=== PATIENT | female | born 1945 | race Caucasian/White ===

== ENCOUNTER → 2016-10-24 | Outpatient (CLI) | payer MEDICARE ==
--- NOTE | 2016-10-25 09:40 | MM ---
Reason for exam: screening (asymptomatic). Last mammogram was performed 1 year ago. History: Patient is postmenopausal. Benign core biopsy of the right breast, 2004. Benign excisional biopsy of the right breast, 2004. Took estrogen for 5 years. Physical Findings: A clinical breast exam by your physician is recommended on an annual basis and results should be correlated with mammographic findings. MG 3D Screening Mammo W/Cad Bilateral CC and MLO view(s) were taken. Prior study comparison: October 10, 2015, bilateral MG 3d screening mammo w/cad. March 03, 2015, left breast MG diagnostic mammo LT w CAD. There are scattered fibroglandular densities. There is no discrete abnormality. No significant changes when compared with prior studies. ASSESSMENT: Negative, BI-RAD 1 RECOMMENDATION: Routine screening mammogram of both breasts in 1 year.
== END ==
LOC: RADMAMWWP 09:58
PROVIDERS: ATTEND Internal Medicine
DX: Z12.31 Encounter for screening mammogram for malignant neoplasm of breast (principal)
CPT/HCPCS: 77063; G0202

== ENCOUNTER → 2018-06-09 | Outpatient (CLI) | payer MEDICARE ==
[2018-06-09 10:16] VITALS: BP 128/78; PULSE 67; TEMP 98; BMI 25.9
--- NOTE | 2018-06-09 11:28 | P.HPOB ---
History of Present Illness H&P Date: 06/09/18 Chief Complaint: The patient is here for her routine gynecologic exam and mammogram. This is a 72-year-old with an LMP of 1997. The patient has been experiencing some vaginal discomfort for about 7 months. She describes it as a tenderness or slight burning inside. She has not been sexually active for more than 5 years. She notices this more when she is sitting. She wonders if it is because she sits too much. She also notices it more when she moves certain ways. She denies any burning with urination. She denies urinary urgency. She also denies vaginal discharge or pruritus. She has been experiencing increased abdominal gassiness and bloating. She is also noticed a change in her bowel movements where her stools are softer and more narrow. She does move her bowels every day. She denies any postmenopausal bleeding. Review of Systems She has gained about 14 pounds over the last 2 years. She believes she has lost about 8 pounds during the past 3 months since her . She denies respiratory, cardiac and G.I. problems. She denies maltreatment or problems with falling. : she denies any significant problems with urinary leakage. Past Medical History Past Medical History: Asthma, COPD, Hypertension Additional Past Medical History / Comment(s): arthritis,depression, osteopenia and seasonal allergies. 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 She did use HRT for about 5 years after her LMP in 1997. History of Any Multi-Drug Resistant Organisms: None Reported Past Surgical History: Back Surgery (Lumbar laminectomy 1983), Breast Surgery ( Breast biopsy), Orthopedic Surgery (Hand surgery) Additional Past Surgical History / Comment(s): D&C 1972. Colonoscopy 2012. Past Psychological History: No Psychological Hx Reported Smoking Status: Former smoker (Quit February 2018) Past Alcohol Use History: Rare Past Drug Use History: None Reported Additional History: She's been a since February 2018. 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 - Past Family History Brother(s) Family Medical History: Cancer (colon) Additional Family Medical History / Comment(s): Another brother had an [place] Sister(s) Family Medical History: Cancer (Cervical) Mother Family Medical History: Cancer (Hodgkins lymphoma) Son(s) Family Medical History: Cancer (:Cholangiocarcinoma) Medications and Allergies Home Medications Medication Instructions Recorded Confirmed Type Albuterol Nebulized [Ventolin ml PO PRN 06/09/18 History Nebulized] Albuterol Sulfate [Proair mcg PO PRN 06/09/18 06/09/18 History Respiclick] Escitalopram [Lexapro] mg PO DAILY 06/09/18 History Fluticasone Furoate [Arnuity mcg INHALATION DAILY 06/09/18 History Ellipta] Ibandronate Sodium [Boniva] mg PO DIRECTED 06/09/18 History Losartan [Cozaar] mg PO DAILY 06/09/18 History Meloxicam [Mobic] mg PO DAILY 06/09/18 History Mometasone Furoate [Asmanex] mcg INHALATION BID 06/09/18 History Montelukast [Singulair] mg PO DAILY 06/09/18 History Multivitamin [Multivitamins Adult tab PO DAILY 06/09/18 History Gummies] amLODIPine [Norvasc] mg PO DAILY 06/09/18 06/09/18 History Allergies Allergy/AdvReac Type Severity Reaction Status Date / Time meperidine HCl [From Demerol] Allergy Anaphylaxis Verified 06/09/18 10:13 morphine Allergy Vomiting Verified 06/09/18 10:13 Penicillins Allergy Rash/Hives Verified 06/09/18 10:13 Exam Vital Signs Temp Pulse BP 06/09/18 10:13 98.0 F 67 128/78 Intake and Output 06/08/18 06/09/18 06/09/18 22:59 06:59 14:59 Other: Weight 64.41 kg Height 5'2", BMI 26.0. This is a well-developed well-nourished white female who is alert and oriented times 3 in no acute distress. HEENT: Within normal limits. NECK: Supple without mass or thyromegaly. CHEST AND LUNGS: Clear to auscultation. HEART: Regular rate and rhythm. BREASTS: Are without mass or discharge. AXILLARY EXAM: Negative for adenopathy. BACK: Negative for CVA tenderness. ABDOMEN: Soft, nontender, without palpable masses. PELVIC EXAM: Normal external genitalia with mild to moderate atrophy. Cervix and vagina appear normal is mild to moderate atrophy. There is no unusual discharge. There is no evidence of prolapse. Bimanual exam demonstrates mild urethral and bladder tenderness which is the discomfort that she has been describing as vaginal tenderness. The uterus is midposition, nongravid size and nontender. There there is a palpable mass in the left adnexa measuring approximately 2.5 cm which is firm and slightly irregular, possibly consistent with stool. This is also mildly tender.. RECTAL EXAM: rectovaginal exam is negative for mass or tenderness and is negative for occult blood. There is a moderate amount of soft stool in the rectum. EXTREMITIES: Nontender. IMPRESSION: 1. 72-year-old menopausal female with vaginal discomfort reproduce when palpating the area of the bladder and urethra. 2. Left adnexal mass possibly consistent with colonic stool. Differential diagnosis will also include ovarian mass. PLAN: 1. Pap smear was performed. 2.Self breast awareness was discussed with the patient. 3. Screening mammogram will be done today. 4. UA with CARDI[facility] CATH LAB RADIOLOGY TECHNOLOGIST will be obtained. 5. Pelvic ultrasound will be scheduled. 6. Because for change in bowel habits and bowel consistency, I have recommended colonoscopy. She states she will see Dr. Riggins for this. 7. She does get flu shots in the fall. 8. She will return in one year and PRN.
[2018-06-09 14:29] LABS: Appearance,Urine Clear (Clear); Bilirubin,Urine Negative (Negative); Blood,Urine Negative (Negative); Color,Urine Light Yellow; Glucose,Urine (UA) Negative (Negative); Ketones,Urine Negative (Negative); Leukocyte Esterase,Urine Negative (Negative); Nitrite,Urine Negative (Negative); Protein,Urine Negative (Negative); Specific Gravity,Urine 1.007 (1.001-1.035); Urobilinogen,Urine <2.0 mg/dL (<2.0)
--- NOTE | 2018-06-11 09:24 | MM ---
Reason for exam: screening (asymptomatic). Last mammogram was performed 1 year and 8 months ago. History: Patient is postmenopausal. Benign core biopsy of the right breast, 2004. Benign excisional biopsy of the right breast, 2003. Took estrogen for 5 years. Physical Findings: A clinical breast exam by your physician is recommended on an annual basis and results should be correlated with mammographic findings. MG 3D Screening Mammo W/Cad Bilateral CC and MLO view(s) were taken. Prior study comparison: October 24, 2016, bilateral MG 3d screening mammo w/cad. October 10, 2015, bilateral MG 3d screening mammo w/cad. The breast tissue is almost entirely fat. No significant changes when compared with prior studies. ASSESSMENT: Benign, BI-RAD 2 RECOMMENDATION: Routine screening mammogram of both breasts in 1 year.
== END | disposition home or self-care (01) ==
LOC: WWCWWP 09:38
PROVIDERS: ATTEND Obstetrics & Gynecology
DX: Z12.31 Encounter for screening mammogram for malignant neoplasm of breast (principal); R39.89 Other symptoms and signs involving the genitourinary system
CPT/HCPCS: 77063; 77067; 81003; 87086

== ENCOUNTER → 2018-06-19 | Outpatient (CLI) | payer MEDICARE ==
--- NOTE | 2018-06-19 15:05 | US ---
EXAMINATION TYPE: US pelvis complete transvag DATE OF EXAM: 06/19/2018 COMPARISON: None CLINICAL HISTORY: R68.89general symptoms and signs, R19.09Other intr. Left adnexal tenderness. Patie nt states doctor felt something on the left. TECHNIQUE: Transvaginal (TV) and Transabdominal (TA) . Transabdominal sonographic images of the pel vis were acquired. Transvaginal sonographic images were medically necessary to better assess the fol lowing anatomy: Ovaries and endometrium. Date of LMP: Postmenopausal, EXAM MEASUREMENTS: Uterus: 5.6 x 3.1 x 2.0 cm cm Endometrial Stripe: 0.2 cm Right Ovary: 1.4 x 1.1 x 0.8 cm Left Ovary: 1.8 x 1.2 x 1.0 cm 1. Uterus: Anteverted Heterogenous. Atrophy. Peripheral calcifications. 2. Endometrium: Fluid seen in fundal region. 3. Right Ovary: wnl 4. Left Ovary: wnl, only seen transabdominally 5. Bilateral Adnexa: bowel seen 6. Posterior cul-de-sac: no free fluid Heterogeneous anteverted uterus is seen. Tiny endometrial cyst near endometrial stripe is present. IMPRESSION: No suspicious ovarian or adnexal masses identified.
--- NOTE | 2018-06-23 17:57 | P.PN ---
Progress Note - Text Progress Note Date: 06/23/18 OUTPATIENT FOLLOW-UP NOTE TEST(S)/RESULTS: pelvic ultrasound on 06/19/2018 showed a tiny endometrial cyst near a very thin endometrial stripe with no suspicious adnexal masses. METHOD OF NOTIFICATION: patient was notified by phone. PATIENT COMMENTS: the patient had no questions about this test results. DIAGNOSIS: benign pelvic ultrasound without any findings to explain her vaginal discomfort. DISCUSSION: [] PLAN: the patient will call she is having increasing symptoms or problems. She' ll otherwise return in one year.
== END ==
LOC: RADUSWWP 14:07
PROVIDERS: ATTEND Obstetrics & Gynecology
DX: R19.09 Other intra-abdominal and pelvic swelling, mass and lump (principal); R68.89 Other general symptoms and signs
CPT/HCPCS: 76830; 76856

== ENCOUNTER 2019-03-30 10:21 | Day surgery (SDC) | payer MEDICARE ==
[2019-03-25 09:44] VITALS: BMI 28.1
[~2019-03-30 10:21] MED LIST: LACTATED RINGERS 1,000 ML IV SCH; LIDOCAINE 1% 20 ML VIAL (10MG/ML) FOR IV START INTRADERMA PRN
[2019-03-30 11:02] VITALS: TEMP 97.6
[2019-03-30] MEDS ORDERED: GLYCOPYRROLATE 0.2 MG/ML 2 ML VIAL ONE (11:25)
[2019-03-30] MEDS ORDERED: PROPOFOL 10 MG/ML 20 ML VIAL IV ONE (11:25)
[2019-03-30] MEDS ORDERED: LIDOCAINE 1% INJ 10MG/ML (20 ML MDV) ONE (11:25)
--- NOTE | 2019-03-30 11:30 | P.GSHP ---
History of Present Illness H&P Date: 03/30/19 Chief Complaint: Colon cancer screening Patient here today for colonoscopy. Last colonoscopy 2012. Patient with a personal history of colon polyps. Patient has a family history of colon cancer in her brother. Complains of hemorrhoids at times. Past Medical History Past Medical History: Asthma, COPD, Fibromyalgia, Hypertension, Thyroid Disorder Additional Past Medical History / Comment(s): arthritis,depression, osteopenia and seasonal allergies. HYPERKINITEC GALLBLADDER History of Any Multi-Drug Resistant Organisms: None Reported Past Surgical History: Back Surgery, Breast Surgery, Orthopedic Surgery Additional Past Surgical History / Comment(s): D&C 1972. Colonoscopy 2012., MULTIPLE LT HAND SX R/T INJURY Past Anesthesia/Blood Transfusion Reactions: Postoperative Nausea & Vomiting (PONV) Smoking Status: Former smoker - Past Family History Brother(s) Family Medical History: Cancer Additional Family Medical History / Comment(s): Another brother had an [place] Sister(s) Family Medical History: Cancer Mother Family Medical History: Cancer Son(s) Family Medical History: Cancer Medications and Allergies Home Medications Medication Instructions Recorded Confirmed Type Albuterol Nebulized [Ventolin 2.5 ml INHALATION QID 06/09/18 03/30/19 History Nebulized] Albuterol Sulfate [Proair 90 mcg PO QID 06/09/18 03/30/19 History Respiclick] Escitalopram [Lexapro] 20 mg PO DAILY 06/09/18 03/25/19 History Ibandronate Sodium [Boniva] 150 mg PO Q30D 06/09/18 03/30/19 History Losartan [Cozaar] 100 mg PO DAILY 06/09/18 03/25/19 History Meloxicam [Mobic] 7.5 mg PO DAILY 06/09/18 03/25/19 History Montelukast [Singulair] 10 mg PO HS 06/09/18 03/30/19 History Multivitamin [Multivitamins Adult 1 tab PO DAILY 06/09/18 03/25/19 History Gummies] amLODIPine [Norvasc] 2.5 mg PO HS 06/09/18 03/30/19 History ALPRAZolam [Xanax] 0.25 mg PO DAILY PRN 03/25/19 03/30/19 History ARIPiprazole [Abilify] 2 mg PO DAILY 03/25/19 03/25/19 History Baclofen [Lioresal] 20 mg PO HS 03/25/19 03/30/19 History Dicyclomine [Bentyl] 20 mg PO QID PRN 03/25/19 03/30/19 History Lactobacillus Acidophilus 1 each PO DAILY 03/25/19 03/30/19 History [Acidophilus] Levothyroxine Sodium [Synthroid] 50 mcg PO DAILY 03/25/19 03/25/19 History Allergies Allergy/AdvReac Type Severity Reaction Status Date / Time meperidine HCl [From Demerol] Allergy Anaphylaxis Verified 03/25/19 09:32 morphine Allergy Vomiting Verified 03/25/19 09:32 Penicillins Allergy Rash/Hives Verified 03/25/19 09:32 Sulfa (Sulfonamide Allergy Nausea & Verified 03/25/19 09:33 Antibiotics) Vomiting Surgical - Exam Vital Signs Temp Pulse Resp BP Pulse Ox 97.6 F 83 18 166/77 95 03/30/19 10:58 03/30/19 10:58 03/30/19 10:58 03/30/19 10:58 03/30/19 10:58 Physical exam: General: Well-developed, well-nourished HEENT: Normocephalic, sclerae nonicteric Abdomen: Nontender, nondistended Extremities: No edema Neuro: Alert and oriented Assessment and Plan (1) Colon cancer screening Narrative/Plan: Will proceed with colonoscopy at this time. Current Visit: Yes Status: Acute Code(s): Z12.11 - ENCOUNTER FOR SCREENING FOR MALIGNANT NEOPLASM OF COLON SNOMED Code(s): 348663173
--- NOTE | 2019-03-30 11:50 | P.PCN ---
Date of Procedure: 03/30/19 Procedure(s) Performed: PREOPERATIVE DIAGNOSIS: Colon cancer screening POSTOPERATIVE DIAGNOSIS: Extensive diverticulosis, hemorrhoids PROCEDURE: Colonoscopy ANESTHESIA: MAC SURGEON: Jorge Riggins M.D. SPECIMENS: None ENDOSCOPIC PROCEDURE: The patient was placed on the endoscopy table in the left decubitus position. The Olympus colonoscope was inserted into the anus and passed under direct visualization to the base of the cecum. The appendiceal orifice was visualized. From that point the scope was slowly withdrawn inspecting all surfaces carefully. There were no neoplastic inflammatory or polypoid lesions throughout the cecum, ascending, transverse, descending, sigmoid and rectum. There was severe diverticulosis noted throughout the entire colon. Digital rectal examination revealed internal and external hemorrhoids. Most prominent external hemorrhoids in the left lateral and right posterior position. No thrombosis seen. The patient was taken to the recovery room in stable condition per anesthesia guidelines. RECOMMENDATIONS: Increase fiber. Follow-up colonoscopy 5 years.
[2019-03-30 11:54] VITALS: RESP 16
[2019-03-30 12:10] VITALS: BP 151/78; PULSE 80
== END 2019-03-30 12:34 | disposition home or self-care (01) ==
LOC: ORWHC2ENDO 10:21
PROVIDERS: ATTEND Surgery
DX: Z12.11 Encounter for screening for malignant neoplasm of colon (principal); K57.90 Diverticulosis of intestine, part unspecified, without perforation or abscess without bleeding; K64.4 Residual hemorrhoidal skin tags; K64.8 Other hemorrhoids; Z80.0 Family history of malignant neoplasm of digestive organs; Z86.010 Personal history of colon polyps; K82.9 Disease of gallbladder, unspecified; J44.9 Chronic obstructive pulmonary disease, unspecified; I10 Essential (primary) hypertension; Z87.891 Personal history of nicotine dependence; F32.9 Major depressive disorder, single episode, unspecified; M19.90 Unspecified osteoarthritis, unspecified site; M79.7 Fibromyalgia; E07.9 Disorder of thyroid, unspecified; Z82.49 Family history of ischemic heart disease and other diseases of the circulatory system; M85.80 Other specified disorders of bone density and structure, unspecified site; Z79.890 Hormone replacement therapy; Z79.1 Long term (current) use of non-steroidal anti-inflammatories (NSAID); Z79.899 Other long term (current) drug therapy; Z88.5 Allergy status to narcotic agent; Z88.2 Allergy status to sulfonamides; Z91.048 Other nonmedicinal substance allergy status; Z88.0 Allergy status to penicillin
CPT/HCPCS: J2001; J2704; G0105; 45378

== ENCOUNTER → 2019-06-11 | Outpatient (CLI) | payer MEDICARE ==
--- NOTE | 2019-06-14 08:32 | PE ---
EXAMINATION TYPE: PET CT fusion skull to thigh DATE OF EXAM: 06/11/2019 COMPARISON: NONE HISTORY: Lung mass, initial treatment strategy. No prior chemotherapy, radiation, nor surgery TECHNIQUE: Following the intravenous administration of 11.59 mCi of F-18 FDG, whole body images are performed from the skull base to the midthigh. Images are reviewed on the computer in the coronal, a xial, and sagittal planes. Reconstructed rotating images are created on independent workstation and reviewed on the computer. A localization and attenuation correction CT is performed in conjunction with the PET scan. SCAN: Initial FINDINGS: Thoracic Background: 1.27 Abdominal background: 2.71 SKULL BASE AND NECK: No suspicious hypermetabolic uptake. CHEST, MEDIASTINUM, AND HILAR REGION: There is a markedly hypermetabolic right mediastinal mass intim ately associated with the mediastinum extending of the mediastinum along the right peritracheal borde rs with avidity in the upper thoracic vertebral bodies concerning for invasion. This has a maximum HANSON V of 33.54, compatible with neoplasm. Additional right hilar lymph node adjacent to the superior vena cava has a maximum SUV of 5.05. This has a size of only 6 mm in short axis on series 3 image 70. ABDOMEN AND PELVIS: No concerning hypermetabolic uptake. Scattered areas of hypermetabolic uptake thr oughout the bowel, particularly within the ascending colon and cecum are likely related to excretion. Mild uptake within the hiatal hernia also may relate to physiologic uptake having a maximum SUV of 2 .57 although slightly above mediastinal background. Esophagitis/gastritis is also possible. OSSEOUS STRUCTURES: Pathologic avidity within the lesion on the thoracic mass is seen in the upper th oracic vertebral bodies particularly within T2, T3, and T4. Some uptake along the left greater trocha nter having a maximum SUV of 3.38 and along the right greater trochanter having a maximum SUV of 2.18 likely relate to insertional tendinosis of the gluteal musculature or trochanteric bursitis. OTHER CT: Mild underlying emphysematous change of the lungs superior segment right lower lobe cyst wi th surrounding scarring is seen in the posterior medial aspect of the superior segment of the right l ower lobe. Multifocal pleural parenchymal scarring is noted. Medial right upper lobe pulmonary mass a s detailed above measures up to 4.9 x 2.9 cm on series 3 image 60 again invading the thoracic vertebr al body and suspected invasion of the mediastinum with no clear borders on image 62 near the trachea as annotated. Probable benign right bone island of the humeral head and lucent degenerative change of the left saray ral head are noted. Lucency along the midthoracic vertebral bodies from invasion is noted within sarah ices along the right. Sclerotic focus of S1 is not hypermetabolic having a maximum SUV of 1.94. This could represent a hyperdense bone island, much less likely metastasis. Numerous colonic diverticula are most pronounced in the sigmoid colon. Few air-fluid levels are seen within prominent but nondilated small bowel, likely related to mild ileus. No evidence of obstruction . Small hiatal hernia. Extensive atherosclerosis of the aorta and severe coronary artery calcificatio ns. Gallbladder is elongated measuring 8 cm. IMPRESSION: 1. Findings are compatible with malignant pulmonary neoplasm with suspected mediastinal invasion into 3 upper thoracic vertebral bodies as a maximum SUV of this 4.9 x 2.9 cm mass is 33.54. Solitary obinna tional right perihilar nonenlarged but hypermetabolic 6 mm lymph node is seen. No suspicious infradia phragmatic or contralateral lung/mediastinal findings. No suspicious infraclavicular adenopathy. 2. Slight hypermetabolic activity within a small hiatal hernia that most commonly represent gastritis /esophagitis. 3. Findings of either insertional gluteal tendinosis or greater trochanteric bursitis, left greater t snyder right.
== END | disposition home or self-care (01) ==
LOC: RADPETMAIN 15:56
PROVIDERS: ATTEND Internal Medicine
DX: R91.8 Other nonspecific abnormal finding of lung field (principal)
CPT/HCPCS: 78815; A9552

== ENCOUNTER → 2019-06-25 | Outpatient (CLI) | payer MEDICARE ==
[2019-06-25 11:51] LABS: Appearance,Urine Clear (Clear); Bacteria,Urine Rare /hpf; Bilirubin,Urine Negative (Negative); Blood,Urine Negative (Negative); Color,Urine Yellow; Glucose,Urine (UA) Negative (Negative); Ketones,Urine Negative (Negative); Leukocyte Esterase,Urine Large (Negative); Mucus,Urine Rare /hpf; Nitrite,Urine Negative (Negative); PH, Urine 5.5 (5.0-8.0); Protein,Urine Negative (Negative); RBC,Urine 6 /hpf (0-5); Specific Gravity,Urine 1.016 (1.001-1.035); Squamous Epithelial Cell,Urine 3 /hpf (0-4); Urobilinogen,Urine <2.0 mg/dL (<2.0); WBC,Urine 17 /hpf (0-5)
[2019-06-25 12:01] LABS: Basophils # (A) 0.1 k/uL (0-0.2); Basophils % (A) 1 %; Eosinophils # (A) 0.1 k/uL (0-0.7); Eosinophils % (A) 1 %; HCT 39.3 % (34.0-46.0); HGB 12.9 gm/dL (11.4-16.0); Lymphocytes # (A) 1.2 k/uL (1.0-4.8); Lymphocytes % (A) 13 %; MCH 29.8 pg (25.0-35.0); MCHC 32.8 g/dL (31.0-37.0); Mean Platelet Volume 6.9; Monocytes # (A) 0.5 k/uL (0-1.0); Monocytes % (A) 6 %; Neutrophils % (A) 78 %; Platelet Count 268 k/uL (150-450); RBC 4.32 m/uL (3.80-5.40); RDW 12.7 % (11.5-15.5); WBC 8.9 k/uL (3.8-10.6)
[2019-06-25 17:07] LABS: African American GFR (CKD) 98.2 (60.0-200.0); Albumin 4.6 g/dL (3.80-4.90); Albumin/Globulin Ratio 2.09 (1.60-3.17); BUN/Creat Ratio 22.86 Ratio (12.00-20.00); Calcium 9.5 mg/dL (8.7-10.3); Chol/HDL Ratio 2.45; Globulin 2.2 g/dL (1.6-3.3); LDL Cholesterol,Calculated 95.4 mg/dL (0.0-131.0); Non-African American GFR(CKD) 84.8 (60.0-200.0); Potassium 4.5 mmol/L (3.5-5.5); Total Bilirubin 0.6 mg/dL (0.3-1.2); Total Protein 6.8 g/dL (6.2-8.2); VLDL Calculation 17.6 mg/dL (5.00-40.00)
== END | disposition home or self-care (01) ==
LOC: LABWHC1 10:42
PROVIDERS: ATTEND Internal Medicine
DX: Z13.6 Encounter for screening for cardiovascular disorders (principal); I10 Essential (primary) hypertension; E55.9 Vitamin D deficiency, unspecified; R79.89 Other specified abnormal findings of blood chemistry
CPT/HCPCS: 36415; 80053; 80061; 81001; 82306; 84443; 85025

== ENCOUNTER → 2019-07-05 | Outpatient (CLI) | payer MEDICARE ==
--- NOTE | 2019-07-05 20:53 | MR ---
EXAMINATION TYPE: MR brain wo/w con DATE OF EXAM: 07/05/2019 COMPARISON: None HISTORY: Malignant neoplasm of upper lobe TECHNIQUE: Multiplanar, multisequence images of the brain and brainstem is performed without and with IV contras t, utilizing 7.5 mL intravenous Gadavist . FINDINGS: Ventricles have normal size. There is no mass effect nor midline shift. There is no sign of intracranial hemorrhage. Corpus callosum appears normal. Sella turcica appears normal. Brainstem is intact. There is no evidence of cortical infarct. There is no evidence of cerebral edema. I see no pa thologic enhancement. There is minimal cerebral atrophy. IMPRESSION: Minimal cerebral atrophy. Otherwise negative exam. No evidence of metastatic disease. No evidence of cortical infarct.
== END | disposition home or self-care (01) ==
LOC: RADMRIMAIN 17:32
PROVIDERS: ATTEND Radiology Radiation Oncology
DX: C34.11 Malignant neoplasm of upper lobe, right bronchus or lung (principal)
CPT/HCPCS: 70553; A9585

== ENCOUNTER → 2019-09-21 | Outpatient (CLI) | payer MEDICARE ==
[2019-09-21 10:58] VITALS: BP 127/82; PULSE 93; RESP 18; TEMP 98.7
--- NOTE | 2019-09-21 11:51 | P.HPOB ---
History of Present Illness H&P Date: 09/21/19 Chief Complaint: The patient is here for her routine gynecologic exam and ma mmogram. This is a 73-year-old with an LMP of 1997. The patient is without gynecologic complaints. She has been having some urinary symptoms since she was treated for lung cancer in July 2018. She was treated for UTI in July, but still has occasional urinary symptoms consisting of urinary frequency and occasional urinary leakage. She denies dysuria. Most of the time she voids g ood amounts, but occasionally has small voids. She is otherwise without complaints. Review of Systems She is gained about 14 pounds over the last year. She did quit smoking about 1- 1/2 years ago and had been diagnosed with lung cancer. She denies respiratory, cardiac and G.I. problems. She denies maltreatment or problems with falling. : She has experienced occasional urinary leakage since her treatment for lung cancer in July 2019.. Past Medical History Past Medical History: Asthma, Cancer, COPD, Fibromyalgia, Hypertension, Thyroid Disorder Additional Past Medical History / Comment(s): Lung cancer 2019. Arthritis,depression, osteopenia and seasonal allergies. HYPERKINITEC GALLBLADDER. 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 She used HRT for about 5 years after her LMP. History of Any Multi-Drug Resistant Organisms: None Reported Past Surgical History: Back Surgery, Breast Surgery, Orthopedic Surgery Additional Past Surgical History / Comment(s): D&C 1972. Colonoscopy with upper endoscopy 2018(next after 5yrs)., MULTIPLE LT HAND SX R/T INJURY. Lumbar laminectomy, hand surgery and breast biopsy. Transesophageal lung biopsy. Past Anesthesia/Blood Transfusion Reactions: Postoperative Nausea & Vomiting (PONV) Past Psychological History: No Psychological Hx Reported Smoking Status: Former smoker Past Alcohol Use History: Rare Additional Past Alcohol Use History / Comment(s): QUIT SMOKING 2017 Past Drug Use History: None Reported Additional Drug Use History / Comment(s): USES CBD OIL-INSTRUCTED TO REFRAIN FROM USE FOR AT LEAST 24 HOURS PRIOR TO PROCEDURE Additional History: She has been a since 2017 and is not sexually active. 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 - Past Family History Brother(s) Family Medical History: Cancer, Myocardial Infarction ([place]), Renal Disease Additional Family Medical History / Comment(s): Esophageal cancer. Melanoma and renal failure. Another brother had an [place]. Sister(s) Family Medical History: Cancer Additional Family Medical History / Comment(s): Cervical cancer. Mother Family Medical History: Cancer Additional Family Medical History / Comment(s): Hodgkin's lymphoma. Son(s) Family Medical History: Cancer Additional Family Medical History / Comment(s): Cholangiocarcinoma. Medications and Allergies Home Medications Medication Instructions Recorded Confirmed Type Albuterol Nebulized [Ventolin 2.5 ml INHALATION QID 06/09/18 09/21/19 History Nebulized] Albuterol Sulfate [Proair 90 mcg PO QID 06/09/18 09/21/19 History Respiclick] Escitalopram [Lexapro] 20 mg PO DAILY 06/09/18 09/21/19 History Ibandronate Sodium [Boniva] 150 mg PO Q30D 06/09/18 09/21/19 History Losartan [Cozaar] 100 mg PO DAILY 06/09/18 09/21/19 History Meloxicam [Mobic] 7.5 mg PO DAILY 06/09/18 09/21/19 History Montelukast [Singulair] 10 mg PO HS 06/09/18 09/21/19 History Multivitamin [Multivitamins Adult 1 tab PO DAILY 06/09/18 09/21/19 History Gummies] ALPRAZolam [Xanax] 0.25 mg PO DAILY PRN 03/25/19 09/21/19 History Baclofen [Lioresal] 20 mg PO HS 03/25/19 09/21/19 History Dicyclomine [Bentyl] 20 mg PO QID PRN 03/25/19 09/21/19 History Lactobacillus Acidophilus 1 each PO DAILY 03/25/19 09/21/19 History [Acidophilus] Levothyroxine Sodium [Synthroid] 50 mcg PO DAILY 03/25/19 09/21/19 History Allergies Allergy/AdvReac Type Severity Reaction Status Date / Time meperidine HCl [From Demerol] Allergy Anaphylaxis Verified 03/25/19 09:32 morphine Allergy Vomiting Verified 03/25/19 09:32 Penicillins Allergy Rash/Hives Verified 03/25/19 09:32 Sulfa (Sulfonamide Allergy Nausea & Verified 03/25/19 09:33 Antibiotics) Vomiting ciprofloxacin [From Cipro] AdvReac Nausea Unverified 09/21/19 10:59 sulfamethoxazole AdvReac Nausea Unverified 09/21/19 10:59 [From Bactrim] trimethoprim [From Bactrim] AdvReac Nausea Unverified 09/21/19 10:59 Exam Vital Signs Temp Pulse Resp BP Pulse Ox 09/21/19 10:53 98.7 F 93 18 127/82 94 L Intake and Output 09/20/19 09/21/19 09/21/19 22:59 06:59 14:59 Other: Weight 70.307 kg Height 5 feet 1 inch, weight 155 pounds, BMI 29.3. This is a well-developed well-nourished white female who is alert and oriented times 3 in no acute distress. HEENT: Within normal limits. NECK: Supple without mass or thyromegaly. CHEST AND LUNGS: Clear to auscultation. HEART: Regular rate and rhythm. BREASTS: Are without mass or discharge. AXILLARY EXAM: Negative for adenopathy. BACK: Negative for CVA tenderness. ABDOMEN: Soft, nontender, without palpable masses. PELVIC EXAM: Normal external genitalia with mild atrophy. Cervix and vagina appear normal with mild atrophy. There is no unusual discharge. There is no evidence of prolapse. The uterus is midposition, nongravid size and nontender. There are no palpable adnexal masses or tenderness. RECTAL EXAM: Rectovaginal exam is negative for mass or tenderness and is negative for occult blood. EXTREMITIES: Nontender. IMPRESSION: 1. 73-year-old menopausal female with normal gynecologic exam. 2. Intermittent urinary symptoms consisting of occasional urinary frequency and slight urinary leakage. She states her symptoms developed around the time of her treatment for breast cancer in July 2019. PLAN: 1. Pap smear was deferred since she had a normal one on 06/09/2018. We will repeat this in 1-2 years and if this is negative, we will consider discontinuing Pap smears. 2. Self breast awareness was discussed with the patient. 3. Screening mammogram will be done today. 4. Osteoporosis prevention was discussed. I have stressed the importance of adequate calcium, vitamin D and regular exercise. Recommended amounts of calcium and vitamin D were also discussed. Treatment with Boniva and bone density testing will be done through her primary care physician, as she has done in the past. 5. Clean catch midstream urinalysis and culture with sensitivity has been obtained. 6. She did receive her flu shot this fall. 7. The patient was advised to return in 1-2 years for her well woman examination.
[2019-09-21 21:10] LABS: Appearance,Urine Clear (Clear); Bilirubin,Urine Negative (Negative); Blood,Urine Negative (Negative); Color,Urine Yellow; Glucose,Urine (UA) Negative (Negative); Ketones,Urine Negative (Negative); Leukocyte Esterase,Urine Negative (Negative); Nitrite,Urine Negative (Negative); Protein,Urine Negative (Negative); Specific Gravity,Urine 1.018 (1.001-1.035); Urobilinogen,Urine <2.0 mg/dL (<2.0)
--- NOTE | 2019-09-22 11:50 | P.PN ---
Progress Note - Text Progress Note Date: 09/22/19 OUTPATIENT FOLLOW-UP NOTE TEST(S)/RESULTS: Urinalysis from 09/21/2019 was negative. METHOD OF NOTIFICATION: Patient was notified by phone. PATIENT COMMENTS: DIAGNOSIS: No evidence of UTI by urinalysis. DISCUSSION: We have discussed that some of her urinary symptoms may be related to non-infectious causes including the possible association with her chemotherapy since she thinks her urinary symptoms started around the time of her chemotherapy treatment. She will discuss this with her oncologist to see if this is a possible side effect of the chemotherapy. PLAN: Await urine culture.
--- NOTE | 2019-09-23 13:52 | MM ---
Reason for exam: screening (asymptomatic). Last mammogram was performed 1 year and 3 months ago. History: Patient is postmenopausal and has history of other cancer at age 73. Benign core biopsy of the right breast, 2004. Benign excisional biopsy of the right breast, 2003. Took estrogen for 5 years. Physical Findings: A clinical breast exam by your physician is recommended on an annual basis and results should be correlated with mammographic findings. MG 3D Screening Mammo W/Cad Bilateral CC and MLO view(s) were taken. Prior study comparison: June 09, 2018, bilateral MG 3d screening mammo w/cad. October 24, 2016, bilateral MG 3d screening mammo w/cad. There are scattered fibroglandular densities. There is no discrete abnormality. No significant changes when compared with prior studies. ASSESSMENT: Negative, BI-RAD 1 RECOMMENDATION: Routine screening mammogram of both breasts in 1 year.
--- NOTE | 2019-09-29 10:59 | P.PN ---
Progress Note - Text Progress Note Date: 09/29/19 OUTPATIENT FOLLOW-UP NOTE TEST(S)/RESULTS: test results from 09/21/2019 include benign mammogram and urine culture showing Klebsiella pneumonia sensitive to cefazolin. METHOD OF NOTIFICATION: the patient was notified by phone. PATIENT COMMENTS: the patient states she is having burning with urination. She states she does not want to take ciprofloxacin because it did cause side effects. Also Bactrim caused some nausea. She has taken Keflex without problems and is also requesting to get a prescription for pyridium which she is taken for in the past and she had burning. DIAGNOSIS: uncomplicated urinary tract and infection DISCUSSION: PLAN: Keflex 500 mg every 12 hours 5 days and pyridium 100 mg 3 times a day 2 days. These prescriptions will be sent to [facility] on [facility].The patient was instructed to call she does not have improvement of her symptoms at which time we we'll consider repeating urine testing.
== END | disposition home or self-care (01) ==
LOC: WWCWWP 10:34
PROVIDERS: ATTEND Obstetrics & Gynecology
DX: Z12.31 Encounter for screening mammogram for malignant neoplasm of breast (principal); R35.0 Frequency of micturition
CPT/HCPCS: 77063; 77067; 81003; 87077; 87086; 87186

== ENCOUNTER → 2019-10-15 | Outpatient (CLI) | payer MEDICARE ==
[2019-10-15 14:08] LABS: African American GFR (CKD) >90 (>60 ml/min/1.73 sqM); Blood Urea Nitrogen 11 mg/dL (7-17); Non-African American GFR(CKD) >90 (>60 ml/min/1.73 sqM)
--- NOTE | 2019-10-15 23:23 | CT ---
EXAMINATION TYPE: CT chest w con DATE OF EXAM: 10/15/2019 COMPARISON: None HISTORY: Lung cancer. CT DLP: 337.5 mGycm, Automated exposure control for dose reduction was used. CONTRAST: Performed injected with 100 mL of Isovue 300. TECHNIQUE: Axial images were obtained at 5 mm thick sections. Reconstructed images are reviewed on [employer] computer in the coronal plane. FINDINGS: Portion of the thyroid visualized is normal. There is mild increased lung markings in the as ago esophageal recess and posterior to the right hilu m could be compatible with the patient's reported lung cancer. There is a cavitation within the right lower lobe could be a pneumatocele. Suspicious masses are not otherwise identified. Punctate density is in the lingula. Series 4 image 31. Soft tissue thickening may be along the posterior right mediastinal border compatible with the patien t's prior cancer. This is more readily apparent on the PET/CT of 06/11/2019. This area is smaller than comparison. Continued monitoring with PET CT is recommended. No enlarged mediastinal or hilar adenopathy is evident. The ascending aorta diameter at the level o f the main pulmonary artery is 2.8 cm. The main pulmonary artery diameter at the bifurcation is 2.2 cm. Coronary artery calcification is noted. Limited CT sections are obtained through the upper abdomen. Abdomen is essentially unremarkable. IMPRESSIONS: 1. There is continued diminished size of the mediastinal and right lung cancer compared to the prior PET/CT. Consider monitoring with PET CT.
== END | disposition home or self-care (01) ==
LOC: RADCTMAIN 12:59
PROVIDERS: ATTEND Internal Medicine Hematology & Oncology
DX: C34.11 Malignant neoplasm of upper lobe, right bronchus or lung (principal); Z88.5 Allergy status to narcotic agent; Z88.0 Allergy status to penicillin
CPT/HCPCS: 82565; 84520; 71260; 36415; Q9967

== ENCOUNTER → 2019-11-05 | Outpatient (CLI) | payer MEDICARE ==
--- NOTE | 2019-11-05 10:31 | XR ---
EXAMINATION TYPE: XR chest 2V DATE OF EXAM: 11/05/2019 COMPARISON: 10/20/2018 TECHNIQUE: PA and lateral views submitted. HISTORY: Cough FINDINGS: The lungs are clear and there is no pneumothorax, pleural effusion, or focal pneumonia. Faint nodul e at the right lung base noted. Atherosclerotic change aorta. No overt failure. Mediastinal adenopath y noted by previous CT scan not well seen by x-ray. Hypertrophic and degenerative change of the spine . IMPRESSION: 1. No evidence of significant consolidation. Adenopathy noted by CT scan not as well seen by standard x-ray. Faint subcentimeter nodule right lung base.
== END | disposition home or self-care (01) ==
LOC: RADXRMAIN 10:02
PROVIDERS: ATTEND Internal Medicine Hematology & Oncology
DX: R91.1 Solitary pulmonary nodule (principal); J44.9 Chronic obstructive pulmonary disease, unspecified; R59.9 Enlarged lymph nodes, unspecified; I10 Essential (primary) hypertension; Z71.3 Dietary counseling and surveillance
CPT/HCPCS: 71046

== ENCOUNTER → 2019-11-09 | Outpatient (CLI) | payer MEDICARE ==
--- NOTE | 2019-11-09 10:58 | US ---
EXAMINATION TYPE: US venous doppler duplex LE LT DATE OF EXAM: 11/09/2019 10:45 AM COMPARISON: NONE CLINICAL HISTORY: R22.42 SWELLING OF LT LOWER LIMB. Lung cancer. On immunotherapy. SIDE PERFORMED: Left TECHNIQUE: The lower extremity deep venous system is examined utilizing real time linear array sonog lisa with graded compression, doppler sonography and color-flow sonography. VESSELS IMAGED: External Iliac Vein (EIV) Common Femoral Vein Deep Femoral Vein Greater Saphenous Vein * Femoral Vein Popliteal Vein Small Saphenous Vein * Proximal Calf Veins (* superficial vessels) Grayscale, color doppler, spectral doppler imaging performed of the deep veins of the left lower extr emity. There is normal flow, compressibility, vascular waveforms. Left Leg: Negative for DVT IMPRESSION: No sonographic evidence of deep venous thrombosis within the left lower extremity.
== END | disposition home or self-care (01) ==
LOC: RADUSWWP 10:24
PROVIDERS: ATTEND Internal Medicine Hematology & Oncology
DX: R22.42 Localized swelling, mass and lump, left lower limb (principal)

== ENCOUNTER → 2019-11-11 | Outpatient (CLI) | payer MEDICARE ==
--- NOTE | 2019-11-11 10:39 | MR ---
"Thoracic spine MRI with and without contrast history: Lung carcinoma and pain Multiplanar multisequence and postcontrast images obtained through the thoracic spine following 7 cc Gadavist IV. Correlation chest CT 10/15/2019 T4 and T5 vertebral bodies show abnormal intermediate signal on T1-weighted images, low signal presen t on T2 weighted sequences within the fifth thoracic vertebral body, intermediate and higher signal w ithin the T4 vertebral body anteriorly. There is enhancement following contrast administration. Infer ior endplate of T6 shows a focal area of intermediate signal on T1 and T2-weighted sequences which sh ows enhancement following contrast administration. There is a mild spinal curvature present. Focal ar ea of increased signal in the L1 vertebral body on T1 and T2-weighted sequences is likely representat garland of hemangioma. Degenerative disc changes are present within the cervical spine. Thoracic spine sh ows multilevel spondylosis with loss of disc height at intervertebral levels. Multilevel disc bulges are present however there is no evident spinal stenosis. Thoracic cord signal is maintained. There is some motion on the exam, artifact especially in the upper levels. There is some multilevel facet art hropathy change. Small right pleural effusion is noted incidentally, right hilar mass also present. P roximal descending aorta is aneurysmal. IMPRESSION: Metastatic disease. Small right pleural effusion. Findings consistent with patient's hist ory of lung carcinoma. Aortic aneurysm. A Yellow level critical message alert has been initiated for Michelle Pat MD via the [employer] 36 0 | Critical Results System on 11/11/2019 10:36 AM. This message alert has been sent to Michelle Pta MD via the preferences provided by the clinician for the receipt of Radiology Critical Findings. [facility] [id number]."
== END | disposition home or self-care (01) ==
LOC: RADMRIMAIN 08:48
PROVIDERS: ATTEND Internal Medicine Hematology & Oncology
DX: J90 Pleural effusion, not elsewhere classified (principal); I71.9 Aortic aneurysm of unspecified site, without rupture; C34.11 Malignant neoplasm of upper lobe, right bronchus or lung
CPT/HCPCS: 72157; A9585

== ENCOUNTER 2019-11-14 11:10 | Emergency (ER) | payer MEDICARE ==
[2019-11-14 11:19] VITALS: RESP 18
[2019-11-14] MEDS ORDERED: HYDROmorphone 1 MG/ML 1 ML SYRINGE IM STA (11:42)
--- NOTE | 2019-11-14 12:06 | XR ---
EXAMINATION TYPE: XR wrist complete RT , 4 VIEWS DATE OF EXAM ORDERED: 11/14/2019 HISTORY: fall, deformity. COMPARISON: None. FINDINGS: There is a minimally displaced fracture of the distal radius with an associated ulnar frac ture. I'm unable to determine whether this extends intra-articularly. There is a small amount of soft tissue swelling. There is irregularity of the base of the first metacarpal. The trapezium appears to be absent. No scaphoid fracture is seen. IMPRESSION: 1. MINIMALLY DISPLACED FRACTURE OF THE DISTAL RADIAL STYLOID. 2. ABSENCE OF THE TRAPEZIUM IS LIKELY IATROGENIC.
--- NOTE | 2019-11-14 12:15 | ED ---
Upper Extremity HPI - General Chief Complaint: Extremity Injury, Upper Stated Complaint: poss broken wrist Time Seen by Provider: 11/14/19 11:20 Source: patient Mode of arrival: ambulatory Limitations: no limitations - History of Present Illness Initial Comments: The patient is a 74-year-old female past mental history of lung cancer with metastasis who presents to the emergency room with reported fall. She states that she was walking in between her dresser and her bed. She attempted to lean onto her bed when she missed her step and fell. She fell onto an outstretched right hand. He had pain. No nausea or vomiting with episodes. Admits to distal forearm pain. No elbow or shoulder pain. Denies head trauma or loss of consciousness. She is not on any blood thinners. Denies syncopal episode. Denies numbness or tingling in her hand. She did take her [place] at home for pain. She is left-handed. There are no other alleviating, preciptating or modifying factors - Related Data Home Medications Medication Instructions Recorded Confirmed Albuterol Nebulized [Ventolin 2.5 ml INHALATION QID 06/09/18 09/21/19 Nebulized] Albuterol Sulfate [Proair 90 mcg PO QID 06/09/18 09/21/19 Respiclick] Escitalopram [Lexapro] 20 mg PO DAILY 06/09/18 09/21/19 Ibandronate Sodium [Boniva] 150 mg PO Q30D 06/09/18 09/21/19 Losartan [Cozaar] 100 mg PO DAILY 06/09/18 09/21/19 Meloxicam [Mobic] 7.5 mg PO DAILY 06/09/18 09/21/19 Montelukast [Singulair] 10 mg PO HS 06/09/18 09/21/19 Multivitamin [Multivitamins Adult 1 tab PO DAILY 06/09/18 09/21/19 Gummies] ALPRAZolam [Xanax] 0.25 mg PO DAILY PRN 03/25/19 09/21/19 Baclofen [Lioresal] 20 mg PO HS 03/25/19 09/21/19 Dicyclomine [Bentyl] 20 mg PO QID PRN 03/25/19 09/21/19 Lactobacillus Acidophilus 1 each PO DAILY 03/25/19 09/21/19 [Acidophilus] Levothyroxine Sodium [Synthroid] 50 mcg PO DAILY 03/25/19 09/21/19 Previous Rx's Medication Instructions Recorded Cephalexin [Keflex] 500 mg PO Q12HR 5 Days #10 cap 09/29/19 Phenazopyridine [Pyridium] 100 mg PO TID 2 Days #6 tablet 09/29/19 Allergies Allergy/AdvReac Type Severity Reaction Status Date / Time meperidine HCl [From Demerol] Allergy Anaphylaxis Verified 11/14/19 11:16 morphine Allergy Vomiting Verified 11/14/19 11:16 Penicillins Allergy Rash/Hives Verified 11/14/19 11:16 Sulfa (Sulfonamide Allergy Nausea & Verified 11/14/19 11:16 Antibiotics) Vomiting ciprofloxacin [From Cipro] AdvReac Nausea Unverified 11/14/19 11:16 sulfamethoxazole AdvReac Nausea Unverified 11/14/19 11:16 [From Bactrim] trimethoprim [From Bactrim] AdvReac Nausea Unverified 11/14/19 11:16 Review of Systems ROS Statement: Those systems with pertinent positive or pertinent negative responses have been documented in the HPI. ROS Other: All systems not noted in ROS Statement are negative. Past Medical History Past Medical History: Asthma, Cancer, COPD, Fibromyalgia, Hypertension, Thyroid Disorder Additional Past Medical History / Comment(s): Lung cancer 2019. Arthritis,depression, osteopenia and seasonal allergies. HYPERKINITEC GALLBLADDER. 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 She used HRT for about 5 years after her LMP. History of Any Multi-Drug Resistant Organisms: None Reported Past Surgical History: Back Surgery, Breast Surgery, Orthopedic Surgery Additional Past Surgical History / Comment(s): D&C 1972. Colonoscopy with upper endoscopy 2019(next after 5yrs)., MULTIPLE LT HAND SX R/T INJURY. Lumbar laminectomy, hand surgery and breast biopsy. Transesophageal lung biopsy. Past Anesthesia/Blood Transfusion Reactions: Postoperative Nausea & Vomiting (PONV) Past Psychological History: Depression Smoking Status: Former smoker Past Alcohol Use History: Rare Past Drug Use History: None Reported - Past Family History Brother(s) Family Medical History: Cancer, Myocardial Infarction ([place]), Renal Disease Additional Family Medical History / Comment(s): Esophageal cancer. Melanoma and renal failure. Another brother had an [place]. Sister(s) Family Medical History: Cancer Additional Family Medical History / Comment(s): Cervical cancer. Mother Family Medical History: Cancer Additional Family Medical History / Comment(s): Hodgkin's lymphoma. Son(s) Family Medical History: Cancer Additional Family Medical History / Comment(s): Cholangiocarcinoma. General Exam Limitations: no limitations General appearance: alert, in no apparent distress Head exam: Present: atraumatic, normocephalic Extremities exam: Present: other (tenderness to palpation of the right dorsal wrist. There is appreciable swelling. The patient can abduct and adduct her fingers, flex and extend at the elbow and shoulder. Patient can also flex at the wrist however this is painful. She has intact 2 point discrimination in the median, radial and ulnar nerve distributions. Radial and ulnar nerves are 2+ ) Course Vital Signs 11/14/19 11/14/19 11:16 12:33 Temperature 97.4 F L 98.0 F Pulse Rate 99 93 Respiratory 18 18 Rate Blood Pressure 168/78 150/73 O2 Sat by Pulse 93 L 95 Oximetry Medical Decision Making - Medical Decision Making Upon arrival the patient is placed into room 24. History and physical was performed. The patient was given 1 mg of Dilaudid IM. X-ray does demonstrate minimally displaced fracture of the distal radial styloid. This is discussed with the patient. The orthopedic PA is in the emergency department and does evaluate the x-ray. She does place the patient in a thumb spica splint. She needs to follow up with Dr. Montemayor in office this week. Rest, ice and elevate the extremity. She has any new or worsening symptoms she should return to the emergency room. Patient was discharged home in stable condition Disposition Clinical Impression: Radius distal fracture, Fall Disposition: HOME SELF-CARE Condition: Stable Instructions (If sedation given, give patient instructions): Wrist Fracture in Adults (ED) Additional Instructions: Please follow-up with Dr. Montemayor in office. Take your [place] for pain. Rest, ice and elevate the extremity. Return to the emergency room for any new or worsening symptoms. Is patient prescribed a controlled substance at d/c from ED?: No Referrals: Petey Edwards MD [Primary Care Provider] - 1-2 days Ivan Montemayor MD [STAFF PHYSICIAN] - 1-2 days Time of Disposition: 12:11
[2019-11-14 12:34] VITALS: BP 150/73; PULSE 93; TEMP 98
== END 2019-11-14 12:34 | disposition home or self-care (01) ==
LOC: EC 11:10
DX: S52.511A Displaced fracture of right radial styloid process, initial encounter for closed fracture (principal); J44.9 Chronic obstructive pulmonary disease, unspecified; I10 Essential (primary) hypertension; E07.9 Disorder of thyroid, unspecified; F32.9 Major depressive disorder, single episode, unspecified; Z79.1 Long term (current) use of non-steroidal anti-inflammatories (NSAID); Z79.890 Hormone replacement therapy; Z79.899 Other long term (current) drug therapy; Z88.5 Allergy status to narcotic agent; Z88.0 Allergy status to penicillin; Z88.2 Allergy status to sulfonamides; Z88.1 Allergy status to other antibiotic agents; Z87.891 Personal history of nicotine dependence; Z85.118 Personal history of other malignant neoplasm of bronchus and lung; W06.XXXA Fall from bed, initial encounter
CPT/HCPCS: 73110; 99283; 29125; 96372; J1170

== ENCOUNTER → 2019-12-08 | Outpatient (CLI) | payer MEDICARE ==
--- NOTE | 2019-12-08 16:15 | XR ---
EXAMINATION TYPE: XR chest 2V DATE OF EXAM: 12/08/2019 COMPARISON: Prior chest x-ray 11/05/2019, chest CT 10/15/2019 HISTORY: Lung carcinoma TECHNIQUE: Frontal and lateral views of the chest are obtained. FINDINGS: There is questionable increased attenuation in the suprahilar location on the right. Arthr opathy noted in the shoulders. Patient is rotated. Aorta is dense. Prominence of the pulmonary artery is again noted. Heart size is stable. No evident airspace disease, pneumothorax, or pleural effusion . Prominent lung volumes may be indicative of underlying COPD. There is a compression fracture at the upper thoracic spine which is developed in the interval. IMPRESSION: Interval fracture of the thoracic spine, consider MRI, bone scan as indicated. Rotated e xam. Question some increased attenuation in the suprahilar location on the right, this may be better evaluated with CT. Follow-up suggested.
== END | disposition home or self-care (01) ==
LOC: RADXRMAIN 15:17
PROVIDERS: ATTEND Internal Medicine Hematology & Oncology
DX: J44.9 Chronic obstructive pulmonary disease, unspecified (principal); I10 Essential (primary) hypertension; C34.11 Malignant neoplasm of upper lobe, right bronchus or lung; Z71.3 Dietary counseling and surveillance
CPT/HCPCS: 71046

== ENCOUNTER 2019-12-31 13:37 | Inpatient (IN) | payer MEDICARE ==
[2019-12-31] MEDS ORDERED: IPRATROPIUM 0.5 MG/2.5 ML NEBU INHALATION STA (13:59)
[2019-12-31] MEDS ORDERED: ALBUTEROL NEBULIZED 2.5 MG/3 ML INHALATION STA (13:59)
[2019-12-31] MEDS ORDERED: methylPREDNISolone SOD SUCCI 125 MG/2 ML VIAL IV STA (13:59)
--- NOTE | 2019-12-31 14:04 | ED ---
General Adult HPI - General Chief complaint: Shortness of Breath Stated complaint: SOB, cough, pain Time Seen by Provider: 12/31/19 13:51 Source: patient, RN notes reviewed, old records reviewed Mode of arrival: wheelchair Limitations: no limitations - History of Present Illness Initial comments: 74-year-old female history of lung CVA, COPD presenting for evaluation of cough and dyspnea. Patient has had productive cough for the past 48 hours. She's had worsening dyspnea over this time. She is currently on immunotherapy status post chemo and radiation for her lung cancer. She was scheduled for an outpatient PET scan today but was unable to make this appointment secondary to her dyspnea. She complains of some right sided posterior chest pain. No substernal radiating chest pain. No lower extremity pain or swelling. Denies fever. Denies URI symptoms. Denies recent travel. No known exposure to coronavirus - Related Data Home Medications Medication Instructions Recorded Confirmed Albuterol Nebulized [Ventolin 2.5 ml INHALATION QID 06/09/18 09/21/19 Nebulized] Albuterol Sulfate [Proair 90 mcg PO QID 06/09/18 09/21/19 Respiclick] Escitalopram [Lexapro] 20 mg PO DAILY 06/09/18 09/21/19 Ibandronate Sodium [Boniva] 150 mg PO Q30D 06/09/18 09/21/19 Losartan [Cozaar] 100 mg PO DAILY 06/09/18 09/21/19 Meloxicam [Mobic] 7.5 mg PO DAILY 06/09/18 09/21/19 Montelukast [Singulair] 10 mg PO HS 06/09/18 09/21/19 Multivitamin [Multivitamins Adult 1 tab PO DAILY 06/09/18 09/21/19 Gummies] ALPRAZolam [Xanax] 0.25 mg PO DAILY PRN 03/25/19 09/21/19 Baclofen [Lioresal] 20 mg PO HS 03/25/19 09/21/19 Dicyclomine [Bentyl] 20 mg PO QID PRN 03/25/19 09/21/19 Lactobacillus Acidophilus 1 each PO DAILY 03/25/19 09/21/19 [Acidophilus] Levothyroxine Sodium [Synthroid] 50 mcg PO DAILY 03/25/19 09/21/19 Previous Rx's Medication Instructions Recorded Cephalexin [Keflex] 500 mg PO Q12HR 5 Days #10 cap 09/29/19 Phenazopyridine [Pyridium] 100 mg PO TID 2 Days #6 tablet 09/29/19 Allergies Allergy/AdvReac Type Severity Reaction Status Date / Time meperidine HCl [From Demerol] Allergy Anaphylaxis Verified 12/31/19 15:21 morphine Allergy Vomiting Verified 12/31/19 15:21 Penicillins Allergy Rash/Hives Verified 12/31/19 15:21 Sulfa (Sulfonamide Allergy Nausea & Verified 12/31/19 15:21 Antibiotics) Vomiting ciprofloxacin [From Cipro] AdvReac Nausea Verified 12/31/19 15:21 sulfamethoxazole AdvReac Nausea Verified 12/31/19 15:21 [From Bactrim] trimethoprim [From Bactrim] AdvReac Nausea Verified 12/31/19 15:21 Review of Systems ROS Statement: Those systems with pertinent positive or pertinent negative responses have been documented in the HPI. ROS Other: All systems not noted in ROS Statement are negative. Past Medical History Past Medical History: Asthma, Cancer, COPD, Fibromyalgia, Hypertension, Thyroid Disorder Additional Past Medical History / Comment(s): Lung cancer 2019. Arthritis,depression, osteopenia and seasonal allergies. 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 She used HRT for about 5 years after her LMP. History of Any Multi-Drug Resistant Organisms: None Reported Past Surgical History: Back Surgery, Breast Surgery, Orthopedic Surgery Additional Past Surgical History / Comment(s): D&C 1972. Colonoscopy with upper endoscopy 2019(next after 5yrs)., MULTIPLE LT HAND SX R/T INJURY. Lumbar laminectomy, hand surgery and breast biopsy. Transesophageal lung biopsy. Past Anesthesia/Blood Transfusion Reactions: Postoperative Nausea & Vomiting (PONV) Past Psychological History: Depression Smoking Status: Former smoker Past Alcohol Use History: Rare Past Drug Use History: None Reported - Past Family History Brother(s) Family Medical History: Cancer, Myocardial Infarction ([place]), Renal Disease Additional Family Medical History / Comment(s): Esophageal cancer. Melanoma and renal failure. Another brother had an [place]. Sister(s) Family Medical History: Cancer Additional Family Medical History / Comment(s): Cervical cancer. Mother Family Medical History: Cancer Additional Family Medical History / Comment(s): Hodgkin's lymphoma. Son(s) Family Medical History: Cancer Additional Family Medical History / Comment(s): Cholangiocarcinoma. General Exam Limitations: no limitations General appearance: alert, in no apparent distress Head exam: Present: atraumatic, normocephalic Eye exam: Present: normal appearance, PERRL ENT exam: Present: mucous membranes dry Neck exam: Present: normal inspection. Absent: tenderness, meningismus Respiratory exam: Present: respiratory distress, wheezes, rhonchi, decreased breath sounds Cardiovascular Exam: Present: regular rate, normal rhythm GI/Abdominal exam: Present: soft. Absent: distended, tenderness, guarding Extremities exam: Present: normal inspection, normal capillary refill. Absent: pedal edema, calf tenderness Neurological exam: Present: alert, oriented X3, CN II-XII intact. Absent: motor sensory deficit Psychiatric exam: Present: normal affect, normal mood Skin exam: Present: warm, dry, intact. Absent: cyanosis, diaphoretic Course Vital Signs 12/31/19 12/31/19 12/31/19 13:43 14:25 14:57 Temperature 99 F Pulse Rate 100 100 100 Respiratory 16 Rate Blood Pressure 164/93 O2 Sat by Pulse 89 L Oximetry 12/31/19 15:22 Temperature Pulse Rate 104 H Respiratory 16 Rate Blood Pressure 140/79 O2 Sat by Pulse 96 Oximetry EKG Findings - EKG Comments: EKG Findings:: EKG: Normal sinus rhythm, rate of 87, IN interval 188, QRS duration 72, QTC 433, no ST segment elevation. Medical Decision Making - Medical Decision Making 74-year-old female with cough and dyspnea. X-ray showing interstitial pattern edema and infiltrate. Patient has white blood cell count 10.1, no leukopenia, stable hemoglobin, normal CMP, troponin is negative. Patient is treated with azithromycin and ceftriaxone in emergency department. She will receive testing for influenza, RSV, and coronavirus, she will be kept in isolation pending these results. I did discuss case with Dr. Dietrich, he will admit. Both pulmonology and oncology had been placed on consult. - Lab Data Result diagrams: 12/31/19 14:30 12/31/19 14:30 Lab Results 12/31/19 12/31/19 12/31/19 Range/Units 14:30 14:30 14:30 WBC 6.1 (3.8-10.6) k/uL RBC 3.84 (3.80-5.40) m/uL Hgb 10.9 L (11.4-16.0) gm/dL Hct 34.0 (34.0-46.0) % MCV 88.3 D (80.0-100.0) fL MCH 28.4 (25.0-35.0) pg MCHC 32.2 (31.0-37.0) g/dL RDW 13.5 (11.5-15.5) % Plt Count 277 (150-450) k/uL Neutrophils % 74 % Lymphocytes % 8 % Monocytes % 9 % Eosinophils % 5 % Basophils % 0 % Neutrophils # 4.5 (1.3-7.7) k/uL Lymphocytes # 0.5 L (1.0-4.8) k/uL Monocytes # 0.5 (0-1.0) k/uL Eosinophils # 0.3 (0-0.7) k/uL Basophils # 0.0 (0-0.2) k/uL PT 9.8 (9.0-12.0) sec INR 0.9 (<1.2) APTT 26.5 (22.0-30.0) sec Sodium 135 L (137-145) mmol/L Potassium 3.9 (3.5-5.1) mmol/L Chloride 99 (98-107) mmol/L Carbon Dioxide 28 (22-30) mmol/L Anion Gap 8 mmol/L BUN 14 (7-17) mg/dL Creatinine 0.47 L (0.52-1.04) mg/dL Est GFR (CKD-EPI)AfAm >90 (>60 ml/min/1.73 sqM) Est GFR (CKD-EPI)NonAf >90 (>60 ml/min/1.73 sqM) Glucose 91 (74-99) mg/dL Plasma Lactic Acid Renato (0.7-2.0) mmol/L Calcium 9.4 (8.4-10.2) mg/dL Magnesium 1.6 (1.6-2.3) mg/dL Total Bilirubin 0.7 (0.2-1.3) mg/dL AST 22 (14-36) U/L ALT 13 (4-34) U/L Alkaline Phosphatase 93 (38-126) U/L Troponin I (0.000-0.034) ng/mL Total Protein 6.3 (6.3-8.2) g/dL Albumin 3.6 (3.5-5.0) g/dL 12/31/19 12/31/19 Range/Units 14:30 14:30 WBC (3.8-10.6) k/uL RBC (3.80-5.40) m/uL Hgb (11.4-16.0) gm/dL Hct (34.0-46.0) % MCV (80.0-100.0) fL MCH (25.0-35.0) pg MCHC (31.0-37.0) g/dL RDW (11.5-15.5) % Plt Count (150-450) k/uL Neutrophils % % Lymphocytes % % Monocytes % % Eosinophils % % Basophils % % Neutrophils # (1.3-7.7) k/uL Lymphocytes # (1.0-4.8) k/uL Monocytes # (0-1.0) k/uL Eosinophils # (0-0.7) k/uL Basophils # (0-0.2) k/uL PT (9.0-12.0) sec INR (<1.2) APTT (22.0-30.0) sec Sodium (137-145) mmol/L Potassium (3.5-5.1) mmol/L Chloride (98-107) mmol/L Carbon Dioxide (22-30) mmol/L Anion Gap mmol/L BUN (7-17) mg/dL Creatinine (0.52-1.04) mg/dL Est GFR (CKD-EPI)AfAm (>60 ml/min/1.73 sqM) Est GFR (CKD-EPI)NonAf (>60 ml/min/1.73 sqM) Glucose (74-99) mg/dL Plasma Lactic Acid Renato 0.8 (0.7-2.0) mmol/L Calcium (8.4-10.2) mg/dL Magnesium (1.6-2.3) mg/dL Total Bilirubin (0.2-1.3) mg/dL AST (14-36) U/L ALT (4-34) U/L Alkaline Phosphatase (38-126) U/L Troponin I <0.012 (0.000-0.034) ng/mL Total Protein (6.3-8.2) g/dL Albumin (3.5-5.0) g/dL Disposition Clinical Impression: Acute exacerbation of chronic obstructive pulmonary disease, Pneumonia Disposition: ADMITTED IP TO THIS HOSP Condition: Stable Is patient prescribed a controlled substance at d/c from ED?: No Referrals: Petey Edwards MD [Primary Care Provider] - 1-2 days Decision to Admit Reason: Admit from EC Decision Date: 12/31/19 Decision Time: 15:45
[2019-12-31 14:41] LABS: Basophils % (A) 0 %; Eosinophils # (A) 0.3 k/uL (0-0.7); Eosinophils % (A) 5 %; HGB 10.9 gm/dL (11.4-16.0); Lymphocytes # (A) 0.5 k/uL (1.0-4.8); Lymphocytes % (A) 8 %; MCH 28.4 pg (25.0-35.0); MCHC 32.2 g/dL (31.0-37.0); Mean Platelet Volume 7.3; Monocytes # (A) 0.5 k/uL (0-1.0); Monocytes % (A) 9 %; Neutrophils # (A) 4.5 k/uL (1.3-7.7); Neutrophils % (A) 74 %; Platelet Count 277 k/uL (150-450); RBC 3.84 m/uL (3.80-5.40); RDW 13.5 % (11.5-15.5); WBC 6.1 k/uL (3.8-10.6)
[2019-12-31 14:50] LABS: INR 0.9 (<1.2); Partial Thromboplastin Time 26.5 sec (22.0-30.0); Prothrombin Time 9.8 sec (9.0-12.0)
[2019-12-31 14:53] LABS: ALT 13 U/L (4-34); AST 22 U/L (14-36); African American GFR (CKD) >90 (>60 ml/min/1.73 sqM); Albumin 3.6 g/dL (3.5-5.0); Alkaline Phosphatase 93 U/L (38-126); Anion Gap 8 mmol/L; Blood Urea Nitrogen 14 mg/dL (7-17); Calcium 9.4 mg/dL (8.4-10.2); Carbon Dioxide 28 mmol/L (22-30); Chloride 99 mmol/L (98-107); Glucose 91 mg/dL (74-99); Magnesium 1.6 mg/dL (1.6-2.3); Non-African American GFR(CKD) >90 (>60 ml/min/1.73 sqM); Potassium 3.9 mmol/L (3.5-5.1); Sodium 135 mmol/L (137-145); Total Bilirubin 0.7 mg/dL (0.2-1.3); Total Protein 6.3 g/dL (6.3-8.2)
[2019-12-31 14:54] LABS: MCV 88.3 fL (80.0-100.0)
--- NOTE | 2019-12-31 15:22 | XR ---
EXAMINATION TYPE: XR chest 2V DATE OF EXAM: 12/31/2019 COMPARISON: Chest x-ray December 08, 2019. HISTORY: Shortness of breath and cough. TECHNIQUE: Frontal and lateral views of the chest are obtained. FINDINGS: There is developing faint alveolar and interstitial opacities bilaterally in a background chronic parenchymal change. No pleural effusion or pneumothorax seen bilaterally. The cardiac silhou ette size remains within normal limits without gross cirrhotic aorta. Underlying scoliosis is present . IMPRESSION: Developing interstitial and to lesser degree alveolar edema and/or infiltrates on backgr ound chronic parenchymal changes. Findings slightly more prominent in the right lung and both bases.
[2019-12-31] MEDS ORDERED: AZITHROMYCIN 500 MG in SODIUM CHLORIDE 0.9% 250 ML IVPB STA (15:26)
[2019-12-31] MEDS ORDERED: cefTRIAXone IN SWFI 1,000 MG/10 ML SYRINGE IVP STA (15:41)
[2019-12-31] MEDS ORDERED: IPRATROPIUM-ALBUTEROL 3 ML NEB INHALATION PRN (15:42)
[2019-12-31] MEDS ORDERED: IBUPROFEN 400 MG TAB PO PRN (18:15)
[2019-12-31] MEDS ORDERED: ALPRAZolam 0.25 MG TAB PO PRN (18:15)
[2019-12-31] MEDS ORDERED: ALBUTEROL NEBULIZED 2.5 MG/3 ML INHALATION PRN (18:15)
[2019-12-31] MEDS: IPRATROPIUM-ALBUTEROL 3 ML NEB INHALATION SCH (20:41)
[2019-12-31] MEDS: BACLOFEN 10 MG TAB PO SCH (20:54)
[2019-12-31] MEDS: guaiFENesin-DM 600/30MG 1 EACH TAB.ER.12H PO SCH (20:54)
[2019-12-31] MEDS: HYDROcodone/APAP 10-325MG 1 EACH TAB PO PRN (20:55)
[2019-12-31] MEDS: MONTELUKAST 10 MG TAB PO SCH (20:55)
[2019-12-31] MEDS: methylPREDNISolone SOD SUCCI 125 MG/2 ML VIAL IV SCH (20:56)
[2019-12-31] MEDS ORDERED: RX INFO: IV CONTRAST WAS GIVEN 1 EACH MISC MISCELLANE PRN (20:59)
--- NOTE | 2019-12-31 22:22 | CT ---
EXAMINATION TYPE: CT chest w con DATE OF EXAM: 12/31/2019 COMPARISON: 10/15/2019 HISTORY: hypoxia. hx of lung ca. CT DLP: 339 mGycm Automated exposure control for dose reduction was used. CONTRAST: Performed with IV Contrast, patient injected with 100 mL of Isovue 300. Multiple axial sections were obtained from the thoracic inlet to the diaphragm with intravenous contr ast. There is coarse reticular and nodular infiltrate right upper lobe. Heart size is normal. There is no pericardial effusion. There is no pleural effusion. There is some mild somewhat spiculated density at the right pulmonary hilum at the posterior aspect of the right mainstem bronchus that measures 2 x 1 .5 cm. There is no peritracheal adenopathy. There is some linear infiltrate and atelectasis anterior segment right upper lobe adjacent to the mediastinum. There is a small area of groundglass 2 cm infil trate left lung apex. There is no adrenal mass. Upper abdominal soft tissues are intact. The bony thorax is intact. Thoraci c aorta is atheromatous. There is no aneurysm or dissection. I see no evidence of pulmonary embolism. IMPRESSION: There is increasing patchy infiltrate mainly in the right upper lobe compared to old exam. I would co nsider possibilities of recurrent tumor and acute pneumonia.
[2020-01-01] MEDS: LEVOTHYROXINE 50 MCG TAB PO SCH (05:55)
[2020-01-01] MEDS: methylPREDNISolone SOD SUCCI 125 MG/2 ML VIAL IV SCH ×2 (05:55→11:48)
[2020-01-01] MEDS: HYDROcodone/APAP 10-325MG 1 EACH TAB PO PRN ×2 (05:58→21:14)
[2020-01-01] MEDS: guaiFENesin-DM 600/30MG 1 EACH TAB.ER.12H PO SCH ×2 (07:56→21:12)
[2020-01-01] MEDS: PANTOPRAZOLE 40 MG TABLET PO SCH (07:56)
[2020-01-01] MEDS: MULTIVITAMINS, THERA 1 EACH TAB PO SCH (07:56)
[2020-01-01] MEDS: ESCITALOPRAM 20 MG TAB PO SCH (07:56)
[2020-01-01] MEDS: MELOXICAM 7.5 MG TAB PO SCH (07:56)
[2020-01-01] MEDS: LOSARTAN 50 MG TAB PO SCH (07:56)
[2020-01-01] MEDS: IPRATROPIUM-ALBUTEROL 3 ML NEB INHALATION SCH ×4 (08:37→20:05)
--- NOTE | 2020-01-01 11:00 | ECHOF ---
Referral Reason:nik MEASUREMENTS -------- HEIGHT: 154.9 cm WEIGHT: 68.5 kg BP: RVIDd: 1.9 cm (< 3.3) IVSd: 1.1 cm (0.6 - 1.1) LVIDd: 3.3 cm (3.9 - 5.3) LVPWd: 1.2 cm (0.6 - 1.1) IVSs: 1.5 cm LVIDs: 1.6 cm LVPWs: 1.2 cm LAESV Index (A-L): 11.74 ml/m Ao Diam: 3.0 cm (2.0 - 3.7) AV Cusp: 1.4 cm (1.5 - 2.6) LA Diam: 1.9 cm (2.7 - 3.8) MV EXCURSION: 15.618 mm (> 18.000) MV EF SLOPE: 67 mm/s (70 - 150) EPSS: 0.6 cm MV E Mir: 0.79 m/s MV DecT: 186 ms MV A Mir: 1.12 m/s MV E/A Ratio: 0.71 AV maxP.03 mmHg AV meanP.63 mmHg RAP: 5.00 mmHg RVSP: 17.49 mmHg FINDINGS -------- Sinus rhythm. Resting tachycardia (HR>100bpm). This was a technically adequate study. The left ventricular size is normal. There is mild concentric left ventricular hypertrophy. Overa ll left ventricular systolic function is normal with, an EF between 55 - 60 %. The diastolic fillin g pattern is normal for the age of the patient 15.38. The right ventricular wall thickness is normal measuring < 5mm. Normal LA size by volume 22+/-6 ml/m2. The right atrial size is normal. There is mild aortic valve sclerosis. Peak/mean gradient across the Aortic Valve is 19.03mmHg / 9.6 3mmHg. The mitral valve is normal. Mild mitral regurgitation is present. The tricuspid valve appears structurally normal. Mild tricuspid regurgitation present. Right vent ricular systolic pressure is normal at < 35 mmHg. There is no pulmonic regurgitation present. The aortic root size is normal. Normal inferior vena cava with normal inspiratory collapse consistent with estimated right atrial pre ssure of 5 mmHg. There is no pericardial effusion. CONCLUSIONS -------- 1. Sinus rhythm. 2. Resting tachycardia (HR>100bpm). 3. The left ventricular size is normal. 4. There is mild concentric left ventricular hypertrophy. 5. Overall left ventricular systolic function is normal with, an EF between 55 - 60 %. 6. The right ventricular wall thickness is normal measuring < 5mm. 7. Normal LA size by volume 22+/-6 ml/m2. 8. The right atrial size is normal. 9. There is mild aortic valve sclerosis. 10. Peak/mean gradient across the Aortic Valve is 19.03mmHg / 9.63mmHg. 11. Mild mitral regurgitation is present. 12. Mild tricuspid regurgitation present. 13. There is no pulmonic regurgitation present. 14. Normal inferior vena cava with normal inspiratory collapse consistent with estimated right atrial pressure of 5 mmHg. 15. There is no pericardial effusion. LEAD MOBILE DEVELOPER: Sherlyn Gray RDCS
[2020-01-01] MEDS: ENOXAPARIN 40 MG/0.4 ML SYRINGE SQ SCH (11:48)
[2020-01-01] MEDS: FORMOTEROL FUMARATE 20 MCG/2 ML NEBU INHALATION SCH ×2 (11:50→20:06)
[2020-01-01] MEDS: BUDESONIDE 1 MG/2 ML NEBU INHALATION SCH ×2 (11:50→20:05)
--- NOTE | 2020-01-01 13:57 | P.CNPUL ---
History of Present Illness Consult date: 01/01/20 Requesting physician: Carlos Dietrich Reason for consult: dyspnea, cough, abnormal CXR/CT Chief complaint: Shortness of breath, cough, congestion History of present illness: This is a very pleasant 74-year-old female patient who follows with Dr. Edwards as her primary care provider. She has a history of hypothyroidism, hypertension, anxiety, fibromyalgia, arthritis. Former smoker. She also has a recent diagnosis of lung cancer with suspected metastasis mediastinal invasion into 3 upper thoracic vertebral bodies. There was a solitary additional right perihilar enlargement hypermetabolic 6 mm lymph node seen on a PET scan in June 2019. She has since completed chemo and radiation in August 2019. She is currently on Imfinzi immunotherapy and has received 4 doses thus far this year. She was due to have a follow-up PET scan yesterday however when she was up in the shower she develop worsening shortness of breath, cough, congestion and weakness and was seen here in the emergency room. White count 6.1. Hemoglobin 10.9. Sodium 135. Creatinine 0.47. Troponin negative. Influenza and RSV negative. Computed tomography scan of the chest revealed increasing patchy infiltrate mainly in the right upper lobe possible recurrent tumor or radiation pneumonitis versus acute pneumonia. She does have yellow productive sputum. She has been afebrile since admission. She is maintaining good O2 saturations in the mid 90s on 2 L/m per nasal cannula. Hemodynamically stable. She's been initiated on DuoNeb inhalations, Pulmicort and Perforomist inhalations, IV Solu-Medrol. Review of Systems REVIEW OF SYSTEMS: CONSTITUTIONAL: Denies any recent significant weight loss or weight gain. EYES: Denies change in vision. EARS, NOSE, MOUTH, THROAT: Denies headaches, denies sore throat. CARDIOVASCULAR: Denies chest pain, palpitations or syncopal episodes. RESPIRATORY: Positive for shortness of breath, cough, congestion no hemoptysis. GASTROINTESTINAL: Denies change in appetite, denies abdominal pain GENITOURINARY: Denies hematuria, denies infections. MUSKULOSKELETAL: Denies pain, denies swelling. INTEGUMENTARY: Denies rash, denies eczema. NEUROLOGICAL: Denies recent memory loss, no recent seizure activity. PSYCHIATRIC: Denies anxiety, denies depression. HEMATOLOGIC/LYMPHATIC: Denies anemia, denies enlarged lymph nodes. Past Medical History Past Medical History: Asthma, Cancer, COPD, Fibromyalgia, Hypertension, Thyroid Disorder Additional Past Medical History / Comment(s): Lung cancer 2019. Arthritis,depression, osteopenia and seasonal allergies. She used HRT for about 5 years after her LMP. History of Any Multi-Drug Resistant Organisms: None Reported Past Surgical History: Back Surgery, Breast Surgery, Orthopedic Surgery Additional Past Surgical History / Comment(s): D&C 1973. Colonoscopy with upper endoscopy 2019(next after 5yrs)., MULTIPLE LT HAND SX R/T INJURY. Lumbar laminectomy, hand surgery and breast biopsy. Transesophageal lung biopsy. Past Anesthesia/Blood Transfusion Reactions: Postoperative Nausea & Vomiting (PONV) Smoking Status: Former smoker - Past Family History Brother(s) Family Medical History: Cancer, Myocardial Infarction ([place]), Renal Disease Additional Family Medical History / Comment(s): Esophageal cancer. Melanoma and renal failure. Another brother had an [place]. Sister(s) Family Medical History: Cancer Additional Family Medical History / Comment(s): Cervical cancer. Mother Family Medical History: Cancer Additional Family Medical History / Comment(s): Hodgkin's lymphoma. Son(s) Family Medical History: Cancer Additional Family Medical History / Comment(s): Cholangiocarcinoma. Medications and Allergies Home Medications Medication Instructions Recorded Confirmed Type Albuterol Nebulized [Ventolin 2.5 ml INHALATION QID PRN 06/09/18 12/31/19 History Nebulized] Escitalopram [Lexapro] 20 mg PO DAILY 06/09/18 12/31/19 History Ibandronate Sodium [Boniva] 150 mg PO Q30D 06/09/18 12/31/19 History Losartan [Cozaar] 100 mg PO DAILY 06/09/18 12/31/19 History Meloxicam [Mobic] 7.5 mg PO DAILY 06/09/18 12/31/19 History Montelukast [Singulair] 10 mg PO HS 06/09/18 12/31/19 History Multivitamin [Multivitamins Adult 1 tab PO DAILY 06/09/18 12/31/19 History Gummies] ALPRAZolam [Xanax] 0.25 mg PO BID PRN 03/25/19 12/31/19 History Baclofen [Lioresal] 20 mg PO HS 03/25/19 12/31/19 History Levothyroxine Sodium [Synthroid] 50 mcg PO DAILY 03/25/19 12/31/19 History Fluticasone/Salmeterol [Advair 1 inhalation PO BID 12/31/19 12/31/19 History 250-50 Diskus] HYDROcodone/APAP 10-325MG [Perkins 1 tab PO Q4HR PRN 12/31/19 12/31/19 History 10-325] Ibuprofen 400 mg PO Q6H PRN 12/31/19 12/31/19 History Omeprazole [PriLOSEC] 20 mg PO AC-BRKFST 12/31/19 12/31/19 History guaiFENesin-DM 600/30MG [Mucinex 1 each PO Q12HR 12/31/19 12/31/19 History Dm] Allergies Allergy/AdvReac Type Severity Reaction Status Date / Time meperidine HCl [From Demerol] Allergy Anaphylaxis Verified 12/31/19 19:57 morphine Allergy Vomiting Verified 12/31/19 19:57 Penicillins Allergy Rash/Hives Verified 12/31/19 19:57 Sulfa (Sulfonamide Allergy Nausea & Verified 12/31/19 19:57 Antibiotics) Vomiting ciprofloxacin [From Cipro] AdvReac Nausea Verified 12/31/19 19:57 sulfamethoxazole AdvReac Nausea Verified 12/31/19 19:57 [From Bactrim] trimethoprim [From Bactrim] AdvReac Nausea Verified 12/31/19 19:57 Physical Exam Vitals: Vital Signs Temp Pulse Pulse Pulse Resp BP BP 01/01/20 12:13 100 01/01/20 11:59 100 01/01/20 08:50 100 01/01/20 08:38 100 01/01/20 05:05 97.8 F 82 20 132/69 12/31/19 23:46 20 12/31/19 22:02 20 12/31/19 20:25 98 F 85 20 162/77 12/31/19 17:01 98.9 F 86 14 145/90 12/31/19 16:00 98.6 F 100 22 140/79 12/31/19 15:22 104 H 16 140/79 12/31/19 14:57 100 12/31/19 14:25 100 12/31/19 13:43 99 F 100 16 164/93 Pulse Ox 03/21/20 12:13 01/01/20 11:59 01/01/20 08:50 01/01/20 08:38 01/01/20 05:05 97 12/31/19 23:46 12/31/19 22:02 12/31/19 20:25 95 12/31/19 17:01 93 L 12/31/19 16:00 94 L 12/31/19 15:22 96 12/31/19 14:57 12/31/19 14:25 12/31/19 13:43 89 L Intake and Output 12/31/19 01/01/20 01/01/20 22:59 06:59 14:59 Intake Total 300 Balance 300 Intake: Oral 300 Other: # Voids 1 Weight 68.492 kg GENERAL EXAM: Alert, pleasant 74 year old female patient, on 2 L nasal cannula, comfortable in no apparent distress. HEAD: Normocephalic. EYES: Normal reaction of pupils, equal size. NOSE: Clear with pink turbinates. THROAT: No erythema or exudates. NECK: No masses, no JVD. CHEST: No chest wall deformity. LUNGS: Equal air entry with few scattered rhonchi in the right lung, end expiratory wheeze bilaterally. CVS: S1 and S2 normal with no audible murmur, regular rhythm. ABDOMEN: No hepatosplenomegaly, normal bowel sounds, no guarding or rigidity. SPINE: No scoliosis or deformity SKIN: No rashes CENTRAL NERVOUS SYSTEM: No focal deficits, tone is normal in all 4 extremities. EXTREMITIES: There is no peripheral edema. No clubbing, no cyanosis. Peripheral pulses are intact. Results - Laboratory Findings CBC and BMP: 12/31/19 14:30 12/31/19 14:30 PT/INR, D-dimer PT 9.8 sec (9.0-12.0) 12/31/19 14:30 INR 0.9 (<1.2) 12/31/19 14:30 Abnormal lab findings: Abnormal Labs 12/31/19 12/31/19 14:30 14:30 Hgb 10.9 L Lymphocytes # 0.5 L Sodium 135 L Creatinine 0.47 L - Diagnostic Findings Chest x-ray: image reviewed CT scan - chest: image reviewed Assessment and Plan Assessment: 1 Acute exacerbation of chronic obstructive pulmonary disease complicated by a possible right upper lobe pneumonia versus radiation pneumonitis versus progression of right lung cancer. 2 History of lung cancer status post chemoradiation to the right lung him a completed in August 2019. Currently on Imfinzi and has received 4 doses thus far started it this year. 3 History of chronic tobacco dependence 4 History of anxiety/depression 5 Hypertension 6 Hypothyroidism 7 Fibromyalgia Plan: The patient was seen and evaluated by Dr. Richards. Chest x-ray, CAT scans and labs all reviewed. We will continue with the current treatment plan for now. We'll continue to follow make further recommendations based on her clinical s tatus. The patient will plan to reschedule her PET scan possibly for next weekend. I, the cosigning physician, performed a history & physical examination of the patient. Lungs sounds with rhonchi in the right lung, end expiratory wheeze bilaterally. Maintaining good O2 saturations in the 90s on 2 L/m per nasal cannula.. I discussed the assessment and plan of care with my nurse practitioner, Lashonda Marcus. I attest to the above note as dictated by her. Time with Patient: Greater than 30
--- NOTE | 2020-01-01 15:53 | P.HPIM ---
History of Present Illness H&P Date: 01/01/20 Chief Complaint: Short of breath History of presenting complaint: This is a very pleasant 74-year-old patient of Dr. Petey Edwards. Chronic stable medical conditions include lung cancer, fibromyalgia, depression, GERD. Patient had several rounds of chemotherapy and 33 rounds of radiation treatment finished in August 2019. Subsequently patient is put on immunotherapy/Imfinzi. Patient was due for a PET scan yesterday. Patient became increasingly short of breath. Her family member checked her pulse ox was 77%. Had a very slight cough and some yellow sputum. Has had some chills and fever. Appetite has been good felt tired rundown. Review of systems: GEN.: Tired fever chills EYES: None HEENT: None NECK: None RESPIRATORY: As above CARDIOVASCULAR: None GASTROINTESTINAL: None GENITOURINARY: None MUSCULOSKELETAL: Joint pains LYMPHATICS: None HEMATOLOGICAL: None PSYCHIATRY: None NEUROLOGICAL: None Past medical history to include: Lung cancer, COPD, followed lavage, depression, GERD Social history: Alcohol rarely. Marijuana edibles. Smoked less than a pack a day on and off for 45 years. Stopped 4 years ago. Lives alone. Physical examination: VITAL SIGNS: 99, 100, 16, 164/93, 89% on room air] GENERAL: BMI 28.5, sitting on edge of bed tired. EYES: Pupils equal. Conjunctiva normal. HEENT: External appearance of nose and ears normal, oral cavity grossly normal. NECK: JVD not raised; masses not palpable. HEART: First and second heart sounds are normal; no edema. LUNGS: Respiratory rate increased, decreased breath sounds, some wheezing. ABDOMEN: Soft, nontender, liver spleen not palpable, no masses palpable. PSYCH: Alert and oriented x3; mood and affect normal. NEUROLOGICAL: Cranial nerves grossly intact; no facial asymmetry, power and sensation grossly intact. LYMPHATICS: No lymph nodes palpable in the axilla and neck INVESTIGATIONS, reviewed in the clinical context: White count 6.1 hemoglobin 10.9 patient's to 77 potassium 3.9 creatinine 0.47 Troponin I is less than 0.012 In further type A and type B both negative RSV PCR negative EKG tracing personally reviewed by me-normal sinus rhythm Chest x-ray film personally reviewed by me-interstitial infiltrates Computed tomography scan chest increasing patchy infiltrate mainly in the right upper lobe compared to previous oral exam. Assessment: -Probable right upper lobe pneumonia, suspect gram-negative organism, POA -Acute hypoxic respiratory failure from above -Acute COPD exacerbation in a previous smoker -Chronic fibromyalgia -Depression otherwise specified -GERD -Lung cancer, status post chemotherapy, radiation currently on immunotherapy -Normocytic anemia suspected secondary to malignancy Plan: Patient started on nebulized bronchodilators, IV Solu-Medrol. Home medications resumed. Continue with ceftriaxone and Zithromax. Care was discussed with the patient. Question were answered. Lovenox for DVT prophylaxis. Pulmonary was consulted. Past Medical History Past Medical History: Asthma, Cancer, COPD, Fibromyalgia, Hypertension, Thyroid Disorder Additional Past Medical History / Comment(s): Lung cancer 2019. Arthritis,depression, osteopenia and seasonal allergies. She used HRT for about 5 years after her LMP. History of Any Multi-Drug Resistant Organisms: None Reported Past Surgical History: Back Surgery, Breast Surgery, Orthopedic Surgery Additional Past Surgical History / Comment(s): D&C 1972. Colonoscopy with upper endoscopy 2019(next after 5yrs)., MULTIPLE LT HAND SX R/T INJURY. Lumbar laminectomy, hand surgery and breast biopsy. Transesophageal lung biopsy. Past Anesthesia/Blood Transfusion Reactions: Postoperative Nausea & Vomiting (PONV) Smoking Status: Former smoker - Past Family History Brother(s) Family Medical History: Cancer, Myocardial Infarction ([place]), Renal Disease Additional Family Medical History / Comment(s): Esophageal cancer. Melanoma and renal failure. Another brother had an [place]. Sister(s) Family Medical History: Cancer Additional Family Medical History / Comment(s): Cervical cancer. Mother Family Medical History: Cancer Additional Family Medical History / Comment(s): Hodgkin's lymphoma. Son(s) Family Medical History: Cancer Additional Family Medical History / Comment(s): Cholangiocarcinoma. Medications and Allergies Home Medications Medication Instructions Recorded Confirmed Type Albuterol Nebulized [Ventolin 2.5 ml INHALATION QID PRN 06/09/18 12/31/19 History Nebulized] Escitalopram [Lexapro] 20 mg PO DAILY 06/09/18 12/31/19 History Ibandronate Sodium [Boniva] 150 mg PO Q30D 06/09/18 12/31/19 History Losartan [Cozaar] 100 mg PO DAILY 06/09/18 12/31/19 History Meloxicam [Mobic] 7.5 mg PO DAILY 06/09/18 12/31/19 History Montelukast [Singulair] 10 mg PO HS 06/09/18 12/31/19 History Multivitamin [Multivitamins Adult 1 tab PO DAILY 06/09/18 12/31/19 History Gummies] ALPRAZolam [Xanax] 0.25 mg PO BID PRN 03/25/19 12/31/19 History Baclofen [Lioresal] 20 mg PO HS 03/25/19 12/31/19 History Levothyroxine Sodium [Synthroid] 50 mcg PO DAILY 03/25/19 12/31/19 History Fluticasone/Salmeterol [Advair 1 inhalation PO BID 12/31/19 12/31/19 History 250-50 Diskus] HYDROcodone/APAP 10-325MG [[place] 1 tab PO Q4HR PRN 12/31/19 12/31/19 History 10-325] Ibuprofen 400 mg PO Q6H PRN 12/31/19 12/31/19 History Omeprazole [PriLOSEC] 20 mg PO AC-BRKFST 12/31/19 12/31/19 History guaiFENesin-DM 600/30MG [Mucinex 1 each PO Q12HR 12/31/19 12/31/19 History Dm] Allergies Allergy/AdvReac Type Severity Reaction Status Date / Time meperidine HCl [From Demerol] Allergy Anaphylaxis Verified 12/31/19 19:57 morphine Allergy Vomiting Verified 12/31/19 19:57 Penicillins Allergy Rash/Hives Verified 12/31/19 19:57 Sulfa (Sulfonamide Allergy Nausea & Verified 12/31/19 19:57 Antibiotics) Vomiting ciprofloxacin [From Cipro] AdvReac Nausea Verified 12/31/19 19:57 sulfamethoxazole AdvReac Nausea Verified 12/31/19 19:57 [From Bactrim] trimethoprim [From Bactrim] AdvReac Nausea Verified 12/31/19 19:57 Physical Exam Vitals: Vital Signs Temp Pulse Pulse Pulse Resp BP BP 01/01/20 08:50 100 01/01/20 08:38 100 01/01/20 05:05 97.8 F 82 20 132/69 12/31/19 23:46 20 12/31/19 22:02 20 12/31/19 20:25 98 F 85 20 162/77 12/31/19 17:01 98.9 F 86 14 145/90 12/31/19 16:00 98.6 F 100 22 140/79 12/31/19 15:22 104 H 16 140/79 12/31/19 14:57 100 12/31/19 14:25 100 12/31/19 13:43 99 F 100 16 164/93 Pulse Ox 01/01/20 08:50 01/01/20 08:38 01/01/20 05:05 97 12/31/19 23:46 12/31/19 22:02 12/31/19 20:25 95 12/31/19 17:01 93 L 12/31/19 16:00 94 L 12/31/19 15:22 96 12/31/19 14:57 12/31/19 14:25 12/31/19 13:43 89 L Intake and Output 12/31/19 01/01/20 01/01/20 22:59 06:59 14:59 Intake Total 300 Balance 300 Intake: Oral 300 Other: # Voids 1 Weight 68.492 kg Results CBC & Chem 7: 12/31/19 14:30 12/31/19 14:30 Labs: Abnormal Lab Results - Last 24 Hours (Table) 12/31/19 12/31/19 Range/Units 14:30 14:30 Hgb 10.9 L (11.4-16.0) gm/dL Lymphocytes # 0.5 L (1.0-4.8) k/uL Sodium 135 L (137-145) mmol/L Creatinine 0.47 L (0.52-1.04) mg/dL Thrombosis Risk Factor Assmnt - Choose All That Apply Each Factor Represents 1 point: Abnormal pulmonary function (COPD) Each Risk Factor Represents 3 Points: Age 75 years or older Thrombosis Risk Factor Assessment Total Risk Factor Score: 4 Thrombosis Risk Factor Assessment Level: Moderate Risk
[2020-01-01] MEDS ORDERED: POLYETHYLENE GLYCOL 3350 17 GM POWD.PACK PO PRN (20:05)
[2020-01-01 21:09] VITALS: RESP 20; TEMP 97.7
[2020-01-01] MEDS: methylPREDNISolone SOD SUCCI 40 MG/ML 1 ML VIAL IV SCH (21:11)
[2020-01-01] MEDS: DOXYCYCLINE 100 MG CAP PO SCH (21:12)
[2020-01-01] MEDS: BACLOFEN 10 MG TAB PO SCH (21:12)
[2020-01-01] MEDS: MONTELUKAST 10 MG TAB PO SCH (21:12)
[2020-01-02] MEDS: HYDROcodone/APAP 10-325MG 1 EACH TAB PO PRN ×2 (02:45→10:57)
[2020-01-02] MEDS: methylPREDNISolone SOD SUCCI 40 MG/ML 1 ML VIAL IV SCH ×2 (05:23→10:57)
[2020-01-02] MEDS: LEVOTHYROXINE 50 MCG TAB PO SCH (05:24)
[2020-01-02 06:20] VITALS: BP 148/80
[2020-01-02] MEDS: ESCITALOPRAM 20 MG TAB PO SCH (07:47)
[2020-01-02] MEDS: LOSARTAN 50 MG TAB PO SCH (07:47)
[2020-01-02] MEDS: guaiFENesin-DM 600/30MG 1 EACH TAB.ER.12H PO SCH (07:47)
[2020-01-02] MEDS: MULTIVITAMINS, THERA 1 EACH TAB PO SCH (07:47)
[2020-01-02] MEDS: PANTOPRAZOLE 40 MG TABLET PO SCH (07:47)
[2020-01-02] MEDS: ENOXAPARIN 40 MG/0.4 ML SYRINGE SQ SCH (07:47)
[2020-01-02] MEDS: DOXYCYCLINE 100 MG CAP PO SCH (07:47)
[2020-01-02] MEDS: MELOXICAM 7.5 MG TAB PO SCH (07:47)
[2020-01-02] MEDS ORDERED: POTASSIUM CHLORIDE ER 10 MEQ TAB.ER.PRT PO SCH (09:00)
[2020-01-02] MEDS ORDERED: FUROSEMIDE 20 MG TAB PO SCH (09:00)
[2020-01-02] MEDS: BUDESONIDE 1 MG/2 ML NEBU INHALATION SCH (09:25)
[2020-01-02] MEDS: FORMOTEROL FUMARATE 20 MCG/2 ML NEBU INHALATION SCH (09:25)
[2020-01-02] MEDS: IPRATROPIUM-ALBUTEROL 3 ML NEB INHALATION SCH ×3 (09:25→17:18)
[2020-01-02 11:59] LABS: Glucose,Whole Blood 147 mg/dL (75-99)
--- NOTE | 2020-01-02 13:15 | P.PN ---
Subjective Progress Note Date: 01/02/20 Principal diagnosis: Acute exacerbation of chronic obstructive pulmonary disease complicated by a possible right upper lobe pneumonia versus radiation pneumonitis versus progression of right lung cancer. This is a very pleasant 74-year-old female patient who follows with Dr. Edwards as her primary care provider. She has a history of hypothyroidism, hypertension, anxiety, fibromyalgia, arthritis. Former smoker. She also has a recent diagnosis of lung cancer with suspected metastasis mediastinal invasion into 3 upper thoracic vertebral bodies. There was a solitary additional right perihilar enlargement hypermetabolic 6 mm lymph node seen on a PET scan in June 2019. She has since completed chemo and radiation in August 2019. She is currently on Imfinzi immunotherapy and has received 4 doses thus far this year. She was due to have a follow-up PET scan yesterday however when she was up in the shower she develop worsening shortness of breath, cough, congestion and weakness and was seen here in the emergency room. White count 6.1. Hemoglobin 10.9. Sodium 135. Creatinine 0.47. Troponin negative. Influenza and RSV negative. Computed tomography scan of the chest revealed increasing patchy infiltrate mainly in the right upper lobe possible recurrent tumor or radiation pneumonitis versus acute pneumonia. She does have yellow productive sputum. She has been afebrile since admission. She is maintaining good O2 saturations in the mid 90s on 2 L/m per nasal cannula. Hemodynamically stable. She's been initiated on DuoNeb inhalations, Pulmicort and Perforomist inhalations, IV Solu-Medrol. The patient is seen today 01/02/2020 in follow-up on the regular medical floor. She is currently sitting up at the bedside. Awake and alert in no acute dis tress. Breathing quite a bit better today compared to yesterday and the day before. She still has some faint end expiratory wheeze, some dyspnea on exertion.she is maintaining O2 saturations in the 90s on 2 L/m per nasal cannula. She does desaturate to 87% on room air with exercise and recovery is back on her 2 L. Will need home oxygen. She has remained afebrile. Sputum and blood cultures reveal no growth to date. she remains on IV Solu-Medrol, bronchodilators, Singulair and antibiotics in the form of doxycycline. Objective - Vital Signs Vital signs: Vital Signs Temp 97.7 F 01/02/20 04:50 Pulse 80 01/02/20 12:50 Resp 20 01/02/20 04:50 BP 148/80 01/02/20 04:50 Pulse Ox 95 01/02/20 12:21 Intake & Output 01/01/20 01/02/20 01/02/20 18:59 06:59 18:59 Intake Total 300 Output Total 2 Balance -2 300 Intake: Oral 300 Output: Urine 2 Other: Voiding Method Toilet # Voids 1 2 - Exam GENERAL EXAM: Alert, pleasant 74-year-old female patient, on 2 L nasal cannula, active, comfortable in no apparent distress. HEAD: Normocephalic. EYES: Normal reaction of pupils, equal size. NOSE: Clear with pink turbinates. THROAT: No erythema or exudates. NECK: No masses, no JVD. CHEST: No chest wall deformity. LUNGS: Equal air entry with faint end expiratory wheeze. CVS: S1 and S2 normal with no audible murmur, regular rhythm. ABDOMEN: No hepatosplenomegaly, normal bowel sounds, no guarding or rigidity. SPINE: No scoliosis or deformity SKIN: No rashes CENTRAL NERVOUS SYSTEM: No focal deficits, tone is normal in all 4 extremities. EXTREMITIES: There is no peripheral edema. No clubbing, no cyanosis. Peripheral pulses are intact. - Labs CBC & Chem 7: 12/31/19 14:30 12/31/19 14:30 Labs: Abnormal Lab Results - Last 24 Hours (Table) 01/02/20 Range/Units 11:54 POC Glucose (mg/dL) 147 H (75-99) mg/dL Microbiology - Last 24 Hours (Table) 01/01/20 20:20 Gram Stain - Preliminary Sputum Sputum Culture - Preliminary 12/31/19 14:30 Blood Culture - Preliminary Blood No Growth after 24 hours Assessment and Plan Assessment: 1 Acute exacerbation of chronic obstructive pulmonary disease complicated by a possible right upper lobe pneumonia versus radiation pneumonitis versus progression of right lung cancer. 2 History of lung cancer status post chemoradiation to the right lung him a completed in August 2019. Currently on Imfinzi and has received 4 doses thus far this year. 3 History of chronic tobacco dependence 4 History of anxiety/depression 5 Hypertension 6 Hypothyroidism 7 Fibromyalgia Plan: The patient was seen and evaluated by Dr. Richards. She is stable from the pulmonary standpoint. She could be discharged home on a prednisone taper starting at 40 mg daily for 4 days, complete a course of doxycycline and continue her home pulmonary medications. She did qualify for home oxygen and de saturated to 87% on room air with exercise and recovered to 92% on 2 L/m per nasal cannula. Follow-up in our office in 1-2 weeks' time. The patient will plan to reschedule her PET scan possibly for next weekend. I, the cosigning physician, performed a history & physical examination of the patient. Lungs sounds with end expiratory wheeze bilaterally. Maintaining good O2 saturations in the 90s on 2 L/m per nasal cannula.. I discussed the assessment and plan of care with my nurse practitioner, Lashonda Marcus. I attest to the above note as dictated by her.
[2020-01-02 17:31] VITALS: PULSE 70
--- NOTE | 2020-01-02 20:36 | P.CONS ---
History of Present Illness - Reason for Consult Consult date: 01/02/20 - Chief Complaint lung Cancer - History of Present Illness This is a pleasant 74-year-old female with a history of stage III lung cancer status post concurrent chemotherapy and radiation currently admitted after immunotherapy Durvalumab, admitted with shortness of breath had a chest x-ray that showed edema and infiltrate the patient has been started on azithromycin and ceftriaxone and has been tested for influenza RSV. She initially was diagnosed with stage III lung cancer underwent concurrent chemotherapy and radiation and recently was started on immunotherapy. The patient is started on antibiotics and is feeling much better. Has been evaluated by pulmonary. Review of Systems Review of systems include shortness of breath, fatigue, fever rest of the review of systems negative. Past Medical History Past Medical History: Asthma, Cancer, COPD, Fibromyalgia, Hypertension, Thyroid Disorder Additional Past Medical History / Comment(s): Lung cancer 2019. Arthritis,depression, osteopenia and seasonal allergies. She used HRT for about 5 years after her LMP. History of Any Multi-Drug Resistant Organisms: None Reported Past Surgical History: Back Surgery, Breast Surgery, Orthopedic Surgery Additional Past Surgical History / Comment(s): D&C 1972. Colonoscopy with upper endoscopy 2019(next after 5yrs)., MULTIPLE LT HAND SX R/T INJURY. Lumbar laminectomy, hand surgery and breast biopsy. Transesophageal lung biopsy. Past Anesthesia/Blood Transfusion Reactions: Postoperative Nausea & Vomiting (PONV) Smoking Status: Former smoker - Past Family History Brother(s) Family Medical History: Cancer, Myocardial Infarction ([place]), Renal Disease Additional Family Medical History / Comment(s): Esophageal cancer. Melanoma and renal failure. Another brother had an [place]. Sister(s) Family Medical History: Cancer Additional Family Medical History / Comment(s): Cervical cancer. Mother Family Medical History: Cancer Additional Family Medical History / Comment(s): Hodgkin's lymphoma. Son(s) Family Medical History: Cancer Additional Family Medical History / Comment(s): Cholangiocarcinoma. Medications and Allergies Home Medications Medication Instructions Recorded Confirmed Type Albuterol Nebulized [Ventolin 2.5 ml INHALATION QID PRN 06/09/18 12/31/19 History Nebulized] Escitalopram [Lexapro] 20 mg PO DAILY 06/09/18 12/31/19 History Ibandronate Sodium [Boniva] 150 mg PO Q30D 06/09/18 12/31/19 History Losartan [Cozaar] 100 mg PO DAILY 06/09/18 12/31/19 History Meloxicam [Mobic] 7.5 mg PO DAILY 06/09/18 12/31/19 History Montelukast [Singulair] 10 mg PO HS 06/09/18 12/31/19 History Multivitamin [Multivitamins Adult 1 tab PO DAILY 06/09/18 12/31/19 History Gummies] ALPRAZolam [Xanax] 0.25 mg PO BID PRN 03/25/19 12/31/19 History Baclofen [Lioresal] 20 mg PO HS 03/25/19 12/31/19 History Levothyroxine Sodium [Synthroid] 50 mcg PO DAILY 03/25/19 12/31/19 History Fluticasone/Salmeterol [Advair 1 inhalation PO BID 12/31/19 12/31/19 History 250-50 Diskus] HYDROcodone/APAP 10-325MG [[place] 1 tab PO Q4HR PRN 12/31/19 12/31/19 History 10-325] Ibuprofen 400 mg PO Q6H PRN 12/31/19 12/31/19 History Omeprazole [PriLOSEC] 20 mg PO AC-BRKFST 12/31/19 12/31/19 History Doxycycline [Vibramycin] 100 mg PO BID #10 cap 01/02/20 Rx Ipratropium-Albuterol Nebulize 3 ml INHALATION TID #90 ml 01/02/20 Rx [Duoneb 0.5 mg-3 mg/3 ml Soln] Polyethylene Glycol 3350 [Miralax] 17 gm PO DAILY PRN powd.pack 01/02/20 Rx predniSONE 10 mg PO DAILY #30 tab 01/02/20 Rx Allergies Allergy/AdvReac Type Severity Reaction Status Date / Time meperidine HCl [From Demerol] Allergy Anaphylaxis Verified 12/31/19 19:57 morphine Allergy Vomiting Verified 12/31/19 19:57 Penicillins Allergy Rash/Hives Verified 12/31/19 19:57 Sulfa (Sulfonamide Allergy Nausea & Verified 12/31/19 19:57 Antibiotics) Vomiting ciprofloxacin [From Cipro] AdvReac Nausea Verified 12/31/19 19:57 sulfamethoxazole AdvReac Nausea Verified 12/31/19 19:57 [From Bactrim] trimethoprim [From Bactrim] AdvReac Nausea Verified 12/31/19 19:57 Physical Exam Vitals: Vital Signs Temp Pulse Pulse Pulse Pulse Pulse Pulse 01/02/20 17:31 70 01/02/20 17:20 68 01/02/20 14:59 68 80 88 01/02/20 12:50 80 01/02/20 12:34 76 01/02/20 12:21 68 100 88 01/02/20 09:51 88 01/02/20 09:40 88 01/02/20 09:38 88 01/02/20 09:25 92 01/02/20 04:50 97.7 F 94 01/01/20 20:40 97.7 F 80 96 Pulse Resp BP Pulse Ox Pulse Ox Pulse Ox Pulse Ox 01/02/20 17:31 01/02/20 17:20 01/02/20 14:59 101 H 95 94 L 01/02/20 12:50 01/02/20 12:34 01/02/20 12:21 101 H 95 89 L 01/02/20 09:51 01/02/20 09:40 01/02/20 09:38 01/02/20 09:25 01/02/20 04:50 20 148/80 94 L 01/01/20 20:40 20 137/78 99 Pulse Ox Pulse Ox 01/02/20 17:31 01/02/20 17:20 01/02/20 14:59 91 L 87 L 01/02/20 12:50 01/02/20 12:34 01/02/20 12:21 91 L 87 L 01/02/20 09:51 01/02/20 09:40 01/02/20 09:38 01/02/20 09:25 01/02/20 04:50 01/01/20 20:40 Intake and Output 01/02/20 01/02/20 01/02/20 06:59 14:59 22:59 Intake Total 100 Balance 100 Intake: Oral 100 Other: Voiding Method Toilet # Voids 1 2 The patient appeared well nourished and normally developed. Vital signs as documented. Head exam is unremarkable. No scleral icterus or corneal arcus noted. Neck is without jugular venous distension, thyromegaly, or carotid bruits. Carotid upstrokes are brisk bilaterally. Lungs are clear to auscultation and percussion. Cardiac exam reveals the PMI to be normally sized and situated. Rhythm is regular. First and second heart sounds normal. No murmurs, rubs or gallops. Abdominal exam reveals normal bowel sounds, no masses, no organomegaly and no aortic enlargement. Extremities are nonedematous and both femoral and pedal pulses are normal. Results CBC & Chem 7: 12/31/19 14:30 12/31/19 14:30 Labs: Abnormal Lab Results - Last 24 Hours (Table) 01/02/20 Range/Units 11:54 POC Glucose (mg/dL) 147 H (75-99) mg/dL Microbiology - Last 24 Hours (Table) 12/31/19 14:30 Blood Culture - Preliminary Blood No Growth after 48 hours 01/01/20 20:20 Gram Stain - Preliminary Sputum Sputum Culture - Preliminary Assessment and Plan Assessment: Impression and plan 1. Stage III lung cancer status post concurrent chemotherapy and radiation and currently on immunotherapy DURVALUMAB, overall tolerating well however with current shortness of breath we'll have to rule out immune component/pneumonitis. Explained to the patient to continue follow-up and she also has a scheduled PET scan. In case shortness of breath continues she should be evaluated for pneumonitis. Continues follow-up with pulmonary. As appointment with Dr. Pat 2. Pneumonia healthcare associated infiltrate on the chest x-ray. Respiratory failure. Patient is currently on antibiotics ceftriaxone and azithromycin pulmonary evaluating. Continues to improve. Patient on Solu-Medrol as well. #3 anemia: Currently hemoglobin stable. #4. Chronic fibromyalgia, depression, GERD Thank you for the consult. Taras Esqueda MD Hematology oncology Time with Patient: Greater than 30
--- NOTE | 2020-01-04 20:48 | P.DS ---
Providers Date of admission: 12/31/19 15:42 Expected date of discharge: 01/04/20 Attending physician: Carlos Dietrich Consults: 12/31/19 15:42 Consult Physician Routine Consulting Provider: Tammy Richards Consult Reason/Comments: COPD, pneumonia, lung CA Do you want consulting provider notified?: Yes Consult Physician Routine Consulting Provider: Michelle Pat Consult Reason/Comments: Lung CA Do you want consulting provider notified?: Yes Primary care physician: [facility] Course: Chief Complaint: Short of breath History of presenting complaint: This is a very pleasant 74-year-old patient of Dr. Petey Edwards. Chronic stable medical conditions include lung cancer, fibromyalgia, depression, GERD. Patient had several rounds of chemotherapy and 33 rounds of radiation treatment finished in August 2019. Subsequently patient is put on immunotherapy/Imfinzi. Patient was due for a PET scan yesterday. Patient became increasingly short of breath. Her family member checked her pulse ox was 77%. Had a very slight cough and some yellow sputum. Has had some chills and fever. Appetite has been good felt tired rundown. Admitted with right upper lobe pneumonia, COPD exacerbation and acute hypoxic respiratory failure. Started on IV ceftriaxone, Zithromax, bronchodilators, steroids. Today-feeling much better. Back to baseline. Keen to go home. Cleared by pulmonary. Discussed with patient. Discussion and discharge planning more than 35 minutes Consultation: Dr. Richards from pulmonary Physical examination: VITAL SIGNS: 97.7, 94, 20, 148/80, 94% on 2 L GENERAL: Sitting up, more comfortable. EYES: Pupils equal. Conjunctiva normal. HEENT: External appearance of nose and ears normal, oral cavity grossly normal. NECK: JVD not raised; masses not palpable. HEART: First and second heart sounds are normal; no edema. LUNGS: Respiratory rate increased, decreased breath sounds,. ABDOMEN: Soft, nontender, liver spleen not palpable, no masses palpable. PSYCH: Alert and oriented x3; mood and affect normal. INVESTIGATIONS, reviewed in the clinical context: White count 6.1 hemoglobin 10.9 patient's to 77 potassium 3.9 creatinine 0.47 Troponin I is less than 0.012 In further type A and type B both negative RSV PCR negative EKG tracing personally reviewed by me-normal sinus rhythm Chest x-ray film personally reviewed by me-interstitial infiltrates Computed tomography scan chest increasing patchy infiltrate mainly in the right upper lobe compared to previous oral exam. Assessment: -right upper lobe pneumonia, suspect gram-negative organism, POA -Acute hypoxic respiratory failure from above, POA -Acute COPD exacerbation in a previous smoker, POA -Chronic fibromyalgia -Depression otherwise specified -GERD -Lung cancer, status post chemotherapy, radiation currently on immunotherapy -Normocytic anemia suspected secondary to malignancy Disposition: Home Patient Condition at Discharge: Stable Plan - Discharge Summary Discharge Rx Participant: No New Discharge Prescriptions: New Ipratropium-Albuterol Nebulize [Duoneb 0.5 mg-3 mg/3 ml Soln] 3 ml INHALATION TID #90 ml Polyethylene Glycol 3350 [Miralax] 17 gm PO DAILY PRN powd.pack PRN Reason: Constipation predniSONE 10 mg PO DAILY #30 tab Doxycycline [Vibramycin] 100 mg PO BID #10 cap Continue Multivitamin [Multivitamins Adult Gummies] 1 tab PO DAILY Montelukast [Singulair] 10 mg PO HS Meloxicam [Mobic] 7.5 mg PO DAILY Losartan [Cozaar] 100 mg PO DAILY Ibandronate Sodium [Boniva] 150 mg PO Q30D Escitalopram [Lexapro] 20 mg PO DAILY Albuterol Nebulized [Ventolin Nebulized] 2.5 ml INHALATION QID PRN PRN Reason: wheeze ALPRAZolam [Xanax] 0.25 mg PO BID PRN PRN Reason: Anxiety Levothyroxine Sodium [Synthroid] 50 mcg PO DAILY Baclofen [Lioresal] 20 mg PO HS Omeprazole [PriLOSEC] 20 mg PO AC-BRKFST HYDROcodone/APAP 10-325MG [[place] 10-325] 1 tab PO Q4HR PRN PRN Reason: Pain Fluticasone/Salmeterol [Advair 250-50 Diskus] 1 inhalation PO BID Ibuprofen 400 mg PO Q6H PRN PRN Reason: Pain Discontinued guaiFENesin-DM 600/30MG [Mucinex Dm] 1 each PO Q12HR Discharge Medication List Albuterol Nebulized [Ventolin Nebulized] 2.5 ml INHALATION QID PRN 06/09/18 [History] Escitalopram [Lexapro] 20 mg PO DAILY 06/09/18 [History] Ibandronate Sodium [Boniva] 150 mg PO Q30D 06/09/18 [History] Losartan [Cozaar] 100 mg PO DAILY 06/09/18 [History] Meloxicam [Mobic] 7.5 mg PO DAILY 06/09/18 [History] Montelukast [Singulair] 10 mg PO HS 06/09/18 [History] Multivitamin [Multivitamins Adult Gummies] 1 tab PO DAILY 06/09/18 [History] ALPRAZolam [Xanax] 0.25 mg PO BID PRN 03/25/19 [History] Baclofen [Lioresal] 20 mg PO HS 03/25/19 [History] Levothyroxine Sodium [Synthroid] 50 mcg PO DAILY 03/25/19 [History] Fluticasone/Salmeterol [Advair 250-50 Diskus] 1 inhalation PO BID 12/31/19 [History] HYDROcodone/APAP 10-325MG [[place] 10-325] 1 tab PO Q4HR PRN 12/31/19 [History] Ibuprofen 400 mg PO Q6H PRN 12/31/19 [History] Omeprazole [PriLOSEC] 20 mg PO AC-BRKFST 12/31/19 [History] Doxycycline [Vibramycin] 100 mg PO BID #10 cap 01/02/20 [Rx] Ipratropium-Albuterol Nebulize [Duoneb 0.5 mg-3 mg/3 ml Soln] 3 ml INHALATION TID #90 ml 01/02/20 [Rx] Polyethylene Glycol 3350 [Miralax] 17 gm PO DAILY PRN powd.pack 01/02/20 [Rx] predniSONE 10 mg PO DAILY #30 tab 01/02/20 [Rx] Follow up Appointment(s)/Referral(s): Non Destructive Testing EngineerDr. [Other] - 1 Week [facility] [NON-STAFF] - [facility], [NON-STAFF] - Petey Edwards MD [Primary Care Provider] - 3 Days Patient Instructions/Handouts: COPD (Chronic Obstructive Pulmonary Disease) (DC) Activity/Diet/Wound Care/Special Instructions: Home oxygen Discharge Disposition: HOME WITH HOME HEALTH SERVICES
--- NOTE | 2020-01-05 11:18 | CDI ---
Documentation Clarification Form Date: 01/05/20 From: Arabella Osuna Phone: If you have a question about this query, please contact Kira Cordova, Resort Desk Clerk at [phone] between 8am and 5pm. Admit Date: 12/31/19 Discharge Date:01/02/20 Patient Name: Nery Hancock Visit Number: [id number] ATTENTION: The Clinical Documentation Specialists (CDI) and [facility] Coding Staff appreciate your assistance in clarifying documentation. Please respond to the clarification below the line at the bottom and electronically sign. The CDI & [facility] Coding staff will review the response and follow-up if needed. Please note: Queries are made part of the Legal Health Record. If you have any questions, please contact the author of this message via ITS. Dear Dr. Dietrich The patient presented with the following respiratory symptoms: increasingly short of breath. Acute hypoxic respriatory failure is documented in the H&P and discharge summary but may be lacking clinical support. History/Risk Factors: COPD, pneumonia Tobacco use: Past history of cigarette smoking for 45 years Home oxygen: None Clinical Indicators: Respiratory distress, wheezes, rhonchi, decreased breath sounds Vital signs: T. 99, P. 100, R. 16, BP 164/93 Pulse oximetry: 89% on room air in the ED Lung/Breathing assessment: Respiratory rate increased, decreased breath sounds, wheezing Treatment: Breathing tx [place] 5mg inhalation, Duonebe 0.5 mg-3mg/3ml soln inhalation O2: 2 L/min per NC In your professional opinion, can you please clarify if these findings signify one of the following conditions? Acute Respiratory Failure Acute on Chronic Respiratory Failure Chronic Respiratory Failure Acute Respiratory Distress Acute Respiratory Insufficiency Other Diagnosis, please specify Unable to determine Specificity: If known, further specify (if known): With hypercapnia? (pCO2 >50 and pH <7.35) With hypoxia? (pO2 <60 mm Hg or SpO2 <91% on room air) Query and dressed in discharge summary-no change in documentation DEBRAD
== END 2020-01-02 18:14 | disposition home health service (06) | DRG 190 ==
LOC: EC 13:37 → 6NMEDSUR 15:42
PROVIDERS: ADMIT Hospitalist; ATTEND Hospitalist
DX: J44.1 Chronic obstructive pulmonary disease with (acute) exacerbation (principal); J15.6 Pneumonia due to other Gram-negative bacteria; J96.01 Acute respiratory failure with hypoxia; C34.90 Malignant neoplasm of unspecified part of unspecified bronchus or lung; C79.51 Secondary malignant neoplasm of bone; J44.0 Chronic obstructive pulmonary disease with (acute) lower respiratory infection; Z11.59 Encounter for screening for other viral diseases; D63.0 Anemia in neoplastic disease; E03.9 Hypothyroidism, unspecified; F32.9 Major depressive disorder, single episode, unspecified; I10 Essential (primary) hypertension; K21.9 Gastro-esophageal reflux disease without esophagitis; M79.7 Fibromyalgia; M85.80 Other specified disorders of bone density and structure, unspecified site; F41.9 Anxiety disorder, unspecified; J30.2 Other seasonal allergic rhinitis; M19.90 Unspecified osteoarthritis, unspecified site; Z79.1 Long term (current) use of non-steroidal anti-inflammatories (NSAID); Z79.890 Hormone replacement therapy; Z79.899 Other long term (current) drug therapy; Z92.3 Personal history of irradiation; Z92.21 Personal history of antineoplastic chemotherapy; Z87.891 Personal history of nicotine dependence; Z88.1 Allergy status to other antibiotic agents; Z88.5 Allergy status to narcotic agent; Z88.0 Allergy status to penicillin; Z88.2 Allergy status to sulfonamides; Z80.0 Family history of malignant neoplasm of digestive organs; Z80.49 Family history of malignant neoplasm of other genital organs; Z80.7 Family history of other malignant neoplasms of lymphoid, hematopoietic and related tissues; Z84.0 Family history of diseases of the skin and subcutaneous tissue; Z84.1 Family history of disorders of kidney and ureter; Z82.49 Family history of ischemic heart disease and other diseases of the circulatory system
CPT/HCPCS: 36415; 71046; 71260; 80053; 83605; 83735; 84484; 85025; 85610; 85730; 87040; 87070; 87205; 87502; 87634; 93005; 93306; 94640; 96365; 96375; 99285

== ENCOUNTER → 2020-01-14 | Outpatient (CLI) | payer MEDICARE ==
--- NOTE | 2020-01-17 10:53 | PE ---
EXAMINATION TYPE: PET CT fusion skull to thigh DATE OF EXAM: 01/14/2020 COMPARISON: CT chest 12/31/2019 Prior PET/CT: 06/11/2019 HISTORY: Lung cancer TECHNIQUE: Following the intravenous administration of 12.57 mCi of F-18 FDG, whole body images are performed from the skull base to the midthigh. Images are reviewed on the computer in the coronal, a xial, and sagittal planes. Reconstructed rotating images are created on independent workstation and reviewed on the computer. A localization and attenuation correction CT is performed in conjunction with the PET scan. DLP: 379.29 mGycm SCAN: Subsequent, follow-up Blood glucose: 81 mg/dL Average Mediastinum SUV: 1.55 Average Liver SUV: 1.75 FINDINGS: NECK: No abnormal uptake THORAX: Mild uptake within the right mediastinal chest. Example image 64. This runs in an AP directio n. Maximum SUV value appears to be 2.4, image 64. The more superior radiotracer adjacent to the right mediastinum has an SUV value 2.44, image 59. Some posterior uptake on the right chest has an SUV benedict ue of 2.15, image 66. There is a punctate pleural-based density in the posterior mid medial right mis st, image 78, SUV value 1.62. Previous punctate mediastinal lymph node not identified. ABDOMEN: No abnormal uptake PELVIS: No abnormal uptake OSSEOUS STRUCTURES: Possible right posterior inferior rib uptake, image 119, SUV value of 3.[address]: Scattered mild density along the mediastinum on the right upper lung field. Some mil d thickening in the right perihilar region is present. Findings are improving from the chest CT of COMPARISON: There is significant improvement of the uptake within the chest over the interval. Underl timothy mass is largely resolved. Mild residual remains. IMPRESSION: 1. Near complete resolution of radiotracer along the right upper lung field mediastinal border. Previ ous suspected lymph node does not have abnormal uptake at this time. 2. There may be a new focus of radiotracer accumulation within the posterior right 11th rib.
== END | disposition home or self-care (01) ==
LOC: RADPETMAIN 12:26
PROVIDERS: ATTEND Internal Medicine Hematology & Oncology
DX: C34.11 Malignant neoplasm of upper lobe, right bronchus or lung (principal)
CPT/HCPCS: 78815; A9552

== ENCOUNTER 2020-02-11 14:33 | Emergency (ER) | payer MEDICARE ==
[2020-02-11 14:42] VITALS: TEMP 98.3
[2020-02-11] MEDS ORDERED: ASPIRIN 81 MG PO STA (14:49)
[2020-02-11 15:17] LABS: Basophils # (A) 0.1 k/uL (0-0.2); Basophils % (A) 1 %; Eosinophils # (A) 0.1 k/uL (0-0.7); Eosinophils % (A) 2 %; HCT 34.5 % (34.0-46.0); HGB 11.1 gm/dL (11.4-16.0); Hypochromasia Slight; Lymphocytes # (A) 0.5 k/uL (1.0-4.8); Lymphocytes % (A) 8 %; MCH 29.1 pg (25.0-35.0); MCHC 32.2 g/dL (31.0-37.0); MCV 90.4 fL (80.0-100.0); Mean Platelet Volume 7.5; Monocytes # (A) 0.5 k/uL (0-1.0); Monocytes % (A) 8 %; Neutrophils # (A) 5.4 k/uL (1.3-7.7); Neutrophils % (A) 80 %; Platelet Count 215 k/uL (150-450); RBC 3.81 m/uL (3.80-5.40); WBC 6.8 k/uL (3.8-10.6)
[2020-02-11 15:43] LABS: ALT 14 U/L (4-34); AST 34 U/L (14-36); African American GFR (CKD) >90 (>60 ml/min/1.73 sqM); Albumin 4.1 g/dL (3.5-5.0); Alkaline Phosphatase 99 U/L (38-126); Anion Gap 9 mmol/L; Blood Urea Nitrogen 14 mg/dL (7-17); Calcium 9.5 mg/dL (8.4-10.2); Carbon Dioxide 29 mmol/L (22-30); Chloride 101 mmol/L (98-107); Glucose 94 mg/dL (74-99); Magnesium 1.7 mg/dL (1.6-2.3); Non-African American GFR(CKD) >90 (>60 ml/min/1.73 sqM); Potassium 4.7 mmol/L (3.5-5.1); Sodium 139 mmol/L (137-145); Total Bilirubin 0.8 mg/dL (0.2-1.3)
[2020-02-11 15:44] LABS: INR 0.9 (<1.2); Prothrombin Time 9.3 sec (9.0-12.0)
[2020-02-11 16:05] LABS: D-Dimer 1.47 mg/L FEU (<0.60)
--- NOTE | 2020-02-11 16:26 | XR ---
EXAMINATION TYPE: XR chest 2V DATE OF EXAM: 02/11/2020 COMPARISON: 12/31/2019 HISTORY: 74-year-old female with chest pain and shortness of breath TECHNIQUE: AP and lateral views FINDINGS: Heart upper limits of normal in size. Atherosclerotic arch calcifications. Focal right hilar and supr ahilar density slight increase in density. Hyperinflation. No pleural effusion. IMPRESSION: Right hilar and right suprahilar consolidation and volume loss shows slight increased density compare d to 12/31/2019. Possible progressive posttreatment change. No infiltrate seen elsewhere in the lungs.
--- NOTE | 2020-02-11 16:36 | CT ---
EXAMINATION TYPE: CT chest angio for PE DATE OF EXAM: 02/11/2020 COMPARISON: 01/14/2020 and 12/31/2019 HISTORY: 74-year-old female SOB, lower limb swelling, hx of lung ca TECHNIQUE: Contiguous axial scanning of the chest performed with IV Contrast, patient injected with 5 5cc mL of Isovue 300. Coronal/sagittal MIP reconstructions performed. CT DLP: 374.2 mGycm Automated exposure control for dose reduction was used. FINDINGS: Heart normal size without pericardial effusion. Two-vessel coronary calcifications are present. Moderate atherosclerotic arch calcifications with conventional branching anatomy. No thoracic lymphadenopathy identified by CT size criteria. Satisfactory opacification of the pulmonary arterial system but with mild motion artifact. No definit e pulmonary embolus. Redemonstrated volume loss and consolidation in the right hilar and right suprahilar region. Consolid ation has become more confluence intense as compared to prior exam and also shows some increase now w ith extension into the right infrahilar region measuring 2.0 cm, axial image 49. A trace right pleural effusion is new. A 9 x 6 mm right lower lobe pulmonary nodule, axial image 68 is unchanged. Focal 1.3 x 0.9 cm subpleural nodularity posteromedial right lower lobe on axial image 61 has increas ed in size from 6 cm, previously. Increasing strandy atelectasis at the right base. Background of [id number] COPD. Tiny hiatal hernia. Visualized upper abdomen shows no gross abnormality. Bones: Sclerosis and mild anterior wedging of T5 vertebral body is unchanged. IMPRESSION: 1. MILD RESPIRATORY MOTION ARTIFACTS. NO DEFINITE PULMONARY EMBOLUS. 2. INCREASING DENSITY AND MORE CONFLUENT RIGHT PERIHILAR AND SUPRAHILAR CONSOLIDATION VOLUME LOSS, PO SSIBLE PROGRESSIVE POSTTREATMENT CHANGE. 3. HOWEVER, GIVEN INCREASING SIZE OF OPACITY NOW EXTENDING INTO THE RIGHT INFRAHILAR REGION, CONTINUE D ONCOLOGIC FOLLOW-UP RECOMMENDED. CORRELATION SHOULD BE MADE TO EXCLUDE PNEUMONIA. 4. NEW TRACE RIGHT PLEURAL EFFUSION. ADDITIONAL NEW FOCAL 1.3 CM SUBPLEURAL NODULARITY IN THE RIGHT L OWER LOBE WHICH COULD REPRESENT ADDITIONAL POSTTREATMENT CHANGE. AGAIN, ONCOLOGIC FOLLOW-UP RECOMMEND ED.
[2020-02-11 16:37] VITALS: RESP 16
--- NOTE | 2020-02-11 16:45 | ED ---
General Adult HPI - General Chief complaint: Shortness of Breath Stated complaint: SOB Source: patient Mode of arrival: EMS - History of Present Illness Initial comments: 74 her feel presenting today for shortness of breath. Patient states that she feels slightly short of breath walking from the door to registration. She was coming in for Ultram the leg to rule out DVT was told as best she came to the ER for evaluation. Patient states she does not feel like she needs to be here denies hemoptysis denies previous DVT patient states she does have active lung cancer. Denies chest pain, jaw pain, nausea vomiting or chest pressure. Patient states there is some erythema associated with the left leg swelling and was told if the US was negative to talk about antibiotics with the physician in ER. Patie nt has no fevers, cough, congestion. Patient has no malaise or chills. Remaining ROS (-). Upon arrival patient appears well no distress, on PRN home oxygen - Related Data Home Medications Medication Instructions Recorded Confirmed Albuterol Nebulized [Ventolin 2.5 ml INHALATION QID PRN 06/09/18 12/31/19 Nebulized] Escitalopram [Lexapro] 20 mg PO DAILY 06/09/18 12/31/19 Ibandronate Sodium [Boniva] 150 mg PO Q30D 06/09/18 12/31/19 Losartan [Cozaar] 100 mg PO DAILY 06/09/18 12/31/19 Meloxicam [Mobic] 7.5 mg PO DAILY 06/09/18 12/31/19 Montelukast [Singulair] 10 mg PO HS 06/09/18 12/31/19 Multivitamin [Multivitamins Adult 1 tab PO DAILY 06/09/18 12/31/19 Gummies] ALPRAZolam [Xanax] 0.25 mg PO BID PRN 03/25/19 12/31/19 Baclofen [Lioresal] 20 mg PO HS 03/25/19 12/31/19 Levothyroxine Sodium [Synthroid] 50 mcg PO DAILY 03/25/19 12/31/19 Fluticasone/Salmeterol [Advair 1 inhalation PO BID 12/31/19 12/31/19 250-50 Diskus] HYDROcodone/APAP 10-325MG [[place] 1 tab PO Q4HR PRN 12/31/19 12/31/19 10-325] Ibuprofen 400 mg PO Q6H PRN 12/31/19 12/31/19 Omeprazole [PriLOSEC] 20 mg PO AC-BRKFST 12/31/19 12/31/19 Previous Rx's Medication Instructions Recorded Doxycycline [Vibramycin] 100 mg PO BID #10 cap 01/02/20 Ipratropium-Albuterol Nebulize 3 ml INHALATION TID #90 ml 01/02/20 [Duoneb 0.5 mg-3 mg/3 ml Soln] Polyethylene Glycol 3350 [Miralax] 17 gm PO DAILY PRN powd.pack 01/02/20 predniSONE 10 mg PO DAILY #30 tab 01/02/20 Azithromycin [Zithromax Z-pack] 0 mg PO DIRECTED #6 tab 02/11/20 Cephalexin [Keflex] 500 mg PO Q6HR 7 Days #28 cap 02/11/20 Allergies Allergy/AdvReac Type Severity Reaction Status Date / Time meperidine HCl [From Demerol] Allergy Anaphylaxis Verified 02/11/20 14:43 morphine Allergy Vomiting Verified 02/11/20 14:43 Penicillins Allergy Rash/Hives Verified 02/11/20 14:43 Sulfa (Sulfonamide Allergy Nausea & Verified 02/11/20 14:43 Antibiotics) Vomiting ciprofloxacin [From Cipro] AdvReac Nausea Verified 02/11/20 14:43 sulfamethoxazole AdvReac Nausea Verified 02/11/20 14:43 [From Bactrim] trimethoprim [From Bactrim] AdvReac Nausea Verified 02/11/20 14:43 Review of Systems ROS Statement: Those systems with pertinent positive or pertinent negative responses have been documented in the HPI. ROS Other: All systems not noted in ROS Statement are negative. Past Medical History Past Medical History: Asthma, Cancer, COPD, Fibromyalgia, Hypertension, Thyroid Disorder Additional Past Medical History / Comment(s): Lung cancer 2019. Arthritis,depre ssion, osteopenia and seasonal allergies. She used HRT for about 5 years after her LMP. History of Any Multi-Drug Resistant Organisms: None Reported Past Surgical History: Back Surgery, Breast Surgery, Orthopedic Surgery Additional Past Surgical History / Comment(s): D&C 1973. Colonoscopy with upper endoscopy 2019(next after 5yrs)., MULTIPLE LT HAND SX R/T INJURY. Lumbar laminectomy, hand surgery and breast biopsy. Transesophageal lung biopsy. Past Anesthesia/Blood Transfusion Reactions: Postoperative Nausea & Vomiting (PONV) Past Psychological History: Depression Smoking Status: Former smoker Past Alcohol Use History: None Reported Past Drug Use History: Marijuana - Past Family History Brother(s) Family Medical History: Cancer, Myocardial Infarction ([place]), Renal Disease Additional Family Medical History / Comment(s): Esophageal cancer. Melanoma and renal failure. Another brother had an [place]. Sister(s) Family Medical History: Cancer Additional Family Medical History / Comment(s): Cervical cancer. Mother Family Medical History: Cancer Additional Family Medical History / Comment(s): Hodgkin's lymphoma. Son(s) Family Medical History: Cancer Additional Family Medical History / Comment(s): Cholangiocarcinoma. General Exam - General Exam Comments Initial Comments: General: The patient is awake and alert, in no distress Eye: Pupils are equal, round and reactive to light, extra-ocular movements are intact. No nystagmus. There is normal conjunctiva bilaterally. No signs of icterus. Ears, nose, mouth and throat: There are moist mucous membranes and no oral lesions. Neck: The neck is supple, there is no tenderness or JVD. Cardiovascular: There is a regular rate and rhythm. No murmur, rub or gallop is appreciated. Respiratory: Lungs are clear to auscultation, respirations are non-labored, breath sounds are equal. No wheezes, stridor, rales, or rhonchi. Gastrointestinal: Soft, non-distended, non-tender abdomen without masses or organomegaly noted. There is no rebound or guarding present. Musculoskeletal: Normal ROM, no tenderness. Strength 5/5. Sensation intact. P ulses equal bilaterally 2+. Neurological: A&O x 3. CN II-XII intact, There are no obvious motor or sensory deficits. Coordination appears grossly intact. Speech is normal. Skin: Skin is warm and dry and no rashes or lesions are noted. Left LE swe lling, some mild redness on top of foot and distal ankle/ Psychiatric: Cooperative, appropriate mood & affect, normal judgment. Course Vital Signs 02/11/20 02/11/20 02/11/20 14:38 16:33 16:53 Temperature 98.3 F Pulse Rate 116 H 82 79 Respiratory 20 16 16 Rate Blood Pressure 131/70 161/82 123/79 O2 Sat by Pulse 100 100 100 Oximetry Procedures - Earle Protocol (Time Out) Nurse: Nayely [place] Medical Decision Making - Medical Decision Making 34-year-old female presenting for slight shortness of breath for a few minutes well ambulating and caring her oxygen take she states usually does not have to care oxygen take in the state wheelchair. She was sent from her physician's office for evaluation. D-dimer elevated CTA negative for acute pulmonary embolism however there are noted slight changes to patient's suspected post operative areas (lung cancer). Patient has no fevers, chills rigors. However cannot r/o PNA. Patient will be treated for HCAP. Patient does appears to have cellulitis of left leg. US (-) outpatient for DVT. Patient treated with Z-pck and Keflex. Patient perfers discharge patient will be discharged as labs stable. Appears well, VS stable with instruction to f/u with oncologist for CTA report and PCP. Worsening symptoms patinet is to immediately return to the ER. Case discussed with Dr. Almanza pt discharged appearing well. - Lab Data Result diagrams: 02/11/20 14:51 02/11/20 14:51 Lab Results 02/11/20 02/11/20 02/11/20 Range/Units 14:51 14:51 14:51 WBC 6.8 (3.8-10.6) k/uL RBC 3.81 (3.80-5.40) m/uL Hgb 11.1 L (11.4-16.0) gm/dL Hct 34.5 (34.0-46.0) % MCV 90.4 (80.0-100.0) fL MCH 29.1 (25.0-35.0) pg MCHC 32.2 (31.0-37.0) g/dL RDW 15.0 (11.5-15.5) % Plt Count 215 (150-450) k/uL Neutrophils % 80 % Lymphocytes % 8 % Monocytes % 8 % Eosinophils % 2 % Basophils % 1 % Neutrophils # 5.4 (1.3-7.7) k/uL Lymphocytes # 0.5 L (1.0-4.8) k/uL Monocytes # 0.5 (0-1.0) k/uL Eosinophils # 0.1 (0-0.7) k/uL Basophils # 0.1 (0-0.2) k/uL Hypochromasia Slight PT 9.3 (9.0-12.0) sec INR 0.9 (<1.2) APTT 21.0 L (22.0-30.0) sec D-Dimer 1.47 H (<0.60) mg/L FEU Sodium 139 (137-145) mmol/L Potassium 4.7 (3.5-5.1) mmol/L Chloride 101 (98-107) mmol/L Carbon Dioxide 29 (22-30) mmol/L Anion Gap 9 mmol/L BUN 14 (7-17) mg/dL Creatinine 0.50 L (0.52-1.04) mg/dL Est GFR (CKD-EPI)AfAm >90 (>60 ml/min/1.73 sqM) Est GFR (CKD-EPI)NonAf >90 (>60 ml/min/1.73 sqM) Glucose 94 (74-99) mg/dL Calcium 9.5 (8.4-10.2) mg/dL Magnesium 1.7 (1.6-2.3) mg/dL Total Bilirubin 0.8 (0.2-1.3) mg/dL AST 34 (14-36) U/L ALT 14 (4-34) U/L Alkaline Phosphatase 99 (38-126) U/L Troponin I (0.000-0.034) ng/mL NT-Pro-B Natriuret Pep pg/mL Total Protein 7.0 (6.3-8.2) g/dL Albumin 4.1 (3.5-5.0) g/dL 02/11/20 02/11/20 Range/Units 14:51 14:51 WBC (3.8-10.6) k/uL RBC (3.80-5.40) m/uL Hgb (11.4-16.0) gm/dL Hct (34.0-46.0) % MCV (80.0-100.0) fL MCH (25.0-35.0) pg MCHC (31.0-37.0) g/dL RDW (11.5-15.5) % Plt Count (150-450) k/uL Neutrophils % % Lymphocytes % % Monocytes % % Eosinophils % % Basophils % % Neutrophils # (1.3-7.7) k/uL Lymphocytes # (1.0-4.8) k/uL Monocytes # (0-1.0) k/uL Eosinophils # (0-0.7) k/uL Basophils # (0-0.2) k/uL Hypochromasia PT (9.0-12.0) sec INR (<1.2) APTT (22.0-30.0) sec D-Dimer (<0.60) mg/L FEU Sodium (137-145) mmol/L Potassium (3.5-5.1) mmol/L Chloride (98-107) mmol/L Carbon Dioxide (22-30) mmol/L Anion Gap mmol/L BUN (7-17) mg/dL Creatinine (0.52-1.04) mg/dL Est GFR (CKD-EPI)AfAm (>60 ml/min/1.73 sqM) Est GFR (CKD-EPI)NonAf (>60 ml/min/1.73 sqM) Glucose (74-99) mg/dL Calcium (8.4-10.2) mg/dL Magnesium (1.6-2.3) mg/dL Total Bilirubin (0.2-1.3) mg/dL AST (14-36) U/L ALT (4-34) U/L Alkaline Phosphatase (38-126) U/L Troponin I <0.012 (0.000-0.034) ng/mL NT-Pro-B Natriuret Pep 410 pg/mL Total Protein (6.3-8.2) g/dL Albumin (3.5-5.0) g/dL Disposition Clinical Impression: Left leg cellulitis, Pleural effusion, Shortness of breath Disposition: HOME SELF-CARE Condition: Good Instructions (If sedation given, give patient instructions): Cellulitis (ED), Shortness of Breath (ED) Additional Instructions: Please use medication as discussed. Please follow-up with family doctor in the next [address] with your oncologist this week. Please return to emergency room if the symptoms increase or worsen or for any other concerns. Prescriptions: Cephalexin [Keflex] 500 mg PO Q6HR 7 Days #28 cap Azithromycin [Zithromax Z-pack] 0 mg PO DIRECTED #6 tab Is patient prescribed a controlled substance at d/c from ED?: No Referrals: Michelle Pat MD [Primary Care Provider] - 1-2 days Time of Disposition: 16:45
[2020-02-11 16:54] VITALS: BP 123/79; PULSE 79
== END 2020-02-11 16:54 | disposition home or self-care (01) ==
LOC: EC 14:33
DX: J90 Pleural effusion, not elsewhere classified (principal); L03.116 Cellulitis of left lower limb; R06.02 Shortness of breath; J44.9 Chronic obstructive pulmonary disease, unspecified; I10 Essential (primary) hypertension; F32.9 Major depressive disorder, single episode, unspecified; Z79.1 Long term (current) use of non-steroidal anti-inflammatories (NSAID); Z79.899 Other long term (current) drug therapy; Z79.51 Long term (current) use of inhaled steroids; Z79.890 Hormone replacement therapy; Z88.5 Allergy status to narcotic agent; Z88.0 Allergy status to penicillin; Z88.1 Allergy status to other antibiotic agents; Z88.2 Allergy status to sulfonamides; Z87.891 Personal history of nicotine dependence; Z85.118 Personal history of other malignant neoplasm of bronchus and lung
CPT/HCPCS: 99285; 36415; 93005; 85379; 83880; 80053; 83735; 84484; 85025; 85610; 85730; 71046; 71275; Q9967

== ENCOUNTER → 2020-02-11 | Outpatient (CLI) | payer MEDICARE ==
--- NOTE | 2020-02-11 14:36 | US ---
EXAMINATION TYPE: US venous doppler duplex LE DATE OF EXAM: 02/11/2020 1:45 PM COMPARISON: NONE CLINICAL HISTORY: R22.43 Localized swelling, mass. sob, left ankle swelling and redness SIDE PERFORMED: TECHNIQUE: The lower extremity deep venous system is examined utilizing real time linear array sonog lisa with graded compression, doppler sonography and color-flow sonography. VESSELS IMAGED: External Iliac Vein (EIV) Common Femoral Vein Deep Femoral Vein Greater Saphenous Vein * Femoral Vein Popliteal Vein Small Saphenous Vein * Proximal Calf Veins (* superficial vessels) Grayscale, color doppler, spectral doppler imaging performed of the deep veins of the lower extremiti es. There is normal flow, compressibility, vascular waveforms. Right Leg: Negative for DVT Left Leg: Negative for DVT IMPRESSION: No sonographic evidence of deep venous thrombosis in the visualized portions of the bila teral lower extremities.
== END | disposition home or self-care (01) ==
LOC: RADUSMAIN 13:40
PROVIDERS: ATTEND Nurse Practitioner Adult Health
DX: R22.43 Localized swelling, mass and lump, lower limb, bilateral (principal); Z88.0 Allergy status to penicillin; Z88.5 Allergy status to narcotic agent
CPT/HCPCS: 93970

== ENCOUNTER → 2020-04-07 | Outpatient (CLI) | payer MEDICARE ==
--- NOTE | 2020-04-10 12:59 | PE ---
Nuclear medicine PET/CT HISTORY: Right upper lobe lung carcinoma, subsequent Patient received 11.5 mCi F-18 FDG intravenously in delayed scanning was performed from the skull bas e to the mid thighs. Localization and attenuation correction CT scan was performed. Correlation to prior nuclear medicine PET/CT 01/14/2020 Neck and chest: There is no cervical or supraclavicular adenopathy or suspicious uptake. There is bee n interval development of abnormal density in the right upper lobe which abuts the mediastinum and up per thoracic vertebral bodies, SUV is 4.5 and confluent density extends to the right hilar region pos sibly related to patient's treatment, soft tissue extends about the upper margin of the right mainste m bronchus. Within the superior segment of the right lower lobe however there is interval development of a soft tissue mass measuring approximately 2.4 cm, SUV is 33, adjacent cavity is present. There i s no pleural or pericardial effusion. There is immediately anterior to the right 11th rib and slightl y lateral some prominence of soft tissue which shows an SUV of 11.3, small focus towards the costophr enic angle of the right 12th rib also shows focal uptake which is likely along the pleura. There are coronary artery calcifications present. ABDOMEN: There is no adrenal mass or retroperitoneal adenopathy. No evident liver mass, no suspicious hypermetabolic uptake. Diverticular changes associated with the colon. No free fluid in the pelvis, no ascites. No pelvic adenopathy. Osseous structures: No suspicious uptake. IMPRESSION: Interval development of right lower lobe mass, there is likely pleural deposits present a t the right lung base. Upper lobe abnormality may be due to posttreatment change.
== END | disposition home or self-care (01) ==
LOC: RADPETMAIN 09:05
PROVIDERS: ATTEND Internal Medicine Hematology & Oncology
DX: C34.11 Malignant neoplasm of upper lobe, right bronchus or lung (principal)
CPT/HCPCS: 78815; A9552

== ENCOUNTER 2020-04-27 09:12 | Day surgery (SDC) | payer MEDICARE ==
[2020-04-27 09:52] LABS: Mean Platelet Volume 7.2; Platelet Count 265 k/uL (150-450)
[2020-04-27] MEDS ORDERED: ALPRAZolam 0.25 MG TAB PO ONE (09:54)
[2020-04-27 10:11] VITALS: RESP 16
[2020-04-27 10:30] LABS: ALT 16 U/L (4-34); AST 22 U/L (14-36); African American GFR (CKD) >90 (>60 ml/min/1.73 sqM); Albumin 4.1 g/dL (3.5-5.0); Alkaline Phosphatase 104 U/L (38-126); Anion Gap 7 mmol/L; Blood Urea Nitrogen 12 mg/dL (7-17); Calcium 9.3 mg/dL (8.4-10.2); Carbon Dioxide 30 mmol/L (22-30); Chloride 103 mmol/L (98-107); Cholesterol 201 mg/dL (<200); Glucose 95 mg/dL (74-99); HDL Cholesterol 72 mg/dL (40-60); LDL Cholesterol,Calculated 110 mg/dL (0-99); Non-African American GFR(CKD) >90 (>60 ml/min/1.73 sqM); Potassium 3.9 mmol/L (3.5-5.1); Sodium 140 mmol/L (137-145); Total Bilirubin 0.7 mg/dL (0.2-1.3); Total Protein 6.6 g/dL (6.3-8.2); Triglycerides 95 mg/dL (<150)
[2020-04-27 10:42] LABS: Creatine Kinase 30 U/L (30-135)
[2020-04-27 12:50] VITALS: TEMP 96.7
[2020-04-27 14:17] VITALS: BP 119/58; PULSE 79
--- NOTE | 2020-04-27 14:45 | XR ---
EXAMINATION TYPE: XR chest 1V portable DATE OF EXAM: 04/27/2020 COMPARISON: Prior chest 02/11/20 HISTORY: Post right lung biopsy TECHNIQUE: Single frontal view of the chest is obtained. FINDINGS: There is no pneumothorax or pleural effusion seen. The cardiac silhouette size is within normal limits. The osseous structures are intact. IMPRESSION: No evident complication status post lung biopsy.
--- NOTE | 2020-04-27 15:45 | CT ---
EXAMINATION TYPE: CT biopsy lung RT DATE OF EXAM: 04/27/2020 HISTORY: Lung mass COMPARISON: PET/CT 04/07/2020, CTA chest 02/11/2020. Informed consent was obtained by Dr. Ivet Alegre prior to procedure. Preliminary CT imaging demonstrated a 2.9 x 2.0 cm right lower lobe posteromedial pleural-based lung nodule which corresponds to hypermetabolic nodule seen on 04/07/[address] comparison, as well as pos ttreatment changes of the right lung apex related to prior known lung mass. The skin overlying a suit able path to the right lower lobe pleural-based lung nodule was localized using CT and the overlying skin was prepped and draped utilizing maximal barrier technique. Lidocaine used for local anesthesia. A small skin willem was made with a scalpel. Using CT guidance, access was gained to the lesion with a 18-gauge coaxial core biopsy needle. Core specimen(s) submitted in formalin for histopathology. 2 p ass(es) performed in all. All needles were removed and sterile bandage was applied. Postprocedure CT imaging demonstrated no evidence of significant hemorrhage or pneumothorax. Patient tolerated procedure well with no immediate complications. Patient is discharged in stable condition. IMPRESSION: SUCCESSFUL CT GUIDED RIGHT LOWER LOBE LUNG 18G CORE BIOPSY. PATHOLOGY PENDING. THIS PROCEDURE WAS PE RFORMED BY THE UNDERSIGNED.
== END 2020-04-27 15:00 | disposition home or self-care (01) ==
LOC: RADPROMAIN 09:12 → 1SOBS 11:53 → RADPROMAIN 15:00
PROVIDERS: ATTEND Internal Medicine Hematology & Oncology
DX: C34.31 Malignant neoplasm of lower lobe, right bronchus or lung (principal); Z88.5 Allergy status to narcotic agent; Z88.0 Allergy status to penicillin
CPT/HCPCS: 71045; 77012; 80053; 80061; 82550; 85049; 85610; 88305; 88341; 88342

== ENCOUNTER → 2020-05-04 | Outpatient (CLI) | payer MEDICARE ==
--- NOTE | 2020-05-04 16:50 | XR ---
EXAMINATION TYPE: XR chest 2V DATE OF EXAM: 05/04/2020 CLINICAL HISTORY: Hemoptysis. History of lung cancer. COPD. Status post lung mass biopsy 04/27/2020. TECHNIQUE: Frontal and lateral views of the chest are obtained. COMPARISON: Chest radiograph 04/27/2020. CT-guided lung biopsy 04/27/2020. PET CT 04/07/2020. FINDINGS: The cardiomediastinal silhouette is within unchanged. Redemonstrated spiculated masslike o pacity/scarring of the right medial lung apex. Pulmonary vasculature is normal. There is no new focal air space opacity, pleural effusion, or pneumothorax seen. The posterior pleural-based opacity of th e right lower lobe is not discretely seen, and better appreciated on CT comparison. There is redemons trated mild compression deformity of one of the upper thoracic spine vertebral bodies. IMPRESSION: Unchanged radiographic appearance of the chest. No evidence of pneumothorax or new focal opacity.
== END | disposition home or self-care (01) ==
LOC: RADXRMAIN 15:17
PROVIDERS: ATTEND Internal Medicine Hematology & Oncology
DX: C34.11 Malignant neoplasm of upper lobe, right bronchus or lung (principal); G89.3 Neoplasm related pain (acute) (chronic); Z71.3 Dietary counseling and surveillance
CPT/HCPCS: 71046

== ENCOUNTER → 2020-05-29 | Outpatient (CLI) | payer MEDICARE, SELFPAY ==
[2020-05-29 11:12] LABS: Basophils % (A) 0 %; Eosinophils # (A) 0.1 k/uL (0-0.7); Eosinophils % (A) 1 %; HCT 38.7 % (34.0-46.0); HGB 11.9 gm/dL (11.4-16.0); Lymphocytes # (A) 0.3 k/uL (1.0-4.8); Lymphocytes % (A) 5 %; MCH 29.1 pg (25.0-35.0); MCHC 30.8 g/dL (31.0-37.0); MCV 94.4 fL (80.0-100.0); Mean Platelet Volume 7.6; Monocytes # (A) 0.6 k/uL (0-1.0); Monocytes % (A) 9 %; Neutrophils # (A) 5.4 k/uL (1.3-7.7); Neutrophils % (A) 84 %; Platelet Count 238 k/uL (150-450); RDW 13.9 % (11.5-15.5); WBC 6.4 k/uL (3.8-10.6)
== END | disposition home or self-care (01) ==
LOC: LABWHC1 10:39
PROVIDERS: ATTEND Radiology Radiation Oncology
DX: C79.51 Secondary malignant neoplasm of bone (principal); C77.9 Secondary and unspecified malignant neoplasm of lymph node, unspecified; C34.11 Malignant neoplasm of upper lobe, right bronchus or lung; Z92.21 Personal history of antineoplastic chemotherapy; Z92.3 Personal history of irradiation
CPT/HCPCS: 36415; 85025

== ENCOUNTER → 2020-08-23 | Outpatient (CLI) | payer MEDICARE, SELFPAY | END | disposition home or self-care (01) | LOC: LABWHC1 13:13 | PROVIDERS: ATTEND Internal Medicine | DX: Z20.828 Contact with and (suspected) exposure to other viral communicable diseases (principal); C34.91 Malignant neoplasm of unspecified part of right bronchus or lung | CPT/HCPCS: U0003; C9803 ==

== ENCOUNTER → 2020-10-12 | Outpatient (CLI) | payer MEDICARE ==
[2020-10-12 12:31] LABS: Basophils % (A) 0 %; Eosinophils # (A) 0.1 k/uL (0-0.7); Eosinophils % (A) 1 %; HCT 37.4 % (34.0-46.0); HGB 12.3 gm/dL (11.4-16.0); Lymphocytes # (A) 0.4 k/uL (1.0-4.8); Lymphocytes % (A) 6 %; MCH 31.2 pg (25.0-35.0); MCV 94.8 fL (80.0-100.0); Mean Platelet Volume 7.1; Monocytes # (A) 0.4 k/uL (0-1.0); Monocytes % (A) 6 %; Neutrophils # (A) 5.8 k/uL (1.3-7.7); Neutrophils % (A) 85 %; Platelet Count 195 k/uL (150-450); RBC 3.94 m/uL (3.80-5.40); RDW 13.1 % (11.5-15.5); WBC 6.8 k/uL (3.8-10.6)
[2020-10-12 21:26] LABS: African American GFR (CKD) 97.5 (60.0-200.0); Albumin 4.2 g/dL (3.80-4.90); Albumin/Globulin Ratio 2.21 (1.60-3.17); Anion Gap 7.6 mmol/L (4.00-12.00); BUN/Creat Ratio 24.29 Ratio (12.00-20.00); Calcium 9.4 mg/dL (8.7-10.3); Carbon Dioxide 32.4 mmol/L (21.6-31.8); Globulin 1.9 g/dL (1.6-3.3); Magnesium 1.6 mg/dL (1.5-2.4); Non-African American GFR(CKD) 84.2 (60.0-200.0); Total Bilirubin 0.4 mg/dL (0.2-1.2); Total Protein 6.1 g/dL (6.2-8.2)
[2020-10-12 21:34] LABS: T4, Free (Free Thyroxine) 1.1 ng/dL (0.80-1.80)
== END | disposition home or self-care (01) ==
LOC: LABWHC1 11:51
PROVIDERS: ATTEND Internal Medicine
DX: C34.91 Malignant neoplasm of unspecified part of right bronchus or lung (principal)
CPT/HCPCS: 36415; 80053; 83735; 84439; 84443; 84481; 85025

== ENCOUNTER → 2020-11-21 | Outpatient (CLI) | payer MEDICARE ==
[2020-11-21 15:32] VITALS: BP 128/75; PULSE 78; RESP 20; TEMP 98.3
--- NOTE | 2020-11-21 16:26 | P.HPOB ---
History of Present Illness H&P Date: 11/21/20 Chief Complaint: The patient is here for her routine gynecologic exam and ma mmogram. This is a 75-year-old with an LMP of 1997. The patient is without gynecologic complaints and denies any postmenopausal bleeding. Review of Systems Weight has been stable from last years exam, however she states she has had some weight fluctuations and attributes this to steroid treatments. She deniescardiac or G.I. problems. Respiratory: Occasional shortness of breath with increased activity and does require oxygen by nasal cannula. She denies maltreatment or problems with falling. : she denies any significant problems with urinary leakage. Past Medical History Past Medical History: Asthma, Cancer, COPD, Fibromyalgia, Hypertension, Osteoarthritis (OA), Thyroid Disorder Additional Past Medical History / Comment(s): Lung cancer 2019 s/p chemo and radiation, recurrence of lung cancer (stage 4) in 2020. Arthritis,depression, osteopenia and seasonal allergies. 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 She used hormone replacement therapy for 5 years post menopause. History of Any Multi-Drug Resistant Organisms: None Reported Past Surgical History: Back Surgery, Breast Surgery, Orthopedic Surgery Additional Past Surgical History / Comment(s): D&C 1972. Colonoscopy with upper endoscopy 2019(next after 5yrs)., MULTIPLE LT HAND SX R/T INJURY. Lumbar laminectomy, hand surgery and breast biopsy. Transesophageal lung biopsy. Past Anesthesia/Blood Transfusion Reactions: Postoperative Nausea & Vomiting (PONV) Additional Past Anesthesia/Blood Transfusion Reaction / Comment(s): no previous blood transfusion Past Psychological History: Anxiety, Depression Smoking Status: Former smoker Past Alcohol Use History: None Reported Additional Past Alcohol Use History / Comment(s): QUIT SMOKING 2017 Past Drug Use History: Marijuana Additional Drug Use History / Comment(s): edibles--none since October Additional History: She has been a since 2018 and is not sexually active. 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 - Past Family History Brother(s) Family Medical History: Cancer, Myocardial Infarction ([place]), Renal Disease Additional Family Medical History / Comment(s): Esophageal cancer, melanoma of the sinuses which led to brain metastases. Renal failure. Another brother had an [place]. Sister(s) Family Medical History: Cancer Additional Family Medical History / Comment(s): Cervical cancer. Mother Family Medical History: Cancer Additional Family Medical History / Comment(s): Hodgkin's lymphoma. Son(s) Family Medical History: Cancer Additional Family Medical History / Comment(s): Cholangiocarcinoma. Medications and Allergies Home Medications Medication Instructions Recorded Confirmed Type Escitalopram [Lexapro] 20 mg PO DAILY 06/09/18 04/27/20 History Ibandronate Sodium [Boniva] 150 mg PO Q30D 06/09/18 04/27/20 History Losartan [Cozaar] 50 mg PO DAILY 06/09/18 04/27/20 History Meloxicam [Mobic] 7.5 mg PO DAILY 06/09/18 04/27/20 History Montelukast [Singulair] 10 mg PO HS 06/09/18 04/27/20 History Multivitamin [Multivitamins Adult 1 tab PO DAILY 06/09/18 04/27/20 History Gummies] Baclofen [Lioresal] 20 mg PO BID 03/25/19 04/27/20 History Levothyroxine Sodium [Synthroid] 50 mcg PO DAILY 03/25/19 04/27/20 History HYDROcodone/APAP 10-325MG [[place] 1 tab PO Q4HR PRN 12/31/19 04/27/20 History 10-325] Omeprazole [PriLOSEC] 20 mg PO AC-BRKFST 12/31/19 04/27/20 History Aspirin [Adult Low Dose Aspirin EC] 81 mg PO DAILY 04/27/20 04/27/20 History Acetaminophen [Tylenol] 650 mg PO Q6H PRN 11/21/20 11/21/20 History Budesonide/Formoterol Fumarate 1 puff PO BID 11/21/20 11/21/20 History [Budesonide-Formoterol 160-4.5] Folic Acid 1 mg PO DAILY 11/21/20 11/21/20 History Lidocaine [Lidoderm 5% Patch] 1 patch TRANSDERM DAILY 11/21/20 11/21/20 History Magnesium Oxide 400 mg PO BID 11/21/20 11/21/20 History Nitroglycerin 0.4 mg SL DAILY PRN 11/21/20 11/21/20 History Nystatin 100,000 Unit/gm Powd 1 applic TOPICAL TID 11/21/20 11/21/20 History [Mycostatin Powder] Ondansetron [Zuplenz] 8 mg PO Q8H PRN 11/21/20 11/21/20 History Allergies Allergy/AdvReac Type Severity Reaction Status Date / Time meperidine HCl [From Demerol] Allergy Anaphylaxis Verified 11/21/20 15:22 morphine Allergy Vomiting Verified 11/21/20 15:22 Penicillins Allergy Rash/Hives Verified 11/21/20 15:22 Sulfa (Sulfonamide Allergy Nausea & Verified 11/21/20 15:22 Antibiotics) Vomiting ciprofloxacin [From Cipro] AdvReac Nausea Verified 11/21/20 15:22 sulfamethoxazole AdvReac Nausea Verified 11/21/20 15:22 [From Bactrim] trimethoprim [From Bactrim] AdvReac Nausea Verified 11/21/20 15:22 Exam Vital Signs Temp Pulse Resp BP Pulse Ox 11/21/20 15:23 98.3 F 78 20 128/75 99 Intake and Output 11/21/20 11/21/20 11/21/20 06:59 14:59 22:59 Other: Weight 69.4 kg Height 4 feet 11-1/2 inches, weight 153 pounds, BMI 30.4. This is a well-developed well-nourished white female who is alert and oriented times 3 in no acute distress. HEENT: Within normal limits. NECK: Supple without mass or thyromegaly. CHEST AND LUNGS: Clear to auscultation. HEART: Regular rate and rhythm. BREASTS: Are without mass or discharge. There is mild right breast tenderness in the inferior outer quadrant of the breast with no palpable mass. She states she has noticed some tenderness on the right side for many months. AXILLARY EXAM: Negative for adenopathy. BACK: Negative for CVA tenderness. ABDOMEN: Soft, nontender, without palpable masses. PELVIC EXAM: Normal external genitalia with mild to moderate atrophy. Cervix and vagina appear normal with mild to moderate atrophy. There is no unusual di scharge. There is no evidence of prolapse. The uterus is midposition, nongravid size and nontender. There are no palpable adnexal masses or tenderness. RECTAL EXAM: Rectovaginal exam is negative for mass or tenderness and is negative for occult blood. EXTREMITIES: Nontender. IMPRESSION: 1. 75-year-old menopausal female with normal gynecologic exam. 2. History of osteopenia treated with Boniva through her PCP 3. Advanced stage recurrent lung cancer. PLAN: 1. Pap smear cotest was performed. If this is negative, we will consider discontinuing Pap smears since this would make 3 consecutive negative Pap smears in 10 years. 2. Self breast awareness was discussed with the patient. 3. Screening mammogram will be done today. 4. Osteoporosis prevention was discussed. I have stressed the importance of adequate calcium, vitamin D and regular exercise. Recommended amounts of calcium and vitamin D were also discussed. She will continue to get bone density testing and treatment through her PCP as she has done in the past. 5. She did receive her flu shot last fall and plans to get the Covid vaccination when it becomes available to her. 6. The patient was advised to return in 1-2 years for her well woman examination.
--- NOTE | 2020-11-24 10:47 | MM ---
Reason for exam: screening (asymptomatic). Last mammogram was performed 1 year and 2 months ago. History: Patient is postmenopausal and has history of other cancer at age 73. Family history of breast cancer in sister at age 70. Benign core biopsy of the right breast, 2004. Benign excisional biopsy of the right breast, 2003. Took estrogen for 5 years. Physical Findings: A clinical breast exam by your physician is recommended on an annual basis and results should be correlated with mammographic findings. MG 3D Screening Mammo W/Cad Bilateral CC and MLO view(s) were taken. Prior study comparison: September 21, 2019, bilateral MG 3d screening mammo w/cad. June 09, 2018, bilateral MG 3d screening mammo w/cad. There are scattered fibroglandular densities. Medial left CC view asymmetric density was seen on older priors. No significant changes when compared with prior studies. ASSESSMENT: Benign, BI-RAD 2 RECOMMENDATION: Routine screening mammogram of both breasts in 1 year.
--- NOTE | 2020-11-29 09:10 | P.PN ---
Progress Note - Text Progress Note Date: 11/29/20 OUTPATIENT FOLLOW-UP NOTE TEST(S)/RESULTS: Test results from 11/21/2020 include negative Pap smear with negative high risk HPV (negative cotest) and benign mammogram. METHOD OF NOTIFICATION: the patient was notified by phone. PATIENT COMMENTS: the patient is happy to hear these results. DIAGNOSIS: Negative Pap smear cotest and benign mammogram. DISCUSSION: Since she has no history of cervical problems and we now have 3 negative Pap smears within the last 10 years, we will now discontinue Pap smear testing. PLAN: The patient is to return in one year for her annual well woman exam.
== END | disposition home or self-care (01) ==
LOC: WWCWWP 14:59
PROVIDERS: ATTEND Obstetrics & Gynecology
DX: Z12.31 Encounter for screening mammogram for malignant neoplasm of breast (principal)
CPT/HCPCS: 77063; 77067

== ENCOUNTER 2021-01-30 02:00 | Emergency (ER) | payer MEDICARE ==
[2021-01-30 02:12] VITALS: TEMP 98.2
[2021-01-30] MEDS ORDERED: METOCLOPRAMIDE 5 MG/ML 2 ML VIAL IVP STA (02:21)
[2021-01-30] MEDS ORDERED: SODIUM CHLORIDE 0.9% 1,000 ML IV STA (02:21)
--- NOTE | 2021-01-30 02:24 | ED ---
General Adult HPI - General Source: patient, EMS, RN notes reviewed Mode of arrival: EMS Limitations: no limitations <Spencer Tovar - Last Filed: 01/30/21 02:22> <Raúl Novak - Last Filed: 01/30/21 07:04> - General Chief complaint: Nausea/Vomiting/Diarrhea Stated complaint: Vomiting Time Seen by Provider: 01/30/21 02:16 - History of Present Illness Initial comments: This is a 75-year-old female presents emergency department via EMS chief complaint of nausea vomiting. 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 Patient states that she had chemotherapy on she has been getting sick from her chemotherapy states he was worse. Patient took Chauncey and morphine prior arrival which she is chronically on. Patient states that she does have some nausea meds at home. Patient states she felt constipated though still passing gas. No severe headache fevers chills cough congestion. (Spencer Tovar) - Related Data Home Medications Medication Instructions Recorded Confirmed Escitalopram [Lexapro] 20 mg PO DAILY 06/09/18 11/21/20 Ibandronate Sodium [Boniva] 150 mg PO Q30D 06/09/18 11/21/20 Losartan [Cozaar] 100 mg PO DAILY 06/09/18 11/21/20 Meloxicam [Mobic] 7.5 mg PO DAILY 06/09/18 11/21/20 Montelukast [Singulair] 10 mg PO HS 06/09/18 11/21/20 Multivitamin [Multivitamins Adult 1 tab PO DAILY 06/09/18 11/21/20 Gummies] Baclofen [Lioresal] 20 mg PO BID 03/25/19 11/21/20 Levothyroxine Sodium [Synthroid] 50 mcg PO DAILY 03/25/19 11/21/20 HYDROcodone/APAP 10-325MG [[place] 1 tab PO Q4HR PRN 12/31/19 11/21/20 10-325] Omeprazole [PriLOSEC] 20 mg PO AC-BRKFST 12/31/19 11/21/20 Aspirin [Adult Low Dose Aspirin EC] 81 mg PO DAILY 04/27/20 11/21/20 Acetaminophen [Tylenol] 650 mg PO Q6H PRN 11/21/20 11/21/20 Budesonide/Formoterol Fumarate 1 puff PO BID 11/21/20 11/21/20 [Budesonide-Formoterol 160-4.5] Folic Acid 1 mg PO DAILY 11/21/20 11/21/20 Lidocaine [Lidoderm 5% Patch] 1 patch TRANSDERM DAILY 11/21/20 11/21/20 Magnesium Oxide 400 mg PO BID 11/21/20 11/21/20 Nitroglycerin 0.4 mg SL DAILY PRN 11/21/20 11/21/20 Nystatin 100,000 Unit/gm Powd 1 applic TOPICAL TID 11/21/20 11/21/20 [Mycostatin Powder] Ondansetron [Zuplenz] 8 mg PO Q8H PRN 11/21/20 11/21/20 Previous Rx's Medication Instructions Recorded Cephalexin [Keflex] 500 mg PO Q6HR 1 Days #20 cap 01/30/21 Allergies Allergy/AdvReac Type Severity Reaction Status Date / Time meperidine HCl [From Demerol] Allergy Anaphylaxis Verified 11/21/20 15:22 morphine Allergy Vomiting Verified 11/21/20 15:22 Penicillins Allergy Rash/Hives Verified 11/21/20 15:22 Sulfa (Sulfonamide Allergy Nausea & Verified 11/21/20 15:22 Antibiotics) Vomiting ciprofloxacin [From Cipro] AdvReac Nausea Verified 11/21/20 15:22 sulfamethoxazole AdvReac Nausea Verified 11/21/20 15:22 [From Bactrim] trimethoprim [From Bactrim] AdvReac Nausea Verified 11/21/20 15:22 Review of Systems ROS Other: All systems not noted in ROS Statement are negative. <Spencer Tovar - Last Filed: 01/30/21 02:22> ROS Other: All systems not noted in ROS Statement are negative. <Raúl Novak - Last Filed: 01/30/21 07:04> ROS Statement: Those systems with pertinent positive or pertinent negative responses have been documented in the HPI. Past Medical History Past Medical History: Asthma, Cancer, COPD, Fibromyalgia, Hypertension, Osteoarthritis (OA), Thyroid Disorder Additional Past Medical History / Comment(s): Lung cancer 2019 s/p chemo and radiation, recurrence of lung cancer (stage 4) in 2020. Arthritis,depression, osteopenia and seasonal allergies. 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 She used hormone replacement therapy for 5 years post menopause. History of Any Multi-Drug Resistant Organisms: None Reported Past Surgical History: Back Surgery, Breast Surgery, Orthopedic Surgery Additional Past Surgical History / Comment(s): D&C 1972. Colonoscopy with upper endoscopy 2019(next after 5yrs)., MULTIPLE LT HAND SX R/T INJURY. Lumbar laminectomy, hand surgery and breast biopsy. Transesophageal lung biopsy. Past Anesthesia/Blood Transfusion Reactions: Postoperative Nausea & Vomiting (PONV) Additional Past Anesthesia/Blood Transfusion Reaction / Comment(s): no previous blood transfusion Past Psychological History: Anxiety, Depression Smoking Status: Former smoker Past Alcohol Use History: None Reported Past Drug Use History: Marijuana - Past Family History Brother(s) Family Medical History: Cancer, Myocardial Infarction ([place]), Renal Disease Additional Family Medical History / Comment(s): Esophageal cancer, melanoma of the sinuses which led to brain metastases. Renal failure. Another brother had an [place]. Sister(s) Family Medical History: Cancer Additional Family Medical History / Comment(s): Cervical cancer. Mother Family Medical History: Cancer Additional Family Medical History / Comment(s): Hodgkin's lymphoma. Son(s) Family Medical History: Cancer Additional Family Medical History / Comment(s): Cholangiocarcinoma. <Spencer Tovar M - Last Filed: 01/30/21 02:22> General Exam Limitations: no limitations General appearance: alert, in no apparent distress Head exam: Present: atraumatic, normocephalic, normal inspection Eye exam: Present: normal appearance, PERRL, EOMI. Absent: scleral icterus, conjunctival injection, periorbital swelling ENT exam: Present: normal exam, normal oropharynx, mucous membranes moist Neck exam: Present: normal inspection, full ROM. Absent: tenderness, meningismus, lymphadenopathy Respiratory exam: Present: normal lung sounds bilaterally. Absent: respiratory distress, wheezes, rales, rhonchi, stridor Cardiovascular Exam: Present: regular rate, normal rhythm, normal heart sounds. Absent: systolic murmur, diastolic murmur, rubs, gallop, clicks GI/Abdominal exam: Present: soft, tenderness, normal bowel sounds. Absent: distended, guarding, rebound, rigid Back exam: Absent: CVA tenderness (R), CVA tenderness (L) Neurological exam: Present: alert, oriented X3 Skin exam: Present: warm, dry, intact, normal color. Absent: rash <Spencer Tovar - Last Filed: 01/30/21 02:22> Course Vital Signs 01/30/21 01/30/21 01/30/21 02:05 03:13 03:25 Temperature 98.2 F Pulse Rate 98 90 Respiratory 16 16 16 Rate Blood Pressure 132/59 137/61 O2 Sat by Pulse 98 100 Oximetry 01/30/21 04:45 Temperature Pulse Rate 98 Respiratory 14 Rate Blood Pressure 138/67 O2 Sat by Pulse 97 Oximetry Medical Decision Making - Lab Data Result diagrams: 01/30/21 02:50 01/30/21 02:50 <Raúl Novak - Last Filed: 01/30/21 07:04> - Medical Decision Making Patient is 75-year-old woman in with nausea and vomiting. I patient did have resolution of the vomiting here. Labs do show a little bit of dehydration and probably mild UTI. Patient did take extra pain medication and between this and dehydration suspect this is for majority of patients weakness and somnolence. Patient is feeling better and would like to go home. Discussed return parameters and appropriate further care and follow-up. (Raúl Novak) - Lab Data Lab Results 01/30/21 01/30/21 01/30/21 Range/Units 02:50 02:50 02:50 WBC 16.9 H (3.8-10.6) k/uL RBC 3.22 L (3.80-5.40) m/uL Hgb 10.6 L (11.4-16.0) gm/dL Hct 30.3 L (34.0-46.0) % MCV 94.1 (80.0-100.0) fL MCH 32.9 (25.0-35.0) pg MCHC 34.9 (31.0-37.0) g/dL RDW 12.6 (11.5-15.5) % Plt Count 223 (150-450) k/uL MPV 8.7 Neutrophils % 91 % Lymphocytes % 2 % Monocytes % 5 % Eosinophils % 2 % Basophils % 0 % Neutrophils # 15.5 H (1.3-7.7) k/uL Lymphocytes # 0.3 L (1.0-4.8) k/uL Monocytes # 0.8 (0-1.0) k/uL Eosinophils # 0.3 (0-0.7) k/uL Basophils # 0.0 (0-0.2) k/uL PT 10.0 (9.0-12.0) sec INR 0.9 (<1.2) APTT 25.2 (22.0-30.0) sec Sodium 132 L (137-145) mmol/L Potassium 6.0 H (3.5-5.1) mmol/L Chloride 95 L (98-107) mmol/L Carbon Dioxide 31 H (22-30) mmol/L Anion Gap 6 mmol/L BUN 23 H (7-17) mg/dL Creatinine 0.42 L (0.52-1.04) mg/dL Est GFR (CKD-EPI)AfAm >90 (>60 ml/min/1.73 sqM) Est GFR (CKD-EPI)NonAf >90 (>60 ml/min/1.73 sqM) Glucose 106 H (74-99) mg/dL Plasma Lactic Acid Renato (0.7-2.0) mmol/L Calcium 8.5 (8.4-10.2) mg/dL Total Bilirubin 1.9 H (0.2-1.3) mg/dL AST 71 H (14-36) U/L ALT 28 (4-34) U/L Alkaline Phosphatase 149 H (38-126) U/L Total Protein 6.3 (6.3-8.2) g/dL Albumin 3.4 L (3.5-5.0) g/dL Amylase 37 (30-110) U/L Lipase <10 L (23-300) U/L Urine Color Urine Appearance (Clear) Urine pH (5.0-8.0) Ur Specific Pray (1.001-1.035) Urine Protein (Negative) Urine Glucose (UA) (Negative) Urine Ketones (Negative) Urine Blood (Negative) Urine Nitrite (Negative) Urine Bilirubin (Negative) Urine Urobilinogen (<2.0) mg/dL Ur Leukocyte Esterase (Negative) Urine RBC (0-5) /hpf Urine WBC (0-5) /hpf Ur Squamous Epith Cells (0-4) /hpf Urine Bacteria (None) /hpf Urine Mucus (None) /hpf Urine Yeast (Budding) (None) /hpf 04/20/21 04/20/21 Range/Units 02:50 03:40 WBC (3.8-10.6) k/uL RBC (3.80-5.40) m/uL Hgb (11.4-16.0) gm/dL Hct (34.0-46.0) % MCV (80.0-100.0) fL MCH (25.0-35.0) pg MCHC (31.0-37.0) g/dL RDW (11.5-15.5) % Plt Count (150-450) k/uL MPV Neutrophils % % Lymphocytes % % Monocytes % % Eosinophils % % Basophils % % Neutrophils # (1.3-7.7) k/uL Lymphocytes # (1.0-4.8) k/uL Monocytes # (0-1.0) k/uL Eosinophils # (0-0.7) k/uL Basophils # (0-0.2) k/uL PT (9.0-12.0) sec INR (<1.2) APTT (22.0-30.0) sec Sodium (137-145) mmol/L Potassium (3.5-5.1) mmol/L Chloride (98-107) mmol/L Carbon Dioxide (22-30) mmol/L Anion Gap mmol/L BUN (7-17) mg/dL Creatinine (0.52-1.04) mg/dL Est GFR (CKD-EPI)AfAm (>60 ml/min/1.73 sqM) Est GFR (CKD-EPI)NonAf (>60 ml/min/1.73 sqM) Glucose (74-99) mg/dL Plasma Lactic Acid Renato 0.8 (0.7-2.0) mmol/L Calcium (8.4-10.2) mg/dL Total Bilirubin (0.2-1.3) mg/dL AST (14-36) U/L ALT (4-34) U/L Alkaline Phosphatase (38-126) U/L Total Protein (6.3-8.2) g/dL Albumin (3.5-5.0) g/dL Amylase (30-110) U/L Lipase (23-300) U/L Urine Color Yellow Urine Appearance Clear (Clear) Urine pH 5.5 (5.0-8.0) Ur Specific Pray 1.028 (1.001-1.035) Urine Protein 1+ H (Negative) Urine Glucose (UA) Negative (Negative) Urine Ketones 3+ H (Negative) Urine Blood Trace H (Negative) Urine Nitrite Negative (Negative) Urine Bilirubin Negative (Negative) Urine Urobilinogen 4.0 (<2.0) mg/dL Ur Leukocyte Esterase Small H (Negative) Urine RBC 16 H (0-5) /hpf Urine WBC 12 H (0-5) /hpf Ur Squamous Epith Cells 2 (0-4) /hpf Urine Bacteria Rare H (None) /hpf Urine Mucus Occasional H (None) /hpf Urine Yeast (Budding) Rare H (None) /hpf Disposition <Spencer Tovar - Last Filed: 01/30/21 02:22> Is patient prescribed a controlled substance at d/c from ED?: No <Raúl Novak - Last Filed: 01/30/21 07:04> Clinical Impression: Dehydration, Urinary tract infection Disposition: HOME SELF-CARE Condition: Good Instructions (If sedation given, give patient instructions): Dehydration (ED), Urinary Tract Infection in Women (ED) Prescriptions: Cephalexin [Keflex] 500 mg PO Q6HR 1 Days #20 cap Referrals: Deyanira Riggins MD [Primary Care Provider] - 1-2 days
[2021-01-30 03:05] LABS: Basophils % (A) 0 %; Eosinophils # (A) 0.3 k/uL (0-0.7); Eosinophils % (A) 2 %; HCT 30.3 % (34.0-46.0); HGB 10.6 gm/dL (11.4-16.0); Lymphocytes # (A) 0.3 k/uL (1.0-4.8); Lymphocytes % (A) 2 %; MCH 32.9 pg (25.0-35.0); MCHC 34.9 g/dL (31.0-37.0); MCV 94.1 fL (80.0-100.0); Mean Platelet Volume 8.7; Monocytes # (A) 0.8 k/uL (0-1.0); Monocytes % (A) 5 %; Neutrophils # (A) 15.5 k/uL (1.3-7.7); Neutrophils % (A) 91 %; Platelet Count 223 k/uL (150-450); RBC 3.22 m/uL (3.80-5.40); RDW 12.6 % (11.5-15.5); WBC 16.9 k/uL (3.8-10.6)
[2021-01-30] MEDS ORDERED: NALOXONE 0.4 MG/ML 1 ML VIAL IVP STA ×2 (03:16→03:23)
--- NOTE | 2021-01-30 03:24 | XR ---
EXAM: XR Abdomen, 1 View CLINICAL HISTORY: ITS.REASON XR Reason: abdominal pain TECHNIQUE: Frontal supine view of the abdomen/pelvis. 2 supine images. COMPARISON: No relevant prior studies available. FINDINGS: Gastrointestinal tract: Stool within the rectosigmoid colon and cecum. Gas filled redundant transverse colon. No obvious abnormal bowel loop dilation. Bones/joints: Degenerative changes of the lumbosacral spine. Mild levoscoliosis. IMPRESSION: No acute findings.
[2021-01-30 03:29] LABS: ALT 28 U/L (4-34); AST 71 U/L (14-36); African American GFR (CKD) >90 (>60 ml/min/1.73 sqM); Albumin 3.4 g/dL (3.5-5.0); Alkaline Phosphatase 149 U/L (38-126); Amylase 37 U/L (30-110); Anion Gap 6 mmol/L; Blood Urea Nitrogen 23 mg/dL (7-17); Calcium 8.5 mg/dL (8.4-10.2); Carbon Dioxide 31 mmol/L (22-30); Chloride 95 mmol/L (98-107); Glucose 106 mg/dL (74-99); Lipase <10 U/L (23-300); Non-African American GFR(CKD) >90 (>60 ml/min/1.73 sqM); Sodium 132 mmol/L (137-145); Total Bilirubin 1.9 mg/dL (0.2-1.3); Total Protein 6.3 g/dL (6.3-8.2)
[2021-01-30 04:04] LABS: INR 0.9 (<1.2); Partial Thromboplastin Time 25.2 sec (22.0-30.0)
[2021-01-30 04:19] LABS: Appearance,Urine Clear (Clear); Bacteria,Urine Rare /hpf; Bilirubin,Urine Negative (Negative); Blood,Urine Trace (Negative); Budding Yeast,Urine Rare /hpf; Color,Urine Yellow; Glucose,Urine (UA) Negative (Negative); Ketones,Urine 3+ (Negative); Leukocyte Esterase,Urine Small (Negative); Mucus,Urine Occasional /hpf; Nitrite,Urine Negative (Negative); PH, Urine 5.5 (5.0-8.0); Protein,Urine 1+ (Negative); RBC,Urine 16 /hpf (0-5); Specific Gravity,Urine 1.028 (1.001-1.035); Squamous Epithelial Cell,Urine 2 /hpf (0-4); WBC,Urine 12 /hpf (0-5)
[2021-01-30 05:13] VITALS: RESP 14
[2021-01-30] MEDS ORDERED: SODIUM CHLORIDE 0.9% 1,000 ML IV ONE (05:38)
[2021-01-30 07:07] VITALS: BP 135/74; PULSE 97
== END 2021-01-30 08:09 | disposition home or self-care (01) ==
LOC: EC 02:00
DX: N39.0 Urinary tract infection, site not specified (principal); E86.0 Dehydration; F41.9 Anxiety disorder, unspecified; F32.9 Major depressive disorder, single episode, unspecified; J44.9 Chronic obstructive pulmonary disease, unspecified; I10 Essential (primary) hypertension; E07.9 Disorder of thyroid, unspecified; C34.90 Malignant neoplasm of unspecified part of unspecified bronchus or lung; Z79.1 Long term (current) use of non-steroidal anti-inflammatories (NSAID); Z79.51 Long term (current) use of inhaled steroids; Z79.890 Hormone replacement therapy; Z79.82 Long term (current) use of aspirin; Z79.899 Other long term (current) drug therapy; Z88.5 Allergy status to narcotic agent; Z88.0 Allergy status to penicillin; Z88.2 Allergy status to sulfonamides; Z88.1 Allergy status to other antibiotic agents; Z91.048 Other nonmedicinal substance allergy status; Z87.891 Personal history of nicotine dependence
CPT/HCPCS: 36415; 80053; 82150; 83605; 83690; 85025; 85610; 85730; 81001; 87086; 74018; 99284; 96374; 96375; 96361 ×2; J2310; J2765

== ENCOUNTER 2021-01-30 16:19 | Inpatient (IN) | payer MEDICARE ==
[2021-01-30] MEDS ORDERED: ONDANSETRON 4 MG/2 ML VIAL IVP STA (16:55)
[2021-01-30] MEDS ORDERED: SODIUM CHLORIDE 0.9% 1,000 ML IV STA (16:55)
[2021-01-30] MEDS ORDERED: HYDROmorphone 1 MG/ML 1 ML SYRINGE IVP STA (16:58)
--- NOTE | 2021-01-30 17:01 | ED ---
General Adult HPI - General Chief complaint: Back Pain/Injury Stated complaint: Pain Time Seen by Provider: 01/30/21 16:46 Source: EMS, RN notes reviewed Mode of arrival: EMS Limitations: no limitations - History of Present Illness Initial comments: Patient is a 75-year-old female that presents to emergency department complaining of low back pain, for pain control for chronic conditions, constipation. She was recently discharged from the ER with a diagnosis of UTI and was prescribed Keflex. She notes that she was discharged from [facility] on Friday and was told to take 2 [place] 5 as they did not have any [place] tends. Her daughter noted that the prescription was actually for [place] tends and that patient took approximate 40 mg of [place] within 4-5 hours. Patient was informed that she could still take her [place] tends just one every 6 hours for breakthrough. Today she is mostly complaining of abdominal pain and constipation for the last 4 days. Daughter notes that she hasn't had much of an appetite and threw up once yesterday. Patient states that she is currently nauseous and has not had a bowel movement approximate 4 days. She denied any chest pain shortness of breath headache diarrhea fever fatigue chills. - Related Data Home Medications Medication Instructions Recorded Confirmed Escitalopram [Lexapro] 20 mg PO DAILY 06/09/18 11/21/20 Ibandronate Sodium [Boniva] 150 mg PO Q30D 06/09/18 11/21/20 Losartan [Cozaar] 100 mg PO DAILY 06/09/18 11/21/20 Meloxicam [Mobic] 7.5 mg PO DAILY 06/09/18 11/21/20 Montelukast [Singulair] 10 mg PO HS 06/09/18 11/21/20 Multivitamin [Multivitamins Adult 1 tab PO DAILY 06/09/18 11/21/20 Gummies] Baclofen [Lioresal] 20 mg PO BID 03/25/19 11/21/20 Levothyroxine Sodium [Synthroid] 50 mcg PO DAILY 03/25/19 11/21/20 HYDROcodone/APAP 10-325MG [[place] 1 tab PO Q4HR PRN 12/31/19 11/21/20 10-325] Omeprazole [PriLOSEC] 20 mg PO AC-BRKFST 12/31/19 11/21/20 Aspirin [Adult Low Dose Aspirin EC] 81 mg PO DAILY 04/27/20 11/21/20 Acetaminophen [Tylenol] 650 mg PO Q6H PRN 11/21/20 11/21/20 Budesonide/Formoterol Fumarate 1 puff PO BID 11/21/20 11/21/20 [Budesonide-Formoterol 160-4.5] Folic Acid 1 mg PO DAILY 11/21/20 11/21/20 Lidocaine [Lidoderm 5% Patch] 1 patch TRANSDERM DAILY 11/21/20 11/21/20 Magnesium Oxide 400 mg PO BID 11/21/20 11/21/20 Nitroglycerin 0.4 mg SL DAILY PRN 11/21/20 11/21/20 Nystatin 100,000 Unit/gm Powd 1 applic TOPICAL TID 11/21/20 11/21/20 [Mycostatin Powder] Ondansetron [Zuplenz] 8 mg PO Q8H PRN 11/21/20 11/21/20 Previous Rx's Medication Instructions Recorded Cephalexin [Keflex] 500 mg PO Q6HR 1 Days #20 cap 01/30/21 Allergies Allergy/AdvReac Type Severity Reaction Status Date / Time meperidine HCl [From Demerol] Allergy Anaphylaxis Verified 01/30/21 16:37 morphine Allergy Vomiting Verified 01/30/21 16:37 Penicillins Allergy Rash/Hives Verified 01/30/21 16:37 Sulfa (Sulfonamide Allergy Nausea & Verified 01/30/21 16:37 Antibiotics) Vomiting ciprofloxacin [From Cipro] AdvReac Nausea Verified 01/30/21 16:37 sulfamethoxazole AdvReac Nausea Verified 01/30/21 16:37 [From Bactrim] trimethoprim [From Bactrim] AdvReac Nausea Verified 01/30/21 16:37 Review of Systems ROS Statement: Those systems with pertinent positive or pertinent negative responses have been documented in the HPI. ROS Other: All systems not noted in ROS Statement are negative. Past Medical History Past Medical History: Asthma, Cancer, COPD, Fibromyalgia, Hypertension, Osteoarthritis (OA), Thyroid Disorder Additional Past Medical History / Comment(s): Lung cancer 2019 s/p chemo and radiation, recurrence of lung cancer (stage 4) in 2020. Arthritis,depression, osteopenia and seasonal allergies. 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 She used hormone replacement therapy for 5 years post menopause. History of Any Multi-Drug Resistant Organisms: None Reported Past Surgical History: Back Surgery, Breast Surgery, Orthopedic Surgery Additional Past Surgical History / Comment(s): D&C 1972. Colonoscopy with upper endoscopy 2019(next after 5yrs)., MULTIPLE LT HAND SX R/T INJURY. Lumbar la minectomy, hand surgery and breast biopsy. Transesophageal lung biopsy. Past Anesthesia/Blood Transfusion Reactions: Postoperative Nausea & Vomiting (PONV) Additional Past Anesthesia/Blood Transfusion Reaction / Comment(s): no previous blood transfusion Past Psychological History: Anxiety, Depression Smoking Status: Former smoker Past Alcohol Use History: None Reported Past Drug Use History: Marijuana - Past Family History Brother(s) Family Medical History: Cancer, Myocardial Infarction ([place]), Renal Disease Additional Family Medical History / Comment(s): Esophageal cancer, melanoma of the sinuses which led to brain metastases. Renal failure. Another brother had an [place]. Sister(s) Family Medical History: Cancer Additional Family Medical History / Comment(s): Cervical cancer. Mother Family Medical History: Cancer Additional Family Medical History / Comment(s): Hodgkin's lymphoma. Son(s) Family Medical History: Cancer Additional Family Medical History / Comment(s): Cholangiocarcinoma. General Exam Limitations: no limitations General appearance: alert, in no apparent distress Head exam: Present: atraumatic, normocephalic, normal inspection Eye exam: Present: normal appearance, PERRL, EOMI. Absent: scleral icterus, conjunctival injection, periorbital swelling ENT exam: Present: normal exam, mucous membranes moist Neck exam: Present: normal inspection. Absent: tenderness, meningismus, lymphadenopathy Respiratory exam: Present: normal lung sounds bilaterally. Absent: respiratory distress, wheezes, rales, rhonchi, stridor Cardiovascular Exam: Present: regular rate, normal rhythm, normal heart sounds. Absent: systolic murmur, diastolic murmur, rubs, gallop, clicks GI/Abdominal exam: Present: soft, distended, tenderness (Generalized), hy poactive bowel sounds. Absent: guarding, rebound, rigid Extremities exam: Present: normal inspection, full ROM, normal capillary refill. Absent: tenderness, pedal edema, joint swelling, calf tenderness Neurological exam: Present: alert, oriented X3, CN II-XII intact Psychiatric exam: Present: normal affect, normal mood Skin exam: Present: warm, dry, intact, normal color. Absent: rash Course Vital Signs 01/30/21 16:20 Temperature 98.5 F Pulse Rate 86 Respiratory 20 Rate Blood Pressure 137/88 O2 Sat by Pulse 98 Oximetry Medical Decision Making - Medical Decision Making 75-year-old female complaining of uncontrolled back pain, constipation, abdominal pain. Labs, 1 L normal saline, 1 mg of Dilaudid, 4 mg Zofran, CT of the abdomen and pelvis ordered. Daughter states that they talked with Dr. Angelo who said that she should be admitted for pain control and social work consult for possible placement. Labs: Unremarkable from previous studies. Case discussed with Dr. Abbott, ultrasound of the gallbladder ordered for suspected/possible acute cholecystitis. Ceftriaxone and Flagyl started. Dr. Riggins was consulted and will accept the admission. - Lab Data Result diagrams: 01/30/21 17:21 01/30/21 17:21 Lab Results 01/30/21 01/30/21 01/30/21 Range/Units 17:21 17:21 17:21 WBC 16.7 H (3.8-10.6) k/uL RBC 3.46 L (3.80-5.40) m/uL Hgb 10.7 L (11.4-16.0) gm/dL Hct 33.3 L (34.0-46.0) % MCV 96.4 (80.0-100.0) fL MCH 30.9 (25.0-35.0) pg MCHC 32.0 (31.0-37.0) g/dL RDW 13.3 (11.5-15.5) % Plt Count 233 (150-450) k/uL MPV 7.6 Neutrophils % 92 % Lymphocytes % 3 % Monocytes % 4 % Eosinophils % 1 % Basophils % 0 % Neutrophils # 15.3 H (1.3-7.7) k/uL Lymphocytes # 0.5 L (1.0-4.8) k/uL Monocytes # 0.7 (0-1.0) k/uL Eosinophils # 0.1 (0-0.7) k/uL Basophils # 0.0 (0-0.2) k/uL Sodium 133 L (137-145) mmol/L Potassium 4.4 (3.5-5.1) mmol/L Chloride 99 (98-107) mmol/L Carbon Dioxide 27 (22-30) mmol/L Anion Gap 7 mmol/L BUN 18 H (7-17) mg/dL Creatinine 0.43 L (0.52-1.04) mg/dL Est GFR (CKD-EPI)AfAm >90 (>60 ml/min/1.73 sqM) Est GFR (CKD-EPI)NonAf >90 (>60 ml/min/1.73 sqM) Glucose 96 (74-99) mg/dL Calcium 8.4 (8.4-10.2) mg/dL Total Bilirubin 0.9 (0.2-1.3) mg/dL AST 31 (14-36) U/L ALT 21 (4-34) U/L Alkaline Phosphatase 158 H (38-126) U/L Total Protein 5.4 L (6.3-8.2) g/dL Albumin 3.0 L (3.5-5.0) g/dL Amylase <30 L (30-110) U/L Lipase 12 L (23-300) U/L Urine Color Yellow Urine Appearance Clear (Clear) Urine pH 5.5 (5.0-8.0) Ur Specific [place] 1.024 (1.001-1.035) Urine Protein Trace H (Negative) Urine Glucose (UA) Negative (Negative) Urine Ketones 4+ H (Negative) Urine Blood Trace H (Negative) Urine Nitrite Negative (Negative) Urine Bilirubin Negative (Negative) Urine Urobilinogen 3.0 (<2.0) mg/dL Ur Leukocyte Esterase Negative (Negative) Urine RBC 11 H (0-5) /hpf Urine WBC 3 (0-5) /hpf Urine Mucus Rare H (None) /hpf - Radiology Data Radiology results: report reviewed, image reviewed CT of the abdomen and pelvis: Correlate for acute cholecystitis. A degree of diverticulitis in the region of the splenic flexure is difficult to exclude. Correlate clinically. No evidence for abscess or perforation. Ultrasound of the gallbladder: Cannot exclude acute cholecystitis. Correlate clinically. Hepatic steatosis Disposition Clinical Impression: Acute cholecystitis, Constipation, Colon cancer screening Disposition: ADMITTED IP TO THIS HOSP Condition: Stable Is patient prescribed a controlled substance at d/c from ED?: No Referrals: Deyanira Riggins MD [Primary Care Provider] - 1-2 days Time of Disposition: 22:11
[2021-01-30 17:44] LABS: Basophils % (A) 0 %; Eosinophils # (A) 0.1 k/uL (0-0.7); Eosinophils % (A) 1 %; HCT 33.3 % (34.0-46.0); HGB 10.7 gm/dL (11.4-16.0); Lymphocytes # (A) 0.5 k/uL (1.0-4.8); Lymphocytes % (A) 3 %; MCH 30.9 pg (25.0-35.0); MCV 96.4 fL (80.0-100.0); Mean Platelet Volume 7.6; Monocytes # (A) 0.7 k/uL (0-1.0); Monocytes % (A) 4 %; Neutrophils # (A) 15.3 k/uL (1.3-7.7); Neutrophils % (A) 92 %; Platelet Count 233 k/uL (150-450); RBC 3.46 m/uL (3.80-5.40); RDW 13.3 % (11.5-15.5); WBC 16.7 k/uL (3.8-10.6)
[2021-01-30 18:02] LABS: ALT 21 U/L (4-34); AST 31 U/L (14-36); African American GFR (CKD) >90 (>60 ml/min/1.73 sqM); Alkaline Phosphatase 158 U/L (38-126); Amylase <30 U/L (30-110); Anion Gap 7 mmol/L; Blood Urea Nitrogen 18 mg/dL (7-17); Calcium 8.4 mg/dL (8.4-10.2); Carbon Dioxide 27 mmol/L (22-30); Chloride 99 mmol/L (98-107); Glucose 96 mg/dL (74-99); Lipase 12 U/L (23-300); Non-African American GFR(CKD) >90 (>60 ml/min/1.73 sqM); Potassium 4.4 mmol/L (3.5-5.1); Sodium 133 mmol/L (137-145); Total Bilirubin 0.9 mg/dL (0.2-1.3); Total Protein 5.4 g/dL (6.3-8.2)
[2021-01-30 20:09] LABS: Appearance,Urine Clear (Clear); Bilirubin,Urine Negative (Negative); Blood,Urine Trace (Negative); Color,Urine Yellow; Glucose,Urine (UA) Negative (Negative); Ketones,Urine 4+ (Negative); Leukocyte Esterase,Urine Negative (Negative); Mucus,Urine Rare /hpf; Nitrite,Urine Negative (Negative); PH, Urine 5.5 (5.0-8.0); Protein,Urine Trace (Negative); RBC,Urine 11 /hpf (0-5); Specific Gravity,Urine 1.024 (1.001-1.035); WBC,Urine 3 /hpf (0-5)
--- NOTE | 2021-01-30 20:14 | CT ---
EXAMINATION TYPE: CT abdomen pelvis w con DATE OF EXAM: 01/30/2021 COMPARISON: PET CT fusion 04/07/2020 HISTORY: SBO, abdominal pain, constipation CT DLP: 1146.2 mGycm CONTRAST: CT scan of the abdomen and pelvis is performed without Oral Contrast and with IV Contrast, patient in jected with 100 mL of Isovue 300. FINDINGS: LUNG BASES-: No visible nodule. No infiltrate. LIVER/GB: The gallbladder is distended at 10.5 cm. Small amount of pericholecystic fluid. Mild wall thickening suggested. Correlate for acute cholecystitis. No space occupying hepatic lesion. Biliary tree is of normal caliber. PANCREAS: No inflammation. No distinct mass. SPLEEN: No splenic enlargement. No lesion seen. ADRENALS: No nodule. No thickening. KIDNEYS/BLADDER: No hydronephrosis. No nephrolithiasis. No distinct renal mass. Urinary bladder g rossly unremarkable. BOWEL: There is wall thickening involving the ascending colon as well as of the distal transverse col on with mild inflammatory change. Diverticulitis is not excluded. There is moderate fecal stasis. Sma ll bowel ileus suggested. Small amount of free fluid within the pelvis. Moderate fecal stasis. GENITAL ORGANS: No gross abnormality. LYMPH NODES: No greater than 1cm abdominal or pelvic lymph nodes are appreciated. AORTA: No significant abnormality. OSSEOUS STRUCTURES: No significant abnormality is seen. OTHER: No significant additional abnormality is seen. IMPRESSION: 1. Correlate for acute cholecystitis. 2. A degree of diverticulitis in the region of the splenic flexure is difficult to exclude. Correlate clinically. No evidence for abscess or perforation.
[2021-01-30] MEDS ORDERED: metroNIDAZOLE-NS PMX 500 MG in SALINE 1 100ML.BAG IVPB STA (20:24)
[2021-01-30] MEDS ORDERED: cefTRIAXone IN SWFI 1,000 MG/10 ML SYRINGE IVP STA (20:24)
[2021-01-30] MEDS ORDERED: NALOXONE 0.4 MG/ML 1 ML VIAL IV PRN (20:57)
--- NOTE | 2021-01-30 22:01 | US ---
EXAMINATION TYPE: US gallbladder DATE OF EXAM: 01/30/2021 COMPARISON: CT CLINICAL HISTORY: acute cholecystitis. EXAM MEASUREMENTS: Liver Length: 13.4 cm Gallbladder Wall: 0.36 cm CBD: 0.69 cm Right Kidney: 9.7 x 4.4 x 5.5 cm Limited due to gas and patient body habitus. Pancreas: Limited due to gas. Liver: Limited. Appears coarse. Appears to have an increased echogenicity. Gallbladder: Appears distended measuring 10.9 cm in length. Internal echoes versus artifact seen. Evidence for sonographic [place]'s sign: Patient feels tenderness while scanning over the RUQ. CBD: Portion seen appears to measure slightly dilated versus upper limits of normal at 0.69 cm. Right Kidney: No hydronephrosis or masses seen. Limited due to gas and rib shadow. IMPRESSION: 1. I Cannot exclude acute cholecystitis. Correlate clinically. 2. Hepatic steatosis.
[2021-01-30 22:21] LABS: INR 0.9 (<1.2); Partial Thromboplastin Time 28.2 sec (22.0-30.0)
[2021-01-31] MEDS: SODIUM CHLORIDE 0.9% 1,000 ML IV SCH ×2 (02:46→18:50)
[2021-01-31] MEDS: HYDROmorphone 1 MG/ML 1 ML SYRINGE IVP PRN ×5 (02:46→18:48)
[2021-01-31] MEDS: metroNIDAZOLE-NS PMX 500 MG in SALINE 1 100ML.BAG IVPB SCH ×2 (11:42→18:41)
--- NOTE | 2021-01-31 11:47 | P.GSHP ---
<Yaa Grubbs - Last Filed: 01/31/21 11:28> History of Present Illness H&P Date: 01/31/21 CHIEF COMPLAINT: Abdominal pain HISTORY OF PRESENT ILLNESS: This is a 75-year-old female with a known history of non-small cell lung cancer stage IV diagnosed in April 2019. She is status post chemo and radiation treatment. She is currently on immunotherapy. She is followed by an oncologist out of [facility]. She had been hospitalized at [facility] about 5 days ago due to uncontrolled pain for her lung c ancer and back pain. She has a known thoracic spine. This compression fracture. I she was discharged at that time with [place] and MS Contin for pain control. She reports taking extra [place] 3 doses for 24 hour period. She thought that she was taking 2 [place] 5 tablets. But she was taking 2 [place] 10mg tablets. Patient had become very confused and was brought into the ER telescope maintenance on 01/30/2021 at [facility]. Patient reports that she was given Narcan. She became less confused.. She also found have evidence of a UTI and was sent home with antibiotics. However, she continued to have worsening abdominal pain. She does report having abdominal pain for about 3 days. And yesterday pain c ontinued to worsen in the right upper quadrant and left upper quadrant. She also has been dealing with constipation likely related to the narcotics. Her last bowel movement was 3 days ago and it was small. She denies any blood in the stools. She is passing gas. She did have nausea. And has had a decrease in appetite. She has been having fevers she did have a temp of 100.4 with heart rate of 104. Gallbladder ultrasound shows a distended gallbladder measuring 10.9 cm in length. Cannot exclude acute cholecystitis. And computed tomography scan of the abdomen and pelvis shows a degree of diverticulitis in the region of the splenic flexure is difficult to exclude. No evidence for abscess or perforation. And correlate for acute cholecystitis. Patient's been started on IV antibiotics and IV fluids. She did have elevated white count of 16.7. Patient had a colonoscopy in March 2019 which did reveal diverticulosis. No prior abdominal surgical history. PAST MEDICAL HISTORY: See list. PAST SURGICAL HISTORY: See list. MEDICATIONS: See list. ALLERGIES: See list. SOCIAL HISTORY: No illicit drug use. REVIEW OF SYSTEMS: CONSTITUTIONAL: Denies fever or chills. HEENT: Denies blurred vision, vision changes, or eye pain. Denies hemoptysis CARDIOVASCULAR: Denies chest pain or pressure. RESPIRATORY: No shortness of breath. GASTROINTESTINAL: See HPI for pertinent findings HEMATOLOGIC: Denies bleeding disorders. GENITOURINARY: Denies any blood in urine or increased urinary frequency. SKIN: Denies pruitis. Denies rash. PHYSICAL EXAM: VITAL SIGNS: Reviewed GENERAL: Well-developed in no acute distress. HEENT: No sclera icterus. Extraocular movements grossly intact. Moist buccal mucosa. Head is atraumatic, normocephalic. No nasal drainage. ABDOMEN: Soft. Distended. Patient has diffuse tenderness but has more tenderness in the right and left upper quadrant. NEUROLOGIC: Alert and oriented. Cranial nerves II through XII grossly intact. LABORATORY DATA: WBC 16.7 hemoglobin 10.7 platelets 233 sodium 133 potassium 4.4 BUN 18 creatinine 0.43 LFTs are normal alk phos 158 lipase 12 Covid not detected IMAGING: Gallbladder ultrasound shows a distended gallbladder measuring 10.9 cm in length. Cannot exclude acute cholecystitis. computed tomography scan of the abdomen and pelvis shows a degree of diverticulitis in the region of the splenic flexure is difficult to exclude. No evidence for abscess or perforation. And correlate for acute cholecystitis. ASSESSMENT: 1. Abdominal pain 2. Possible diverticulitis in the region of the splenic flexure 3. Possible acute cholecystitis 4. History of lung cancer status post chemo and radiation treatment. Currently on immunotherapy PLAN: -Further recommendations forthcoming per surgeon -Continue IV antibiotics -Continue IV fluids -Continue pain medication as needed -keep patient NPO -Consult medical service for medical management -GI prophylaxis Protonix and DVT prophylaxis subcu heparin Physician Ekg/Ecg Technician note has been reviewed by physician. Signing provider agrees with the documented findings, assessment, and plan of care. Past Medical History Past Medical History: Asthma, Cancer, COPD, Fibromyalgia, Hypertension, Osteoarthritis (OA), Thyroid Disorder Additional Past Medical History / Comment(s): Lung cancer 2019 s/p chemo and radiation, recurrence of lung cancer (stage 4) in 2020. Arthritis,depression, osteopenia and seasonal allergies. PAST RHIT HISTORY: She has no history of STDs. She used hormone replacement therapy for 5 years post menopause. History of Any Multi-Drug Resistant Organisms: None Reported Past Surgical History: Back Surgery, Breast Surgery, Orthopedic Surgery Additional Past Surgical History / Comment(s): D&C 1972. Colonoscopy with upper endoscopy 2019(next after 5yrs)., MULTIPLE LT HAND SX R/T INJURY. Lumbar eusebia ectomy, hand surgery and breast biopsy. Transesophageal lung biopsy. Past Anesthesia/Blood Transfusion Reactions: Postoperative Nausea & Vomiting (PONV) Additional Past Anesthesia/Blood Transfusion Reaction / Comment(s): no previous blood transfusion Past Psychological History: Anxiety, Depression Smoking Status: Former smoker Past Alcohol Use History: None Reported Past Drug Use History: Marijuana - Past Family History Brother(s) Family Medical History: Cancer, Myocardial Infarction ([place]), Renal Disease Additional Family Medical History / Comment(s): Esophageal cancer, melanoma of the sinuses which led to brain metastases. Renal failure. Another brother had an [place]. Sister(s) Family Medical History: Cancer Additional Family Medical History / Comment(s): Cervical cancer. Mother Family Medical History: Cancer Additional Family Medical History / Comment(s): Hodgkin's lymphoma. Son(s) Family Medical History: Cancer Additional Family Medical History / Comment(s): Cholangiocarcinoma. Medications and Allergies Home Medications Medication Instructions Recorded Confirmed Type Ibandronate Sodium [Boniva] 150 mg PO Q30D 06/09/18 01/31/21 History Losartan [Cozaar] 100 mg PO DAILY 06/09/18 01/31/21 History Meloxicam [Mobic] 7.5 mg PO DAILY 06/09/18 01/31/21 History Montelukast [Singulair] 10 mg PO HS 06/09/18 01/31/21 History Baclofen [Lioresal] 20 mg PO BID 03/25/19 01/31/21 History Levothyroxine Sodium [Synthroid] 50 mcg PO DAILY 03/25/19 01/31/21 History HYDROcodone/APAP 10-325MG [[place] 1 tab PO QID PRN 12/31/19 01/31/21 History 10-325] Omeprazole [PriLOSEC] 20 mg PO DAILY 12/31/19 01/31/21 History Acetaminophen [Tylenol] 650 mg PO Q6H PRN 11/21/20 01/31/21 History Folic Acid 1 mg PO DAILY 11/21/20 01/31/21 History Lidocaine [Lidoderm 5% Patch] 1 patch TRANSDERM DAILY PRN 11/21/20 01/31/21 History Magnesium Oxide 400 mg PO DAILY 11/21/20 01/31/21 History Nitroglycerin 0.4 mg SL Q5M PRN 11/21/20 01/31/21 History Albuterol Inhaler [Ventolin Hfa 2 puff INHALATION RT-QID PRN 01/30/21 01/31/21 History Inhaler] Citalopram Hydrobromide [CeleXA] 20 mg PO DAILY 01/30/21 01/31/21 History Cyanocobalamin [Vitamin B-12] 500 mcg PO DAILY 01/30/21 01/31/21 History Healthy-Lax Powder Packet 1 packet PO DAILY PRN 01/30/21 01/31/21 History Sennosides/Docusate Sodium [Senna 1 cap PO BID PRN 01/30/21 01/31/21 History Plus 8.6-50 mg Softgel] Tiotropium [place] [Spiriva] 1 cap INHALATION RT-DAILY 01/30/21 01/31/21 History Triamcinolone 0.1% Cream [Kenalog 1 applicatio TOPICAL BID 01/30/21 01/31/21 History 0.1% Cream] ALPRAZolam [Xanax] 0.25 mg PO DAILY PRN 01/31/21 01/31/21 History Aspirin 81 mg PO DAILY 01/31/21 01/31/21 History Budesonide/Formoterol Fumarate 2 puff INHALATION BID 01/31/21 01/31/21 History [Symbicort 160-4.5 Mcg Inhaler] Multivitamins, Thera [Multivitamin 1 tablet PO DAILY 01/31/21 01/31/21 History (formulary)] Ondansetron Odt [Zofran Odt] 8 mg PO Q8HR 01/31/21 01/31/21 History Allergies Allergy/AdvReac Type Severity Reaction Status Date / Time meperidine HCl [From Demerol] Allergy Severe Anaphylaxis Verified 01/31/21 17:47 morphine Allergy Severe Vomiting Verified 01/31/21 17:47 Sulfa (Sulfonamide Allergy Severe Nausea & Verified 01/31/21 17:47 Antibiotics) Vomiting ciprofloxacin [From Cipro] AdvReac Severe Nausea & Verified 01/31/21 17:47 Vomiting sulfamethoxazole AdvReac Severe Nausea & Verified 01/31/21 17:47 [From Bactrim] Vomiting trimethoprim [From Bactrim] AdvReac Severe Nausea & Verified 01/31/21 17:47 Vomiting milk AdvReac Diarrhea Verified 01/31/21 19:22 Surgical - Exam Vital Signs Temp Pulse Resp BP Pulse Ox 98.5 F 86 20 137/88 98 01/30/21 16:20 01/30/21 16:20 01/30/21 16:20 01/30/21 16:20 01/30/21 16:20 Results - Labs 01/30/21 17:21 01/30/21 17:21 Abnormal Lab Results - Last 24 Hours (Table) 01/30/21 01/30/21 01/30/21 Range/Units 17:21 17:21 17:21 WBC 16.7 H (3.8-10.6) k/uL RBC 3.46 L (3.80-5.40) m/uL Hgb 10.7 L (11.4-16.0) gm/dL Hct 33.3 L (34.0-46.0) % Neutrophils # 15.3 H (1.3-7.7) k/uL Lymphocytes # 0.5 L (1.0-4.8) k/uL Sodium 133 L (137-145) mmol/L BUN 18 H (7-17) mg/dL Creatinine 0.43 L (0.52-1.04) mg/dL Alkaline Phosphatase 158 H (38-126) U/L Total Protein 5.4 L (6.3-8.2) g/dL Albumin 3.0 L (3.5-5.0) g/dL Amylase <30 L (30-110) U/L Lipase 12 L (23-300) U/L Urine Protein Trace H (Negative) Urine Ketones 4+ H (Negative) Urine Blood Trace H (Negative) Urine RBC 11 H (0-5) /hpf Urine Mucus Rare H (None) /hpf Diabetes panel 01/30/21 Range/Units 17:21 Sodium 133 L (137-145) mmol/L Potassium 4.4 (3.5-5.1) mmol/L Chloride 99 (98-107) mmol/L Carbon Dioxide 27 (22-30) mmol/L BUN 18 H (7-17) mg/dL Creatinine 0.43 L (0.52-1.04) mg/dL Glucose 96 (74-99) mg/dL Calcium 8.4 (8.4-10.2) mg/dL AST 31 (14-36) U/L ALT 21 (4-34) U/L Alkaline Phosphatase 158 H (38-126) U/L Total Protein 5.4 L (6.3-8.2) g/dL Albumin 3.0 L (3.5-5.0) g/dL Calcium panel 01/30/21 Range/Units 17:21 Calcium 8.4 (8.4-10.2) mg/dL Albumin 3.0 L (3.5-5.0) g/dL Pituitary panel 01/30/21 Range/Units 17:21 Sodium 133 L (137-145) mmol/L Potassium 4.4 (3.5-5.1) mmol/L Chloride 99 (98-107) mmol/L Carbon Dioxide 27 (22-30) mmol/L BUN 18 H (7-17) mg/dL Creatinine 0.43 L (0.52-1.04) mg/dL Glucose 96 (74-99) mg/dL Calcium 8.4 (8.4-10.2) mg/dL Adrenal panel 01/30/21 Range/Units 17:21 Sodium 133 L (137-145) mmol/L Potassium 4.4 (3.5-5.1) mmol/L Chloride 99 (98-107) mmol/L Carbon Dioxide 27 (22-30) mmol/L BUN 18 H (7-17) mg/dL Creatinine 0.43 L (0.52-1.04) mg/dL Glucose 96 (74-99) mg/dL Calcium 8.4 (8.4-10.2) mg/dL Total Bilirubin 0.9 (0.2-1.3) mg/dL AST 31 (14-36) U/L ALT 21 (4-34) U/L Alkaline Phosphatase 158 H (38-126) U/L Total Protein 5.4 L (6.3-8.2) g/dL Albumin 3.0 L (3.5-5.0) g/dL <Jorge Riggins - Last Filed: 01/31/21 20:52> History of Present Illness Patient known to our service. Patient with complicated medical history including advanced stage IV lung cancer. Recently has been having issues with her back pain worsening. Has been on heavier narcotics recently. Patient came to the hospital with abdominal discomfort and bloating. CAT scan reviewed. Inflammatory changes at the splenic flexure are noted with some diverticulosis. This likely represents diverticulitis however ischemic colitis is not excluded as a possibility. The patient's colon proximal to the area of inflammatory changes is distended however there is a fair amount of stool in the descending colon beyond the inflamed segment as well. Patient describes decreased bowel activity recently. Patient's gallbladder also distended. She points to the left upper quadrant as the source of the majority of her pain over the last 1-2 days however. She is afebrile. White blood cell count is elevated. At this time we'll treat as splenic flexure diverticulitis. No surgical intervention planned currently. Repeat abdominal x-rays tomorrow to evaluate for developing obstruction. Continue broad-spectrum antibiotics. Keep nothing by mouth except for ice chips. Dulcolax suppositories daily. Surgical - Exam Vital Signs Temp Pulse Resp BP Pulse Ox 98.5 F 86 20 137/88 98 01/30/21 16:20 01/30/21 16:20 01/30/21 16:20 01/30/21 16:20 01/30/21 16:20 Results - Labs 01/31/21 12:16 01/31/21 12:16 Abnormal Lab Results - Last 24 Hours (Table) 01/31/21 01/31/21 01/31/21 Range/Units 12:16 12:16 12:16 WBC 13.0 H (3.8-10.6) k/uL RBC 3.08 L (3.80-5.40) m/uL Hgb 10.1 L (11.4-16.0) gm/dL Hct 29.8 L (34.0-46.0) % Neutrophils # 11.7 H (1.3-7.7) k/uL Lymphocytes # 0.4 L (1.0-4.8) k/uL Sodium 134 L (137-145) mmol/L Creatinine 0.44 L (0.52-1.04) mg/dL Plasma Lactic Acid Renato 0.6 L (0.7-2.0) mmol/L Alkaline Phosphatase 143 H (38-126) U/L Total Protein 5.4 L (6.3-8.2) g/dL Albumin 3.0 L (3.5-5.0) g/dL Diabetes panel 01/31/21 Range/Units 12:16 Sodium 134 L (137-145) mmol/L Potassium 4.2 (3.5-5.1) mmol/L Chloride 101 (98-107) mmol/L Carbon Dioxide 30 (22-30) mmol/L BUN 17 (7-17) mg/dL Creatinine 0.44 L (0.52-1.04) mg/dL Glucose 87 (74-99) mg/dL Calcium 8.7 (8.4-10.2) mg/dL AST 23 (14-36) U/L ALT 17 (4-34) U/L Alkaline Phosphatase 143 H (38-126) U/L Total Protein 5.4 L (6.3-8.2) g/dL Albumin 3.0 L (3.5-5.0) g/dL Calcium panel 01/31/21 Range/Units 12:16 Calcium 8.7 (8.4-10.2) mg/dL Albumin 3.0 L (3.5-5.0) g/dL Pituitary panel 01/31/21 Range/Units 12:16 Sodium 134 L (137-145) mmol/L Potassium 4.2 (3.5-5.1) mmol/L Chloride 101 (98-107) mmol/L Carbon Dioxide 30 (22-30) mmol/L BUN 17 (7-17) mg/dL Creatinine 0.44 L (0.52-1.04) mg/dL Glucose 87 (74-99) mg/dL Calcium 8.7 (8.4-10.2) mg/dL Adrenal panel 01/31/21 Range/Units 12:16 Sodium 134 L (137-145) mmol/L Potassium 4.2 (3.5-5.1) mmol/L Chloride 101 (98-107) mmol/L Carbon Dioxide 30 (22-30) mmol/L BUN 17 (7-17) mg/dL Creatinine 0.44 L (0.52-1.04) mg/dL Glucose 87 (74-99) mg/dL Calcium 8.7 (8.4-10.2) mg/dL Total Bilirubin 0.6 (0.2-1.3) mg/dL AST 23 (14-36) U/L ALT 17 (4-34) U/L Alkaline Phosphatase 143 H (38-126) U/L Total Protein 5.4 L (6.3-8.2) g/dL Albumin 3.0 L (3.5-5.0) g/dL
[2021-01-31 12:53] LABS: Basophils % (A) 0 %; Eosinophils % (A) 0 %; HCT 29.8 % (34.0-46.0); HGB 10.1 gm/dL (11.4-16.0); Lymphocytes # (A) 0.4 k/uL (1.0-4.8); Lymphocytes % (A) 3 %; MCH 32.7 pg (25.0-35.0); MCHC 33.9 g/dL (31.0-37.0); MCV 96.5 fL (80.0-100.0); Mean Platelet Volume 7.4; Monocytes # (A) 0.8 k/uL (0-1.0); Monocytes % (A) 6 %; Neutrophils # (A) 11.7 k/uL (1.3-7.7); Neutrophils % (A) 90 %; Platelet Count 258 k/uL (150-450); RBC 3.08 m/uL (3.80-5.40); RDW 12.7 % (11.5-15.5)
[2021-01-31 13:01] LABS: ALT 17 U/L (4-34); AST 23 U/L (14-36); African American GFR (CKD) >90 (>60 ml/min/1.73 sqM); Albumin/Globulin Ratio 1.3; Alkaline Phosphatase 143 U/L (38-126); Anion Gap 3 mmol/L; Blood Urea Nitrogen 17 mg/dL (7-17); Calcium 8.7 mg/dL (8.4-10.2); Carbon Dioxide 30 mmol/L (22-30); Chloride 101 mmol/L (98-107); Globulin 2.4 g/dL; Glucose 87 mg/dL (74-99); Non-African American GFR(CKD) >90 (>60 ml/min/1.73 sqM); Potassium 4.2 mmol/L (3.5-5.1); Sodium 134 mmol/L (137-145); Total Bilirubin 0.6 mg/dL (0.2-1.3); Total Protein 5.4 g/dL (6.3-8.2)
[2021-01-31] MEDS: PANTOPRAZOLE 40 MG/10 ML VIAL IVP SCH (14:21)
[2021-01-31] MEDS: HEPARIN SODIUM,PORCINE/PF 5,000 UNIT/0.5 ML SYRINGE SQ SCH (14:27)
[2021-01-31] MEDS: PIPERACILLIN-TAZOBACTAM 3.375 GM in SODIUM CHLORIDE 0.9% 100 ML IVPB SCH (18:04)
[2021-01-31] MEDS ORDERED: ALBUTEROL NEBULIZED 2.5 MG/3 ML INHALATION PRN (18:42)
[2021-01-31] MEDS ORDERED: ALPRAZolam 0.25 MG TAB PO PRN (18:42)
[2021-01-31] MEDS ORDERED: NITROGLYCERIN SL TABS 0.4 MG TAB SUBLINGUAL PRN (18:42)
--- NOTE | 2021-01-31 19:30 | XR ---
EXAMINATION TYPE: XR chest 1V portable DATE OF EXAM: 01/31/2021 CLINICAL HISTORY: CONGESTED COUGH, WHEEZING. History of lung cancer. TECHNIQUE: Portable frontal view of the chest. COMPARISON: 05/04/2020 FINDINGS: Unchanged elevation of the right hemidiaphragm. The cardiomediastinal silhouette is within normal limits for size and unchanged. Pulmonary vasculature is normal. Redemonstrated right apical p leural thickening. There is no focal air space opacity. No pleural effusion. No pneumothorax seen. D egenerative changes of the shoulders. IMPRESSION: No acute cardiopulmonary process.
[2021-01-31] MEDS ORDERED: ALBUTEROL NEBULIZED 2.5 MG/3 ML INHALATION SCH (20:00)
[2021-01-31] MEDS: MONTELUKAST 10 MG TAB PO SCH (21:03)
[2021-01-31] MEDS: TRIAMCINOLONE 0.1% CREAM 80 GM TUBE TOPICAL SCH (21:03)
[2021-01-31 21:30] LABS: Appearance,Urine Clear (Clear); Bacteria,Urine Rare /hpf; Bilirubin,Urine Negative (Negative); Blood,Urine Trace (Negative); Color,Urine Yellow; Glucose,Urine (UA) Negative (Negative); Hyaline Casts,Urine 1 /lpf (0-2); Ketones,Urine 4+ (Negative); Leukocyte Esterase,Urine Trace (Negative); Nitrite,Urine Negative (Negative); PH, Urine 5.5 (5.0-8.0); Protein,Urine 1+ (Negative); RBC,Urine 3 /hpf (0-5); Squamous Epithelial Cell,Urine 2 /hpf (0-4); Urobilinogen,Urine <2.0 mg/dL (<2.0); WBC,Urine 4 /hpf (0-5)
[2021-01-31] MEDS: SYMBICORT 160-4.5 MCG INHALER INHALATION SCH (21:30)
[2021-01-31] MEDS: IPRATROPIUM-ALBUTEROL 3 ML NEB INHALATION SCH (21:33)
[2021-01-31] MEDS: LIDOCAINE 5% PATCH TOPICAL PRN (22:17)
--- NOTE | 2021-01-31 23:34 | CONS ---
CONSULTATION DATE OF SERVICE: 01/31/2021. REASON FOR CONSULTATION: Advice regarding asthma, COPD and other multiple medical issues, requested by Dr. Riggins. HISTORY OF PRESENT ILLNESS: This 75 -year-old woman with a past medical history of asthma, COPD, fibromyalgia, hypertension, being followed by Dr. Deyanira Riggins in the outpatient setting, has also had stage IV lung cancer, which is being followed by [facility] physicians. Patient had multiple recent admissions at [facility] and patient also had episodes of endocarditis which was treated with penicillin antibiotic according to her. The patient also had vertebral fractures for which the patient admitted recently. Currently the patient is complaining of abdominal pain which started in the bottom of the abdomen on both sides which went upwards and mostly in the right upper quadrant and the patient was admitted through emergency room at this time. White count is elevated. Sodium is 134. Cholecystitis and diverticulitis involving splenic flexure was suspected. COVID-19 was negative. Surgical evaluation in progress at this time. There is no history of fever, rigors. No history of headache, loss of consciousness, seizures. No history of hematochezia or melena at this time. As far as the lung cancer is concerned, the patient previously had radiation and chemotherapy. Patient is currently on Keytruda. PAST MEDICAL HISTORY: Past medical history of asthma, COPD, history of fibromyalgia, hypertension, history of DJD, history hypothyroidism, lung cancer, as mentioned earlier, history of back surgery, history of anxiety, depression. MEDICATIONS: Home medications are Kenalog cream, Spiriva, Senna, Zofran, Prilosec, nitro, multivitamins, Singulair, Mobic, magnesium oxide, Cozaar, Lidoderm, Synthroid, Boniva, [place], vitamin B12, Celexa, Symbicort, Lioresal, aspirin. Ventolin. Tylenol, Xanax. ALLERGIES: DEMEROL, MORPHINE, SULFA, CIPRO, BACTRIM. FAMILY HISTORY: Myocardial infarction, history of esophageal cancer and melanoma. SOCIAL HISTORY: Previous history of smoking. No history of alcohol. REVIEW OF SYSTEMS: ENT: No diminished vision. No diminished hearing. CARDIOVASCULAR: No angina or palpitations. RESPIRATORY: As mentioned earlier. GI: As mentioned earlier. : No dysuria. Nervous system: As mentioned earlier. Allergy/Immunology: No asthma or hayfever. MUSCULOSKELETAL: As mentioned earlier. Hematology/Oncology: No history of anemia. ENDOCRINE: As mentioned earlier. CONSTITUTIONAL: As mentioned earlier. Dermatology negative. RHEUMATOLOGY: Negative. PSYCHIATRIC: As mentioned earlier. PHYSICAL EXAM: Patient is alert, oriented x3. The pulse is 97, blood pressure 139/66, respirations 16, temperature 98.2, pulse ox 98% on 2 L. HEENT: Conjunctivae normal. NECK: No JVD. CARDIOVASCULAR: S1, S2 muffled. RESPIRATORY: Breath sounds diminished in the bases. No rhonchi. No crackles. ABDOMEN: Soft, obese. Mild diffuse discomfort at both upper quadrants, right more than the left. No guarding or rigidity. No mass palpable. No ascites. LEGS: No edema. No swelling. NERVOUS SYSTEM: Higher functions as mentioned earlier. Moves all 4 limbs. No focal motor or sensory deficits. LYMPHATICS: No lymph nodes palpable in the neck, axilla or groin. SKIN: No ulcer, rashes or bleeding. JOINTS: No active deforming arthropathy. LABS: WBC 13, hemoglobin 10.1, sodium 134, and alkaline phosphatase 143. ASSESSMENT: 1. Abdominal pain with possible acute cholecystitis. 2. Possible acute diverticulitis in the splenic flexure. 3. Stage IV lung cancer on immunotherapy, status post radiation and chemo. 4. Increased WBC. 5. Anemia, normocytic. 6. Hyponatremia. 7. Elevated alkaline phosphatase. 8. Hypoalbuminemia. 9. Asthma, chronic obstructive pulmonary disease. 10.Fibromyalgia. 11.Hypertension. 12.History of degenerative joint disease. 13.History of hypothyroidism. 14.History of colonoscopy. 15.History of anxiety, depression. 16.Remote history of nicotine dependence. 17.Obesity, body mass 30.8. 18.FULL CODE. RECOMMENDATIONS AND DISCUSSION: In this 75-year-old woman who presented with multiple medical issues, we will monitor the patient closely with Surgery. Broad-spectrum IV antibiotics. Otherwise, resume the home medications. DVT prophylaxis. Will follow the patient closely with you and the patient. Patient may be asked to follow up with Dr. Deyanira Riggins closely after discharge. Thank you Dr. Wakefield for letting us participate in the care of this patient. MMODL / IJN: [id number] /
[2021-02-01] MEDS: HEPARIN SODIUM,PORCINE/PF 5,000 UNIT/0.5 ML SYRINGE SQ SCH ×4 (02:26→15:19)
[2021-02-01] MEDS: metroNIDAZOLE-NS PMX 500 MG in SALINE 1 100ML.BAG IVPB SCH ×3 (02:27→18:03)
[2021-02-01] MEDS: PIPERACILLIN-TAZOBACTAM 3.375 GM in SODIUM CHLORIDE 0.9% 100 ML IVPB SCH ×3 (02:27→18:03)
[2021-02-01] MEDS: HYDROmorphone 1 MG/ML 1 ML SYRINGE IVP PRN ×5 (05:02→21:45)
[2021-02-01] MEDS: LEVOTHYROXINE 50 MCG TAB PO SCH (05:09)
[2021-02-01 07:26] LABS: Basophils % (A) 0 %; Eosinophils # (A) 0.1 k/uL (0-0.7); Eosinophils % (A) 1 %; HCT 29.4 % (34.0-46.0); HGB 10.9 gm/dL (11.4-16.0); Lymphocytes # (A) 0.4 k/uL (1.0-4.8); Lymphocytes % (A) 4 %; MCH 35.8 pg (25.0-35.0); MCV 96.9 fL (80.0-100.0); Mean Platelet Volume 8.4; Monocytes % (A) 10 %; Neutrophils # (A) 8.9 k/uL (1.3-7.7); Neutrophils % (A) 84 %; Platelet Count 294 k/uL (150-450); RBC 3.03 m/uL (3.80-5.40); WBC 10.6 k/uL (3.8-10.6)
[2021-02-01 07:28] LABS: ALT 15 U/L (4-34); African American GFR (CKD) >90 (>60 ml/min/1.73 sqM); Albumin 2.9 g/dL (3.5-5.0); Anion Gap 9 mmol/L; Blood Urea Nitrogen 16 mg/dL (7-17); Calcium 8.5 mg/dL (8.4-10.2); Carbon Dioxide 22 mmol/L (22-30); Chloride 105 mmol/L (98-107); Glucose 78 mg/dL (74-99); Non-African American GFR(CKD) >90 (>60 ml/min/1.73 sqM); Sodium 136 mmol/L (137-145); Total Bilirubin 0.8 mg/dL (0.2-1.3); Total Protein 5.3 g/dL (6.3-8.2)
[2021-02-01 07:30] LABS: Potassium 4.2 mmol/L (3.5-5.1)
[2021-02-01 07:31] LABS: AST 27 U/L (14-36); Alkaline Phosphatase 120 U/L (38-126)
[2021-02-01] MEDS ORDERED: IPRATROPIUM 0.5 MG/2.5 ML NEBU INHALATION SCH (08:00)
--- NOTE | 2021-02-01 08:43 | XR ---
2 view abdomen HISTORY: Abnormal CT, ileus, obstruction, abdominal pain 2 views the abdomen submitted on 3 images and correlated to prior CT scan 01/30/2021 FINDINGS: there is a large amount of retained fecal debris throughout the distribution of the colon. No evident pneumoperitoneum. Degenerative disc changes are present visualized spine, there is a spina l curvature. Lung bases are clear. IMPRESSION: Correlate for fecal stasis, colitis.
[2021-02-01] MEDS: IPRATROPIUM-ALBUTEROL 3 ML NEB INHALATION SCH ×3 (09:23→17:06)
[2021-02-01] MEDS: SYMBICORT 160-4.5 MCG INHALER INHALATION SCH (09:24)
[2021-02-01] MEDS: SODIUM CHLORIDE 0.9% 1,000 ML IV SCH (09:35)
[2021-02-01] MEDS: PANTOPRAZOLE 40 MG/10 ML VIAL IVP SCH (09:38)
[2021-02-01] MEDS: ONDANSETRON 4 MG/2 ML VIAL IVP PRN (09:49)
[2021-02-01] MEDS: CITALOPRAM HYDROBROMIDE 20 MG TAB PO SCH (09:51)
[2021-02-01] MEDS: bisacodyL 10 MG SUPP RECTAL SCH (09:51)
[2021-02-01] MEDS: TRIAMCINOLONE 0.1% CREAM 80 GM TUBE TOPICAL SCH ×3 (10:51→19:59)
--- NOTE | 2021-02-01 12:19 | P.PN ---
<Yaa Grubbs - Last Filed: 02/01/21 12:08> Subjective Progress Note Date: 02/01/21 CHIEF COMPLAINT: Abdominal pain HISTORY OF PRESENT ILLNESS: Patient is being followed for diverticulitis in the area of the splenic flexure as well as distended gallbladder. Patient still reports reporting like a diffuse abdominal pain but more pain in the left upper quadrant and right upper quadrant. She rates her pain about a 3 out of 10. Pain medications to control the pain. She did have a very small, hard bowel movement with 5 pellets-like stools. She denies any vomiting. She has been having nausea and needed Zofran. She is passing gas. On her abdominal pain has not worsened since yesterday. Abdominal x-ray says correlate for fecal stasis, colitis. Chest x-ray no acute cardiopulmonary process. Patient remains nothing by mouth. Patient is getting Dulcolax suppository this morning. She's afebrile. Her white count has normalized from 13-10.6 PHYSICAL EXAM: VITAL SIGNS: Reviewed. GENERAL: Well-developed in no acute distress. HEENT: No sclera icterus. Extraocular movements grossly intact. Moist buccal mucosa. Head is atraumatic, normocephalic. ABDOMEN: Soft. Nondistended. Diffuse tenderness with more tenderness noted in the left and right upper quadrant NEUROLOGIC: Alert and oriented. Cranial nerves II through XII grossly intact. ASSESSMENT: 1. Acute diverticulitis in the splenic flexure region with possible ischemic colitis 2. Distended gallbladder noted on abdominal ultrasound 3. Constipation with fecal stasis noted on abdominal x-ray 4. History of lung cancer status post chemo and radiation treatment. Currently on immunotherapy PLAN: -Keep patient nothing by mouth -Continue Dulcolax suppositories daily -Continue IV antibiotics -Continue IV fluids -Continue pain medication as needed -GI prophylaxis Protonix and DVT prophylaxis subcu heparin Physician Lasting Room Machine Operator note has been reviewed by physician. Signing provider agrees with the documented findings, assessment, and plan of care. Objective - Vital Signs Vital signs: Vital Signs Temp 98.7 F 02/01/21 08:20 Pulse 100 02/01/21 12:05 Resp 16 02/01/21 12:05 BP 162/82 02/01/21 08:20 Pulse Ox 98 02/01/21 08:20 Intake & Output 01/31/21 02/01/2121 18:59 06:59 18:59 Output Total 100 1 Balance -100 -1 Weight 74.7 kg Output: Urine 100 Urine/Stool Mix 1 Other: Voiding Method Bedside Commode Bedside Commode # Voids 1 - Labs CBC & Chem 7: 02/01/21 06:41 02/01/21 06:41 Labs: Abnormal Lab Results - Last 24 Hours (Table) 01/31/21 01/31/21 01/31/21 Range/Units 12:16 12:16 12:16 WBC 13.0 H (3.8-10.6) k/uL RBC 3.08 L (3.80-5.40) m/uL Hgb 10.1 L (11.4-16.0) gm/dL Hct 29.8 L (34.0-46.0) % MCH (25.0-35.0) pg Neutrophils # 11.7 H (1.3-7.7) k/uL Lymphocytes # 0.4 L (1.0-4.8) k/uL Sodium 134 L (137-145) mmol/L Creatinine 0.44 L (0.52-1.04) mg/dL Plasma Lactic Acid Renato 0.6 L (0.7-2.0) mmol/L Alkaline Phosphatase 143 H (38-126) U/L Total Protein 5.4 L (6.3-8.2) g/dL Albumin 3.0 L (3.5-5.0) g/dL Urine Protein (Negative) Urine Ketones (Negative) Urine Blood (Negative) Ur Leukocyte Esterase (Negative) Urine Bacteria (None) /hpf 01/31/21 02/01/21 02/01/21 Range/Units 21:13 06:41 06:41 WBC (3.8-10.6) k/uL RBC 3.03 L (3.80-5.40) m/uL Hgb 10.9 L (11.4-16.0) gm/dL Hct 29.4 L (34.0-46.0) % MCH 35.8 H (25.0-35.0) pg Neutrophils # 8.9 H (1.3-7.7) k/uL Lymphocytes # 0.4 L (1.0-4.8) k/uL Sodium 136 L (137-145) mmol/L Creatinine 0.42 L (0.52-1.04) mg/dL Plasma Lactic Acid Renato (0.7-2.0) mmol/L Alkaline Phosphatase (38-126) U/L Total Protein 5.3 L (6.3-8.2) g/dL Albumin 2.9 L (3.5-5.0) g/dL Urine Protein 1+ H (Negative) Urine Ketones 4+ H (Negative) Urine Blood Trace H (Negative) Ur Leukocyte Esterase Trace H (Negative) Urine Bacteria Rare H (None) /hpf <Jorge Riggins - Last Filed: 02/01/21 16:28> Subjective As above. Patient's pain has improved. She did have a small bowel movement twice today. She feels less bloated and she has passed some gas. Abdominal x-rays still show significant stool burden but this is present even beyond the splenic flexure where the inflammatory changes are present. White blood cell count is normal. At this time we'll begin clear liquid diet. Continue IV antibiotics. Add milk of magnesia 1 dose daily. Continue Dulcolax supp ositories daily. Increase activity. Objective - Vital Signs Vital signs: Vital Signs Temp 98.2 F 02/01/21 14:45 Pulse 109 H 02/01/21 14:45 Resp 20 02/01/21 14:45 BP 127/70 02/01/21 14:45 Pulse Ox 95 02/01/21 14:45 Intake & Output 01/31/21 02/01/21 02/01/21 18:59 06:59 18:59 Output Total 100 1 Balance -100 -1 Weight 74.7 kg Output: Urine 100 Urine/Stool Mix 1 Other: Voiding Method Bedside Commode Bedside Commode # Voids 1 - Labs CBC & Chem 7: 02/01/21 06:41 02/01/21 06:41 Labs: Abnormal Lab Results - Last 24 Hours (Table) 01/31/21 02/01/21 02/01/21 Range/Units 21:13 06:41 06:41 RBC 3.03 L (3.80-5.40) m/uL Hgb 10.9 L (11.4-16.0) gm/dL Hct 29.4 L (34.0-46.0) % MCH 35.8 H (25.0-35.0) pg Neutrophils # 8.9 H (1.3-7.7) k/uL Lymphocytes # 0.4 L (1.0-4.8) k/uL Sodium 136 L (137-145) mmol/L Creatinine 0.42 L (0.52-1.04) mg/dL Total Protein 5.3 L (6.3-8.2) g/dL Albumin 2.9 L (3.5-5.0) g/dL Urine Protein 1+ H (Negative) Urine Ketones 4+ H (Negative) Urine Blood Trace H (Negative) Ur Leukocyte Esterase Trace H (Negative) Urine Bacteria Rare H (None) /hpf
--- NOTE | 2021-02-01 14:13 | PN ---
PROGRESS NOTE DATE OF SERVICE: 02/01/2021 This 75-year-old woman who was admitted with abdominal pain and possible acute cholecystitis also complaining of diffuse . Patient also suspected of diverticulitis also. The patient is started on broad-spectrum IV antibiotics. Surgery, Dr. Riggins, is following the patient closely. The white count is improving at this time. No chest pain. No palpitation. PHYSICAL EXAMINATION: On exam, alert and oriented x3. Pulse is 92. The blood pressure is 162/82, respirations 16, temperature 98.7, pulse ox 98% on room air. HEENT: Conjunctivae normal. NECK: No jugular venous distention. CARDIOVASCULAR: S1, S2 muffled. RESPIRATORY: Breath sounds diminished in the bases. No rhonchi, no crackles. ABDOMEN: Soft. Obese. Mild diffuse tenderness present. No guarding. No rigidity. No mass palpable. LEGS: No edema. No swelling. NERVOUS SYSTEM: No focal deficits. LABS: WBC 10.6, hemoglobin 10.9. Sodium is 136. Albumin is 2.9. UA noted. ASSESSMENT: 1. Abdominal pain with possible acute cholecystitis. 2. Possible acute diverticulitis in the splenic flexure. 3. Stage IV lung cancer on immunotherapy, status post radiation and chemo. 4. Increased WBC. 5. Anemia, normocytic. 6. Hyponatremia. 7. Elevated alkaline phosphatase. 8. Hypoalbuminemia. 9. Asthma, chronic obstructive pulmonary disease history. 10.Fibromyalgia. 11.Hypertension. 12.History of degenerative joint disease. 13.History of hypothyroidism. 14.History of colonoscopy. 15.History of anxiety, depression. 16.Remote history of nicotine dependence. 17.Obesity with body mass index of 30.8. 18.FULL CODE. RECOMMENDATIONS AND DISCUSSION: Recommend to continue current medications, continue with monitoring and symptomatic treatment. Otherwise at this time I recommend to continue IV antibiotics. Repeat labs. Closely follow with Dr. Riggins for recommended for surgery. Continue the antibiotics for now. Repeat labs. Further recommendations to follow. MMODL / IJN: [id number] / MTDD
[2021-02-01] MEDS: MAGNESIUM HYDROXIDE 2,400 MG/10 ML CUP PO SCH (17:32)
[2021-02-01] MEDS: MONTELUKAST 10 MG TAB PO SCH (19:59)
[2021-02-01] MEDS: BACLOFEN 10 MG TAB PO SCH (21:11)
[2021-02-01] MEDS: LOSARTAN 50 MG TAB PO SCH (21:11)
[2021-02-02] MEDS: SODIUM CHLORIDE 0.9% 1,000 ML IV SCH ×2 (02:32→17:03)
[2021-02-02] MEDS: PIPERACILLIN-TAZOBACTAM 3.375 GM in SODIUM CHLORIDE 0.9% 100 ML IVPB SCH ×3 (02:32→17:03)
[2021-02-02] MEDS: metroNIDAZOLE-NS PMX 500 MG in SALINE 1 100ML.BAG IVPB SCH ×3 (02:33→18:16)
[2021-02-02] MEDS: HEPARIN SODIUM,PORCINE/PF 5,000 UNIT/0.5 ML SYRINGE SQ SCH ×3 (02:33→20:03)
[2021-02-02 03:51] LABS: Basophils % (A) 0 %; Eosinophils % (A) 1 %; HCT 28.4 % (34.0-46.0); HGB 9.6 gm/dL (11.4-16.0); Lymphocytes # (A) 0.4 k/uL (1.0-4.8); Lymphocytes % (A) 6 %; MCH 32.5 pg (25.0-35.0); MCHC 33.9 g/dL (31.0-37.0); MCV 95.8 fL (80.0-100.0); Mean Platelet Volume 7.1; Monocytes # (A) 0.8 k/uL (0-1.0); Monocytes % (A) 11 %; Neutrophils # (A) 6.1 k/uL (1.3-7.7); Neutrophils % (A) 81 %; Platelet Count 264 k/uL (150-450); RBC 2.96 m/uL (3.80-5.40); RDW 12.6 % (11.5-15.5); WBC 7.5 k/uL (3.8-10.6)
[2021-02-02] MEDS: IPRATROPIUM-ALBUTEROL 3 ML NEB INHALATION SCH ×5 (04:12→19:15)
[2021-02-02] MEDS: SYMBICORT 160-4.5 MCG INHALER INHALATION SCH ×3 (04:12→19:15)
[2021-02-02 04:34] LABS: African American GFR (CKD) >90 (>60 ml/min/1.73 sqM); Anion Gap 4 mmol/L; Blood Urea Nitrogen 13 mg/dL (7-17); Calcium 8.4 mg/dL (8.4-10.2); Carbon Dioxide 32 mmol/L (22-30); Chloride 101 mmol/L (98-107); Glucose 97 mg/dL (74-99); Non-African American GFR(CKD) >90 (>60 ml/min/1.73 sqM); Potassium 3.5 mmol/L (3.5-5.1); Sodium 137 mmol/L (137-145)
[2021-02-02] MEDS: LEVOTHYROXINE 50 MCG TAB PO SCH (06:22)
[2021-02-02] MEDS: PANTOPRAZOLE 40 MG/10 ML VIAL IVP SCH (08:02)
[2021-02-02] MEDS: CITALOPRAM HYDROBROMIDE 20 MG TAB PO SCH (08:02)
[2021-02-02] MEDS: HYDROmorphone 1 MG/ML 1 ML SYRINGE IVP PRN ×3 (08:02→18:16)
[2021-02-02] MEDS: MAGNESIUM HYDROXIDE 2,400 MG/10 ML CUP PO SCH (08:12)
[2021-02-02] MEDS: TRIAMCINOLONE 0.1% CREAM 80 GM TUBE TOPICAL SCH ×2 (09:01→20:02)
[2021-02-02] MEDS: bisacodyL 10 MG SUPP RECTAL SCH (09:01)
--- NOTE | 2021-02-02 12:04 | P.PN ---
<Yaa Grubbs - Last Filed: 02/02/21 11:59> Subjective Progress Note Date: 02/02/21 CHIEF COMPLAINT: Abdominal pain HISTORY OF PRESENT ILLNESS: Patient is being followed for diverticulitis in the area of the splenic flexure as well as distended gallbladder. Patient states that her pain is still the same. She does rate it about a 3 out of 10. Her dis She did have small bowel movement yesterday and has been passing gas. Patient still reports reporting like a diffuse abdominal pain but more pain in the left upper quadrant and right upper quadrant. Pain medications to control the pain. She has been receiving the Dulcolax suppository. Milk of magnesia held this morning due to mild abdominal distention. She started on a clear liquid diet. Afebrile. WBC 7.5 hemoglobin 9.6 platelets 264 sodium 137 potassium 3.5 BUN 13 creatinine 0.44 PHYSICAL EXAM: VITAL SIGNS: Reviewed. GENERAL: Well-developed in no acute distress. HEENT: No sclera icterus. Extraocular movements grossly intact. Moist buccal mucosa. Head is atraumatic, normocephalic. ABDOMEN: Soft. Mildly distended Diffuse tenderness with more tenderness noted in the left and right upper quadrant and lower abdomen NEUROLOGIC: Alert and oriented. Cranial nerves II through XII grossly intact. ASSESSMENT: 1. Acute diverticulitis in the splenic flexure region with possible ischemic colitis 2. Distended gallbladder noted on abdominal ultrasound 3. Constipation with fecal stasis noted on abdominal x-ray 4. History of lung cancer status post chemo and radiation treatment. Currently on immunotherapy PLAN: -Continue clear liquid diet -Continue Dulcolax suppositories daily -Continue IV antibiotics -Continue IV fluids -Continue pain medication as needed -Encourage patient to ambulate -GI prophylaxis Protonix and DVT prophylaxis subcu heparin Physician Community Outreach Specialist note has been reviewed by physician. Signing provider agrees with the documented findings, assessment, and plan of care. Objective - Vital Signs Vital signs: Vital Signs Temp 98.4 F 02/02/21 08:15 Pulse 72 02/02/21 11:27 Resp 16 02/02/21 11:27 BP 152/72 02/02/21 08:15 Pulse Ox 96 02/02/21 08:24 Intake & Output 02/01/21 02/02/21 02/02/21 18:59 06:59 18:59 Intake Total 222 Balance 222 Intake: Oral 222 Other: Voiding Method Toilet Toilet # Voids 2 1 # Bowel Movements 1 1 - Labs CBC & Chem 7: 02/02/21 03:13 02/02/21 03:13 Labs: Abnormal Lab Results - Last 24 Hours (Table) 02/02/21 02/02/21 Range/Units 03:13 03:13 RBC 2.96 L (3.80-5.40) m/uL Hgb 9.6 L (11.4-16.0) gm/dL Hct 28.4 L (34.0-46.0) % Lymphocytes # 0.4 L (1.0-4.8) k/uL Carbon Dioxide 32 H (22-30) mmol/L Creatinine 0.44 L (0.52-1.04) mg/dL <Jorge Riggins - Last Filed: 02/02/21 16:59> Subjective As above. Patient had a few small hard stools. Still feels bloated. Mild pain. No nausea or vomiting. Mild tenderness on exam. Increase activity. Repeat films tomorrow. Objective - Vital Signs Vital signs: Vital Signs Temp 98.2 F 02/02/21 13:48 Pulse 86 02/02/21 16:02 Resp 16 02/02/21 16:02 BP 170/84 02/02/21 13:48 Pulse Ox 90 L 02/02/21 13:48 Intake & Output 02/01/21 02/02/21 02/02/21 18:59 06:59 18:59 Intake Total 222 Balance 222 Intake: Oral 222 Other: Voiding Method Toilet Toilet # Voids 2 1 1 # Bowel Movements 1 1 - Labs CBC & Chem 7: 02/02/21 03:13 02/02/21 03:13 Labs: Abnormal Lab Results - Last 24 Hours (Table) 02/02/21 02/02/21 Range/Units 03:13 03:13 RBC 2.96 L (3.80-5.40) m/uL Hgb 9.6 L (11.4-16.0) gm/dL Hct 28.4 L (34.0-46.0) % Lymphocytes # 0.4 L (1.0-4.8) k/uL Carbon Dioxide 32 H (22-30) mmol/L Creatinine 0.44 L (0.52-1.04) mg/dL
--- NOTE | 2021-02-02 14:11 | P.CONS ---
History of Present Illness - Chief Complaint Medical debility - History of Present Illness I had the opportunity to see patient for inpatient rehab consultation with regard to medical debility. Patient admitted to [facility] January 30 with abdominal pain. Patient reports recent hospitalization for had no CVA. At this time CT abdomen positive for cholecystitis and diverticulitis. Gallbladder ultrasound with hepatic steatosis. Chest x-ray negative. Abdominal x-ray consistent with fecal matter in colitis. Patient seen by PT reports modified independent with bed mobility and supervision for transfer and gait 40 feet with roller walker. OT prescribed. Nursing patient both report steady and room at walker level. Previous functional history as elicited from patient: 75-year-old left-handed white female who is lives in a first-floor of 2 for home alone. She depends on son and his for laundry and driving. She is otherwise independent with her own cooking, sitdown shower and gait with [address] Deyanira calderon. Family history of mother with lymphoma. Review of Systems Review of systems: ENT: Denies sneezes or discharge. Eyes: Denies discharge or photophobia. Cardiac: Denies chest pain or palpitation. Pulmonary: Denies cough or shortness of breath. Breast: Denies discharge or lumps. Gastrointestinal: Resolving epigastric discomfort. Genitourinary: Denies discharge or frequency. Musculoskeletal: Denies muscle or bone aches. Neurologic: Denies motor or sensory change. Endocrine: Denies shakes or sweats. Oncology: Denies cancers. Dermatologic: Denies rash, itching, pruritus. ALLERGY/immunology: Denies sneezes, rashes. Past Medical History Past Medical History: Asthma, Cancer, COPD, Fibromyalgia, Hypertension, Osteoarthritis (OA), Thyroid Disorder Additional Past Medical History / Comment(s): Lung cancer 2019 s/p chemo and radiation, recurrence of lung cancer (stage 4) in 2020. Arthritis,depression, osteopenia and seasonal allergies. 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 History of Any Multi-Drug Resistant Organisms: None Reported Past Surgical History: Back Surgery, Breast Surgery, Orthopedic Surgery Additional Past Surgical History / Comment(s): D&C 1972. Colonoscopy with upper endoscopy 2019(next after 5yrs)., MULTIPLE LT HAND SX R/T INJURY. Lumbar laminectomy, hand surgery and breast biopsy. Transesophageal lung biopsy. Past Anesthesia/Blood Transfusion Reactions: Postoperative Nausea & Vomiting (PONV) Additional Past Anesthesia/Blood Transfusion Reaction / Comm: no previous blood transfusion Past Psychological History: Anxiety, Depression Smoking Status: Former smoker Past Alcohol Use History: None Reported Additional Past Alcohol Use History / Comment(s): QUIT SMOKING 2015 Past Drug Use History: Marijuana Additional Drug Use History / Comment(s): edibles--none since October 2019 - Past Family History Brother(s) Family Medical History: Cancer, Myocardial Infarction ([place]), Renal Disease Additional Family Medical History / Comment(s): Esophageal cancer, melanoma of the sinuses which led to brain metastases. Renal failure. Another brother had an [place]. Sister(s) Family Medical History: Cancer Additional Family Medical History / Comment(s): Cervical cancer. Mother Family Medical History: Cancer Additional Family Medical History / Comment(s): Hodgkin's lymphoma. Son(s) Family Medical History: Cancer Additional Family Medical History / Comment(s): Cholangiocarcinoma. Medications and Allergies Home Medications Medication Instructions Recorded Confirmed Type Ibandronate Sodium [Boniva] 150 mg PO Q30D 06/09/18 01/31/21 History Losartan [Cozaar] 100 mg PO DAILY 06/09/18 01/31/21 History Meloxicam [Mobic] 7.5 mg PO DAILY 06/09/18 01/31/21 History Montelukast [Singulair] 10 mg PO HS 06/09/18 01/31/21 History Baclofen [Lioresal] 20 mg PO DAILY 03/25/19 02/01/21 History Levothyroxine Sodium [Synthroid] 50 mcg PO DAILY 03/25/19 01/31/21 History HYDROcodone/APAP 10-325MG [[place] 1 tab PO QID PRN 12/31/19 01/31/21 History 10-325] Omeprazole [PriLOSEC] 20 mg PO DAILY 12/31/19 01/31/21 History Acetaminophen [Tylenol] 650 mg PO Q6H PRN 11/21/20 01/31/21 History Folic Acid 1 mg PO DAILY 11/21/20 01/31/21 History Lidocaine [Lidoderm 5% Patch] 1 patch TRANSDERM DAILY PRN 11/21/20 01/31/21 History Magnesium Oxide 400 mg PO DAILY 11/21/20 01/31/21 History Nitroglycerin 0.4 mg SL Q5M PRN 11/21/20 01/31/21 History Albuterol Inhaler [Ventolin Hfa 2 puff INHALATION RT-QID PRN 01/30/21 01/31/21 History Inhaler] Citalopram Hydrobromide [CeleXA] 20 mg PO DAILY 01/30/21 01/31/21 History Cyanocobalamin [Vitamin B-12] 500 mcg PO DAILY 01/30/21 01/31/21 History Healthy-Lax Powder Packet 1 packet PO DAILY PRN 01/30/21 01/31/21 History Sennosides/Docusate Sodium [Senna 1 cap PO BID PRN 01/30/21 01/31/21 History Plus 8.6-50 mg Softgel] Tiotropium [place] [Spiriva] 1 cap INHALATION RT-DAILY 01/30/21 01/31/21 History Triamcinolone 0.1% Cream [Kenalog 1 applicatio TOPICAL BID 01/30/21 01/31/21 History 0.1% Cream] ALPRAZolam [Xanax] 0.25 mg PO DAILY PRN 01/31/21 01/31/21 History Aspirin 81 mg PO DAILY 01/31/21 01/31/21 History Budesonide/Formoterol Fumarate 2 puff INHALATION BID 01/31/21 01/31/21 History [Symbicort 160-4.5 Mcg Inhaler] Multivitamins, Thera [Multivitamin 1 tablet PO DAILY 01/31/21 01/31/21 History (formulary)] Ondansetron Odt [Zofran Odt] 8 mg PO Q8HR 01/31/21 01/31/21 History Allergies Allergy/AdvReac Type Severity Reaction Status Date / Time meperidine HCl [From Demerol] Allergy Severe Anaphylaxis Verified 01/31/21 17:47 morphine Allergy Severe Vomiting Verified 01/31/21 17:47 Sulfa (Sulfonamide Allergy Severe Nausea & Verified 01/31/21 17:47 Antibiotics) Vomiting ciprofloxacin [From Cipro] AdvReac Severe Nausea & Verified 01/31/21 17:47 Vomiting sulfamethoxazole AdvReac Severe Nausea & Verified 01/31/21 17:47 [From Bactrim] Vomiting trimethoprim [From Bactrim] AdvReac Severe Nausea & Verified 01/31/21 17:47 Vomiting milk AdvReac Diarrhea Verified 01/31/21 19:22 Physical Exam Vitals: Vital Signs Temp Pulse Pulse Pulse Resp BP BP 02/02/21 13:48 98.2 F 99 18 170/84 02/02/21 11:27 72 16 02/02/21 11:17 68 16 02/02/21 08:34 100 16 02/02/21 08:24 100 16 02/02/21 08:15 98.4 F 104 H 20 152/72 02/02/21 02:29 98.1 F 95 18 150/79 02/01/21 21:54 144/72 02/01/21 20:11 20 02/01/21 19:42 98.2 F 104 H 20 145/77 02/01/21 17:18 96 16 02/01/21 17:10 100 18 02/01/21 14:45 98.2 F 109 H 20 127/70 Pulse Ox 02/02/21 13:48 90 L 02/02/21 11:27 02/02/21 11:17 02/02/21 08:34 02/02/21 08:24 96 02/02/21 08:15 96 02/02/21 02:29 95 02/01/21 21:54 02/01/21 20:11 02/01/21 19:42 100 02/01/21 17:18 02/01/21 17:10 02/01/21 14:45 95 Intake and Output 02/01/21 02/02/21 02/02/21 22:59 06:59 14:59 Intake Total 222 Balance 222 Intake: Oral 222 Other: Voiding Method Toilet Toilet # Voids 1 1 # Bowel Movements 1 Skin: Mildly atrophic, intact. General: Medium build and comfortable appearance. Head: Normocephalic, atraumatic. Eyes: Symmetric. Pupils equal round. Ears: Symmetric. Hearing within normal limits. Mouth: Clear. Neck: Supple. Carotid without bruit. Cardiac: Regular rate and rhythm. Lungs: Clear anteriorly and posteriorly. Abdomen: Soft active nontender. Extremities: Normal tone. Neurological: Mental status: Alert, cooperative, pleasant. Cranial nerves: Symmetric facial tone and trapezius. Motor: Normal strength and isolation all 4 limbs. Sensation: Intact throughout. DTRs: Symmetric and equal throughout. Mobility: Patient currently doing so sponge bath in chair. Results CBC & Chem 7: 02/02/21 03:13 02/02/21 03:13 Labs: Abnormal Lab Results - Last 24 Hours (Table) 02/02/21 02/02/21 Range/Units 03:13 03:13 RBC 2.96 L (3.80-5.40) m/uL Hgb 9.6 L (11.4-16.0) gm/dL Hct 28.4 L (34.0-46.0) % Lymphocytes # 0.4 L (1.0-4.8) k/uL Carbon Dioxide 32 H (22-30) mmol/L Creatinine 0.44 L (0.52-1.04) mg/dL Assessment and Plan (1) Acute cholecystitis Current Visit: Yes Status: Acute Code(s): K81.0 - ACUTE CHOLECYSTITIS SNOMED Code(s): 14161107 (2) Constipation Current Visit: Yes Status: Acute Code(s): K59.00 - CONSTIPATION, UNSPECIFIED SNOMED Code(s): 49354548 Plan: Impression: 1. Medical debility. 2. Acute cholecystitis. 3. Acute colitis. 4. Constipation with fecal stasis most likely opioid-induced. 5. At no CVA status post chemo and radiation. Comments and plan: At this time PT ongoing. Patient demonstrated no need for physical assistance in room. Would await OT evaluation but suspect will be approximately the same. At this time do not anticipate need of inpatient rehab. We'll keep you to follow with yourself though. Patient did mention that she is set to see me for chronic pain management with generalized appointment.
--- NOTE | 2021-02-02 16:23 | PN ---
PROGRESS NOTE DATE OF SERVICE: 02/02/2021 This 75-year-old woman who was admitted with abdominal pain and acute cholecystitis also had possible acute diverticulitis. Patient is on broad-spectrum IV antibiotics. Patient has less abdominal pain. Patient closely monitored. Dr. Riggins is following the patient closely also. PHYSICAL EXAMINATION: Alert and oriented x3. Pulse 72, blood pressure 152/72, respiration 20, temperature 98.4, pulse ox 96% on 2 L. HEENT: Conjunctivae normal. NECK: No jugular venous distention. CARDIOVASCULAR: S1, S2 muffled. RESPIRATORY: Breath sounds diminished at the bases. A few scattered rhonchi. ABDOMEN: Soft, mild diffuse tenderness present. No guarding, no rigidity. No mass palpable. LEGS: No edema. No swelling. NERVOUS SYSTEM: No focal deficits. LABS: WBC 7.5, hemoglobin 9.6. ASSESSMENT: 1. Abdominal pain with possible acute cholecystitis. 2. Possible acute diverticulitis in the splenic flexure. 3. Stage IV lung cancer with immunotherapy, status post radiation chemo. 4. Increased WBC. 5. Anemia, normocytic. 6. Hyponatremia. 7. Elevated alkaline phosphatase. 8. Hypoalbuminemia. 9. Asthma, chronic obstructive pulmonary disease. 10.Fibromyalgia. 11.Hypertension. 12.History of degenerative joint disease. 13.Hypothyroidism. 14.History of colonoscopy. 15.Anxiety, depression. 16.Remote history of nicotine dependence. 17.Obesity with body mass index of 30.8. 18.FULL CODE. RECOMMENDATIONS AND DISCUSSION: Recommend to continue current medications, continue symptomatic treatment. Otherwise, at this time I would continue to monitor, continue with symptomatic treatment. Continue IV antibiotics. Closely follow with Surgery. Further recommendations to follow. MMODL / IJN: [id number] /
[2021-02-02] MEDS: MONTELUKAST 10 MG TAB PO SCH (20:02)
[2021-02-02] MEDS: BACLOFEN 10 MG TAB PO SCH (20:02)
[2021-02-02] MEDS: LOSARTAN 50 MG TAB PO SCH (20:03)
[2021-02-02] MEDS: LIDOCAINE 5% PATCH TOPICAL PRN (20:43)
[2021-02-03] MEDS: PIPERACILLIN-TAZOBACTAM 3.375 GM in SODIUM CHLORIDE 0.9% 100 ML IVPB SCH ×3 (02:07→18:11)
[2021-02-03] MEDS: metroNIDAZOLE-NS PMX 500 MG in SALINE 1 100ML.BAG IVPB SCH ×3 (02:58→18:11)
[2021-02-03] MEDS: LEVOTHYROXINE 50 MCG TAB PO SCH (06:39)
[2021-02-03] MEDS: PANTOPRAZOLE 40 MG TABLET PO SCH (06:39)
[2021-02-03] MEDS: HYDROmorphone 1 MG/ML 1 ML SYRINGE IVP PRN ×3 (07:16→20:13)
--- NOTE | 2021-02-03 07:36 | XR ---
2 view abdomen HISTORY: Follow-up ileus 2 views the abdomen correlated prior exam 02/01/2021 Retained fecal debris again noted within the colon. No evident pneumoperitoneum or bowel obstruction. Bones are stable. No pathologic calcification evident. Lung bases are stable. IMPRESSION: Correlate for fecal stasis.
[2021-02-03 08:08] LABS: Basophils % (A) 0 %; Eosinophils # (A) 0.1 k/uL (0-0.7); Eosinophils % (A) 1 %; HCT 31.7 % (34.0-46.0); HGB 9.9 gm/dL (11.4-16.0); Lymphocytes # (A) 0.5 k/uL (1.0-4.8); Lymphocytes % (A) 7 %; MCH 30.2 pg (25.0-35.0); MCHC 31.2 g/dL (31.0-37.0); Mean Platelet Volume 7.4; Monocytes # (A) 0.5 k/uL (0-1.0); Monocytes % (A) 7 %; Neutrophils # (A) 6.3 k/uL (1.3-7.7); Neutrophils % (A) 84 %; Platelet Count 309 k/uL (150-450); RBC 3.27 m/uL (3.80-5.40); WBC 7.5 k/uL (3.8-10.6)
[2021-02-03] MEDS: IPRATROPIUM-ALBUTEROL 3 ML NEB INHALATION SCH ×4 (08:22→20:48)
[2021-02-03] MEDS: SYMBICORT 160-4.5 MCG INHALER INHALATION SCH ×2 (08:22→20:49)
[2021-02-03] MEDS: bisacodyL 10 MG SUPP RECTAL SCH (08:28)
[2021-02-03] MEDS: HEPARIN SODIUM,PORCINE/PF 5,000 UNIT/0.5 ML SYRINGE SQ SCH ×2 (08:28→20:12)
[2021-02-03] MEDS: TRIAMCINOLONE 0.1% CREAM 80 GM TUBE TOPICAL SCH ×2 (08:29→20:12)
[2021-02-03] MEDS: CITALOPRAM HYDROBROMIDE 20 MG TAB PO SCH (08:29)
[2021-02-03 08:32] LABS: African American GFR (CKD) >90 (>60 ml/min/1.73 sqM); Anion Gap 5 mmol/L; Blood Urea Nitrogen 6 mg/dL (7-17); Calcium 8.6 mg/dL (8.4-10.2); Carbon Dioxide 33 mmol/L (22-30); Chloride 100 mmol/L (98-107); Glucose 91 mg/dL (74-99); Non-African American GFR(CKD) >90 (>60 ml/min/1.73 sqM); Potassium 3.8 mmol/L (3.5-5.1); Sodium 138 mmol/L (137-145)
[2021-02-03] MEDS: SODIUM CHLORIDE 0.9% 1,000 ML IV SCH (08:32)
[2021-02-03] MEDS: MAGNESIUM HYDROXIDE 2,400 MG/10 ML CUP PO SCH (10:44)
[2021-02-03] MEDS ORDERED: ALPRAZolam 0.25 MG TAB PO PRN (11:27)
[2021-02-03] MEDS: LOSARTAN 50 MG TAB PO SCH (11:46)
--- NOTE | 2021-02-03 13:29 | P.PN ---
Progress Note - Text Progress Note Date: 02/03/21 Patient's feels slightly better. She still has complaints of some left upper quadrant pain. On exam vessels are stable. Abdomen soft. There is some mild tenderness. There is no rebound or guarding. Resolving left colon colitis/diverticulitis. Patient will continue receive supportive care.
--- NOTE | 2021-02-03 16:18 | PN ---
PROGRESS NOTE DATE OF SERVICE: 02/03/2021 This 75-year-old woman was admitted with abdominal pain with possible acute cholecystitis, also had possibly history of features of colitis. The patient is on IV antibiotics. The patient still has some abdominal pain, but the white count is significantly improved at this time. The x-ray of the abdomen showed some fecal stasis. No chest pain. No palpitations. No fever. PHYSICAL EXAMINATION: Alert and oriented times three. Pulse 101. Blood pressure 154/76, respiration 20, temperature 98.1, pulse ox 98% on 2 L. HEENT: Conjunctivae normal. NECK: No JVD. CARDIOVASCULAR: S1, S2 muffled. RESPIRATORY SYSTEM: Breath sounds diminished at the bases. No rhonchi. No crackles. ABDOMEN: Soft, mild diffuse discomfort. No mass palpable. LEGS: No edema. No swelling. NERVOUS SYSTEM: No focal deficits. LABS: WBC 7.7, hemoglobin 9.9. C-reactive protein is 13.8, ESR is 41. ASSESSMENT: 1. Abdominal pain with possible acute cholecystitis. 2. Possible acute diverticulitis in the splenic flexure. 3. Stage IV lung cancer with immunotherapy, status post radiation and chemo. 4. Increased WBC. 5. Anemia, normocytic. 6. Hyponatremia. 7. Elevated alkaline phosphatase. 8. Hypoalbuminemia. 9. Asthma, chronic obstructive pulmonary disease. 10.Fibromyalgia. 11.Hypertension. 12.History of degenerative joint disease. 13.Hypothyroidism. 14.History of colonoscopy. 15.Anxiety and depression. 16.Remote history of nicotine dependence. 17.Obesity with body mass index of 30.8. 18.FULL CODE. RECOMMENDATIONS AND DISCUSSION: Continue current medications. Continue to monitor. Symptomatic treatment. Continue the broad-spectrum IV antibiotics. Closely follow with surgery. Guarded prognosis because of multiple complex medical issues. Further recommendations to follow. MMODL / IJN: [id number] /
[2021-02-03] MEDS: MONTELUKAST 10 MG TAB PO SCH (20:12)
[2021-02-03] MEDS: BACLOFEN 10 MG TAB PO SCH (20:12)
[2021-02-04] MEDS: PIPERACILLIN-TAZOBACTAM 3.375 GM in SODIUM CHLORIDE 0.9% 100 ML IVPB SCH ×3 (02:23→18:27)
[2021-02-04] MEDS: metroNIDAZOLE-NS PMX 500 MG in SALINE 1 100ML.BAG IVPB SCH ×3 (02:25→18:26)
[2021-02-04] MEDS: PANTOPRAZOLE 40 MG TABLET PO SCH (06:21)
[2021-02-04] MEDS: LEVOTHYROXINE 50 MCG TAB PO SCH (06:21)
[2021-02-04] MEDS: HYDROmorphone 1 MG/ML 1 ML SYRINGE IVP PRN ×2 (06:37→14:35)
[2021-02-04] MEDS: IPRATROPIUM-ALBUTEROL 3 ML NEB INHALATION SCH ×4 (08:07→20:48)
[2021-02-04] MEDS: SYMBICORT 160-4.5 MCG INHALER INHALATION SCH ×2 (08:09→20:48)
[2021-02-04] MEDS: SODIUM CHLORIDE 0.9% 1,000 ML IV SCH ×2 (09:00→17:49)
[2021-02-04] MEDS: LOSARTAN 50 MG TAB PO SCH (09:05)
[2021-02-04] MEDS: bisacodyL 10 MG SUPP RECTAL SCH (09:05)
[2021-02-04] MEDS: CITALOPRAM HYDROBROMIDE 20 MG TAB PO SCH (09:05)
[2021-02-04] MEDS: HEPARIN SODIUM,PORCINE/PF 5,000 UNIT/0.5 ML SYRINGE SQ SCH ×2 (09:05→20:25)
[2021-02-04] MEDS: MAGNESIUM HYDROXIDE 2,400 MG/10 ML CUP PO SCH (09:06)
[2021-02-04] MEDS: TRIAMCINOLONE 0.1% CREAM 80 GM TUBE TOPICAL SCH ×2 (09:06→20:26)
[2021-02-04] MEDS ORDERED: FUROSEMIDE 10 MG/ML 2 ML VIAL IV ONE (11:04)
[2021-02-04] MEDS: HYDROcodone/APAP 5-325MG 1 EACH TAB PO PRN (11:27)
--- NOTE | 2021-02-04 15:52 | P.PN ---
Progress Note - Text Progress Note Date: 02/04/21 Patient feels better. She is less abdominal pain. On exam vessels are stable. Abdomen soft. Mild left upper quadrant pain. Resolving colitis. Patient be most likely discharge home tomorrow.
--- NOTE | 2021-02-04 18:44 | PN ---
PROGRESS NOTE DATE OF SERVICE: 02/04/2021 DATE OF SERVICE: This 75-year-old woman who was admitted with abdominal pain with possible acute cholecystitis is being closely monitored. No chest pain. No palpitations. No fever. The patient is on broad-spectrum IV antibiotics. The patient has complaints of back pain today. PHYSICAL EXAMINATION: Alert and oriented x3. Pulse is 100, blood pressure 140/80, respiration 16, temperature 98.2, pulse ox 97% on 2 L. HEENT: Conjunctivae normal. Oral mucosa moist. NECK: No jugular venous distention. No lymph node enlargement. CARDIOVASCULAR: S1, S2, muffled. No S3, no S4, RESPIRATORY: Diminished breath sounds at the bases. ABDOMEN: Soft. Mild diffuse tenderness. No guarding or rigidity. LEGS: No edema, no swelling. NERVOUS SYSTEM: No focal deficits. LABS: WBC 7, hemoglobin 9.9. CRP is 13.8. ASSESSMENT: 1. Abdominal pain with possible acute cholecystitis. 2. Possible acute diverticulitis in the splenic flexure. 3. Stage IV lung cancer on immunotherapy, status post radiation and chemo. 4. Increased WBC. 5. Anemia, normocytic. 6. Hyponatremia. 7. Back pain, possibly musculoskeletal. 8. Elevated alkaline phosphatase. 9. Hypoalbuminemia. 10.Asthma, chronic obstructive pulmonary disease. 11.Fibromyalgia. 12.Hypertension. 13.History of degenerative joint disease. 14.History of hypothyroidism. 15.History of colonoscopy. 16.Anxiety, depression. 17.Remote history of nicotine dependence. 18.Obesity with body mass index of 30.8. 19.FULL CODE. RECOMMENDATIONS AND DISCUSSION: Continue current medical management, continue to monitor, continue symptomatic treatment. Otherwise, at this time I recommend continue the broad-spectrum IV antibiotics. Closely follow with surgery. Guarded prognosis. Further recommendations to follow. MMODL / IJN: [id number] /
[2021-02-04] MEDS: BACLOFEN 10 MG TAB PO SCH (20:25)
[2021-02-04] MEDS: MONTELUKAST 10 MG TAB PO SCH (20:25)
[2021-02-05] MEDS: PIPERACILLIN-TAZOBACTAM 3.375 GM in SODIUM CHLORIDE 0.9% 100 ML IVPB SCH ×3 (02:37→17:05)
[2021-02-05] MEDS: metroNIDAZOLE-NS PMX 500 MG in SALINE 1 100ML.BAG IVPB SCH ×2 (02:37→10:26)
[2021-02-05] MEDS: LEVOTHYROXINE 50 MCG TAB PO SCH (04:46)
[2021-02-05] MEDS: PANTOPRAZOLE 40 MG TABLET PO SCH (04:46)
[2021-02-05] MEDS: SODIUM CHLORIDE 0.9% 1,000 ML IV SCH (08:23)
[2021-02-05] MEDS: bisacodyL 10 MG SUPP RECTAL SCH (08:23)
[2021-02-05] MEDS: CITALOPRAM HYDROBROMIDE 20 MG TAB PO SCH (08:24)
[2021-02-05] MEDS: TRIAMCINOLONE 0.1% CREAM 80 GM TUBE TOPICAL SCH ×2 (08:24→20:52)
[2021-02-05] MEDS: LOSARTAN 50 MG TAB PO SCH (08:24)
[2021-02-05] MEDS: HEPARIN SODIUM,PORCINE/PF 5,000 UNIT/0.5 ML SYRINGE SQ SCH ×3 (08:24→20:52)
[2021-02-05] MEDS: MAGNESIUM HYDROXIDE 2,400 MG/10 ML CUP PO SCH (08:25)
[2021-02-05] MEDS: IPRATROPIUM-ALBUTEROL 3 ML NEB INHALATION SCH ×4 (09:25→20:36)
[2021-02-05] MEDS: SYMBICORT 160-4.5 MCG INHALER INHALATION SCH ×2 (09:26→20:36)
--- NOTE | 2021-02-05 10:24 | XR ---
Abdomen HISTORY: Fecal stasis HISTORY: Abdominal pain 2 views the abdomen correlated prior exam 02/03/2021 There is retained fecal debris throughout the distribution of the colon. No evident pneumoperitoneum or bowel obstruction. There is a levoscoliosis centered at the upper lumbar spine. There are dense va scular calcifications. Degenerative disc changes, facet arthropathy noted in the lumbar spine. Air-fl uid levels are present without bowel distention. IMPRESSION: Correlate for fecal stasis.
[2021-02-05] MEDS ORDERED: MAGNESIUM CITRATE 296 ML BOTTLE PO ONE (10:53)
--- NOTE | 2021-02-05 11:01 | P.PN ---
<TangelaYaa strickland - Last Filed: 02/05/21 10:53> Subjective Progress Note Date: 02/05/21 CHIEF COMPLAINT: Abdominal pain HISTORY OF PRESENT ILLNESS: Patient is being followed for diverticulitis in the area of the splenic flexure as well as distended gallbladder and constipation. Patient reports improvement in her abdominal pain over the weekend. She does report having to us soft bowel movements today. She reports improvement in her abdominal distention. She denies any nausea or vomiting. She is currently on a full liquid diet. She has been up and ambulating. She did receive a dose of Lasix for lower extremity edema yesterday. Afebrile. Heart rate 108. No new labs Abdominal x-ray shows retained fecal debris throughout the distribution of the colon. PHYSICAL EXAM: VITAL SIGNS: Reviewed. GENERAL: Well-developed in no acute distress. HEENT: No sclera icterus. Extraocular movements grossly intact. Moist buccal mucosa. Head is atraumatic, normocephalic. ABDOMEN: Soft. Decrease in abdominal distention. Mild tenderness with palpation of the left and right upper quadrants NEUROLOGIC: Alert and oriented. Cranial nerves II through XII grossly intact. Extremities: +1 edema bilaterally ASSESSMENT: 1. Acute diverticulitis in the splenic flexure region with possible ischemic colitis 2. Distended gallbladder noted on abdominal ultrasound 3. Constipation with fecal stasis noted on abdominal x-ray 4. History of lung cancer status post chemo and radiation treatment. Currently on immunotherapy 5. Moderate protein calorie malnutrition PLAN: -Give 1 dose of citrate of mag for continued fecal debris noted on abdominal x- ray -Advanced to low fat diet -Add Ensure TID with meals -Check CBC and BMP -Continue Dulcolax suppositories daily -Continue milk of magnesia -Continue IV antibiotics -Continue pain medication as needed -Encourage patient to ambulate -GI prophylaxis Protonix and DVT prophylaxis subcu heparin Physician Snow Plow Tractor Operator note has been reviewed by physician. Signing provider agrees with the documented findings, assessment, and plan of care. Objective - Vital Signs Vital signs: Vital Signs Temp 98.5 F 02/05/21 02:00 Pulse 108 H 02/05/21 09:38 Resp 18 02/05/21 08:43 BP 175/82 02/05/21 08:43 Pulse Ox 98 02/05/21 08:43 Intake & Output 02/04/21 02/05/21 02/05/21 18:59 06:59 18:59 Output Total 660 Balance -660 Weight 78.2 kg Output: Urine 660 Other: Voiding Method Toilet Diaper Incontinent # Voids 1 1 # Bowel Movements 1 1 - Labs CBC & Chem 7: 02/03/21 07:01 02/03/21 07:01 <Jorge Riggins - Last Filed: 02/05/21 16:17> Subjective As above. Patient still having left upper quadrant pain although improved. She has moved her bowels several times today and thinks this is helping. Magnesium citrate was ordered. She is still sipping at that. She had 1 episode of vomiting. Patient with increase in heart rate over the last day or 2. Remains tender left upper quadrant. We'll repeat CT abdomen and pelvis tomorrow. Hopefully if that is improved May discharge at that point. Objective - Vital Signs Vital signs: Vital Signs Temp 98.5 F 02/05/21 14:12 Pulse 96 02/05/21 15:50 Resp 17 02/05/21 14:12 BP 141/69 02/05/21 14:12 Pulse Ox 95 02/05/21 14:12 Intake & Output 02/04/21 02/05/21 02/05/21 18:59 06:59 18:59 Output Total 660 1 Balance -660 -1 Weight 78.2 kg Output: Urine 660 Emesis 1 Other: Voiding Method Toilet Diaper Incontinent # Voids 1 1 1 # Bowel Movements 1 1 - Labs CBC & Chem 7: 02/05/21 11:20 02/05/21 11:20 Labs: Abnormal Lab Results - Last 24 Hours (Table) 02/05/21 02/05/21 Range/Units 11:20 11:20 RBC 3.04 L (3.80-5.40) m/uL Hgb 9.8 L (11.4-16.0) gm/dL Hct 29.6 L (34.0-46.0) % Lymphocytes # 0.5 L (1.0-4.8) k/uL Carbon Dioxide 37 H (22-30) mmol/L BUN 3 L (7-17) mg/dL Creatinine 0.48 L (0.52-1.04) mg/dL Glucose 105 H (74-99) mg/dL
[2021-02-05] MEDS ORDERED: FUROSEMIDE 10 MG/ML 2 ML VIAL IV STA (11:07)
[2021-02-05 12:16] LABS: Basophils % (A) 0 %; Eosinophils # (A) 0.1 k/uL (0-0.7); Eosinophils % (A) 1 %; HCT 29.6 % (34.0-46.0); HGB 9.8 gm/dL (11.4-16.0); Lymphocytes # (A) 0.5 k/uL (1.0-4.8); Lymphocytes % (A) 6 %; MCH 32.4 pg (25.0-35.0); MCHC 33.3 g/dL (31.0-37.0); MCV 97.2 fL (80.0-100.0); Mean Platelet Volume 7.1; Monocytes # (A) 0.5 k/uL (0-1.0); Monocytes % (A) 7 %; Neutrophils # (A) 6.4 k/uL (1.3-7.7); Neutrophils % (A) 84 %; Platelet Count 319 k/uL (150-450); RBC 3.04 m/uL (3.80-5.40); RDW 13.2 % (11.5-15.5); WBC 7.7 k/uL (3.8-10.6)
[2021-02-05] MEDS: ONDANSETRON 4 MG/2 ML VIAL IVP PRN (12:24)
[2021-02-05 12:28] LABS: Potassium 3.6 mmol/L (3.5-5.1)
[2021-02-05 12:29] LABS: African American GFR (CKD) >90 (>60 ml/min/1.73 sqM); Anion Gap 3 mmol/L; Blood Urea Nitrogen 3 mg/dL (7-17); Calcium 8.8 mg/dL (8.4-10.2); Carbon Dioxide 37 mmol/L (22-30); Chloride 99 mmol/L (98-107); Glucose 105 mg/dL (74-99); Non-African American GFR(CKD) >90 (>60 ml/min/1.73 sqM); Sodium 139 mmol/L (137-145)
--- NOTE | 2021-02-05 16:41 | PN ---
PROGRESS NOTE DATE OF SERVICE: 02/05/2021 This 75-year-old woman who was admitted with abdominal pain with acute cholecystitis is being closely monitored. No chest pain. No palpitations. No fever. The patient also had possible diverticulitis in the splenic flexure region. The patient is on IV antibiotics. Dr. Riggins is following the patient closely. No chest pain. No palpitations. No fever. PHYSICAL EXAMINATION: Alert and oriented x3. Pulse 100, blood pressure 141/69, respiration 17, temperature 98.4, pulse ox 95% on 2 L. HEENT: Conjunctivae normal. NECK: No jugular venous distention. CARDIOVASCULAR SYSTEM: S1, S2 muffled. RESPIRATORY SYSTEM: Breath sounds diminished at the bases. No rhonchi. No crackles. ABDOMEN: Soft, non-tender. NERVOUS SYSTEM: No focal deficit. LABS: WBC 7.7, hemoglobin 9.8. ASSESSMENT: 1. Abdominal pain with possible acute cholecystitis, present on admission. 2. Possible acute diverticulitis in the splenic flexure. 3. Stage IV lung cancer, on immunotherapy, status post radiation and chemo. 4. Increased white count. 5. Anemia, normocytic. 6. Hyponatremia. 7. Back pain, possibly musculoskeletal. 8. Elevated alkaline phosphatase. 9. Hypoalbuminemia. 10.Asthma, chronic obstructive pulmonary disease. 11.Fibromyalgia. 12.Hypertension. 13.History of degenerative joint disease. 14.History of hypothyroidism. 15.History of colonoscopy. 16.Anxiety, depression. 17.Remote history of nicotine dependence. 18.Obesity with body mass index of 30.8. 19.FULL CODE. RECOMMENDATIONS AND DISCUSSION: I recommend to continue current medications, continue with the monitoring, symptomatic treatment. Continue the antibiotics. Closely follow with Dr. Riggins. The patient has some minimal tachycardia, which is improving at this time. Guarded prognosis. Further recommendations to follow. MMODL / IJN: [id number] /
[2021-02-05] MEDS: metroNIDAZOLE 500 MG TAB PO SCH (18:11)
[2021-02-05] MEDS: HYDROcodone/APAP 5-325MG 1 EACH TAB PO PRN (18:49)
[2021-02-05] MEDS: HYDROmorphone 1 MG/ML 1 ML SYRINGE IVP PRN (18:54)
[2021-02-05] MEDS: BACLOFEN 10 MG TAB PO SCH (20:52)
[2021-02-05] MEDS: MONTELUKAST 10 MG TAB PO SCH (20:52)
[2021-02-06] MEDS: PIPERACILLIN-TAZOBACTAM 3.375 GM in SODIUM CHLORIDE 0.9% 100 ML IVPB SCH ×2 (01:43→09:11)
[2021-02-06] MEDS: metroNIDAZOLE 500 MG TAB PO SCH ×2 (02:41→12:08)
[2021-02-06] MEDS: SODIUM CHLORIDE 0.9% 1,000 ML IV SCH (02:42)
[2021-02-06] MEDS: IOPAMIDOL CONTRAST (ORAL USE) VIAL PO PRN ×2 (06:16→07:11)
--- NOTE | 2021-02-06 08:25 | CT ---
Left EXAMINATION TYPE: CT abdomen pelvis wo con DATE OF EXAM: 02/06/2021 COMPARISON: 01/30/2021 HISTORY: Splenic flexure colitis CT DLP: 811.50 mGycm Examination of the solid and hollow viscera is limited given the lack of contrast. FINDINGS: LUNG BASES: Small basilar effusions and left lower lobe atelectasis. Small hiatal hernia. LIVER/GB: The gallbladder is unremarkable. No space-occupying hepatic lesion. PANCREAS: No pancreatic mass identified. No inflammatory process seen. SPLEEN: No evidence for splenomegaly. No intrasplenic lesions seen. ADRENALS: No adrenal nodules identified. No evidence for thickening. KIDNEYS: No evidence for renal mass. No nephrolithiasis. No hydronephrosis. BOWEL: Appendix has a normal appearance. No evidence of bowel obstruction. No inflammatory process. N o definite inflammatory process about the splenic flexure or remainder of the colon to suggest active diverticulitis at this point. Scattered diverticulosis noted. Lymph nodes: No evidence for adenopathy greater than 1 cm. Abdominal aorta: Atheromatous changes seen. No evidence for aneurysm. Genital organs: No significant abnormality. Other: No significant abnormality. IMPRESSION: 1. Diverticulosis without diverticulitis. 2. The gallbladder is less distended on today's study and appears within normal limits at this time.
[2021-02-06] MEDS: SYMBICORT 160-4.5 MCG INHALER INHALATION SCH (08:47)
[2021-02-06] MEDS: IPRATROPIUM-ALBUTEROL 3 ML NEB INHALATION SCH ×2 (08:47→12:53)
[2021-02-06 08:51] VITALS: BP 166/71; RESP 16; TEMP 98.7
[2021-02-06] MEDS: LEVOTHYROXINE 50 MCG TAB PO SCH (09:05)
[2021-02-06] MEDS: LOSARTAN 50 MG TAB PO SCH (09:05)
[2021-02-06] MEDS: PANTOPRAZOLE 40 MG TABLET PO SCH (09:05)
[2021-02-06] MEDS: CITALOPRAM HYDROBROMIDE 20 MG TAB PO SCH (09:06)
[2021-02-06] MEDS: HEPARIN SODIUM,PORCINE/PF 5,000 UNIT/0.5 ML SYRINGE SQ SCH (09:06)
[2021-02-06] MEDS: MAGNESIUM HYDROXIDE 2,400 MG/10 ML CUP PO SCH (09:07)
[2021-02-06] MEDS: bisacodyL 10 MG SUPP RECTAL SCH (09:07)
[2021-02-06] MEDS: TRIAMCINOLONE 0.1% CREAM 80 GM TUBE TOPICAL SCH (09:08)
--- NOTE | 2021-02-06 10:40 | P.DS ---
<Yaa Grubbs - Last Filed: 02/06/21 10:34> Providers Expected date of discharge: 02/06/21 Hospital Course: Discharge diagnosis 1. Acute diverticulitis in the splenic flexure region with possible ischemic colitis 2. Distended gallbladder noted on abdominal ultrasound 3. Constipation with fecal stasis noted on abdominal x-ray 4. History of lung cancer status post chemo and radiation treatment. Currently on immunotherapy 5. Moderate protein calorie malnutrition Hospital course This is a 75-year-old female with a known history of non-small cell lung cancer stage IV diagnosed in April 2019. She is status post chemo and radiation treatment. She is currently on immunotherapy. She is followed by an oncologist out of [facility]. She had been hospitalized at [facility] about 5 days ago due to uncontrolled pain for her lung cancer and back pain. She has a known thoracic spine compression fracture. She was discharged at that time with [place] and MS Contin for pain control. She reports taking extra [place] 3 doses for 24 hour period. She thought that she was taking 2 [place] 5 tablets. But she was taking 2 [place] 10mg tablets. Patient had become very confused and was brought into the ER delinquent account clerk on 01/30/2021 at [facility]. Patient reports that she was given Narcan. She became less confused.. She also found have evidence of a UTI and was sent home with antibiotics. However, she continued to have worsening abdominal pain. She does report having abdominal pain for about 3 days. And yesterday pain continued to worsen in the right upper quadrant and left upper quadrant. She also has been dealing with constipation likely related to the narcotics. She has been having fevers she did have a temp of 100.4 with heart rate of 104. Gallbladder ultrasound shows a distended gallbladder measuring 10.9 cm in length. Cannot exclude acute cholecystitis. And computed tomography scan of the abdomen and pelvis shows a degree of diverticulitis in the region of the splenic flexure is difficult to exclude. No evidence for abscess or perforation. And correlate for acute cholecystitis. Patient was admitted to the hospital and started on IV antibiotics and IV fluids. She was treated for an acute diverticulitis in the splenic flexure region with possible ischemic colitis. She also was treated for constipation. Patient has been having bowel movements. Her abdominal pain is improving. She is afebrile. Her tachycardia has resolved. Her white count has normalized. She is tolerating diet. She has been up and ambulating. Her repeat computed tomography scan of the abdomen and pelvis shows diverticulosis without diverticulitis and the gal lbladder is less distended on today's study and appears within normal limits at this time. Patient is stable for discharge. She'll continue Augmentin and Flagyl after discharge for 5 days after discharge. Please refer to chart for any further details. Physician Fish Bin Tender note has been reviewed by physician. Signing provider agrees with the documented findings, assessment, and plan of care. Patient Condition at Discharge: Stable Plan - Discharge Summary Discharge Rx Participant: No New Discharge Prescriptions: New Amoxicillin/Potassium Clav [Augmentin 875-125 Tablet] 1 tab PO Q12HR 5 Days #10 tab metroNIDAZOLE [Flagyl] 500 mg PO Q8H #15 tab Continue Montelukast [Singulair] 10 mg PO HS Meloxicam [Mobic] 7.5 mg PO DAILY Losartan [Cozaar] 100 mg PO DAILY Ibandronate Sodium [Boniva] 150 mg PO Q30D Levothyroxine Sodium [Synthroid] 50 mcg PO DAILY Baclofen [Lioresal] 20 mg PO DAILY Omeprazole [PriLOSEC] 20 mg PO DAILY Nitroglycerin 0.4 mg SL Q5M PRN PRN Reason: Chest Pain Magnesium Oxide 400 mg PO DAILY Lidocaine [Lidoderm 5% Patch] 1 patch TRANSDERM DAILY PRN PRN Reason: Pain Folic Acid 1 mg PO DAILY Acetaminophen [Tylenol] 650 mg PO Q6H PRN PRN Reason: Pain Albuterol Inhaler [Ventolin Hfa Inhaler] 2 puff INHALATION RT-QID PRN PRN Reason: Shortness Of Breath Tiotropium Hooper [Spiriva] 1 cap INHALATION RT-DAILY ALPRAZolam [Xanax] 0.25 mg PO DAILY PRN PRN Reason: Anxiety Budesonide/Formoterol Fumarate [Symbicort 160-4.5 Mcg Inhaler] 2 puff INHALATION BID Aspirin 81 mg PO DAILY HYDROcodone/APAP 10-325MG [[place] 10-325] 1 tab PO QID PRN #0 PRN Reason: Pain Cyanocobalamin [Vitamin B-12] 500 mcg PO DAILY Triamcinolone 0.1% Cream [Kenalog 0.1% Cream] 1 applicatio TOPICAL BID Sennosides/Docusate Sodium [Senna Plus 8.6-50 mg Softgel] 1 cap PO BID PRN PRN Reason: Constipation Healthy-Lax Powder Packet 1 packet PO DAILY PRN PRN Reason: Constipation Citalopram Hydrobromide [CeleXA] 20 mg PO DAILY Multivitamins, Thera [Multivitamin (formulary)] 1 tablet PO DAILY Changed Ondansetron Odt [Zofran ODT] 8 mg PO Q8HR PRN #0 PRN Reason: Nausea Discharge Medication List Ibandronate Sodium [Boniva] 150 mg PO Q30D 06/09/18 [History] Losartan [Cozaar] 100 mg PO DAILY 06/09/18 [History] Meloxicam [Mobic] 7.5 mg PO DAILY 06/09/18 [History] Montelukast [Singulair] 10 mg PO HS 06/09/18 [History] Baclofen [Lioresal] 20 mg PO DAILY 03/25/19 [History] Levothyroxine Sodium [Synthroid] 50 mcg PO DAILY 03/25/19 [History] Omeprazole [PriLOSEC] 20 mg PO DAILY 12/31/19 [History] Acetaminophen [Tylenol] 650 mg PO Q6H PRN 11/21/20 [History] Folic Acid 1 mg PO DAILY 11/21/20 [History] Lidocaine [Lidoderm 5% Patch] 1 patch TRANSDERM DAILY PRN 11/21/20 [History] Magnesium Oxide 400 mg PO DAILY 11/21/20 [History] Nitroglycerin 0.4 mg SL Q5M PRN 11/21/20 [History] Albuterol Inhaler [Ventolin Hfa Inhaler] 2 puff INHALATION RT-QID PRN 01/30/21 [History] Citalopram Hydrobromide [CeleXA] 20 mg PO DAILY 01/30/21 [History] Cyanocobalamin [Vitamin B-12] 500 mcg PO DAILY 01/30/21 [History] Healthy-Lax Powder Packet 1 packet PO DAILY PRN 01/30/21 [History] Sennosides/Docusate Sodium [Senna Plus 8.6-50 mg Softgel] 1 cap PO BID PRN 01/30/21 [History] Tiotropium Hooper [Spiriva] 1 cap INHALATION RT-DAILY 01/30/21 [History] Triamcinolone 0.1% Cream [Kenalog 0.1% Cream] 1 applicatio TOPICAL BID 01/30/21 [History] ALPRAZolam [Xanax] 0.25 mg PO DAILY PRN 01/31/21 [History] Aspirin 81 mg PO DAILY 01/31/21 [History] Budesonide/Formoterol Fumarate [Symbicort 160-4.5 Mcg Inhaler] 2 puff INHALATION BID 01/31/21 [History] Multivitamins, Thera [Multivitamin (formulary)] 1 tablet PO DAILY 01/31/21 [History] Amoxicillin/Potassium Clav [Augmentin 875-125 Tablet] 1 tab PO Q12HR 5 Days #10 tab 02/06/21 [Rx] HYDROcodone/APAP 10-325MG [[place] 10-325] 1 tab PO QID PRN #0 02/06/21 [Rx] Ondansetron Odt [Zofran ODT] 8 mg PO Q8HR PRN #0 02/06/21 [Rx] metroNIDAZOLE [Flagyl] 500 mg PO Q8H #15 tab 02/06/21 [Rx] Follow up Appointment(s)/Referral(s): Jorge Riggins MD [Medical Doctor] - 02/14/21 2:15 pm Deyanira Riggins MD [Primary Care Provider] - 1-2 days [facility] Visiting Nurse, [NON-STAFF] - Patient Instructions/Handouts: Cholecystitis (GEN), Constipation (DC) Activity/Diet/Wound Care/Special Instructions: Home medications in pharmacy, please return to patient prior to discharge. Diet: low fat Have patient cut her home norco pills in half or in quarters Discharge Disposition: HOME WITH HOME HEALTH SERVICES <Jorge Riggins - Last Filed: 02/06/21 15:48> Providers Date of admission: 02/01/21 23:13 Attending physician: Jorge Riggins Consults: 02/02/21 10:50 Consult Physician Routine Consulting Provider: Ubaldo Gross Consult Reason/Comments: eval for inpatient rehab Do you want consulting provider notified?: Yes 02/05/21 10:10 Consult Physician Routine Consulting Provider: Naomi Zaman Consult Reason/Comments: medical management Do you want consulting provider notified?: Already Contacted Primary care physician: Deyanira Boutt Hospital Course: As above. Patient doing well today. CAT scan shows resolution of most of the inflammatory changes around the splenic flexure. Gallbladder appears normal. Patient has no pain. She is tolerating her diet. February discharge.
[2021-02-06 12:56] VITALS: PULSE 100
--- NOTE | 2021-02-06 15:28 | PN ---
PROGRESS NOTE DATE OF SERVICE: 02/06/2021 This 75-year-old woman who was admitted with abdominal pain, possible cholecystitis, diverticulosis, is improving significantly. No chest pain. No palpitations. No fever. Dr. Riggins recommended a repeat CT scan of the abdomen and pelvis yesterday which showed diverticulosis without any diverticulitis. Gallbladder is less distended. No chest pain. No palpitations. No fever. PHYSICAL EXAMINATION: Alert and oriented x3. Pulse is 92, blood pressure 160/71, respiration 16, temperature 98.7, pulse ox 99% on room air. HEENT: Conjunctivae normal. NECK: No jugular venous distention. CARDIOVASCULAR SYSTEM: S1, S2 muffled. RESPIRATORY SYSTEM: Breath sounds diminished at the bases. No rhonchi. No crackles. ABDOMEN: Soft, non-tender. No mass palpable. LEGS: No edema. No swelling. NERVOUS SYSTEM: No focal deficit. LABS: WBC 7.7, hemoglobin 9.8, sodium 139, potassium . ESR is 41. ASSESSMENT: 1. Abdominal pain with possible acute cholecystitis, present on admission. 2. Possible acute diverticulitis in the splenic flexure area. 3. Stage IV lung cancer, on immunotherapy, status post radiation and chemo. 4. Increased white count. 5. Anemia, normocytic. 6. Hyponatremia. 7. Back pain, possibly musculoskeletal. 8. Elevated alkaline phosphatase. 9. Hypoalbuminemia. 10.Asthma, chronic obstructive pulmonary disease. 11.Fibromyalgia. 12.Hypertension. 13.History of degenerative joint disease. 14.History of hypothyroidism. 15.History of colonoscopy. 16.Anxiety, depression. 17.Remote history of nicotine dependence. 18.Obesity with body mass index of 30.8. 19.FULL CODE. RECOMMENDATIONS AND DISCUSSION: I recommend to continue current medications, continue with the monitoring, symptomatic treatment. Otherwise at this time I would recommend continuing with a course of antibiotics, a combination of Augmentin and Flagyl for 5 days and closely follow with Dr. Deyanira Riggins in the outpatient setting. Rest of the recommendations per Surgery, Dr. Riggins. Follow up in the outpatient setting. MMODL / IJN: [id number] /
== END 2021-02-06 14:30 | disposition home health service (06) | DRG 392 ==
LOC: EC 16:19 → 5NMEDONC 22:08 → 6PED 01-31 15:15 → OBSVTOIN 02-01 23:13
PROVIDERS: ADMIT Surgery; ATTEND Surgery
DX: K57.32 Diverticulitis of large intestine without perforation or abscess without bleeding (principal); C34.90 Malignant neoplasm of unspecified part of unspecified bronchus or lung; E44.0 Moderate protein-calorie malnutrition; E87.1 Hypo-osmolality and hyponatremia; K81.0 Acute cholecystitis; M48.54XA Collapsed vertebra, not elsewhere classified, thoracic region, initial encounter for fracture; N39.0 Urinary tract infection, site not specified; K55.9 Vascular disorder of intestine, unspecified; D64.9 Anemia, unspecified; E03.9 Hypothyroidism, unspecified; E66.9 Obesity, unspecified; F32.9 Major depressive disorder, single episode, unspecified; F41.9 Anxiety disorder, unspecified; I10 Essential (primary) hypertension; K76.0 Fatty (change of) liver, not elsewhere classified; J44.9 Chronic obstructive pulmonary disease, unspecified; K59.03 Drug induced constipation; M79.7 Fibromyalgia; M85.80 Other specified disorders of bone density and structure, unspecified site; T40.2X5A Adverse effect of other opioids, initial encounter; Z20.822 Contact with and (suspected) exposure to COVID-19; Z68.30 Body mass index [BMI] 30.0-30.9, adult; Z79.1 Long term (current) use of non-steroidal anti-inflammatories (NSAID); Z79.51 Long term (current) use of inhaled steroids; Z79.82 Long term (current) use of aspirin; Z79.890 Hormone replacement therapy; Z79.899 Other long term (current) drug therapy; Z80.0 Family history of malignant neoplasm of digestive organs; Z80.49 Family history of malignant neoplasm of other genital organs; Z80.7 Family history of other malignant neoplasms of lymphoid, hematopoietic and related tissues; Z80.8 Family history of malignant neoplasm of other organs or systems; Z82.49 Family history of ischemic heart disease and other diseases of the circulatory system; Z87.891 Personal history of nicotine dependence; Z92.21 Personal history of antineoplastic chemotherapy; Z92.3 Personal history of irradiation; Z88.5 Allergy status to narcotic agent; Z88.2 Allergy status to sulfonamides; Z88.1 Allergy status to other antibiotic agents; Z91.011 Allergy to milk products
CPT/HCPCS: 36415; 71045; 74019; 74176; 74177; 76705; 80048; 80053; 81001; 82150; 83605; 83690; 85025; 85610; 85652; 85730; 86140; 87635; 94640; 94760; 96361; 96365; 96375; 99285

== ENCOUNTER → 2021-04-11 | Outpatient (CLI) | payer MEDICARE ==
--- NOTE | 2021-04-11 17:23 | CONS ---
CONSULTATION DATE OF SERVICE: 04/11/2021. HISTORY: This 75-year-old lady has been evaluated in the sleep center for possible obstructive sleep apnea-hypopnea syndrome. HISTORY OF PRESENT ILLNESS/SLEEP AWAKE EVALUATION: Patient's usual sleep schedule from 11 or 12 midnight until 8 a.m. Sometimes she has problems with falling asleep. Sometimes watches TV in bedroom. Usually sleeps on the side position. She snores and has witnessed episodes of stopped breathing during sleep. The patient wakes up from sleep 3 times with 3 episodes of nocturia. Several years ago she has had episodes of possibly sleepwalking, presently positive for sleep talking. In the morning patient wakes up tired, has episodes of depression and anxiety. [place] Sleepiness Scale is 9. The patient may take one nap around 2-3 p.m. She drinks about 2 caffeine drinks per day. PAST MEDICAL HISTORY: Positive for asthma, emphysema, lung cancer on the right stage IV status post lobectomy, hypothyroidism, hypertension, nasal septum deviation, anemia. MEDICATIONS: Losartan 100 mg once a day, OxyContin 7.5 mg once a day, montelukast 10 mg once a day, omeprazole 20 mg once a day, ondansetron 8 mg, Keytruda every 3 weeks, aspirin 81 mg once a day, citalopram 30 mg once a day, fluticasone inhaler, [place] up to every 6 hours for pain and lidocaine patch. PAST SURGICAL HISTORY: Right lung lobectomy for the cancer. REVIEW OF SYSTEMS: Episodes of pain, awakenings from sleep with nocturia. PHYSICAL EXAMINATION: GENERAL: lady without distress. VITAL SIGNS: BP 140/69, HR 98, RR 15, height 4 feet 1-1/4 inches, weight 153 pounds. Body mass index 30.6, temperature 97.3, oxygen saturation at room air 95%. Oropharynx wide pillars. Neck 14.5 inches in circumference. LUNGS: Clear to percussion and to auscultation. Good air exchange. No wheezing or rhonchi. HEART: S1, S2 regular. No murmurs, gallops, or rubs. ABDOMEN: Soft and nontender. Bowel sounds are present. No organomegaly appreciated. EXTREMITIES: No clubbing or cyanosis. FIELD GAUGER: Awake, alert, and oriented X3. Cranial nerves 2 to 7 intact. There is no fasciculation or atrophy. noted. No focal deficits observed. IMPRESSION: 1. Snoring with witnessed episodes of stopped breathing during sleep, small oropharyngeal air space, mostly because of the wide pillars, awakenings from sleep. Obstructive sleep apnea-hypopnea syndrome. 2. History of sleep walking in the past. 3. Sleep talking. 4. Emphysema. 5. Asthma. 6. History of depression. 7. History of anxiety. 8. Right right lung CA status post lobectomy with chemotherapy and radiation therapy. 9. Hypothyroidism. 10.Hypertension. 11.Nasal septum deviation. PLAN: 1. Polysomnography for evaluation of patient's breathing during sleep. 2. CPAP/BiPAP titration if sleep study confirms obstructive sleep apnea-hypopnea syndrome. 3. Preferable position during sleep on the side. 4. No driving if patient feels any sleepiness. 5. I will see patient for follow up visit to explain results of testing and following plan. Thank you very much for asking me to see this patient in consultation. Roque Isaac MD, PhD, FAASM Diplomat of [place] [employer] [place] [employer] Legal [facility] Amorita MMODL / IJN: [id number] /
== END ==
LOC: SLEEP 14:50
PROVIDERS: ATTEND Internal Medicine
DX: G47.33 Obstructive sleep apnea (adult) (pediatric) (principal); F51.3 Sleepwalking [somnambulism]; G47.50 Parasomnia, unspecified; J43.9 Emphysema, unspecified; J45.909 Unspecified asthma, uncomplicated; F32.9 Major depressive disorder, single episode, unspecified; F41.9 Anxiety disorder, unspecified; E03.9 Hypothyroidism, unspecified; I10 Essential (primary) hypertension; C34.91 Malignant neoplasm of unspecified part of right bronchus or lung; J34.2 Deviated nasal septum; Z79.899 Other long term (current) drug therapy; Z98.890 Other specified postprocedural states; Z88.5 Allergy status to narcotic agent; Z88.2 Allergy status to sulfonamides; Z88.1 Allergy status to other antibiotic agents; Z87.891 Personal history of nicotine dependence
CPT/HCPCS: 99211

== ENCOUNTER → 2021-04-13 | Outpatient (CLI) | payer MEDICARE ==
--- NOTE | 2021-04-16 15:01 | BD ---
EXAMINATION TYPE: Axial Bone Density DATE OF EXAM: 04/13/2021 COMPARISON: NONE CLINICAL HISTORY: Osteoporosis screening Height: 4 FT 11 IN Weight: 151 FRAX RISK QUESTIONS: Alcohol (3 or more units per day): NO Family History (Parent hip fracture): NO Glucocorticoids (More than 3mos): NO (Ex: prednisone, prednisolone, methylprednisolone, dexamethasone, and hydrocortisone). History of Fracture in Adulthood: YES Secondary Osteoporosis: 1. Type 1 Diabetes: NO 2. Hyperthyroidism: NO 3. Menopause before 45: NO 4. Malnutrition: NO 5. Chronic liver disease: NO Rheumatoid Arthritis: NO Current Tobacco Use: NO RISK FACTORS HISTORY OF: Surgery to Spine/Hip(right/left)/Wrist (right/left): LUMBAR When: 1983 Family History of Osteoporosis: NO Active: YES Diet low in dairy products/other sources of calcium: NO Postmenopausal woman: AGE 49 Take estrogen and/or progesterone medications: TOOK HRT 94-96 NO LONGER Lost more than 2 inches in height since high school: YES Poor Health: LUNG CA MEDICATIONS: Thyroid Medications: YES Which medication: LEVOTHYROXINE How Long: FOR YEARS Additional Medications: LEVOTHYROXINE, KEYTRUDA, ALBUTEROL NEEDED, XANAX, NEEDED, BACLOFEN, DEEPTHI EXA, FLUTICASONE-UMECLIDIN, FOLIC ACID, NORCO, BONIVA, LIDOCAINE,MAGNESIUM OXIDE, MOBIC, SINGULAIR, M ULTI, NITROSTAT, PRILOSEC, PYRDIUM, GLYCOLAX, SENOKOT, SPIRIVA Additional History: BONIVA FOR 4 YEARS EXAM MEASUREMENTS: Bone mineral density about the R hip (g/cm2): 0.881 Bone mineral density about the L hip (g/cm2): 0.831 T Score values are as follows: -----R Neck: -1.1 -----L Neck: -1.5 -----R Total: -1.0 -----L Total: -1.4 BASELINE Bone mineral density about the L Wrist (g/cm2): 0.457 T Score values are as follows: -----Dist. R+U: -4.1 -----Prox. R+U: -3.1 -----Radius total: -3.6 BASELINE IMPRESSION: Findings are consistent with osteoporosis. The distal radius and ulna T score is -4.1 and proximal ra dius and ulna T score is -3.1. Radius total T score is -3.6. Medical therapy is strongly recommended. Follow-up study is recommended.
== END | disposition home or self-care (01) ==
LOC: RADBDWWP 10:11
PROVIDERS: ATTEND Family Medicine
DX: Z13.820 Encounter for screening for osteoporosis (principal); M81.8 Other osteoporosis without current pathological fracture
CPT/HCPCS: 77080

== ENCOUNTER 2021-12-08 13:29 | Emergency (ER) | payer MEDICARE ==
[2021-12-08 13:36] VITALS: BP 114/60; RESP 18; TEMP 97.7
[2021-12-08] MEDS ORDERED: IPRATROPIUM-ALBUTEROL 3 ML NEB INHALATION STA (13:50)
[2021-12-08] MEDS ORDERED: SODIUM CHLORIDE 0.9% 500 ML 500 ML IV STA (13:50)
[2021-12-08] MEDS ORDERED: methylPREDNISolone SOD SUCCI 125 MG/2 ML VIAL IV STA (13:50)
--- NOTE | 2021-12-08 13:57 | ED ---
General Adult HPI - General Chief complaint: Upper Respiratory Infection Stated complaint: Nausea/weak Time Seen by Provider: 12/08/21 13:43 Source: patient, RN notes reviewed Mode of arrival: ambulatory Limitations: no limitations - History of Present Illness Initial comments: This is a pleasant 76-year-old female presents immersed via with 2 days of fatigue, runny nose, cough, shortness of breath, and right-sided pleuritic chest pain. Vertigo COVID-19 although she is vaccinated and boosted. Patient has a history of asthma, COPD, lung cancer, patient is now on K-Truda but finished chemotherapy. Patient states she is also experiencing what she is describing as extreme fatigue. No headache, some shaking chills and diaphoresis at home she is denying any chest pain but states that she has a sharp pain which takes a deep breath in on the right, no changes in vision or hearing, no sore throat or difficulty with speech, no neck pain, no shortness of breath, no abdominal pain, no nausea or vomiting, no changes in urination or bowel movements, no numbness or tingling, no extremity pain, no skin rashes or lesions. - Related Data Home Medications Medication Instructions Recorded Confirmed Ibandronate Sodium [Boniva] 150 mg PO Q30D 06/09/18 01/31/21 Losartan [Cozaar] 100 mg PO DAILY 06/09/18 01/31/21 Meloxicam [Mobic] 7.5 mg PO DAILY 06/09/18 01/31/21 Montelukast [Singulair] 10 mg PO HS 06/09/18 01/31/21 Baclofen [Lioresal] 20 mg PO DAILY 03/25/19 02/01/21 Levothyroxine Sodium [Synthroid] 50 mcg PO DAILY 03/25/19 01/31/21 Omeprazole [PriLOSEC] 20 mg PO DAILY 12/31/19 01/31/21 Acetaminophen [Tylenol] 650 mg PO Q6H PRN 11/21/20 01/31/21 Folic Acid 1 mg PO DAILY 11/21/20 01/31/21 Lidocaine [Lidoderm 5% Patch] 1 patch TRANSDERM DAILY PRN 11/21/20 01/31/21 Magnesium Oxide 400 mg PO DAILY 11/21/20 01/31/21 Nitroglycerin 0.4 mg SL Q5M PRN 11/21/20 01/31/21 Albuterol Inhaler [Ventolin Hfa 2 puff INHALATION RT-QID PRN 01/30/21 01/31/21 Inhaler] Citalopram Hydrobromide [CeleXA] 20 mg PO DAILY 01/30/21 01/31/21 Cyanocobalamin [Vitamin B-12] 500 mcg PO DAILY 01/30/21 01/31/21 Healthy-Lax Powder Packet 1 packet PO DAILY PRN 01/30/21 01/31/21 Sennosides/Docusate Sodium [Senna 1 cap PO BID PRN 01/30/21 01/31/21 Plus 8.6-50 mg Softgel] Tiotropium [place] [Spiriva] 1 cap INHALATION RT-DAILY 01/30/21 01/31/21 Triamcinolone 0.1% Cream [Kenalog 1 applicatio TOPICAL BID 01/30/21 01/31/21 0.1% Cream] ALPRAZolam [Xanax] 0.25 mg PO DAILY PRN 01/31/21 01/31/21 Aspirin 81 mg PO DAILY 01/31/21 01/31/21 Budesonide/Formoterol Fumarate 2 puff INHALATION BID 01/31/21 01/31/21 [Symbicort 160-4.5 Mcg Inhaler] Multivitamins, Thera [Multivitamin 1 tablet PO DAILY 01/31/21 01/31/21 (formulary)] Previous Rx's Medication Instructions Recorded Amoxicillin/Potassium Clav 1 tab PO Q12HR 5 Days #10 tab 02/06/21 [Augmentin 875-125 Tablet] HYDROcodone/APAP 10-325MG [[place] 1 tab PO QID PRN #0 02/06/21 10-325] Ondansetron Odt [Zofran ODT] 8 mg PO Q8HR PRN #0 02/06/21 metroNIDAZOLE [Flagyl] 500 mg PO Q8H #15 tab 02/06/21 Azithromycin [Zithromax Z-pack (6 250 mg PO DIRECTED #6 tab 12/08/21 tabs)] Cefpodoxime Proxetil [Vantin] 200 mg PO Q12HR 10 Days #20 tab 12/08/21 Allergies Allergy/AdvReac Type Severity Reaction Status Date / Time meperidine HCl [From Demerol] Allergy Severe Anaphylaxis Verified 12/08/21 16:38 morphine Allergy Severe Vomiting Verified 12/08/21 16:38 Sulfa (Sulfonamide Allergy Severe Nausea & Verified 12/08/21 16:38 Antibiotics) Vomiting ciprofloxacin [From Cipro] AdvReac Severe Nausea & Verified 12/08/21 16:38 Vomiting sulfamethoxazole AdvReac Severe Nausea & Verified 12/08/21 16:38 [From Bactrim] Vomiting trimethoprim [From Bactrim] AdvReac Severe Nausea & Verified 12/08/21 16:38 Vomiting Review of Systems ROS Statement: Those systems with pertinent positive or pertinent negative responses have been documented in the HPI. ROS Other: All systems not noted in ROS Statement are negative. Past Medical History Past Medical History: Asthma, Cancer, COPD, Fibromyalgia, Hypertension, Osteoarthritis (OA), Thyroid Disorder Additional Past Medical History / Comment(s): Lung cancer 2019 s/p chemo and radiation, recurrence of lung cancer (stage 4) in 2020. Arthritis,depression, osteopenia and seasonal allergies. 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 History of Any Multi-Drug Resistant Organisms: None Reported Past Surgical History: Back Surgery, Breast Surgery, Orthopedic Surgery Additional Past Surgical History / Comment(s): D&C 1973. Colonoscopy with upper endoscopy 2019(next after 5yrs)., MULTIPLE LT HAND SX R/T INJURY. Lumbar laminectomy, hand surgery and breast biopsy. Transesophageal lung biopsy. Past Anesthesia/Blood Transfusion Reactions: Postoperative Nausea & Vomiting (PONV) Additional Past Anesthesia/Blood Transfusion Reaction / Comment(s): no previous blood transfusion Past Psychological History: Anxiety, Depression Smoking Status: Former smoker Past Alcohol Use History: None Reported Past Drug Use History: Marijuana - Past Family History Brother(s) Family Medical History: Cancer, Myocardial Infarction (OK), Renal Disease Additional Family Medical History / Comment(s): Esophageal cancer, melanoma of the sinuses which led to brain metastases. Renal failure. Another brother had an OK. Sister(s) Family Medical History: Cancer Additional Family Medical History / Comment(s): Cervical cancer. Mother Family Medical History: Cancer Additional Family Medical History / Comment(s): Hodgkin's lymphoma. Son(s) Family Medical History: Cancer Additional Family Medical History / Comment(s): Cholangiocarcinoma. General Exam - General Exam Comments Initial Comments: Patient's vital signs are stable, she does not appear to be ill or toxic. Limitations: no limitations General appearance: alert, in no apparent distress Head exam: Present: atraumatic, normocephalic, normal inspection Eye exam: Present: normal appearance, PERRL, EOMI. Absent: scleral icterus, conjunctival injection, periorbital swelling ENT exam: Present: normal exam, mucous membranes moist, TM's normal bilaterally, normal external ear exam. Absent: normal oropharynx, mucous membranes dry Neck exam: Present: normal inspection, full ROM. Absent: tenderness, meningismus, lymphadenopathy Respiratory exam: Present: normal lung sounds bilaterally, wheezes (Scant expiratory wheeze noted on the right side.). Absent: respiratory distress, rales, rhonchi, stridor, chest wall tenderness, accessory muscle use Cardiovascular Exam: Present: regular rate, normal rhythm, normal heart sounds. Absent: systolic murmur, diastolic murmur, rubs, gallop, clicks GI/Abdominal exam: Present: soft, normal bowel sounds. Absent: distended, tenderness, guarding, rebound, rigid Extremities exam: Present: normal inspection, full ROM, normal capillary refill. Absent: tenderness, pedal edema, joint swelling, calf tenderness Back exam: Present: normal inspection Neurological exam: Present: alert, oriented X3, CN II-XII intact Psychiatric exam: Present: normal affect, normal mood Skin exam: Present: warm, dry, intact, normal color. Absent: rash Course Vital Signs 12/08/21 12/08/21 12/08/21 13:31 15:44 15:54 Temperature 97.7 F Pulse Rate 61 84 82 Respiratory 18 Rate Blood Pressure 114/60 O2 Sat by Pulse 96 Oximetry - Reevaluation(s) Reevaluation #1: 12/08/21 16:34 Medical record is reviewed Symptoms are improved-patient doing well. Patient rechecked prior to discharge and has no increased work of breathing. Vital signs are stable, patient afebrile. Patient in no distress. Patient is informed of results and questions answered Patient in no distress Medical Decision Making - Medical Decision Making General workup to include cardiac workup. Patient centrality more consistent with bronchitis. However given the patient's history may consider alternative diagnoses such as conventional pneumonia, COVID-19, other infectious etiology. His vital signs I believe vascular etiology is unlikely. Patient's PERC score is 1. CT of the chest be ordered. Patient's curb 65 score was 1. Given the patient's CT findings of possible pneumonia. There were right upper lobe and lower lobe opacities which could be on the basis of infection. Discussed this with the patient. Offered admission. The abdomen that she wants to be treated as an outpatient. According the patient's curb 65 score and her stable vital signs she can be treated as an outpatient. Patient was given ceftriaxone and azithromycin here. We'll treat with oxine and azithromycin at home. She is to call immediately Friday morning to her payroll and benefits assistant and her oncologist in [place]. Of course she can return here to the emergency department at anytime if any symptoms worsen or problems arise. Patient is lucid, alert and oriented 4 and able to make her own medical decisions. I did discuss the risks of outpatient treatment. Patient concurs with this treatment plan. All questions answered. - Lab Data Result diagrams: 12/08/21 14:26 12/08/21 14:26 Lab Results 12/08/21 12/08/21 12/08/21 Range/Units 13:38 14:26 14:26 WBC 14.1 H (3.8-10.6) k/uL RBC 4.14 (3.80-5.40) m/uL Hgb 12.7 (11.4-16.0) gm/dL Hct 38.9 (34.0-46.0) % MCV 94.0 (80.0-100.0) fL MCH 30.6 (25.0-35.0) pg MCHC 32.6 (31.0-37.0) g/dL RDW 13.1 (11.5-15.5) % Plt Count 311 (150-450) k/uL MPV 7.6 Neutrophils % 85 % Lymphocytes % 4 % Monocytes % 7 % Eosinophils % 1 % Basophils % 0 % Neutrophils # 12.0 H (1.3-7.7) k/uL Lymphocytes # 0.6 L (1.0-4.8) k/uL Monocytes # 1.0 (0-1.0) k/uL Eosinophils # 0.1 (0-0.7) k/uL Basophils # 0.0 (0-0.2) k/uL Sodium 134 L (137-145) mmol/L Potassium 4.3 (3.5-5.1) mmol/L Chloride 97 L (98-107) mmol/L Carbon Dioxide 28 (22-30) mmol/L Anion Gap 9 mmol/L BUN 19 H (7-17) mg/dL Creatinine 0.74 (0.52-1.04) mg/dL Est GFR (CKD-EPI)AfAm >90 (>60 ml/min/1.73 sqM) Est GFR (CKD-EPI)NonAf 78 (>60 ml/min/1.73 sqM) Glucose 117 H (74-99) mg/dL Plasma Lactic Acid Renato (0.7-2.0) mmol/L Calcium 9.5 (8.4-10.2) mg/dL Magnesium 1.9 (1.6-2.3) mg/dL Total Bilirubin 1.1 (0.2-1.3) mg/dL AST 29 (14-36) U/L ALT 23 (4-34) U/L Alkaline Phosphatase 126 (38-126) U/L Troponin I (0.000-0.034) ng/mL Total Protein 6.9 (6.3-8.2) g/dL Albumin 3.9 (3.5-5.0) g/dL Coronavirus (PCR) Not Detected (Not Detectd) 12/08/21 12/08/21 Range/Units 14:26 14:26 WBC (3.8-10.6) k/uL RBC (3.80-5.40) m/uL Hgb (11.4-16.0) gm/dL Hct (34.0-46.0) % MCV (80.0-100.0) fL MCH (25.0-35.0) pg MCHC (31.0-37.0) g/dL RDW (11.5-15.5) % Plt Count (150-450) k/uL MPV Neutrophils % % Lymphocytes % % Monocytes % % Eosinophils % % Basophils % % Neutrophils # (1.3-7.7) k/uL Lymphocytes # (1.0-4.8) k/uL Monocytes # (0-1.0) k/uL Eosinophils # (0-0.7) k/uL Basophils # (0-0.2) k/uL Sodium (137-145) mmol/L Potassium (3.5-5.1) mmol/L Chloride (98-107) mmol/L Carbon Dioxide (22-30) mmol/L Anion Gap mmol/L BUN (7-17) mg/dL Creatinine (0.52-1.04) mg/dL Est GFR (CKD-EPI)AfAm (>60 ml/min/1.73 sqM) Est GFR (CKD-EPI)NonAf (>60 ml/min/1.73 sqM) Glucose (74-99) mg/dL Plasma Lactic Acid Renato 1.3 (0.7-2.0) mmol/L Calcium (8.4-10.2) mg/dL Magnesium (1.6-2.3) mg/dL Total Bilirubin (0.2-1.3) mg/dL AST (14-36) U/L ALT (4-34) U/L Alkaline Phosphatase (38-126) U/L Troponin I <0.012 (0.000-0.034) ng/mL Total Protein (6.3-8.2) g/dL Albumin (3.5-5.0) g/dL Coronavirus (PCR) (Not Detectd) Disposition Clinical Impression: Community acquired pneumonia Disposition: HOME SELF-CARE Condition: Stable Instructions (If sedation given, give patient instructions): Community Acquired Pneumonia (ED) Additional Instructions: Take the antibiotics as directed. Contact your oncologist and your payroll and benefits assistant first thing Friday. Follow-up with your regular physician as directed. Return to the ER immediately if any symptoms worsen, new symptoms arise, or any other problems develop. He you share rescue inhaler 2 puffs every 4 hours and to contact her physician Friday. Prescriptions: Cefpodoxime Proxetil [Vantin] 200 mg PO Q12HR 10 Days #20 tab Azithromycin [Zithromax Z-pack (6 tabs)] 250 mg PO DIRECTED #6 tab Is patient prescribed a controlled substance at d/c from ED?: No Referrals: Deyanira Riggins MD [Primary Care Provider] - 1-2 days Time of Disposition: 16:40
[2021-12-08 14:43] LABS: Basophils % (A) 0 %; Eosinophils # (A) 0.1 k/uL (0-0.7); Eosinophils % (A) 1 %; HCT 38.9 % (34.0-46.0); HGB 12.7 gm/dL (11.4-16.0); Lymphocytes # (A) 0.6 k/uL (1.0-4.8); Lymphocytes % (A) 4 %; MCH 30.6 pg (25.0-35.0); MCHC 32.6 g/dL (31.0-37.0); Mean Platelet Volume 7.6; Monocytes % (A) 7 %; Neutrophils % (A) 85 %; Platelet Count 311 k/uL (150-450); RBC 4.14 m/uL (3.80-5.40); RDW 13.1 % (11.5-15.5); WBC 14.1 k/uL (3.8-10.6)
[2021-12-08 14:46] LABS: ALT 23 U/L (4-34); AST 29 U/L (14-36); African American GFR (CKD) >90 (>60 ml/min/1.73 sqM); Albumin 3.9 g/dL (3.5-5.0); Alkaline Phosphatase 126 U/L (38-126); Anion Gap 9 mmol/L; Blood Urea Nitrogen 19 mg/dL (7-17); Calcium 9.5 mg/dL (8.4-10.2); Carbon Dioxide 28 mmol/L (22-30); Chloride 97 mmol/L (98-107); Glucose 117 mg/dL (74-99); Magnesium 1.9 mg/dL (1.6-2.3); Non-African American GFR(CKD) 78 (>60 ml/min/1.73 sqM); Potassium 4.3 mmol/L (3.5-5.1); Sodium 134 mmol/L (137-145); Total Bilirubin 1.1 mg/dL (0.2-1.3); Total Protein 6.9 g/dL (6.3-8.2)
[2021-12-08 15:55] VITALS: PULSE 82
--- NOTE | 2021-12-08 16:19 | CT ---
EXAMINATION TYPE: CT angio chest DATE OF EXAM: 12/08/2021 3:26 PM COMPARISON: 02/11/2020 HISTORY: Right sided chest pain and fatigue. History of lung cancer and bone mets. CT DLP: 326.6 mGycm Automated exposure control for dose reduction was used. CONTRAST: CTA scan of the thorax is performed with IV Contrast, patient injected with 60ml mL of Isovue 370, pu lmonary embolism protocol. . FINDINGS: No filling defects are seen to suggest pulmonary arterial embolism. Airspace and nodular opacities in the right upper lobe are new compared to the prior study. A nodular opacities in the medial aspect of the right lower lobe are also new. Patchy opacities in the right l ower lobe new as well. No focal opacity or significant nodule seen in the left lung. No pneumothorax or significant effusion appreciated. No [place]ilar lymphadenopathy. Evaluation of mediastinal lymph nodes is limited by artifact. Soft tissue density in the subcarinal r egion (52 series 401) contagious with medial soft tissue noted. The trachea and central bronchial tree are patent without endobronchial lesion. Heart is normal in size. No pericardial effusion seen. Coronary arterial calcifications noted. Intrat horacic aorta are normal in caliber. Atherosclerotic calcifications are seen in the intrathoracic and upper abdominal and lower abdominal aorta. The upper abdomen, the gallbladder appears to be distended which is nonspecific. There is a small gas troesophageal hiatal hernia. Thoracic kyphosis is seen again. Compression fracture deformity of T8 Vertebral body progressed in t he interval. Heterogeneous attenuation of the osseous structures could be related to osteopenia or os seous metastasis. Mild scoliosis of the spine noted. IMPRESSION: NO EVIDENCE FOR ACUTE PULMONARY ARTERIAL EMBOLISM. NEW RIGHT UPPER AND LOWER LOBE OPACITIES COULD BE ON THE BASIS OF INFECTION OR LUNG ATELECTASIS. SOFT TISSUE DENSITY IN THE SUBCARINAL REGION COULD BE REFLECTIVE OF CONTIGUOUS SPREAD OF LUNG MASS OR LYMPH NODE. WORSENING COMPRESSION FRACTURE DEFORMITY OF T8. HETEROGENEOUS ATTENUATION OF THE OSSEOUS STRUCTURES O F THE SPINE COULD BE REFLECTIVE OF DIFFUSE METASTASIS OR OSTEOPENIA.
[2021-12-08] MEDS ORDERED: cefTRIAXone IN SWFI 1,000 MG/10 ML SYRINGE IVP STA (16:31)
[2021-12-08] MEDS ORDERED: DOXYCYCLINE 100 MG CAP PO STA (16:32)
[2021-12-08] MEDS ORDERED: AZITHROMYCIN 500 MG TAB PO STA (16:37)
== END 2021-12-08 17:58 | disposition home or self-care (01) ==
LOC: EC 13:29
DX: J18.9 Pneumonia, unspecified organism (principal); E11.9 Type 2 diabetes mellitus without complications; I10 Essential (primary) hypertension; Z20.822 Contact with and (suspected) exposure to COVID-19; Z87.891 Personal history of nicotine dependence; Z88.5 Allergy status to narcotic agent; Z88.2 Allergy status to sulfonamides; Z88.1 Allergy status to other antibiotic agents
CPT/HCPCS: 36415; 94640; 80053; 83605; 83735; 84484; 85025; 87040; 87635; 71275; 99285; 96374; 96375; 96361; J2930; J0696; Q9967

== ENCOUNTER → 2022-02-12 | Outpatient (CLI) | payer MEDICARE ==
[2022-02-12 13:07] VITALS: BP 137/84; PULSE 105; RESP 16; TEMP 99.4
--- NOTE | 2022-02-12 13:46 | P.HPOB ---
History of Present Illness H&P Date: 02/12/22 Chief Complaint: The patient is here for her routine gynecologic exam and ma mmogram. This is a 76-year-old 013 with an LMP of 1997. The patient is without gynecologic complaints. She has been experiencing some urinary incontinence which requires her to wear a pad. She tends to do okay if she can void at least every 3-4 hours. Review of Systems The patient's weight has been stable over the last year. She denies cardiac or GI problems. Respiratory: She does noticed she does get slightly short of breath with exertion. Past Medical History Past Medical History: Asthma, Cancer, COPD, Fibromyalgia, Hypertension, Osteoarthritis (OA), Thyroid Disorder Additional Past Medical History / Comment(s): Lung cancer 2019 s/p chemo and radiation, recurrence of lung cancer (stage 4) in 2019. Arthritis,depression, osteopenia and seasonal allergies. 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 History of Any Multi-Drug Resistant Organisms: None Reported Past Surgical History: Back Surgery, Breast Surgery, Orthopedic Surgery Additional Past Surgical History / Comment(s): D&C 1972. Colonoscopy with upper endoscopy 2018(next after 5yrs)., MULTIPLE LT HAND SX R/T INJURY. Lumbar laminectomy, hand surgery and breast biopsy. Transesophageal lung biopsy. Past Anesthesia/Blood Transfusion Reactions: Postoperative Nausea & Vomiting (PONV) Additional Past Anesthesia/Blood Transfusion Reaction / Comment(s): no previous blood transfusion Past Psychological History: Anxiety, Depression Smoking Status: Former smoker Past Alcohol Use History: Rare (4 per year) Additional Past Alcohol Use History / Comment(s): QUIT SMOKING 2015 Past Drug Use History: Marijuana Additional Drug Use History / Comment(s): edibles--none since October 2019 Additional History: She has been a since 2018 and is not sexually active. 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 - Past Family History Brother(s) Family Medical History: Cancer, Myocardial Infarction ([place]), Renal Disease Additional Family Medical History / Comment(s): Esophageal cancer, melanoma of the sinuses which led to brain metastases. Renal failure. Another brother had an ME. Sister(s) Family Medical History: Cancer Additional Family Medical History / Comment(s): Cervical cancer. Another sister had endometrial cancer and another sister had breast cancer. Mother Family Medical History: Cancer Additional Family Medical History / Comment(s): Hodgkin's lymphoma. Son(s) Family Medical History: Cancer Additional Family Medical History / Comment(s): Cholangiocarcinoma. Medications and Allergies Home Medications Medication Instructions Recorded Confirmed Type Ibandronate Sodium [Boniva] 150 mg PO Q30D 06/09/18 02/12/22 History Meloxicam [Mobic] 7.5 mg PO BID 06/09/18 02/12/22 History Montelukast [Singulair] 10 mg PO HS 06/09/18 02/12/22 History Baclofen [Lioresal] 20 mg PO BID 03/25/19 02/12/22 History Levothyroxine Sodium [Synthroid] 50 mcg PO DAILY 03/25/19 02/12/22 History Omeprazole [PriLOSEC] 20 mg PO DAILY 12/31/19 02/12/22 History Lidocaine [Lidoderm 5% Patch] 1 patch TRANSDERM DAILY PRN 11/21/20 02/12/22 History Albuterol Inhaler [Ventolin Hfa 2 puff INHALATION RT-Q4H PRN 01/30/21 02/12/22 History Inhaler] Tiotropium [place] [Spiriva] 1 cap INHALATION RT-HS 01/30/21 02/12/22 History ALPRAZolam [Xanax] 0.25 mg PO DAILY PRN 01/31/21 02/12/22 History Multivitamins, Thera [Multivitamin 1 tablet PO DAILY 01/31/21 02/12/22 History (formulary)] Fexofenadine HCl 180 mg PO DAILY 12/08/21 02/12/22 History Fluticasone/Umeclidin/Vilanter 1 puff INHALATION RT-DAILY 12/08/21 02/12/22 History [Trelegy Ellipta 200-62.5-25] HYDROcodone/APAP 10-325MG [[place] 1 tab PO Q6H PRN 12/08/21 02/12/22 History 10-325] Losartan Potassium 100 mg PO DAILY 12/08/21 02/12/22 History Pembrolizumab [Keytruda] 1 dose IV Q28D 12/08/21 02/12/22 History Venlafaxine HCl [Effexor XR] 150 mg PO DAILY 12/08/21 02/12/22 History Clobetasol Propionate [Temovate See Protocol TOPICAL BID 02/12/22 02/12/22 History 0.05% Cream] Allergies Allergy/AdvReac Type Severity Reaction Status Date / Time meperidine HCl [From Demerol] Allergy Severe Anaphylaxis Verified 02/12/22 12:50 morphine Allergy Severe Vomiting Verified 02/12/22 12:50 Sulfa (Sulfonamide Allergy Severe Nausea & Verified 02/12/22 12:50 Antibiotics) Vomiting ciprofloxacin [From Cipro] AdvReac Severe Nausea & Verified 02/12/22 12:50 Vomiting sulfamethoxazole AdvReac Severe Nausea & Verified 02/12/22 12:50 [From Bactrim] Vomiting trimethoprim [From Bactrim] AdvReac Severe Nausea & Verified 02/12/22 12:50 Vomiting Exam Vital Signs Temp Pulse Resp BP Pulse Ox 02/12/22 13:01 99.4 F 105 H 16 137/84 93 L Intake and Output 02/11/22 02/12/22 02/12/22 22:59 06:59 14:59 Other: Weight 69.4 kg Height 5 feet 2 inches, weight 153 pounds, BMI 28.0. This is a well-developed well-nourished white female who is alert and oriented times 3 in no acute distress. HEENT: Within normal limits. NECK: Supple without mass or thyromegaly. CHEST AND LUNGS: Clear to auscultation. HEART: Regular rate and rhythm. BREASTS: Are without mass or discharge. There is mild right breast tenderness in the outer aspects of the right breast. AXILLARY EXAM: Negative for adenopathy. BACK: Negative for CVA tenderness. ABDOMEN: Soft, nontender, without palpable masses. PELVIC EXAM: Normal external genitalia with mild atrophy. Cervix and vagina appear normal mild atrophy. There is no unusual discharge. There is no evidence of prolapse. There is mild urethral mobility with cough and Valsalva. No urinary leakage was demonstrated. The uterus is midposition, nongravid size and nontender. There are no palpable adnexal masses or tenderness. RECTAL EXAM: Rectovaginal exam is negative for mass or tenderness and is negative for occult blood. EXTREMITIES: Nontender. IMPRESSION: 1. 76-year-old menopausal female with normal gynecologic exam. 2. History of osteopenia treated with Boniva through her PCP. 3. Advanced stage IV recurrent lung cancer. 4. Mild stress urinary incontinence with no significant physical findings on exam today. PLAN: 1. Pap smears have been discontinued. 2. Self breast awareness was discussed with the patient. We have also discussed symptoms associated with inflammatory breast cancer. 3. Screening mammogram will be done today. 4. We have had a long discussion regarding urinary incontinence. She sounds like she is already doing timed voids. I also recommended regular ketal exercises and instructions were given on this. She will call if she is having worsening of her symptoms. 5. She has completed her Covid vaccination series along with 2 boosters. 6.Osteoporosis prevention was discussed. I have stressed the importance of adequate calcium, vitamin D and regular exercise. Recommended amounts of calcium and vitamin D were also discussed. She will continue to use Boniva as prescribed by her PCP and bone density testing will be done through her PCP. She had a bone density test done in 2020. 7. She was advised to return in one year for her annual well woman exam.
--- NOTE | 2022-02-15 09:40 | MM ---
Reason for exam: screening (asymptomatic). Last mammogram was performed 1 year and 3 months ago. History: Patient is postmenopausal and has history of other cancer at age 73. Family history of breast cancer in sister at age 70. Benign core biopsy of the right breast, 2003. Benign excisional biopsy of the right breast, 2003. Took estrogen for 5 years. Physical Findings: A clinical breast exam by your physician is recommended on an annual basis and results should be correlated with mammographic findings. MG 3D Screening Mammo W/Cad Bilateral CC and MLO view(s) were taken. Prior study comparison: November 21, 2020, bilateral MG 3d screening mammo w/cad. September 21, 2019, bilateral MG 3d screening mammo w/cad. There are scattered fibroglandular densities. No significant changes when compared with prior studies. ASSESSMENT: Benign, BI-RAD 2 RECOMMENDATION: Routine screening mammogram of both breasts in 1 year.
== END | disposition home or self-care (01) ==
LOC: WWCWWP 12:35
PROVIDERS: ATTEND Obstetrics & Gynecology
DX: Z12.31 Encounter for screening mammogram for malignant neoplasm of breast (principal)
CPT/HCPCS: 77063; 77067

== ENCOUNTER 2022-09-08 10:14 | Emergency (ER) | payer MEDICARE ==
--- NOTE | 2022-09-08 10:59 | ED ---
General Adult HPI - General Chief complaint: Upper Respiratory Infection Stated complaint: Cough, Sore throat, IZABELLA Time Seen by Provider: 09/08/22 10:33 Source: patient Mode of arrival: ambulatory Limitations: no limitations - History of Present Illness Initial comments: Dictation was produced using Waze dictation software. please excuse any gram matical, word or spelling errors. Chief Complaint: 76-year-old female with past medical history of stage IV lung cancer presents to the ER for cough, congestion and sore throat History of Present Illness: 76-year-old female she has a history of stage IV non-squamous cell lung carcinoma. She is currently being treated with oral chemotherapy agents. Patient states that for the last 1-2 days she's been having symptoms of sore throat, cough and congestion. Patient otherwise feels a t baseline. She states that she is not short of breath more than usual. She does not have any new thoracic or chest pain complaints. Did complain of some fevers recently. The ROS documented in this emergency department record has been reviewed and confirmed by me. Those systems with pertinent positive or negative responses have been documented in the HPI. All other systems are other negative and/or noncontributory. PHYSICAL EXAM: General Impression: Alert and oriented x3, not in acute distress HEENT: Normocephalic atraumatic, extra-ocular movements intact, pupils equal and reactive to light bilaterally, mucous membranes moist. Cardiovascular: Heart regular rate and rhythm Chest: Able to complete full sentences, no retractions, no tachypnea Abdomen: abdomen soft, non-tender, non-distended, no organomegaly Musculoskeletal: Pulses present and equal in all extremities, no peripheral edema Motor: no focal deficits noted Neurological: CN II-XII grossly intact, no focal motor or sensory deficits noted Skin: Intact with no visualized rashes Psych: Normal affect and mood ED course: 76-year-old well-appearing female with history of lung carcinoma presents to the emergency department for respiratory infectious symptoms acutely. Signs upon arrival shows heart rate of 112, oxygen saturation 91% on room air. Patient's well-appearing at the bedside. She presents with cough and sore throat suggesting respiratory infectious symptoms. Patient reports wearing home oxygen however given that her breathing symptoms have been significantly improve she has not needed to use it. Laboratory evaluation obtained. CBC, metabolic panel, abdominal labs are negative. 4 panel are PCR is negative. Rapid strep test is negative. Chest x- ray is nonacute. Patient observed in the emergency department for approximately 2 hours. Reevaluated bedside at 12:20 PM found to be stable medical condition. Patient's well-appearing and in no acute distress. Patient will be discharged. Return precautions discussed. Advised follow-up with primary care doctor. Patient requesting prescription for antibiotics.Prescription provided. Chart review was performed - Related Data Home Medications Medication Instructions Recorded Confirmed Ibandronate Sodium [Boniva] 150 mg PO Q30D 06/09/18 02/12/22 Meloxicam [Mobic] 7.5 mg PO BID 06/09/18 02/12/22 Montelukast [Singulair] 10 mg PO HS 06/09/18 02/12/22 Baclofen [Lioresal] 20 mg PO BID 03/25/19 02/12/22 Levothyroxine Sodium [Synthroid] 50 mcg PO DAILY 03/25/19 02/12/22 Omeprazole [PriLOSEC] 20 mg PO DAILY 12/31/19 02/12/22 Lidocaine [Lidoderm 5% Patch] 1 patch TRANSDERM DAILY PRN 11/21/20 02/12/22 Albuterol Inhaler [Ventolin Hfa 2 puff INHALATION RT-Q4H PRN 01/30/21 02/12/22 Inhaler] Tiotropium [place] [Spiriva] 1 cap INHALATION RT-HS 01/30/21 02/12/22 ALPRAZolam [Xanax] 0.25 mg PO DAILY PRN 01/31/21 02/12/22 Multivitamins, Thera [Multivitamin 1 tablet PO DAILY 01/31/21 02/12/22 (formulary)] Fexofenadine HCl 180 mg PO DAILY 12/08/21 02/12/22 Fluticasone/Umeclidin/Vilanter 1 puff INHALATION RT-DAILY 12/08/21 02/12/22 [Trelegy Ellipta 200-62.5-25] HYDROcodone/APAP 10-325MG [[place] 1 tab PO Q6H PRN 12/08/21 02/12/22 10-325] Losartan Potassium 100 mg PO DAILY 12/08/21 02/12/22 Pembrolizumab [Keytruda] 1 dose IV Q28D 12/08/21 02/12/22 Venlafaxine HCl [Effexor XR] 150 mg PO DAILY 12/08/21 02/12/22 Clobetasol Propionate [Temovate See Protocol TOPICAL BID 02/12/22 02/12/22 0.05% Cream] Previous Rx's Medication Instructions Recorded Azithromycin [Zithromax Z Pack] 1 tab PO DIRECTED #6 tab 09/08/22 Allergies Allergy/AdvReac Type Severity Reaction Status Date / Time meperidine HCl [From Demerol] Allergy Severe Anaphylaxis Verified 09/08/22 10:32 morphine Allergy Severe Vomiting Verified 09/08/22 10:32 Sulfa (Sulfonamide Allergy Severe Nausea & Verified 09/08/22 10:32 Antibiotics) Vomiting ciprofloxacin [From Cipro] AdvReac Severe Nausea & Verified 09/08/22 10:32 Vomiting sulfamethoxazole AdvReac Severe Nausea & Verified 09/08/22 10:32 [From Bactrim] Vomiting trimethoprim [From Bactrim] AdvReac Severe Nausea & Verified 09/08/22 10:32 Vomiting Review of Systems ROS Statement: Those systems with pertinent positive or pertinent negative responses have been documented in the HPI. ROS Other: All systems not noted in ROS Statement are negative. Past Medical History Past Medical History: Asthma, Cancer, COPD, Fibromyalgia, Hypertension, Osteoarthritis (OA), Thyroid Disorder Additional Past Medical History / Comment(s): Lung cancer 2019 s/p chemo and radiation, recurrence of lung cancer (stage 4) in 2020. Arthritis,depression, osteopenia and seasonal allergies. 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 History of Any Multi-Drug Resistant Organisms: None Reported Past Surgical History: Back Surgery, Breast Surgery, Orthopedic Surgery Additional Past Surgical History / Comment(s): D&C 1972. Colonoscopy with upper endoscopy 2019(next after 5yrs)., MULTIPLE LT HAND SX R/T INJURY. Lumbar rachel ctomy, hand surgery and breast biopsy. Transesophageal lung biopsy. Past Anesthesia/Blood Transfusion Reactions: Postoperative Nausea & Vomiting (PONV) Additional Past Anesthesia/Blood Transfusion Reaction / Comment(s): no previous blood transfusion Past Psychological History: Anxiety, Depression Smoking Status: Former smoker Past Alcohol Use History: Rare Past Drug Use History: Marijuana - Past Family History Brother(s) Family Medical History: Cancer, Myocardial Infarction ([place]), Renal Disease Additional Family Medical History / Comment(s): Esophageal cancer, melanoma of the sinuses which led to brain metastases. Renal failure. Another brother had an [place]. Sister(s) Family Medical History: Cancer Additional Family Medical History / Comment(s): Cervical cancer. Another sister had endometrial cancer and another sister had breast cancer. Mother Family Medical History: Cancer Additional Family Medical History / Comment(s): Hodgkin's lymphoma. Son(s) Family Medical History: Cancer Additional Family Medical History / Comment(s): Cholangiocarcinoma. General Exam Limitations: no limitations Course Vital Signs 09/08/22 09/08/22 10:28 11:00 Temperature 98.9 F 98.7 F Pulse Rate 112 H 102 H Respiratory 20 18 Rate Blood Pressure 133/76 144/87 O2 Sat by Pulse 91 L 93 L Oximetry Medical Decision Making - Lab Data Result diagrams: 09/08/22 10:55 09/08/22 10:55 Lab Results 09/08/22 09/08/22 09/08/22 Range/Units 10:55 10:55 10:55 WBC 8.0 (3.8-10.6) k/uL RBC 4.12 (3.80-5.40) m/uL Hgb 12.3 (11.4-16.0) gm/dL Hct 37.6 (34.0-46.0) % MCV 91.1 (80.0-100.0) fL MCH 29.9 (25.0-35.0) pg MCHC 32.8 (31.0-37.0) g/dL RDW 13.0 (11.5-15.5) % Plt Count 230 (150-450) k/uL MPV 7.9 Neutrophils % 87 % Lymphocytes % 4 % Monocytes % 6 % Eosinophils % 3 % Basophils % 0 % Neutrophils # 6.9 (1.3-7.7) k/uL Lymphocytes # 0.3 L (1.0-4.8) k/uL Monocytes # 0.4 (0-1.0) k/uL Eosinophils # 0.2 (0-0.7) k/uL Basophils # 0.0 (0-0.2) k/uL Hypochromasia Slight Sodium 140 (137-145) mmol/L Potassium 4.3 (3.5-5.1) mmol/L Chloride 105 (98-107) mmol/L Carbon Dioxide 29 (22-30) mmol/L Anion Gap 6 mmol/L BUN 13 (7-17) mg/dL Creatinine 0.54 (0.52-1.04) mg/dL Est GFR (CKD-EPI)AfAm >90 (>60 ml/min/1.73 sqM) Est GFR (CKD-EPI)NonAf >90 (>60 ml/min/1.73 sqM) Glucose 95 (74-99) mg/dL Calcium 8.6 (8.4-10.2) mg/dL Total Bilirubin 0.6 (0.2-1.3) mg/dL AST 29 (14-36) U/L ALT 26 (4-34) U/L Alkaline Phosphatase 120 (38-126) U/L Total Protein 6.5 (6.3-8.2) g/dL Albumin 3.9 (3.5-5.0) g/dL Influenza Type A (PCR) Not Detected (Not Detectd) Influenza Type B (PCR) Not Detected (Not Detectd) RSV (PCR) Not Detected (Not Detectd) SARS-CoV-2 (PCR) Not Detected (Not Detectd) Group A Strep (PCR) (Not Detectd) 09/08/22 Range/Units 11:19 WBC (3.8-10.6) k/uL RBC (3.80-5.40) m/uL Hgb (11.4-16.0) gm/dL Hct (34.0-46.0) % MCV (80.0-100.0) fL MCH (25.0-35.0) pg MCHC (31.0-37.0) g/dL RDW (11.5-15.5) % Plt Count (150-450) k/uL MPV Neutrophils % % Lymphocytes % % Monocytes % % Eosinophils % % Basophils % % Neutrophils # (1.3-7.7) k/uL Lymphocytes # (1.0-4.8) k/uL Monocytes # (0-1.0) k/uL Eosinophils # (0-0.7) k/uL Basophils # (0-0.2) k/uL Hypochromasia Sodium (137-145) mmol/L Potassium (3.5-5.1) mmol/L Chloride (98-107) mmol/L Carbon Dioxide (22-30) mmol/L Anion Gap mmol/L BUN (7-17) mg/dL Creatinine (0.52-1.04) mg/dL Est GFR (CKD-EPI)AfAm (>60 ml/min/1.73 sqM) Est GFR (CKD-EPI)NonAf (>60 ml/min/1.73 sqM) Glucose (74-99) mg/dL Calcium (8.4-10.2) mg/dL Total Bilirubin (0.2-1.3) mg/dL AST (14-36) U/L ALT (4-34) U/L Alkaline Phosphatase (38-126) U/L Total Protein (6.3-8.2) g/dL Albumin (3.5-5.0) g/dL Influenza Type A (PCR) (Not Detectd) Influenza Type B (PCR) (Not Detectd) RSV (PCR) (Not Detectd) SARS-CoV-2 (PCR) (Not Detectd) Group A Strep (PCR) NOT DETECTED (Not Detectd) Disposition Clinical Impression: Cough Disposition: HOME SELF-CARE Condition: Good Instructions (If sedation given, give patient instructions): Upper Respiratory Infection (ED) Prescriptions: Azithromycin [Zithromax Z Pack] 1 tab PO DIRECTED #6 tab Is patient prescribed a controlled substance at d/c from ED?: No Referrals: Deyanira Riggins MD [Primary Care Provider] - 1-2 days Time of Disposition: 12:24
[2022-09-08 11:06] VITALS: RESP 18; TEMP 98.7
[2022-09-08 11:18] LABS: Basophils % (A) 0 %; Eosinophils # (A) 0.2 k/uL (0-0.7); Eosinophils % (A) 3 %; HCT 37.6 % (34.0-46.0); HGB 12.3 gm/dL (11.4-16.0); Hypochromasia Slight; Lymphocytes # (A) 0.3 k/uL (1.0-4.8); Lymphocytes % (A) 4 %; MCH 29.9 pg (25.0-35.0); MCHC 32.8 g/dL (31.0-37.0); MCV 91.1 fL (80.0-100.0); Mean Platelet Volume 7.9; Monocytes # (A) 0.4 k/uL (0-1.0); Monocytes % (A) 6 %; Neutrophils # (A) 6.9 k/uL (1.3-7.7); Neutrophils % (A) 87 %; Platelet Count 230 k/uL (150-450); RBC 4.12 m/uL (3.80-5.40)
[2022-09-08 11:36] LABS: ALT 26 U/L (4-34); AST 29 U/L (14-36); African American GFR (CKD) >90 (>60 ml/min/1.73 sqM); Albumin 3.9 g/dL (3.5-5.0); Alkaline Phosphatase 120 U/L (38-126); Anion Gap 6 mmol/L; Blood Urea Nitrogen 13 mg/dL (7-17); Calcium 8.6 mg/dL (8.4-10.2); Carbon Dioxide 29 mmol/L (22-30); Chloride 105 mmol/L (98-107); Glucose 95 mg/dL (74-99); Non-African American GFR(CKD) >90 (>60 ml/min/1.73 sqM); Potassium 4.3 mmol/L (3.5-5.1); Sodium 140 mmol/L (137-145); Total Bilirubin 0.6 mg/dL (0.2-1.3); Total Protein 6.5 g/dL (6.3-8.2)
--- NOTE | 2022-09-08 11:54 | XR ---
EXAMINATION TYPE: XR chest 2V DATE OF EXAM: 09/08/2022 COMPARISON: NONE HISTORY: Cough TECHNIQUE: Frontal and lateral views of the chest are obtained. FINDINGS: There is no focal air space opacity, pleural effusion, or pneumothorax seen. The cardiac silhouette size is within normal limits. The osseous structures are intact. There is moderate elevation of the anterior aspect of the right hemidiaphragm. IMPRESSION: No acute cardiopulmonary process.
[2022-09-08 12:37] VITALS: BP 130/78; PULSE 93
== END 2022-09-08 12:37 | disposition home or self-care (01) ==
LOC: EC 10:14
DX: R05.9 Cough, unspecified (principal); J44.9 Chronic obstructive pulmonary disease, unspecified; I10 Essential (primary) hypertension; M19.90 Unspecified osteoarthritis, unspecified site; E07.9 Disorder of thyroid, unspecified; F41.9 Anxiety disorder, unspecified; F32.A Depression, unspecified; Z87.891 Personal history of nicotine dependence; F12.90 Cannabis use, unspecified, uncomplicated; Z88.2 Allergy status to sulfonamides; Z88.5 Allergy status to narcotic agent; Z88.6 Allergy status to analgesic agent; Z79.890 Hormone replacement therapy; Z79.899 Other long term (current) drug therapy; Z20.822 Contact with and (suspected) exposure to COVID-19
CPT/HCPCS: 36415; 71046; 80053; 85025; 87636; 87651; 93005; 99285

== ENCOUNTER 2023-01-21 17:51 | Observation (INO) | payer MEDICARE ==
[2023-01-21] MEDS ORDERED: SODIUM CHLORIDE 0.9% 1,000 ML IV STA (18:54)
[2023-01-21] MEDS ORDERED: KETOROLAC 15 MG/ML 1 ML VIAL IVP STA (18:54)
[2023-01-21] MEDS ORDERED: ONDANSETRON 4 MG/2 ML VIAL IVP STA (18:54)
--- NOTE | 2023-01-21 18:55 | ED ---
Abdominal Pain HPI - General Chief Complaint: Abdominal Pain Stated Complaint: ABD Pain Source: patient, RN notes reviewed, old records reviewed Mode of arrival: ambulatory Limitations: no limitations - History of Present Illness Initial Comments: This is a 77-year-old female to the emergency department for evaluation she presents today with 1 week episodic abdominal pain epigastric abdominal pain right upper quadrant abdominal pain here in the emergency department. Patient has persistent right upper quadrant and epigastric pain here in the ER with nausea no vomiting, was sent to the hospital for outpatient studies and sent back to Hospital for further evaluation management tonight. Patient symptoms are improving symptoms management although persistent MD Complaint: abdominal pain -: hour(s) Location: diffuse, periumbilical, R flank Radiation: RUQ Migration to: epigastric Severity: moderate Severity scale (1-10): 7 Quality: cramping, aching Consistency: intermittent Improves With: nothing Worsens With: nothing Associated Symptoms: nausea Treatments Prior to Arrival: other (0) - Related Data Home Medications Medication Instructions Recorded Confirmed Ibandronate Sodium [Boniva] 150 mg PO Q30D 06/09/18 02/12/22 Meloxicam [Mobic] 7.5 mg PO BID 06/09/18 02/12/22 Montelukast [Singulair] 10 mg PO HS 06/09/18 02/12/22 Baclofen [Lioresal] 20 mg PO BID 03/25/19 02/12/22 Levothyroxine Sodium [Synthroid] 50 mcg PO DAILY 03/25/19 02/12/22 Omeprazole [PriLOSEC] 20 mg PO DAILY 12/31/19 02/12/22 Lidocaine [Lidoderm 5% Patch] 1 patch TRANSDERM DAILY PRN 11/21/20 02/12/22 Albuterol Inhaler [Ventolin Hfa 2 puff INHALATION RT-Q4H PRN 01/30/21 02/12/22 Inhaler] Tiotropium [place] [Spiriva] 1 cap INHALATION RT-HS 01/30/21 02/12/22 ALPRAZolam [Xanax] 0.25 mg PO DAILY PRN 01/31/21 02/12/22 Multivitamins, Thera [Multivitamin 1 tablet PO DAILY 01/31/21 02/12/22 (formulary)] Fexofenadine HCl 180 mg PO DAILY 12/08/21 02/12/22 Fluticasone/Umeclidin/Vilanter 1 puff INHALATION RT-DAILY 12/08/21 02/12/22 [Trelegy Ellipta 200-62.5-25] HYDROcodone/APAP 10-325MG [[place] 1 tab PO Q6H PRN 12/08/21 02/12/22 10-325] Losartan Potassium 100 mg PO DAILY 12/08/21 02/12/22 Pembrolizumab [Keytruda] 1 dose IV Q28D 12/08/21 02/12/22 Venlafaxine HCl [Effexor XR] 150 mg PO DAILY 12/08/21 02/12/22 Clobetasol Propionate [Temovate See Protocol TOPICAL BID 02/12/22 02/12/22 0.05% Cream] Previous Rx's Medication Instructions Recorded Azithromycin [Zithromax Z Pack] 1 tab PO DIRECTED #6 tab 09/08/22 Allergies Allergy/AdvReac Type Severity Reaction Status Date / Time meperidine HCl [From Demerol] Allergy Severe Anaphylaxis Verified 01/21/23 17:57 morphine Allergy Severe Vomiting Verified 01/21/23 17:57 Sulfa (Sulfonamide Allergy Severe Nausea & Verified 01/21/23 17:57 Antibiotics) Vomiting ciprofloxacin [From Cipro] AdvReac Severe Nausea & Verified 01/21/23 17:57 Vomiting sulfamethoxazole AdvReac Severe Nausea & Verified 01/21/23 17:57 [From Bactrim] Vomiting trimethoprim [From Bactrim] AdvReac Severe Nausea & Verified 01/21/23 17:57 Vomiting Review of Systems ROS Statement: Those systems with pertinent positive or pertinent negative responses have been documented in the HPI. ROS Other: All systems not noted in ROS Statement are negative. Past Medical History Past Medical History: Asthma, Cancer, COPD, Fibromyalgia, Hypertension, Osteoarthritis (OA), Thyroid Disorder Additional Past Medical History / Comment(s): Lung cancer 2019 s/p chemo and radiation, recurrence of lung cancer (stage 4) in 2020. Arthritis,depression, osteopenia and seasonal allergies. 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 History of Any Multi-Drug Resistant Organisms: None Reported Past Surgical History: Back Surgery, Breast Surgery, Orthopedic Surgery Additional Past Surgical History / Comment(s): D&C 1972. Colonoscopy with upper endoscopy 2019(next after 5yrs)., MULTIPLE LT HAND SX R/T INJURY. Lumbar laminectomy, hand surgery and breast biopsy. Transesophageal lung biopsy. Past Anesthesia/Blood Transfusion Reactions: Postoperative Nausea & Vomiting (PONV) Additional Past Anesthesia/Blood Transfusion Reaction / Comment(s): no previous blood transfusion Past Psychological History: Anxiety, Depression Smoking Status: Former smoker Past Alcohol Use History: Rare Past Drug Use History: Marijuana - Past Family History Brother(s) Family Medical History: Cancer, Myocardial Infarction ([place]), Renal Disease Additional Family Medical History / Comment(s): Esophageal cancer, melanoma of the sinuses which led to brain metastases. Renal failure. Another brother had an [place]. Sister(s) Family Medical History: Cancer Additional Family Medical History / Comment(s): Cervical cancer. Another sister had endometrial cancer and another sister had breast cancer. Mother Family Medical History: Cancer Additional Family Medical History / Comment(s): Hodgkin's lymphoma. Son(s) Family Medical History: Cancer Additional Family Medical History / Comment(s): Cholangiocarcinoma. General Exam Limitations: no limitations General appearance: alert, in no apparent distress Head exam: Present: atraumatic, normocephalic, normal inspection Eye exam: Present: normal appearance, PERRL, EOMI. Absent: scleral icterus, conjunctival injection, periorbital swelling ENT exam: Present: normal exam, mucous membranes moist Neck exam: Present: normal inspection. Absent: tenderness, meningismus, lymphadenopathy Respiratory exam: Present: normal lung sounds bilaterally. Absent: respiratory distress, wheezes, rales, rhonchi, stridor Cardiovascular Exam: Present: regular rate, normal rhythm, normal heart sounds. Absent: systolic murmur, diastolic murmur, rubs, gallop, clicks GI/Abdominal exam: Present: soft, tenderness, guarding, normal bowel sounds. Absent: distended, rebound, rigid Extremities exam: Present: normal inspection, full ROM, normal capillary refill. Absent: tenderness, pedal edema, joint swelling, calf tenderness Back exam: Present: normal inspection Neurological exam: Present: alert, oriented X3, CN II-XII intact Psychiatric exam: Present: normal affect, normal mood Skin exam: Present: warm, dry, intact, normal color. Absent: rash Course Vital Signs 01/21/23 01/21/23 01/21/23 17:54 19:19 19:30 Temperature 97.8 F Pulse Rate 103 H 87 Respiratory 20 16 Rate Blood Pressure 185/106 198/110 O2 Sat by Pulse 96 85 L 99 Oximetry 01/21/23 01/21/23 01/21/23 20:00 20:30 21:00 Temperature Pulse Rate 89 90 78 Respiratory 16 16 16 Rate Blood Pressure 205/99 159/84 157/85 O2 Sat by Pulse 99 100 99 Oximetry - Reevaluation(s) Reevaluation #1: 01/21/23 21:40 Medical record is reviewed Reevaluation #2: 01/21/23 21:40 Patient has improvement in pain today Reevaluation #3: 01/21/23 21:40 Patient informed results and questions answered Reevaluation #4: 01/21/23 21:48 Was pt. sent in by a medical professional or institution? @ -yes PCP Did you speak to anyone other than the patient for history? @ -friend at [facility] Did you review nursing and triage notes? @ -agree Were old charts reviewed? @ -yes, outpatient CT Differential Diagnosis? @ -prior, abd pain women EKG interpreted by me (3pts min.)? @ -no X-rays interpreted by me (1pt min.)? @ -no CT interpreted by me (1pt min.)? @ -no U/S interpreted by me (1pt. min.)? @ -no What testing was considered but not performed? (CT, X-rays, U/S, labs)? Why? @ -no What meds were considered but not given? Why? @ -no Did you discuss the management of the patient with other professionals? @ -no Did you reconcile home meds? @ -no Was smoking cessation discussed for >3mins.? @ -no Was critical care preformed (if so, how long)? @ -no Were there social determinants of health that impacted care today? How? (Homelessness, low income, unemployed, alcoholism, drug addiction, transportation, low edu. Level, literacy, decrease access to med. care, long-term, rehab)? @ -no Was there de-escalation of care discussed even if they declined? (Discuss DNR or withdrawal of care, Hospice)? @ -no What co-morbidities impacted this encounter? (DM, HTN, Smoking, COPD, CAD, Cancer, CVA, Hep., AIDS, mental health diagnosis, sleep apnea, morbid obesity)? @ -no Was patient admitted / discharged? @ -admit Undiagnosed new problem with uncertain prognosis? @ -no Drug Therapy requiring intensive monitoring for toxicity (Heparin, Nitro, Insulin, Cardizem)? @ -no Were any procedures done? @ -no Diagnosis/symptom? @ -[default] Acute, or Chronic, or Acute on Chronic? @ -acute Uncomplicated (without systemic symptoms) or Complicated (systemic symptoms)? @ -no Side effects of treatment? @ -no Exacerbation, Progression, or Severe Exacerbation] @ -no Poses a threat to life or bodily function? @ -no Reevaluation #5: 01/21/23 21:40 Differential Abdominal Pain Women: Appendicitis, Cholecystitis, diverticulosis, ischemic bowel, pancreatitis, hepatitis, UTI, gastroenteritis, AAA, incarcerated hernia, bowel obstruction, constipation, inflammatory bowel, hepatitis, peptic ulcer disease, splenic infarction, perforated viscus, vulvitis, ovarian torsion, PID, kidney stone, placenta abruption, this is not meant to be an all-inclusive list - Consultations Consultation #1: Spoke with Dr. Saldana of who recommended admission for cholecystitis Medical Decision Making - Medical Decision Making 77 female will be admitted for acute cholecystitis on antibiotics and symptom management - Lab Data Result diagrams: 01/21/23 19:16 01/21/23 19:16 Lab Results 01/21/23 01/21/23 Range/Units 19:16 19:16 WBC 19.1 H (3.8-10.6) k/uL RBC 4.59 (3.80-5.40) m/uL Hgb 14.0 (11.4-16.0) gm/dL Hct 41.9 (34.0-46.0) % MCV 91.1 (80.0-100.0) fL MCH 30.4 (25.0-35.0) pg MCHC 33.3 (31.0-37.0) g/dL RDW 12.8 (11.5-15.5) % Plt Count 302 (150-450) k/uL MPV 7.5 Neutrophils % 92 % Lymphocytes % 3 % Monocytes % 4 % Eosinophils % 1 % Basophils % 0 % Neutrophils # 17.5 H (1.3-7.7) k/uL Lymphocytes # 0.5 L (1.0-4.8) k/uL Monocytes # 0.7 (0-1.0) k/uL Eosinophils # 0.2 (0-0.7) k/uL Basophils # 0.0 (0-0.2) k/uL Sodium 135 L (137-145) mmol/L Potassium 5.1 (3.5-5.1) mmol/L Chloride 99 (98-107) mmol/L Carbon Dioxide 26 (22-30) mmol/L Anion Gap 10 mmol/L BUN 16 (7-17) mg/dL Creatinine 0.50 L (0.52-1.04) mg/dL Est GFR (CKD-EPI)AfAm >90 (>60 ml/min/1.73 sqM) Est GFR (CKD-EPI)NonAf >90 (>60 ml/min/1.73 sqM) Glucose 128 H (74-99) mg/dL Calcium 9.4 (8.4-10.2) mg/dL Total Bilirubin 1.1 (0.2-1.3) mg/dL AST 49 H (14-36) U/L ALT 29 (4-34) U/L Alkaline Phosphatase 113 (38-126) U/L Total Protein 7.8 (6.3-8.2) g/dL Albumin 4.4 (3.5-5.0) g/dL Amylase 120 H (30-110) U/L Lipase 238 (23-300) U/L - EKG Data -: EKG Interpreted by Me (EKG is sinus 77 RI 192 QRS 69 QTC 406) - Radiology Data Radiology results: report reviewed (Outpatient computed tomography scan of abdomen pelvis negative for acute disease ultrasound gallbladder negative for acute disease), image reviewed Disposition Clinical Impression: Acute cholecystitis Disposition: ADMITTED IP TO THIS HOSP Condition: Fair Is patient prescribed a controlled substance at d/c from ED?: No Referrals: Deyanira Riggins MD [Primary Care Provider] - 1-2 days Time of Disposition: 22:00
[2023-01-21 19:26] LABS: Basophils % (A) 0 %; Eosinophils # (A) 0.2 k/uL (0-0.7); Eosinophils % (A) 1 %; HCT 41.9 % (34.0-46.0); Lymphocytes # (A) 0.5 k/uL (1.0-4.8); Lymphocytes % (A) 3 %; MCH 30.4 pg (25.0-35.0); MCHC 33.3 g/dL (31.0-37.0); MCV 91.1 fL (80.0-100.0); Mean Platelet Volume 7.5; Monocytes # (A) 0.7 k/uL (0-1.0); Monocytes % (A) 4 %; Neutrophils # (A) 17.5 k/uL (1.3-7.7); Neutrophils % (A) 92 %; Platelet Count 302 k/uL (150-450); RBC 4.59 m/uL (3.80-5.40); RDW 12.8 % (11.5-15.5); WBC 19.1 k/uL (3.8-10.6)
[2023-01-21 19:44] LABS: ALT 29 U/L (4-34); AST 49 U/L (14-36); African American GFR (CKD) >90 (>60 ml/min/1.73 sqM); Albumin 4.4 g/dL (3.5-5.0); Alkaline Phosphatase 113 U/L (38-126); Amylase 120 U/L (30-110); Anion Gap 10 mmol/L; Blood Urea Nitrogen 16 mg/dL (7-17); Calcium 9.4 mg/dL (8.4-10.2); Carbon Dioxide 26 mmol/L (22-30); Chloride 99 mmol/L (98-107); Glucose 128 mg/dL (74-99); Lipase 238 U/L (23-300); Non-African American GFR(CKD) >90 (>60 ml/min/1.73 sqM); Sodium 135 mmol/L (137-145); Total Bilirubin 1.1 mg/dL (0.2-1.3); Total Protein 7.8 g/dL (6.3-8.2)
[2023-01-21 19:51] LABS: Potassium 5.1 mmol/L (3.5-5.1)
--- NOTE | 2023-01-21 20:55 | US ---
EXAMINATION TYPE: US gallbladder DATE OF EXAM: 01/21/2023 COMPARISON: CT: Today CLINICAL HISTORY: pain. pain TECHNIQUE: Multiple sonographic images of the right upper quadrant are obtained. FINDINGS: EXAM MEASUREMENTS: Liver Length: 12.9 cm Gallbladder Wall: 0.14 cm CBD: 0.6 cm Right Kidney: 10.5 x 4.6 x 4.9 cm Pancreas: Parts visualized appear wnl Liver: wnl Gallbladder: Not well visualized. Appears wnl layering level echoes felt to be present Evidence for sonographic Madrid's sign: No CBD: wnl Right Kidney: wnl IMPRESSION: Possible biliary debris without evidence for wall thickening or pericholecystic fluid. No definitive evidence for acute abdominal process.
[2023-01-21] MEDS ORDERED: ONDANSETRON 4 MG/2 ML VIAL IVP PRN (21:55)
[2023-01-21] MEDS ORDERED: NALOXONE 0.4 MG/ML 1 ML VIAL IV PRN (21:55)
[2023-01-21] MEDS ORDERED: AMPICILLIN-SULBACTAM 3 GM in SODIUM CHLORIDE 0.9% 100 ML IVPB STA (22:00)
[2023-01-21] MEDS: SODIUM CHLORIDE 0.9% 1,000 ML IV SCH (23:11)
[2023-01-22 01:38] LABS: Appearance,Urine Clear (Clear); Bacteria,Urine Rare /hpf; Bilirubin,Urine Negative (Negative); Blood,Urine Trace (Negative); Color,Urine Yellow; Glucose,Urine (UA) Negative (Negative); Ketones,Urine Trace (Negative); Leukocyte Esterase,Urine Large (Negative); Mucus,Urine Rare /hpf; Nitrite,Urine Negative (Negative); PH, Urine 6.5 (5.0-8.0); Protein,Urine Trace (Negative); RBC,Urine 9 /hpf (0-5); Squamous Epithelial Cell,Urine 3 /hpf (0-4); Urobilinogen,Urine <2.0 mg/dL (<2.0); WBC,Urine 40 /hpf (0-5)
[2023-01-22 02:06] LABS: Specific Gravity,Urine >1.050 (1.001-1.035)
[2023-01-22] MEDS: AMPICILLIN-SULBACTAM 3 GM in SODIUM CHLORIDE 0.9% 100 ML IVPB SCH ×4 (04:29→22:58)
[2023-01-22] MEDS: SODIUM CHLORIDE 0.9% 1,000 ML IV SCH ×3 (05:32→21:48)
[2023-01-22] MEDS: HYDROmorphone 0.5 MG/0.5 ML SYRINGE IVP PRN ×2 (08:01→15:31)
[2023-01-22] MEDS ORDERED: HEPARIN SODIUM,PORCINE 5,000 UNIT/ML 1 ML VIAL ONE (11:37)
[2023-01-22] MEDS ORDERED: SUCCINYLCHOLINE CHLORIDE 200 MG/10 ML VIAL IV ONE (11:37)
[2023-01-22] MEDS ORDERED: GLYCOPYRROLATE 0.2 MG/ML 2 ML VIAL ONE (11:37)
[2023-01-22] MEDS ORDERED: PROPOFOL 10 MG/ML 20 ML VIAL IV ONE (11:37)
[2023-01-22] MEDS ORDERED: NEOSTIGMINE 1 MG/ML 10 ML VIAL ONE (11:37)
[2023-01-22] MEDS ORDERED: PHENYLEPHRINE-0.9% NACL SYG 1,000 MCG/10 ML SYRINGE ONE (11:37)
[2023-01-22] MEDS ORDERED: ROCURONIUM 10 MG/ML (5 ML VIAL) IV ONE (11:37)
[2023-01-22] MEDS ORDERED: LIDOCAINE 2% INJ 20 MG/ML (2 ML VIAL) ONE (11:37)
[2023-01-22] MEDS ORDERED: fentaNYL (PF) 50 MCG/ML 2 ML AMP ONE (11:37)
[2023-01-22] MEDS ORDERED: LACTATED RINGERS 1,000 ML IV ONE ×2 (11:40→13:35)
--- NOTE | 2023-01-22 11:41 | P.GSHP ---
History of Present Illness H&P Date: 01/22/23 Chief Complaint: Acute cholecystitis 77-year-old female here with complaints of right upper quadrant and epigastric abdominal pain. Pain is somewhat unusual in that it does radiate to the lower abdomen into the rectum even. She was seen by her primary care physician yester day. She had a CAT scan performed showing hydrops of the gallbladder without other abnormality seen. Rectal exam in the office was normal. A she describes feeling weak, clammy, nauseous. No change in the color of her skin urine or stool. Transaminases mildly elevated. Ultrasound shows debris and a distended gallbladder. No history of previous cholecystitis. Patient apparently with history of stage IV lung cancer. She was recently notified she has bony metastasis that may be in the right rib cage. - Review of Systems Comment: The patient denies any acute changes in vision or hearing, no dysphagia or odynophagia, no chest pain or shortness of breath, no dysuria or hematuria, no headache, no runny nose, no rectal bleeding or melena, no unexplained weight loss Past Medical History Past Medical History: Asthma, Cancer, COPD, Fibromyalgia, Hypertension, Osteoarthritis (OA), Thyroid Disorder Additional Past Medical History / Comment(s): Lung cancer 2019 s/p chemo and radiation, recurrence of lung cancer (stage 4) in 2020. Arthritis,depression, osteopenia and seasonal allergies. 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 History of Any Multi-Drug Resistant Organisms: None Reported Past Surgical History: Back Surgery, Breast Surgery, Orthopedic Surgery Additional Past Surgical History / Comment(s): D&C 1972. Colonoscopy with upper endoscopy 2019(next after 5yrs)., MULTIPLE LT HAND SX R/T INJURY. Lumbar laminectomy, hand surgery and breast biopsy. Transesophageal lung biopsy. Past Anesthesia/Blood Transfusion Reactions: Postoperative Nausea & Vomiting (PONV) Additional Past Anesthesia/Blood Transfusion Reaction / Comment(s): no previous blood transfusion Past Psychological History: Anxiety, Depression Smoking Status: Former smoker Past Alcohol Use History: Rare Past Drug Use History: Marijuana - Past Family History Brother(s) Family Medical History: Cancer, Myocardial Infarction ([place]), Renal Disease Additional Family Medical History / Comment(s): Esophageal cancer, melanoma of the sinuses which led to brain metastases. Renal failure. Another brother had an [place]. Sister(s) Family Medical History: Cancer Additional Family Medical History / Comment(s): Cervical cancer. Another sister had endometrial cancer and another sister had breast cancer. Mother Family Medical History: Cancer Additional Family Medical History / Comment(s): Hodgkin's lymphoma. Son(s) Family Medical History: Cancer Additional Family Medical History / Comment(s): Cholangiocarcinoma. Medications and Allergies Home Medications Medication Instructions Recorded Confirmed Type Ibandronate Sodium [Boniva] 150 mg PO Q30D 06/09/18 01/22/23 History Meloxicam [Mobic] 7.5 mg PO HS 06/09/18 01/22/23 History Montelukast [Singulair] 10 mg PO HS 06/09/18 01/22/23 History Baclofen [Lioresal] 20 mg PO BID 03/25/19 01/22/23 History Levothyroxine Sodium [Synthroid] 50 mcg PO DAILY 03/25/19 01/22/23 History Albuterol Inhaler [Ventolin Hfa 2 puff INHALATION RT-Q4H PRN 01/30/21 01/22/23 History Inhaler] ALPRAZolam [Xanax] 0.25 mg PO DAILY PRN 01/31/21 01/22/23 History Multivitamins, Thera [Multivitamin 1 tab PO DAILY 01/31/21 01/22/23 History (formulary)] Fexofenadine HCl 180 mg PO DAILY 12/08/21 01/22/23 History Fluticasone/Umeclidin/Vilan[place] 1 puff INHALATION RT-DAILY 12/08/21 01/22/23 History [Trelegy Ellipta 200-62.5-25] HYDROcodone/APAP 10-325MG [[place] 1 tab PO BID 12/08/21 01/22/23 History 10-325] Losartan Potassium 100 mg PO HS 12/08/21 01/22/23 History Venlafaxine HCl [Effexor XR] 300 mg PO DAILY 12/08/21 01/22/23 History Aspirin EC [Ecotrin Low Dose] 81 mg PO HS 01/22/23 01/22/23 History Fluticasone Nasal [place] [Flonase 1 spr EA NOSTRIL DAILY 01/22/23 01/22/23 History Nasal [place]] Folic Acid 1 mg PO DAILY 01/22/23 01/22/23 History Nitroglycerin Sl Tabs [Nitrostat] 0.4 mg SL Q5M PRN 01/22/23 01/22/23 History Pravastatin Sodium [Pravachol] 40 mg PO HS 01/22/23 01/22/23 History Allergies Allergy/AdvReac Type Severity Reaction Status Date / Time meperidine HCl [From Demerol] Allergy Severe Anaphylaxis Verified 01/22/23 10:37 ciprofloxacin [From Cipro] AdvReac Severe Nausea & Verified 01/22/23 10:37 Vomiting morphine AdvReac Severe Vomiting Verified 01/22/23 10:37 Sulfa (Sulfonamide AdvReac Severe Nausea & Verified 01/22/23 10:37 Antibiotics) Vomiting sulfamethoxazole AdvReac Severe Nausea & Verified 01/22/23 10:37 [From Bactrim] Vomiting trimethoprim [From Bactrim] AdvReac Severe Nausea & Verified 01/22/23 10:37 Vomiting Surgical - Exam Vital Signs Temp Pulse Resp BP Pulse Ox 97.8 F 103 H 20 185/106 96 01/21/23 17:54 01/21/23 17:54 01/21/23 17:54 01/21/23 17:54 01/21/23 17:54 Physical exam: General: Well-developed, well-nourished HEENT: Normocephalic, sclerae nonicteric Abdomen: Right upper quadrant tenderness, nondistended Extremities: No edema Neuro: Alert and oriented Results - Labs 01/21/23 19:16 01/21/23 19:16 Abnormal Lab Results - Last 24 Hours (Table) 01/21/23 01/21/23 01/22/23 Range/Units 19:16 19:16 00:53 WBC 19.1 H (3.8-10.6) k/uL Neutrophils # 17.5 H (1.3-7.7) k/uL Lymphocytes # 0.5 L (1.0-4.8) k/uL Sodium 135 L (137-145) mmol/L Creatinine 0.50 L (0.52-1.04) mg/dL Glucose 128 H (74-99) mg/dL AST 49 H (14-36) U/L Amylase 120 H (30-110) U/L Ur Specific [place] >1.050 H (1.001-1.035) Urine Protein Trace H (Negative) Urine Ketones Trace H (Negative) Urine Blood Trace H (Negative) Ur Leukocyte Esterase Large H (Negative) Urine RBC 9 H (0-5) /hpf Urine WBC 40 H (0-5) /hpf Urine Bacteria Rare H (None) /hpf Urine Mucus Rare H (None) /hpf Diabetes panel 01/21/23 Range/Units 19:16 Sodium 135 L (137-145) mmol/L Potassium 5.1 (3.5-5.1) mmol/L Chloride 99 (98-107) mmol/L Carbon Dioxide 26 (22-30) mmol/L BUN 16 (7-17) mg/dL Creatinine 0.50 L (0.52-1.04) mg/dL Glucose 128 H (74-99) mg/dL Calcium 9.4 (8.4-10.2) mg/dL AST 49 H (14-36) U/L ALT 29 (4-34) U/L Alkaline Phosphatase 113 (38-126) U/L Total Protein 7.8 (6.3-8.2) g/dL Albumin 4.4 (3.5-5.0) g/dL Calcium panel 01/21/23 Range/Units 19:16 Calcium 9.4 (8.4-10.2) mg/dL Albumin 4.4 (3.5-5.0) g/dL Pituitary panel 01/21/23 Range/Units 19:16 Sodium 135 L (137-145) mmol/L Potassium 5.1 (3.5-5.1) mmol/L Chloride 99 (98-107) mmol/L Carbon Dioxide 26 (22-30) mmol/L BUN 16 (7-17) mg/dL Creatinine 0.50 L (0.52-1.04) mg/dL Glucose 128 H (74-99) mg/dL Calcium 9.4 (8.4-10.2) mg/dL Adrenal panel 01/21/23 Range/Units 19:16 Sodium 135 L (137-145) mmol/L Potassium 5.1 (3.5-5.1) mmol/L Chloride 99 (98-107) mmol/L Carbon Dioxide 26 (22-30) mmol/L BUN 16 (7-17) mg/dL Creatinine 0.50 L (0.52-1.04) mg/dL Glucose 128 H (74-99) mg/dL Calcium 9.4 (8.4-10.2) mg/dL Total Bilirubin 1.1 (0.2-1.3) mg/dL AST 49 H (14-36) U/L ALT 29 (4-34) U/L Alkaline Phosphatase 113 (38-126) U/L Total Protein 7.8 (6.3-8.2) g/dL Albumin 4.4 (3.5-5.0) g/dL Assessment and Plan (1) Acute cholecystitis Narrative/Plan: 77-year-old female with acute cholecystitis. Will proceed with laparoscopic, possible open cholecystectomy at this time. Risks of other etiology for pain, bleeding, infection, bile leak, bile duct injury, retained common bile duct stone, trocar injury, conversion to an open procedure, hernia, anesthesia related complications were reviewed. The patient understands and wishes to proceed. Current Visit: Yes Status: Acute Code(s): K81.0 - ACUTE CHOLECYSTITIS SNOMED Code(s): 02926139
[2023-01-22] MEDS ORDERED: BUPIVACAIN-EPI 0.25%-1:200,000 30 ML VIAL SQ ONE (12:05)
[2023-01-22] MEDS ORDERED: HYDROcodone/APAP 5-325MG 1 EACH TAB PO PRN (12:36)
[2023-01-22] MEDS ORDERED: HYDROmorphone 1 MG/ML 1 ML SYRINGE IVP PRN (12:36)
--- NOTE | 2023-01-22 12:39 | P.OP ---
Date of Procedure: 01/22/23 Procedure(s) Performed: PREOPERATIVE DIAGNOSIS: Acute cholecystitis POSTOPERATIVE DIAGNOSIS: Same PROCEDURE: Laparoscopic cholecystectomy SURGEON: Gilson EBL: Minimal see anesthesia record ANESTHESIA: Gen. COMPLICATIONS: None OPERATIVE PROCEDURE: The patient was brought and placed on the operating room table in the supine position. The patient was placed under general anesthesia at that time. The abdomen was prepped and draped in the usual sterile fashion. A small vertical infraumbilical incision was made. The fascia was grasped with the Anaya forceps. The fascia was retracted anteriorly. The Veress needle was advanced into the peritoneal cavity. The saline drop test was normal. Insufflation took place up to 15 mmHg. A 5 mm optical trocar was advanced and the peritoneal cavity. 2 additional 5 mm trochars were placed in the right upper quadrant under direct visualization. A 12 mm trocar was advanced into the epigastric incision site. The gallbladder was distended with a slightly thickened wall. The gallbladder was retracted superiorly and laterally. The peritoneum overlying the infundibulum was bluntly dissected. The patient's cystic duct was visualized. The junction between the cystic duct common and hepatic duct was identified. The critical view of safety was achieved after blunt dissection. The cystic duct was then divided after placement of 3 12 mm clips on the patient's side and one on the specimen side. The cystic artery was identified and clipped as well. A small vessel was seen along the gallbladder fossa and clipped as well. The gallbladder was then removed from the liver bed using electrocautery. The gallbladder was then removed from the epigastric trocar site with an Endo Catch bag. The gallbladder fossa was irrigated with saline. There was no evidence of any bleeding or biliary drainage seen. The fascia at the 12 millimeter site was closed using a Jeffery-Aj 0 Vicryl stitch. The trochars were then removed. The skin at all 4 sites was closed using a 4-0 Monocryl stitch. Skin glue was utilized on the incision sites. At the end of this procedure the sponge and needle counts were correct. DISPOSITION: Stable to the recovery room
[2023-01-22] MEDS ORDERED: ALPRAZolam 0.25 MG TAB PO PRN (15:21)
[2023-01-22] MEDS: HEPARIN SODIUM,PORCINE/PF 5,000 UNIT/0.5 ML SYRINGE SQ SCH ×2 (17:04→22:58)
[2023-01-22] MEDS: D5-0.45% NACL WITH KCL 20MEQ/L 1,000 ML IV SCH ×2 (17:04→22:57)
[2023-01-22] MEDS: ALBUTEROL NEBULIZED 2.5 MG/3 ML INHALATION PRN ×2 (19:50→23:21)
[2023-01-22] MEDS: BACLOFEN 10 MG TAB PO SCH (19:59)
[2023-01-22] MEDS ORDERED: LOSARTAN 50 MG TAB PO SCH (21:00)
[2023-01-22] MEDS ORDERED: ASPIRIN 81 MG PO SCH (21:00)
[2023-01-22] MEDS ORDERED: MONTELUKAST 10 MG TAB PO SCH (21:00)
[2023-01-22] MEDS ORDERED: PRAVASTATIN SODIUM 40 MG TAB PO SCH (21:00)
--- NOTE | 2023-01-23 02:00 | P.CONS ---
History of Present Illness - Reason for Consult Consult date: 01/22/23 Medical management - Chief Complaint S/p laparoscopic cholecystectomy - History of Present Illness Patient is a 77-year-old female with a known history of hypertension, hypothyroidism, fibromyalgia, COPD, history of lung cancer status post chemo and radiation and recurrence in 2020 currently on follow-up at [facility], osteoarthritis, anxiety/depression prior history of smoking presents to ER with complaints of abdominal pain mainly in the epigastric and right upper quadrant. Patient has been having heartburn symptoms for the past 2 weeks. associated with nausea. No episodes of vomiting. She does have GERD symptoms previously but does not seem to be similar pain. Patient was seen at outpatient facility and sent to the hospital for evaluation by her primary care physician. Gallbladder ultrasound showed possible biliary duplex without evidence for wall thickening or. Cholecystic fluid. No definitive evidence for acute intra- abdominal process. EKG showed sinus rhythm. Laboratory data showed WBC 19.1 hemoglobin 14.0 and platelets 302 Sodium 135 potassium 5.1 chloride 99 bicarb is 26 BUN 16 creatinine 0.5 and blood sugar 128 AST 49 ALT is 29 and alk phos 113 amylase 120 lipase 238 urinalysis showed large leukocyte esterase with RBCs and WBCs elevated. Review of Systems Constitutional: Patient denies any fever or chills . no Generalized weakness. Abdomen: Patient did complain of nausea and abdominal pain. no diarrhea. Cardiovascular: Patient denies any chest pain or short of breath no palpitations. Respiratory: patient denied any cough . no sputum production. No shortness of breath Neurologic: Patient denied any numbness or tingling headache. Musculoskeletal: Patient denies any complaints of joint swelling or deformity. Skin: Negative Psychiatric: Negative Endocrine: No heat or cold intolerance. No recent weight gain. Genitourinary: No dysuria or hematuria. All other 14 point ROS negative except the above Past Medical History Past Medical History: Asthma, Cancer, COPD, Fibromyalgia, Hypertension, Osteoarthritis (OA), Thyroid Disorder Additional Past Medical History / Comment(s): Lung cancer 2019 s/p chemo and radiation, recurrence of lung cancer (stage 4) in 2020. Arthritis,depression, osteopenia and seasonal allergies. 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 History of Any Multi-Drug Resistant Organisms: None Reported Past Surgical History: Back Surgery, Breast Surgery, Orthopedic Surgery Additional Past Surgical History / Comment(s): D&C 1972. Colonoscopy with upper endoscopy 2019(next after 5yrs)., MULTIPLE LT HAND SX R/T INJURY. Lumbar laminectomy, hand surgery and breast biopsy. Transesophageal lung biopsy. Past Anesthesia/Blood Transfusion Reactions: Postoperative Nausea & Vomiting (PONV) Additional Past Anesthesia/Blood Transfusion Reaction / Comm: no previous blood transfusion Past Psychological History: Anxiety, Depression Smoking Status: Former smoker Past Alcohol Use History: Rare Past Drug Use History: Marijuana - Past Family History Brother(s) Family Medical History: Cancer, Myocardial Infarction ([place]), Renal Disease Additional Family Medical History / Comment(s): Esophageal cancer, melanoma of the sinuses which led to brain metastases. Renal failure. Another brother had an [place]. Sister(s) Family Medical History: Cancer Additional Family Medical History / Comment(s): Cervical cancer. Another sister had endometrial cancer and another sister had breast cancer. Mother Family Medical History: Cancer Additional Family Medical History / Comment(s): Hodgkin's lymphoma. Son(s) Family Medical History: Cancer Additional Family Medical History / Comment(s): Cholangiocarcinoma. Medications and Allergies Home Medications Medication Instructions Recorded Confirmed Type Ibandronate Sodium [Boniva] 150 mg PO Q30D 06/09/18 01/22/23 History Meloxicam [Mobic] 7.5 mg PO HS 06/09/18 01/22/23 History Montelukast [Singulair] 10 mg PO HS 06/09/18 01/22/23 History Baclofen [Lioresal] 20 mg PO BID 03/25/19 01/22/23 History Levothyroxine Sodium [Synthroid] 50 mcg PO DAILY 03/25/19 01/22/23 History Albuterol Inhaler [Ventolin Hfa 2 puff INHALATION RT-Q4H PRN 01/30/21 01/22/23 History Inhaler] ALPRAZolam [Xanax] 0.25 mg PO DAILY PRN 01/31/21 01/22/23 History Multivitamins, Thera [Multivitamin 1 tab PO DAILY 01/31/21 01/22/23 History (formulary)] Fexofenadine HCl 180 mg PO DAILY 12/08/21 01/22/23 History Fluticasone/Umeclidin/Vilanter 1 puff INHALATION RT-DAILY 12/08/21 01/22/23 History [Trelegy Ellipta 200-62.5-25] HYDROcodone/APAP 10-325MG [[place] 1 tab PO BID 12/08/21 01/22/23 History 10-325] Losartan Potassium 100 mg PO HS 12/08/21 01/22/23 History Venlafaxine HCl [Effexor XR] 300 mg PO DAILY 12/08/21 01/22/23 History Aspirin EC [Ecotrin Low Dose] 81 mg PO HS 01/22/23 01/22/23 History Fluticasone Nasal [place] [Flonase 1 spr EA NOSTRIL DAILY 01/22/23 01/22/23 History Nasal [place]] Folic Acid 1 mg PO DAILY 01/22/23 01/22/23 History Nitroglycerin Sl Tabs [Nitrostat] 0.4 mg SL Q5M PRN 01/22/23 01/22/23 History Pravastatin Sodium [Pravachol] 40 mg PO HS 01/22/23 01/22/23 History Allergies Allergy/AdvReac Type Severity Reaction Status Date / Time meperidine HCl [From Demerol] Allergy Severe Anaphylaxis Verified 01/22/23 10:37 ciprofloxacin [From Cipro] AdvReac Severe Nausea & Verified 01/22/23 10:37 Vomiting morphine AdvReac Severe Vomiting Verified 01/22/23 10:37 Sulfa (Sulfonamide AdvReac Severe Nausea & Verified 01/22/23 10:37 Antibiotics) Vomiting sulfamethoxazole AdvReac Severe Nausea & Verified 01/22/23 10:37 [From Bactrim] Vomiting trimethoprim [From Bactrim] AdvReac Severe Nausea & Verified 01/22/23 10:37 Vomiting Physical Exam Vitals: Vital Signs Temp Pulse Pulse Pulse Resp BP BP 01/22/23 17:15 99 123/68 01/22/23 16:15 105 H 139/59 01/22/23 15:45 98 165/78 01/22/23 15:15 97 176/76 01/22/23 15:00 95 159/72 01/22/23 14:45 98 161/80 01/22/23 14:30 97.8 F 99 18 155/70 01/22/23 14:00 96 16 165/74 01/22/23 13:45 92 16 165/74 01/22/23 13:30 95 16 164/69 01/22/23 13:17 96 16 171/69 01/22/23 13:00 94 16 186/73 01/22/23 12:52 97.5 F L 94 10 L 198/81 01/22/23 10:20 97.9 F 98 16 113/69 01/22/23 09:36 98.0 F 94 18 01/22/23 07:59 97.9 F 98 18 152/60 01/22/23 06:00 67 16 125/60 01/22/23 05:00 68 16 152/84 01/22/23 04:00 76 16 136/64 01/22/23 03:00 87 16 143/67 01/22/23 02:30 66 16 143/67 01/22/23 02:00 68 16 140/57 01/22/23 01:30 70 16 140/57 01/22/23 01:00 68 16 169/89 01/22/23 00:30 80 16 169/89 01/22/23 00:00 78 16 143/81 01/21/23 23:00 80 16 143/81 01/21/23 22:30 78 16 01/21/23 22:00 70 16 156/86 01/21/23 21:30 71 16 163/86 01/21/23 21:00 78 16 157/85 01/21/23 20:30 90 16 159/84 01/21/23 20:00 89 16 205/99 Pulse Ox 01/22/23 17:15 95 01/22/23 16:15 97 01/22/23 15:45 98 01/22/23 15:15 97 01/22/23 15:00 98 01/22/23 14:45 98 01/22/23 14:30 99 01/22/23 14:00 98 01/22/23 13:45 98 01/22/23 13:30 98 01/22/23 13:17 98 01/22/23 13:00 100 01/22/23 12:52 100 01/22/23 10:20 96 01/22/23 09:36 96 01/22/23 07:59 99 01/22/23 06:00 97 01/22/23 05:00 97 01/22/23 04:00 100 01/22/23 03:00 99 01/22/23 02:30 100 01/22/23 02:00 100 01/22/23 01:30 99 01/22/23 01:00 98 01/22/23 00:30 97 01/22/23 00:00 98 01/21/23 23:00 98 01/21/23 22:30 98 01/21/23 22:00 97 01/21/23 21:30 98 01/21/23 21:00 99 01/21/23 20:30 100 01/21/23 20:00 99 Intake and Output 01/22/23 01/22/23 01/22/23 06:59 14:59 22:59 Intake Total 1025 Output Total 10 Balance 1015 Intake: IV 1025 Output: Estimated Blood Loss 10 Other: # Voids 2 Weight 63.503 kg PHYSICAL EXAMINATION: Patient is lying in the bed comfortably, no acute distress, awake alert and oriented.. HEENT: Normocephalic. Neck is supple. Pupils reactive. Nostrils clear. Oral cavity is moist. Neck reveals no JVD, carotid bruits, or thyromegaly. CHEST EXAMINATION: Trachea is central. Symmetrical expansion. Lung khoury clear to auscultation and percussion. CARDIAC: Normal S1, S2 with no gallops. No murmurs ABDOMEN: Soft. Bowel sounds present. Mild tenderness at the surgical site. No guarding or rigidity. CHARLEY drain in place. No organomegaly. No abdominal bruits. Extremities: reveal no edema. No clubbing or cyanosis Neurologically awake, alert, oriented x3 with well-coordinated movements. No focal deficits noted Skin: No rash or skin lesions. Psychiatric: Coperative. Nonsuicidal, Musculoskeletal: No joint swelling or deformity. Normal range of motion. Results CBC & Chem 7: 01/21/23 19:16 01/21/23 19:16 Labs: Abnormal Lab Results - Last 24 Hours (Table) 01/21/23 01/22/23 Range/Units 19:16 00:53 Sodium 135 L (137-145) mmol/L Creatinine 0.50 L (0.52-1.04) mg/dL Glucose 128 H (74-99) mg/dL AST 49 H (14-36) U/L Amylase 120 H (30-110) U/L Ur Specific [place] >1.050 H (1.001-1.035) Urine Protein Trace H (Negative) Urine Ketones Trace H (Negative) Urine Blood Trace H (Negative) Ur Leukocyte Esterase Large H (Negative) Urine RBC 9 H (0-5) /hpf Urine WBC 40 H (0-5) /hpf Urine Bacteria Rare H (None) /hpf Urine Mucus Rare H (None) /hpf Assessment and Plan Assessment: Right upper quadrant abdominal pain with acute cholecystitis status post laparoscopic cholecystectomy postoperative day 0 Stage IV lung cancer currently on follow-up at [facility] COPD Fibromyalgia Hypertension Osteoarthritis Hypothyroidism Anxiety/depression Prior history of smoking DVT prophylaxis with heparin subcu Plan: Patient will be continued on IV hydration and continued antibiotics currently on Unasyn. Patient is status post laparoscopic cholecystectomy Continue with pain management and bowel regimen and incentive spirometry. Continue with home medications and monitor closely. Further recommendations based on clinical course. Follow-up CBC and CMP tomorrow. Thank you for your consult Time with Patient: Greater than 30
[2023-01-23] MEDS: AMPICILLIN-SULBACTAM 3 GM in SODIUM CHLORIDE 0.9% 100 ML IVPB SCH ×2 (04:29→13:57)
[2023-01-23] MEDS: HYDROmorphone 0.5 MG/0.5 ML SYRINGE IVP PRN (05:54)
[2023-01-23] MEDS ORDERED: LEVOTHYROXINE 50 MCG TAB PO SCH (06:30)
[2023-01-23 06:45] VITALS: BP 128/59; TEMP 98.2
[2023-01-23] MEDS ORDERED: SYMBICORT 160-4.5 MCG INHALER INHALATION SCH (08:00)
[2023-01-23] MEDS: IPRATROPIUM 0.5 MG/2.5 ML NEBU INHALATION SCH ×2 (08:23→11:23)
[2023-01-23] MEDS: HEPARIN SODIUM,PORCINE/PF 5,000 UNIT/0.5 ML SYRINGE SQ SCH (08:59)
[2023-01-23] MEDS: BACLOFEN 10 MG TAB PO SCH (08:59)
[2023-01-23] MEDS ORDERED: MULTIVITAMINS, THERA 1 EACH TAB PO SCH (09:00)
[2023-01-23] MEDS ORDERED: LORATADINE 10 MG TAB PO SCH (09:00)
[2023-01-23] MEDS ORDERED: VENLAFAXINE HCL ER 150 MG CAP PO SCH (09:00)
[2023-01-23] MEDS ORDERED: FLUTICASONE 50MCG/SPRAY NASAL 16GM EA NOSTRIL SCH (09:00)
[2023-01-23] MEDS ORDERED: FOLIC ACID 1 MG TAB PO SCH (09:00)
[2023-01-23 09:26] VITALS: RESP 14
[2023-01-23 10:52] LABS: Basophils # (A) 0.03 X 10*3/uL (0.00-0.10); Basophils % (A) 0.4 %; Eosinophils # (A) 0.06 X 10*3/uL (0.04-0.35); Eosinophils % (A) 0.7 %; HCT 38.2 % (37.2-46.3); HGB 11.3 g/dL (12.0-15.0); Immature Grans, Automated 0.4 %; Lymphocytes # (A) 0.64 X 10*3/uL (0.90-5.00); Lymphocytes % (A) 7.8 %; MCH 29.4 pg (27.0-32.0); MCHC 29.6 g/dL (32.0-37.0); MCV 99.2 fL (80.0-97.0); Mean Platelet Volume 10.8 fL (9.5-12.2); Monocytes % (A) 8.5 %; NRBC Per 100 WBC 0 /100 WBCS (0.0-0.0); Neutrophils # (A) 6.74 X 10*3/uL (1.80-7.70); Neutrophils % (A) 82.2 %; Platelet Count 271 X 10*3/uL (140-440); RBC 3.85 X 10*6/uL (4.10-5.20); RDW 12.9 % (11.5-14.5)
[2023-01-23 11:16] LABS: African American GFR (CKD) 102.4 (60.0-200.0); Albumin 3.7 g/dL (3.8-4.9); Albumin/Globulin Ratio 1.6 (1.60-3.17); Anion Gap 8.5 mmol/L (10.00-18.00); BUN/Creat Ratio 12.98 Ratio (12.00-20.00); Blood Urea Nitrogen 7.4 mg/dL (9.0-27.0); Carbon Dioxide 30.2 mmol/L (20.0-27.5); Globulin 2.3 g/dL (1.6-3.3); Non-African American GFR(CKD) 88.3 (60.0-200.0); Potassium 4.3 mmol/L (3.5-5.5); Total Bilirubin 0.3 mg/dL (0.30-1.20)
[2023-01-23 11:35] VITALS: PULSE 95
[2023-01-23] MEDS: D5-0.45% NACL WITH KCL 20MEQ/L 1,000 ML IV SCH (12:39)
--- NOTE | 2023-01-23 13:33 | P.DS ---
Providers Date of admission: 01/21/23 21:59 Expected date of discharge: 01/23/23 Attending physician: Jorge Riggins Consults: 01/22/23 12:36 Consult Physician Routine Consulting Provider: Naomi Zaman Consult Reason/Comments: med mgmt Do you want consulting provider notified?: Yes Primary care physician: Deyanira Riggins Hospital Course: Discharge diagnosis 1. Acute cholecystitis status post Laparoscopic cholecystectomy Hospital course This is a 77-year-old female who presented with right upper quadrant epigastric abdominal pain. Ultrasound had shown evidence of debris and distended gallbladder. Patient diagnosed with acute cholecystitis. She is status post laparoscopic cholecystectomy. Patient tolerated surgery well. Her pain is controlled. She is tolerating diet. She is afebrile. She has been up and ambulating. Her white count has normalized. She is stable for discharge. Please refer to chart for any further details. Physician Medical Insurance Coder note has been reviewed by physician. Signing provider agrees with the documented findings, assessment, and plan of care. Patient Condition at Discharge: Stable Plan - Discharge Summary New Discharge Prescriptions: New Ibuprofen [Motrin] 600 mg PO Q8HR PRN #30 tab PRN Reason: Pain Acetaminophen Tab [Tylenol Tab] 650 mg PO Q4H PRN #30 tablet PRN Reason: Pain Continue Montelukast [Singulair] 10 mg PO HS Ibandronate Sodium [Boniva] 150 mg PO Q30D Levothyroxine Sodium [Synthroid] 50 mcg PO DAILY Baclofen [Lioresal] 20 mg PO BID Albuterol Inhaler [Ventolin Hfa Inhaler] 2 puff INHALATION RT-Q4H PRN PRN Reason: Shortness Of Breath ALPRAZolam [Xanax] 0.25 mg PO DAILY PRN PRN Reason: Anxiety Fluticasone/Umeclidin/Vilanter [Trelegy Ellipta 200-62.5-25] 1 puff INHALATION RT-DAILY Aspirin EC [Ecotrin Low Dose] 81 mg PO HS Nitroglycerin Sl Tabs [Nitrostat] 0.4 mg SL Q5M PRN PRN Reason: Chest Pain Pravastatin Sodium [Pravachol] 40 mg PO HS Multivitamins, Thera [Multivitamin (formulary)] 1 tab PO DAILY Fexofenadine HCl 180 mg PO DAILY HYDROcodone/APAP 10-325MG [[place] 10-325] 1 tab PO BID Losartan Potassium 100 mg PO HS Venlafaxine HCl [Effexor XR] 300 mg PO DAILY Fluticasone Nasal [place] [Flonase Nasal [place]] 1 spr EA NOSTRIL DAILY Folic Acid 1 mg PO DAILY Discontinued Meloxicam [Mobic] 7.5 mg PO HS Discharge Medication List Ibandronate Sodium [Boniva] 150 mg PO Q30D 06/09/18 [History] Montelukast [Singulair] 10 mg PO HS 06/09/18 [History] Baclofen [Lioresal] 20 mg PO BID 03/25/19 [History] Levothyroxine Sodium [Synthroid] 50 mcg PO DAILY 03/25/19 [History] Albuterol Inhaler [Ventolin Hfa Inhaler] 2 puff INHALATION RT-Q4H PRN 01/30/21 [History] ALPRAZolam [Xanax] 0.25 mg PO DAILY PRN 01/31/21 [History] Multivitamins, Thera [Multivitamin (formulary)] 1 tab PO DAILY 01/31/21 [History] Fexofenadine HCl 180 mg PO DAILY 12/08/21 [History] Fluticasone/Umeclidin/Vilanter [Trelegy Ellipta 200-62.5-25] 1 puff INHALATION RT-DAILY 12/08/21 [History] HYDROcodone/APAP 10-325MG [[place] 10-325] 1 tab PO BID 12/08/21 [History] Losartan Potassium 100 mg PO HS 12/08/21 [History] Venlafaxine HCl [Effexor XR] 300 mg PO DAILY 12/08/21 [History] Aspirin EC [Ecotrin Low Dose] 81 mg PO HS 01/22/23 [History] Fluticasone Nasal [place] [Flonase Nasal [place]] 1 spr EA NOSTRIL DAILY 01/22/23 [History] Folic Acid 1 mg PO DAILY 01/22/23 [History] Nitroglycerin Sl Tabs [Nitrostat] 0.4 mg SL Q5M PRN 01/22/23 [History] Pravastatin Sodium [Pravachol] 40 mg PO HS 01/22/23 [History] Acetaminophen Tab [Tylenol Tab] 650 mg PO Q4H PRN #30 tablet 01/23/23 [Rx] Ibuprofen [Motrin] 600 mg PO Q8HR PRN #30 tab 01/23/23 [Rx] Follow up Appointment(s)/Referral(s): Jorge Riggins MD [Medical Doctor] - 1 Week Deyanira Riggins MD [Primary Care Provider] - 1-2 days Activity/Diet/Wound Care/Special Instructions: No driving while taking [place] No lifting over 10 pounds You may shower. No soaking or tub baths for 2 weeks Very light activity until you are reevaluated at your follow up appointment with your surgeon Hold on taking Mobic for 10 days Discharge Disposition: HOME SELF-CARE
--- NOTE | 2023-01-24 16:07 | P.PN ---
Subjective Progress Note Date: 01/23/23 - Reason for Consult Consult date: 01/22/23 Medical management - Chief Complaint S/p laparoscopic cholecystectomy - History of Present Illness Patient is a 77-year-old female with a known history of hypertension, hypothyroidism, fibromyalgia, COPD, history of lung cancer status post chemo and radiation and recurrence in 2019 currently on follow-up at [facility], osteoarthritis, anxiety/depression prior history of smoking presents to ER with complaints of abdominal pain mainly in the epigastric and right upper quadrant. Patient has been having heartburn symptoms for the past 2 weeks. associated with nausea. No episodes of vomiting. She does have GERD symptoms previously but does not seem to be similar pain. Patient was seen at outpatient facility and sent to the hospital for evaluation by her primary care physician. Gallbladder ultrasound showed possible biliary duplex without evidence for wall thickening or. Cholecystic fluid. No definitive evidence for acute intra- abdominal process. EKG showed sinus rhythm. Laboratory data showed WBC 19.1 hemoglobin 14.0 and platelets 302 Sodium 135 potassium 5.1 chloride 99 bicarb is 26 BUN 16 creatinine 0.5 and blood sugar 128 AST 49 ALT is 29 and alk phos 113 amylase 120 lipase 238 urinalysis showed large leukocyte esterase with RBCs and WBCs elevated. 01/23/2023 Patient is seen and evaluated in follow-up post cholecystectomy and doing r elatively well. Patient reports she is being discharged home today. Patient follows with Dr. Riggins in the outpatient setting as well as general surgery Dr. Riggins and has been cleared for discharge today. Patient is afebrile denies chest pain or shortness of breath. Patient tolerating diet with no reports of nausea or vomiting noted. Patient reports the passing gas with no bowel movement as of yet. Review of systems: Constitutional: No reports of fatigue, fever, or chills Cardiovascular: No reports of chest pain or palpitations Respiratory: No reports of shortness of breath or cough GI: No reports of nausea, vomiting, or diarrhea, reports passing gas with no bowel movement as of yet : No reports of dysuria or retention Neurovascular: No reports of weakness or numbness All medications have been reviewed PHYSICAL EXAMINATION: Patient is sitting up at the bedside comfortably, no acute distress, awake alert and oriented.. HEENT: Normocephalic. Neck is supple. Pupils reactive. Nostrils clear. Oral cavity is moist. Neck reveals no JVD, carotid bruits, or thyromegaly. CHEST EXAMINATION: Trachea is central. Symmetrical expansion. Lung khoury clear to auscultation and percussion. CARDIAC: Normal S1, S2 with no gallops. No murmurs ABDOMEN: Soft. Bowel sounds present. Mild tenderness at the surgical site. No guarding or rigidity. CHARLEY drain in place. No organomegaly. No abdominal bruits. Extremities: reveal no edema. No clubbing or cyanosis Neurologically awake, alert, oriented x3 with well-coordinated movements. No focal deficits noted Skin: No rash or skin lesions. Psychiatric: Coperative. Nonsuicidal, Musculoskeletal: No joint swelling or deformity. Normal range of motion. Assessment: Right upper quadrant abdominal pain with acute cholecystitis status post laparoscopic cholecystectomy postoperative day 1 Stage IV lung cancer currently on follow-up at [facility] COPD Fibromyalgia Hypertension Osteoarthritis Hypothyroidism Anxiety/depression Prior history of smoking DVT prophylaxis with heparin subcu Plan: Patient doing relatively well and would like to go home. Patient has been cleared by surgery after medical clearance Patient is status post laparoscopic cholecystectomy Continue with pain management and bowel regimen and incentive spirometry. Encourage the patient to take incentive spirometer home and continue using at least 10 times every hour while awake Recommend follow-up with primary care provider on discharge Home medications have been reviewed and resumed Patient is medically stable for discharge today with close outpatient follow-up with general surgery. Thank you kindly for this consultation. We will continue to follow during hospitalization. The impression and plan of care has been dictated by Nafisa Sellers, Nurse Practitioner as directed. Dr. Ursula MD I have performed a history and examination and MDM of this patient, discussed the same with the dictator, and agree with the dictator's assessment and plan as written ,documented as a scribe. Based on total visit time, I have performed more than 50% of the visit. Objective - Vital Signs Vital signs: Vital Signs Temp 98.2 F 01/23/23 06:40 Pulse 95 01/23/23 11:35 Resp 14 01/23/23 08:00 BP 128/59 01/23/23 06:40 Pulse Ox 95 01/23/23 06:40 FiO2 Intake & Output 01/22/23 01/23/23 01/23/23 18:59 06:59 18:59 Intake Total 1025 240 Output Total 10 Balance 1015 240 Weight 63.503 kg Intake: IV 1025 Oral 240 Output: Estimated Blood Loss 10 Other: Voiding Method Toilet Diaper # Voids 2 2 - Labs CBC & Chem 7: 01/23/23 06:23 01/23/23 06:23 Labs: Abnormal Lab Results - Last 24 Hours (Table) 01/23/23 01/23/23 Range/Units 06:23 06:23 RBC 3.85 L (4.10-5.20) X 10*6/uL Hgb 11.3 L (12.0-15.0) g/dL MCV 99.2 H (80.0-97.0) fL MCHC 29.6 L (32.0-37.0) g/dL Lymphocytes # 0.64 L (0.90-5.00) X 10*3/uL Carbon Dioxide 30.2 H (20.0-27.5) mmol/L Anion Gap 8.50 L (10.00-18.00) mmol/L BUN 7.4 L (9.0-27.0) mg/dL AST 38 H (13-35) U/L Total Protein 6.0 L (6.2-8.2) g/dL Albumin 3.7 L (3.8-4.9) g/dL
== END 2023-01-23 14:31 | disposition home or self-care (01) ==
LOC: EC 17:51 → 6NMEDSUR 21:59
PROVIDERS: ADMIT Surgery; ATTEND Surgery
DX: K80.12 Calculus of gallbladder with acute and chronic cholecystitis without obstruction (principal); K82.1 Hydrops of gallbladder; C34.90 Malignant neoplasm of unspecified part of unspecified bronchus or lung; C79.51 Secondary malignant neoplasm of bone; I10 Essential (primary) hypertension; J44.9 Chronic obstructive pulmonary disease, unspecified; M19.90 Unspecified osteoarthritis, unspecified site; E03.9 Hypothyroidism, unspecified; M79.7 Fibromyalgia; F32.A Depression, unspecified; M85.80 Other specified disorders of bone density and structure, unspecified site; J30.2 Other seasonal allergic rhinitis; F41.9 Anxiety disorder, unspecified; Z79.82 Long term (current) use of aspirin; Z79.1 Long term (current) use of non-steroidal anti-inflammatories (NSAID); Z79.890 Hormone replacement therapy; Z79.83 Long term (current) use of bisphosphonates; Z79.51 Long term (current) use of inhaled steroids; Z79.899 Other long term (current) drug therapy; Z88.1 Allergy status to other antibiotic agents; Z88.2 Allergy status to sulfonamides; Z88.5 Allergy status to narcotic agent; Z85.118 Personal history of other malignant neoplasm of bronchus and lung; Z92.21 Personal history of antineoplastic chemotherapy; Z92.3 Personal history of irradiation; Z87.891 Personal history of nicotine dependence; Z98.890 Other specified postprocedural states; Z82.49 Family history of ischemic heart disease and other diseases of the circulatory system; Z84.2 Family history of other diseases of the genitourinary system; Z80.0 Family history of malignant neoplasm of digestive organs; Z80.49 Family history of malignant neoplasm of other genital organs; Z80.3 Family history of malignant neoplasm of breast; Z80.7 Family history of other malignant neoplasms of lymphoid, hematopoietic and related tissues; Z80.8 Family history of malignant neoplasm of other organs or systems
CPT/HCPCS: 96361; 96374; 96375 ×2; 99285; 36415; 94640 ×4; 94760; 93005; 88304; 80053 ×2; 82150; 83605; 83690; 85025 ×2; 81001; 76705; 47562; G0378 ×3; J0330; J1644 ×3; J2710; J0690; J2405; J3010; J0295 ×3; J1885; J2370; J2704; J1170 ×2; J2001

== ENCOUNTER → 2023-01-21 | Outpatient (CLI) | payer MEDICARE ==
[2023-01-21 12:45] LABS: African American GFR (CKD) >90 (>60 ml/min/1.73 sqM); Blood Urea Nitrogen 16 mg/dL (7-17); Non-African American GFR(CKD) 84 (>60 ml/min/1.73 sqM)
--- NOTE | 2023-01-21 14:38 | CT ---
EXAMINATION TYPE: CT abdomen pelvis w con DATE OF EXAM: 01/21/2023 COMPARISON: 02/06/21 HISTORY: abdominal pain and nausea. hx of lung ca CT DLP: 763.80 mGycm CONTRAST: CT scan of the abdomen and pelvis is performed with Oral Contrast and with IV Contrast, patient injec phani with 100 mL of Isovue 300. FINDINGS: LUNG BASES-: No visible nodule. No infiltrate. LIVER/GB: There is gallbladder hydrops at 10 cm greatest dimension. No space occupying hepatic les ion. Biliary tree is of normal caliber. PANCREAS: No inflammation. No distinct mass. SPLEEN: No splenic enlargement. No lesion seen. ADRENALS: No nodule. No thickening. KIDNEYS/BLADDER: No hydronephrosis. No nephrolithiasis. No distinct renal mass. Urinary bladder g rossly unremarkable. BOWEL: Normal appendix. Normal bowel caliber. No inflammation. Sigmoid diverticulosis without diver ticulitis. GENITAL ORGANS: No gross abnormality. LYMPH NODES: No greater than 1cm abdominal or pelvic lymph nodes are appreciated. AORTA: No significant abnormality. OSSEOUS STRUCTURES: No significant abnormality is seen. OTHER: No significant additional abnormality is seen. IMPRESSION: 1. Gallbladder hydrops otherwise unremarkable study
== END | disposition home or self-care (01) ==
LOC: RADCTMAIN 12:04
PROVIDERS: ATTEND Family Medicine
DX: K82.1 Hydrops of gallbladder (principal); R10.84 Generalized abdominal pain; R11.0 Nausea
CPT/HCPCS: 82565; 84520; 74177; 36415; Q9967

== ENCOUNTER 2023-01-27 12:51 | Emergency (ER) | payer MEDICARE ==
--- NOTE | 2023-01-27 13:37 | ED ---
General Adult HPI - General Chief complaint: Nausea/Vomiting/Diarrhea Stated complaint: fatigue, weakness post op Time Seen by Provider: 01/27/23 13:17 Source: patient Mode of arrival: wheelchair Limitations: no limitations - History of Present Illness Initial comments: Dictation was produced using [employer] dictation software. please excuse any gramm atical, word or spelling errors. Chief Complaint: 77-year-old female past medical history lung cancer with metastatic disease presents to the ER for altered mental status History of Present Illness: Patient is 77-year-old female she is also a 5 status post laparoscopic cholecystectomy. States that she is here for evaluation of altered mental status. Patient was at home by herself. Her son was with her last night when she seemed to be fine. Somewhat to go check on her this morning and the house was disheveled patient seemed to be altered. He is brought to the ER by [id number]. [id number] states the patient does seem back to baseline. Patient's postoperative recovery is going well. Denies any complaints at this time. Denies any fever, chills or night sweats. No neck pain or neck stiffness. She states that she does not have any complaints of postoperative pain. Patient reports that she knew that she was confused The ROS documented in this emergency department record has been reviewed and confirmed by me. Those systems with pertinent positive or negative responses have been documented in the HPI. All other systems are other negative and/or noncontributory. - Related Data Home Medications Medication Instructions Recorded Confirmed Ibandronate Sodium [Boniva] 150 mg PO Q30D 06/09/18 01/27/23 Montelukast [Singulair] 10 mg PO HS 06/09/18 01/27/23 Baclofen [Lioresal] 20 mg PO BID 03/25/19 01/27/23 Levothyroxine Sodium [Synthroid] 50 mcg PO DAILY 03/25/19 01/27/23 Albuterol Inhaler [Ventolin Hfa 2 puff INHALATION RT-Q4H PRN 01/30/21 01/27/23 Inhaler] ALPRAZolam [Xanax] 0.25 mg PO DAILY PRN 01/31/21 01/27/23 Multivitamins, Thera [Multivitamin 1 tab PO DAILY 01/31/21 01/27/23 (formulary)] Fexofenadine HCl 180 mg PO DAILY 12/08/21 01/27/23 Fluticasone/Umeclidin/Vilanter 1 puff INHALATION RT-DAILY 12/08/21 01/27/23 [Trelegy Ellipta 200-62.5-25] HYDROcodone/APAP 10-325MG [Hymera 1 tab PO BID 12/08/21 01/27/23 10-325] Losartan Potassium 100 mg PO HS 12/08/21 01/27/23 Venlafaxine HCl [Effexor XR] 300 mg PO DAILY 12/08/21 01/27/23 Aspirin EC [Ecotrin Low Dose] 81 mg PO HS 01/22/23 01/27/23 Fluticasone Nasal Jackson [Flonase 1 spr EA NOSTRIL DAILY 01/22/23 01/27/23 Nasal Jackson] Folic Acid 1 mg PO DAILY 01/22/23 01/27/23 Nitroglycerin Sl Tabs [Nitrostat] 0.4 mg SL Q5M PRN 01/22/23 01/27/23 Pravastatin Sodium [Pravachol] 40 mg PO HS 01/22/23 01/27/23 Previous Rx's Medication Instructions Recorded Acetaminophen Tab [Tylenol Tab] 650 mg PO Q4H PRN #30 tablet 01/23/23 Ibuprofen [Motrin] 600 mg PO Q8HR PRN #30 tab 01/23/23 Allergies Allergy/AdvReac Type Severity Reaction Status Date / Time meperidine HCl [From Demerol] Allergy Severe Anaphylaxis Verified 01/27/23 14:46 ciprofloxacin [From Cipro] AdvReac Severe Nausea & Verified 01/27/23 14:46 Vomiting morphine AdvReac Severe Vomiting Verified 01/27/23 14:46 Sulfa (Sulfonamide AdvReac Severe Nausea & Verified 01/27/23 14:46 Antibiotics) Vomiting sulfamethoxazole AdvReac Severe Nausea & Verified 01/27/23 14:46 [From Bactrim] Vomiting trimethoprim [From Bactrim] AdvReac Severe Nausea & Verified 01/27/23 14:46 Vomiting Review of Systems ROS Statement: Those systems with pertinent positive or pertinent negative responses have been documented in the HPI. ROS Other: All systems not noted in ROS Statement are negative. Past Medical History Past Medical History: Asthma, Cancer, COPD, Fibromyalgia, Hypertension, Osteoarthritis (OA), Thyroid Disorder Additional Past Medical History / Comment(s): Lung cancer 2019 s/p chemo and radiation, recurrence of lung cancer (stage 4) in 2020. Arthritis,depression, osteopenia and seasonal allergies. 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 History of Any Multi-Drug Resistant Organisms: None Reported Past Surgical History: Back Surgery, Breast Surgery, Cholecystectomy, Orthopedic Surgery Additional Past Surgical History / Comment(s): D&C 1972. Colonoscopy with upper endoscopy 2019(next after 5yrs)., MULTIPLE LT HAND SX R/T INJURY. Lumbar laminectomy, hand surgery and breast biopsy. Transesophageal lung biopsy. Past Anesthesia/Blood Transfusion Reactions: Postoperative Nausea & Vomiting (PONV) Additional Past Anesthesia/Blood Transfusion Reaction / Comment(s): no previous blood transfusion Past Psychological History: Anxiety, Depression Smoking Status: Former smoker Past Alcohol Use History: Rare Past Drug Use History: Marijuana - Past Family History Brother(s) Family Medical History: Cancer, Myocardial Infarction (VA), Renal Disease Additional Family Medical History / Comment(s): Esophageal cancer, melanoma of the sinuses which led to brain metastases. Renal failure. Another brother had an VA. Sister(s) Family Medical History: Cancer Additional Family Medical History / Comment(s): Cervical cancer. Another sister had endometrial cancer and another sister had breast cancer. Mother Family Medical History: Cancer Additional Family Medical History / Comment(s): Hodgkin's lymphoma. Son(s) Family Medical History: Cancer Additional Family Medical History / Comment(s): Cholangiocarcinoma. General Exam - General Exam Comments Initial Comments: PHYSICAL EXAM: General Impression: Alert and oriented x3, not in acute distress HEENT: Normocephalic atraumatic, extra-ocular movements intact, pupils equal and reactive to light bilaterally, mucous membranes moist. Cardiovascular: Heart regular rate and rhythm Chest: Able to complete full sentences, no retractions, no tachypnea Abdomen: abdomen soft, non-tender, non-distended, no organomegaly, surgical sites clean and dry intact Musculoskeletal: Pulses present and equal in all extremities, no peripheral edema Motor: no focal deficits noted Neurological: CN II-XII grossly intact, no focal motor or sensory deficits noted Skin: Intact with no visualized rashes Psych: Normal affect and mood Limitations: no limitations Course Vital Signs 01/27/23 01/27/23 13:11 15:04 Temperature 97.9 F Pulse Rate 106 H 100 Respiratory 18 20 Rate Blood Pressure 138/78 138/85 O2 Sat by Pulse 96 95 Oximetry EKG Findings - EKG Comments: EKG Findings:: My EKG interpretation: Ventricular rate 101, sinus tachycardia,. Interval T12, QRS 64, QTc 412. No MA prolongation, no QTC prolongation, no ST or T-wave changes noted. . Overall, this EKG is unremarkable Medical Decision Making - Medical Decision Making Was pt. sent in by a medical professional or institution (, PA, MANAGER OF PURCHASING, urgent care, hospital, or long term...) When possible be specific @ -No Did you speak to anyone other than the patient for history (EMS, parent, family, police, friend...)? What history was obtained from this source @ -[id number] at the bedside Did you review nursing and triage notes (agree or disagree)? Why? @ -I reviewed and agree with nursing and triage notes Were old charts reviewed (outside hosp., previous admission, EMS record, old EKG , old radiological studies, urgent care reports/EKG's, long term records)? Report findings @ -Recent documentation from hospitalization was reviewed. Patient had recent laparoscopic cholecystectomy Differential Diagnosis (chest pain, altered mental status, abdominal pain women, abdominal pain men, vaginal bleeding, musculoskeletal, weakness, fever, dyspnea, syncope, headache, dizziness, GI bleed, back pain, seizure, CVA, palpatations, mental health)? @ -Differential Altered Mental Status: Hypoglycemia, DKA, hypercapnia, ETOH, overdose, CO poisoning, trauma, myxedema coma, HTN encephalopathy, infection, encephalitis, psychosis, intercranial hemorrhage, hepatic encephalopathy, meningitis, CVA, this is not meant to be an all-inclusive list EKG interpreted by me (3pts min.). @ -See above X-rays interpreted by me (1pt min.). @ -None done CT interpreted by me (1pt min.). @ -No acute processes U/S interpreted by me (1pt. min.). @ -None done What testing was considered but not performed or refused? (CT, X-rays, U/S, labs)? Why? @ -None What meds were considered but not given or refused? Why? @ -None Did you discuss the management of the patient with other professionals (black [place] i.e. , PA, MANAGER OF PURCHASING, lab, RT, psych nurse, case management social worker, seater assembler, teacher, assurance officer, rn case management)? Give summary @ -No Was smoking cessation discussed for >3mins.? @ -No Was critical care preformed (if so, how long)? @ -No Were there social determinants of health that impacted care today? How? (Homelessness, low income, unemployed, alcoholism, drug addiction, transportation, low edu. Level, literacy, decrease access to med. care, senior care, rehab)? @ -No Was there de-escalation of care discussed even if they declined (Discuss DNR or withdrawal of care, Hospice)? DNR status @ -No What co-morbidities impacted this encounter? (DM, HTN, Smoking, COPD, CAD, Cancer, CVA, ARF, Chemo, Hep., AIDS, mental health diagnosis, sleep apnea, morbid obesity)? @ -None Was patient admitted / discharged? Hospital course, mention meds given and route, prescriptions, significant lab abnormalities, going to OR and other pertinent info. @ -77 Year-old female presents emergency department for an episode of altered mental status. Patient will. The bedside she denies any symptoms. Labs are unremarkable. Urinalysis is negative. Computed tomography scan of the brain is negative. Patient observed in emergency department for 4 hours. Reevaluation at bedside 5:00 PM. Disposition options were discussed she would prefer to be discharge. [id number] states that the last time this occurred she had taken one to many pills of her Hymera. Return precautions discussed. Undiagnosed new problem with uncertain prognosis? @ -No Drug Therapy requiring intensive monitoring for toxicity (Heparin, Nitro, Insulin, Cardizem)? @ -No Were any procedures done? @ -No Diagnosis/symptom? Acute, or Chronic, or Acute on Chronic? Uncomplicated (without systemic symptoms) or Complicated (systemic symptoms)? @ -1. Episode of altered mental status Side effects of treatment? @ -No Exacerbation, Progression, or Severe Exacerbation? @ -No Poses a threat to life or bodily function? How? (Chest pain, [place], [place], pneumonia, PE, COPD, DKA, ARF, appy, cholecystitis, CVA, Diverticulitis, Homicidal, Suicidal, threat to staff... and all critical care pts) @ -No - Lab Data Result diagrams: 01/27/23 13:48 01/27/23 14:20 Lab Results 01/27/23 01/27/23 01/27/23 Range/Units 13:48 13:48 13:58 WBC 11.9 H (3.8-10.6) k/uL RBC 4.26 (3.80-5.40) m/uL Hgb 12.9 (11.4-16.0) gm/dL Hct 38.9 (34.0-46.0) % MCV 91.3 (80.0-100.0) fL MCH 30.3 (25.0-35.0) pg MCHC 33.2 (31.0-37.0) g/dL RDW 13.0 (11.5-15.5) % Plt Count 277 (150-450) k/uL MPV 8.4 Neutrophils % 84 % Lymphocytes % 6 % Monocytes % 7 % Eosinophils % 2 % Basophils % 0 % Neutrophils # 10.0 H (1.3-7.7) k/uL Lymphocytes # 0.7 L (1.0-4.8) k/uL Monocytes # 0.8 (0-1.0) k/uL Eosinophils # 0.2 (0-0.7) k/uL Basophils # 0.0 (0-0.2) k/uL Sodium (137-145) mmol/L Potassium (3.5-5.1) mmol/L Chloride (98-107) mmol/L Carbon Dioxide (22-30) mmol/L Anion Gap mmol/L BUN (7-17) mg/dL Creatinine (0.52-1.04) mg/dL Est GFR (CKD-EPI)AfAm (>60 ml/min/1.73 sqM) Est GFR (CKD-EPI)NonAf (>60 ml/min/1.73 sqM) Glucose (74-99) mg/dL Plasma Lactic Acid Renato (0.7-2.0) mmol/L Calcium (8.4-10.2) mg/dL Magnesium (1.6-2.3) mg/dL Total Bilirubin (0.2-1.3) mg/dL AST (14-36) U/L ALT (4-34) U/L Alkaline Phosphatase (38-126) U/L Ammonia (<30) umol/L Total Protein (6.3-8.2) g/dL Albumin (3.5-5.0) g/dL TSH (0.465-4.680) mIU/L Urine Color Colorless Urine Appearance Clear (Clear) Urine pH 7.0 (5.0-8.0) Ur Specific [place] 1.003 (1.001-1.035) Urine Protein Negative (Negative) Urine Glucose (UA) Negative (Negative) Urine Ketones Negative (Negative) Urine Blood Negative (Negative) Urine Nitrite Negative (Negative) Urine Bilirubin Negative (Negative) Urine Urobilinogen <2.0 (<2.0) mg/dL Ur Leukocyte Esterase Negative (Negative) Influenza Type A (PCR) Not Detected (Not Detectd) Influenza Type B (PCR) Not Detected (Not Detectd) RSV (PCR) Not Detected (Not Detectd) SARS-CoV-2 (PCR) Not Detected (Not Detectd) 01/27/23 01/27/23 Range/Units 14:20 14:20 WBC (3.8-10.6) k/uL RBC (3.80-5.40) m/uL Hgb (11.4-16.0) gm/dL Hct (34.0-46.0) % MCV (80.0-100.0) fL MCH (25.0-35.0) pg MCHC (31.0-37.0) g/dL RDW (11.5-15.5) % Plt Count (150-450) k/uL MPV Neutrophils % % Lymphocytes % % Monocytes % % Eosinophils % % Basophils % % Neutrophils # (1.3-7.7) k/uL Lymphocytes # (1.0-4.8) k/uL Monocytes # (0-1.0) k/uL Eosinophils # (0-0.7) k/uL Basophils # (0-0.2) k/uL Sodium 135 L (137-145) mmol/L Potassium 4.1 (3.5-5.1) mmol/L Chloride 99 (98-107) mmol/L Carbon Dioxide 31 H (22-30) mmol/L Anion Gap 5 mmol/L BUN 15 (7-17) mg/dL Creatinine 0.52 (0.52-1.04) mg/dL Est GFR (CKD-EPI)AfAm >90 (>60 ml/min/1.73 sqM) Est GFR (CKD-EPI)NonAf >90 (>60 ml/min/1.73 sqM) Glucose 99 (74-99) mg/dL Plasma Lactic Acid Renato 0.9 (0.7-2.0) mmol/L Calcium 9.2 (8.4-10.2) mg/dL Magnesium 1.8 (1.6-2.3) mg/dL Total Bilirubin 0.6 (0.2-1.3) mg/dL AST 29 (14-36) U/L ALT 33 (4-34) U/L Alkaline Phosphatase 114 (38-126) U/L Ammonia <9 (<30) umol/L Total Protein 6.3 (6.3-8.2) g/dL Albumin 3.6 (3.5-5.0) g/dL TSH 3.170 (0.465-4.680) mIU/L Urine Color Urine Appearance (Clear) Urine pH (5.0-8.0) Ur Specific [place] (1.001-1.035) Urine Protein (Negative) Urine Glucose (UA) (Negative) Urine Ketones (Negative) Urine Blood (Negative) Urine Nitrite (Negative) Urine Bilirubin (Negative) Urine Urobilinogen (<2.0) mg/dL Ur Leukocyte Esterase (Negative) Influenza Type A (PCR) (Not Detectd) Influenza Type B (PCR) (Not Detectd) RSV (PCR) (Not Detectd) SARS-CoV-2 (PCR) (Not Detectd) Disposition Clinical Impression: Altered mental status Disposition: HOME SELF-CARE Condition: Good Instructions (If sedation given, give patient instructions): Altered Mental Status (ED) Is patient prescribed a controlled substance at d/c from ED?: No Referrals: Deaynira Riggins MD [Primary Care Provider] - 1-2 days Time of Disposition: 16:30
[2023-01-27 13:56] LABS: Basophils % (A) 0 %; Eosinophils # (A) 0.2 k/uL (0-0.7); Eosinophils % (A) 2 %; HCT 38.9 % (34.0-46.0); HGB 12.9 gm/dL (11.4-16.0); Lymphocytes # (A) 0.7 k/uL (1.0-4.8); Lymphocytes % (A) 6 %; MCH 30.3 pg (25.0-35.0); MCHC 33.2 g/dL (31.0-37.0); MCV 91.3 fL (80.0-100.0); Mean Platelet Volume 8.4; Monocytes # (A) 0.8 k/uL (0-1.0); Monocytes % (A) 7 %; Neutrophils % (A) 84 %; Platelet Count 277 k/uL (150-450); RBC 4.26 m/uL (3.80-5.40); WBC 11.9 k/uL (3.8-10.6)
[2023-01-27 14:17] LABS: Appearance,Urine Clear (Clear); Bilirubin,Urine Negative (Negative); Blood,Urine Negative (Negative); Color,Urine Colorless; Glucose,Urine (UA) Negative (Negative); Ketones,Urine Negative (Negative); Leukocyte Esterase,Urine Negative (Negative); Nitrite,Urine Negative (Negative); Protein,Urine Negative (Negative); Specific Gravity,Urine 1.003 (1.001-1.035); Urobilinogen,Urine <2.0 mg/dL (<2.0)
--- NOTE | 2023-01-27 14:23 | CT ---
EXAMINATION TYPE: CT brain wo con CT DLP: 1056.6 mGycm, Automated exposure control for dose reduction was used. DATE OF EXAM: 01/27/2023 2:16 PM COMPARISON: PET/CT 04/07/2020 CLINICAL INDICATION:Female, 77 years old with history of altered mental status, DIZZY TECHNIQUE: Brain: Multiple axial CT images of the brain were obtained without IV contrast. Coronal and sagittal reformats reviewed. FINDINGS: Brain: Extra-axial spaces: No abnormal extra-axial fluid collections. Ventricular system: Within normal limits Cerebral parenchyma: Cerebral atrophy. No acute intraparenchymal hemorrhage or mass effect. The ambrosio -white junction is well differentiated. Scattered hypoattenuating areas are seen within the white mat ter. Cerebellum: Unremarkable. Mass effect: No evidence of midline shift. Intracranial vasculature: Atherosclerotic calcifications of the intracranial vessels. Soft tissues: Normal. Calvarium/osseous structures: No depressed skull fracture. Paranasal sinuses and mastoid air cells: Mild scattered paranasal sinus disease. Visualized orbits: Orbital contents are intact. IMPRESSION: 1. No acute intracranial process. 2. Cerebral atrophy with nonspecific white matter changes, likely secondary to chronic small vessel i schemic disease.
[2023-01-27 15:08] LABS: Lactic Acid, Venous 0.9 mmol/L (0.7-2.0)
[2023-01-27 15:11] LABS: ALT 33 U/L (4-34); AST 29 U/L (14-36); African American GFR (CKD) >90 (>60 ml/min/1.73 sqM); Albumin 3.6 g/dL (3.5-5.0); Alkaline Phosphatase 114 U/L (38-126); Anion Gap 5 mmol/L; Blood Urea Nitrogen 15 mg/dL (7-17); Calcium 9.2 mg/dL (8.4-10.2); Carbon Dioxide 31 mmol/L (22-30); Chloride 99 mmol/L (98-107); Glucose 99 mg/dL (74-99); Magnesium 1.8 mg/dL (1.6-2.3); Non-African American GFR(CKD) >90 (>60 ml/min/1.73 sqM); Potassium 4.1 mmol/L (3.5-5.1); Sodium 135 mmol/L (137-145); Total Bilirubin 0.6 mg/dL (0.2-1.3); Total Protein 6.3 g/dL (6.3-8.2)
[2023-01-27 17:15] VITALS: BP 132/75; PULSE 90; RESP 17; TEMP 97.8
== END 2023-01-27 17:25 | disposition home or self-care (01) ==
LOC: EC 12:51
DX: R41.82 Altered mental status, unspecified (principal); I10 Essential (primary) hypertension; J44.9 Chronic obstructive pulmonary disease, unspecified; F32.A Depression, unspecified; F41.9 Anxiety disorder, unspecified; M19.90 Unspecified osteoarthritis, unspecified site; Z79.1 Long term (current) use of non-steroidal anti-inflammatories (NSAID); Z79.82 Long term (current) use of aspirin; Z79.899 Other long term (current) drug therapy; Z87.891 Personal history of nicotine dependence; Z88.1 Allergy status to other antibiotic agents; Z88.2 Allergy status to sulfonamides; Z88.5 Allergy status to narcotic agent; Z20.822 Contact with and (suspected) exposure to COVID-19; Z90.49 Acquired absence of other specified parts of digestive tract
CPT/HCPCS: 36415; 70450; 80053; 81003; 82140; 83605; 83735; 84443; 85025; 87636; 93005; 99284

== ENCOUNTER → 2023-01-31 | Outpatient (CLI) | payer MEDICARE ==
--- NOTE | 2023-01-31 21:00 | MR ---
EXAMINATION TYPE: MR brain wo con DATE OF EXAM: 01/31/2023 8:55 PM COMPARISON: NONE HISTORY: Hallucinations. FINDINGS: The ventricles, basal cisterns and sulci overlying the cerebral convexities are mildly enlarged. There is evidence of mild periventricular white matter ischemic demyelination. Remote deep white matter insults are also noted. No acute edema is seen on diffusion weighted imaging. There is no evidence for midline shift or mass effect. Acute intracranial hemorrhage or extra-axial collection is not evident. The paranasal sinuses and mastoid air cells are well-aerated. IMPRESSION: Age-related atrophic and chronic small vessel ischemic change. No acute intracranial process at this time.
== END | disposition home or self-care (01) ==
LOC: RADMRIMAIN 20:15
PROVIDERS: ATTEND Family Medicine
DX: I67.82 Cerebral ischemia (principal); G31.1 Senile degeneration of brain, not elsewhere classified; R44.3 Hallucinations, unspecified
CPT/HCPCS: 70551

== ENCOUNTER 2023-02-20 11:38 | Emergency (ER) | payer MEDICARE ==
[2023-02-20 11:49] VITALS: RESP 18; TEMP 98
[2023-02-20] MEDS ORDERED: SODIUM CHLORIDE 0.9% 500 ML 500 ML IV STA (12:23)
--- NOTE | 2023-02-20 12:26 | ED ---
General Adult HPI - General Chief complaint: Abdominal Pain Stated complaint: Abd pain Time Seen by Provider: 02/20/23 12:00 Source: patient, EMS, RN notes reviewed, old records reviewed Mode of arrival: EMS - History of Present Illness Initial comments: This is a 77-year-old female who presents emergency Department complaining of abdominal pain. Patient states is the middle to the epigastric region. Patient states a month ago she had a cholecystectomy by Dr. Riggins per patient states she's had some issues since then and she also states she has had a rectocele for a while she is post get that repaired but has not per patient states last couple days with diarrhea and she is sometimes not able to make it to the bathroom and it's leaking and she is having a little bit incontinent. Patient states that in route. And then she had fentanyl and Zofran so she's having no pain whatsoever. Patient states she has been nauseated but no vomiting. Patient's any fever chills per patient chest pain difficulty breathing first breath per patient has any back pain. Patient denies any dysuria hematuria urinary frequency. - Related Data Home Medications Medication Instructions Recorded Confirmed Ibandronate Sodium [Boniva] 150 mg PO Q30D 06/09/18 02/20/23 Montelukast [Singulair] 10 mg PO HS 06/09/18 02/20/23 Baclofen [Lioresal] 20 mg PO BID 03/25/19 02/20/23 Levothyroxine Sodium [Synthroid] 50 mcg PO DAILY 03/25/19 02/20/23 Albuterol Inhaler [Ventolin Hfa 2 puff INHALATION RT-Q4H PRN 01/30/21 02/20/23 Inhaler] ALPRAZolam [Xanax] 0.25 mg PO DAILY PRN 01/31/21 02/20/23 Multivitamins, Thera [Multivitamin 1 tab PO DAILY 01/31/21 02/20/23 (formulary)] Fexofenadine HCl 180 mg PO DAILY 12/08/21 02/20/23 Fluticasone/Umeclidin/Vilanter 1 puff INHALATION RT-DAILY 12/08/21 02/20/23 [Trelegy Ellipta 200-62.5-25] HYDROcodone/APAP 10-325MG [[place] 1 tab PO BID 12/08/21 02/20/23 10-325] Losartan Potassium 100 mg PO HS 12/08/21 02/20/23 Venlafaxine HCl [Effexor XR] 300 mg PO DAILY 12/08/21 02/20/23 Aspirin EC [Ecotrin Low Dose] 81 mg PO HS 01/22/23 02/20/23 Fluticasone Nasal [place] [Flonase 1 spr EA NOSTRIL DAILY 01/22/23 02/20/23 Nasal [place]] Folic Acid 1 mg PO DAILY 01/22/23 02/20/23 Nitroglycerin Sl Tabs [Nitrostat] 0.4 mg SL Q5M PRN 01/22/23 02/20/23 Pravastatin Sodium [Pravachol] 40 mg PO HS 01/22/23 02/20/23 Cholestyramine (with Sugar) 4 gm PO BID 02/20/23 02/20/23 [Questran] Previous Rx's Medication Instructions Recorded Acetaminophen Tab [Tylenol Tab] 650 mg PO Q4H PRN #30 tablet 01/23/23 Ibuprofen [Motrin] 600 mg PO Q8HR PRN #30 tab 01/23/23 Allergies Allergy/AdvReac Type Severity Reaction Status Date / Time meperidine HCl [From Demerol] Allergy Severe Anaphylaxis Verified 02/20/23 13:28 ciprofloxacin [From Cipro] AdvReac Severe Nausea & Verified 02/20/23 13:28 Vomiting morphine AdvReac Severe Vomiting Verified 02/20/23 13:28 Sulfa (Sulfonamide AdvReac Severe Nausea & Verified 02/20/23 13:28 Antibiotics) Vomiting sulfamethoxazole AdvReac Severe Nausea & Verified 02/20/23 13:28 [From Bactrim] Vomiting trimethoprim [From Bactrim] AdvReac Severe Nausea & Verified 02/20/23 13:28 Vomiting Review of Systems ROS Statement: Those systems with pertinent positive or pertinent negative responses have been documented in the HPI. ROS Other: All systems not noted in ROS Statement are negative. Past Medical History Past Medical History: Asthma, Cancer, COPD, Fibromyalgia, Hypertension, Osteoarthritis (OA), Thyroid Disorder Additional Past Medical History / Comment(s): Lung cancer 2019 s/p chemo and radiation, recurrence of lung cancer (stage 4) in 2020. Arthritis,depression, osteopenia and seasonal allergies. 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 History of Any Multi-Drug Resistant Organisms: None Reported Past Surgical History: Back Surgery, Breast Surgery, Cholecystectomy, Orthopedic Surgery Additional Past Surgical History / Comment(s): D&C 1972. Colonoscopy with upper endoscopy 2019(next after 5yrs)., MULTIPLE LT HAND SX R/T INJURY. Lumbar laminectomy, hand surgery and breast biopsy. Transesophageal lung biopsy. Past Anesthesia/Blood Transfusion Reactions: Postoperative Nausea & Vomiting (PONV) Additional Past Anesthesia/Blood Transfusion Reaction / Comment(s): no previous blood transfusion Past Psychological History: Anxiety, Depression Smoking Status: Former smoker Past Alcohol Use History: Rare Past Drug Use History: Marijuana - Past Family History Brother(s) Family Medical History: Cancer, Myocardial Infarction ([place]), Renal Disease Additional Family Medical History / Comment(s): Esophageal cancer, melanoma of the sinuses which led to brain metastases. Renal failure. Another brother had an [place]. Sister(s) Family Medical History: Cancer Additional Family Medical History / Comment(s): Cervical cancer. Another sister had endometrial cancer and another sister had breast cancer. Mother Family Medical History: Cancer Additional Family Medical History / Comment(s): Hodgkin's lymphoma. Son(s) Family Medical History: Cancer Additional Family Medical History / Comment(s): Cholangiocarcinoma. General Exam - General Exam Comments Initial Comments: GENERAL: Patient is well-developed and well-nourished. Patient is nontoxic and well- hydrated and is in mild distress. ENT: Neck is soft and supple. No significant lymphadenopathy is noted. Oropharynx is clear. Moist mucous membranes. Neck has full range of motion without eliciting any pain. EYES: The sclera were anicteric and conjunctiva were pink and moist. Extraocular movements were intact and pupils were equal round and reactive to light. Eyelids were unremarkable. PULMONARY: Unlabored respirations. Good breath sounds bilaterally. No audible rales rhonchi or wheezing was noted. CARDIOVASCULAR: There is a regular rate and rhythm without any murmurs gallops or rubs. ABDOMEN: Minimal epigastric abdominal tenderness SKIN: Skin is clear with no lesions or rashes and otherwise unremarkable. NEUROLOGIC: Patient is alert and oriented x3. Cranial nerves II through XII are grossly intact. Motor and sensory are also intact. Normal speech, volume and content. Symmetrical smile. MUSCULOSKELETAL: Normal extremities with adequate strength and full range of motion. LYMPHATICS: No significant lymphadenopathy is noted PSYCHIATRIC: Normal psychiatric evaluation. Course Vital Signs 02/20/23 02/20/23 02/20/23 11:46 13:47 14:11 Temperature 98.0 F Pulse Rate 78 114 H 11 L Respiratory 18 18 18 Rate Blood Pressure 149/84 137/84 177/98 O2 Sat by Pulse 98 94 L 95 Oximetry Medical Decision Making - Medical Decision Making Was pt. sent in by a medical professional or institution (, PA, LITIGATOR, urgent care, hospital, or [facility]...) When possible be specific @ -No Did you speak to anyone other than the patient for history (EMS, parent, family, police, friend...)? What history was obtained from this source @ -I spoke to but about this patient Did you review nursing and triage notes (agree or disagree)? Why? @ -[I reviewed and agree with nursing and triage notes] Were old charts reviewed (outside hosp., previous admission, EMS record, old EKG, old radiological studies, urgent care reports/EKG's, [facility] records)? Report findings @ -I reviewed prior charts and lab work on this patient Differential Diagnosis (chest pain, altered mental status, abdominal pain women, abdominal pain men, vaginal bleeding, weakness, fever, dyspnea, syncope, he adache, dizziness, GI bleed, back pain, seizure, CVA, palpatations, mental health, musculoskeletal)? @ -Differential Abdominal Pain Women: Appendicitis, Cholecystitis, diverticulosis, ischemic bowel, pancreatitis, hepatitis, UTI, gastroenteritis, AAA, incarcerated hernia, bowel obstruction, constipation, inflammatory bowel, hepatitis, peptic ulcer disease, splenic infarction, perforated viscus, vulvitis, ovarian torsion, PID, kidney stone, placenta abruption, this is not meant to be an all-inclusive list EKG interpreted by me (3pts min.). @ -[As above] X-rays interpreted by me (1pt min.). @ -[None done] CT interpreted by me (1pt min.). @ -[None done] U/S interpreted by me (1pt. min.). @ -[None done] What testing was considered but not performed or refused? (CT, X-rays, U/S, labs)? Why? @ -I did consider doing a CAT scan this patient however the patient had no pain during the ED stay and I spoke with Dr. Torre he was in agreement with this and he will follow-up with the patient as an outpatient What meds were considered but not given or refused? Why? @ -[None] Did you discuss the management of the patient with other professionals (professionals i.e. , PA, LITIGATOR, lab, RT, psych nurse, social director, strike warfare/missile systems officer, teacher, deputy probation officer, patient case coordinator)? Give summary @ -Dr. Riggins about this patient's Was smoking cessation discussed for >3mins.? @ -[No] Was critical care preformed (if so, how long)? @ -[No] Were there social determinants of health that impacted care today? How? (Homelessness, low income, unemployed, alcoholism, drug addiction, transportation, low edu. Level, literacy, decrease access to med. care, nursing home, rehab)? @ -[No] Was there de-escalation of care discussed even if they declined (Discuss DNR or withdrawal of care, Hospice)? DNR status @ -[No] What co-morbidities impacted this encounter? (DM, HTN, Smoking, COPD, CAD, Cancer, CVA, ARF, Chemo, Hep., AIDS, mental health diagnosis, sleep apnea, morbid obesity)? @ -[None] Was patient admitted / discharged? Hospital course, mention meds given and route, prescriptions, significant lab abnormalities, going to OR and other pertinent info. @ -Received fentanyl and Zofran in the ambulance and had no pain ever since patient was pain-free in the emergency room patient was able to ambulate without pain. Patient had no vomiting or diarrhea in emergency department Undiagnosed new problem with uncertain prognosis? @ -[No] Drug Therapy requiring intensive monitoring for toxicity (Heparin, Nitro, Insulin, Cardizem)? @ -[No] Were any procedures done? @ -[No] Diagnosis/symptom? @ -Gastroenteritis Acute, or Chronic, or Acute on Chronic? @ -Acute Uncomplicated (without systemic symptoms) or Complicated (systemic symptoms)? @ -Complicated Side effects of treatment? @ -[No] Exacerbation, Progression, or Severe Exacerbation? @ -[No] Poses a threat to life or bodily function? How? (Chest pain, [place], [place], pneumonia, PE, COPD, DKA, ARF, appy, cholecystitis, CVA, Diverticulitis, Homicidal, Suicidal, threat to staff... and all critical care pts) @ -[No] - Lab Data Result diagrams: 02/20/23 12:37 02/20/23 12:37 Lab Results 02/20/23 02/20/23 02/20/23 Range/Units 12:37 12:37 12:37 WBC 9.4 (3.8-10.6) k/uL RBC 4.71 (3.80-5.40) m/uL Hgb 14.1 (11.4-16.0) gm/dL Hct 43.7 (34.0-46.0) % MCV 92.8 (80.0-100.0) fL MCH 29.9 (25.0-35.0) pg MCHC 32.2 (31.0-37.0) g/dL RDW 13.3 (11.5-15.5) % Plt Count 203 (150-450) k/uL MPV 8.7 Neutrophils % 87 % Lymphocytes % 5 % Monocytes % 6 % Eosinophils % 0 % Basophils % 0 % Neutrophils # 8.2 H (1.3-7.7) k/uL Lymphocytes # 0.5 L (1.0-4.8) k/uL Monocytes # 0.5 (0-1.0) k/uL Eosinophils # 0.0 (0-0.7) k/uL Basophils # 0.0 (0-0.2) k/uL Sodium 140 (137-145) mmol/L Potassium 4.2 (3.5-5.1) mmol/L Chloride 107 (98-107) mmol/L Carbon Dioxide 25 (22-30) mmol/L Anion Gap 8 mmol/L BUN 16 (7-17) mg/dL Creatinine 0.50 L (0.52-1.04) mg/dL Est GFR (CKD-EPI)AfAm >90 (>60 ml/min/1.73 sqM) Est GFR (CKD-EPI)NonAf >90 (>60 ml/min/1.73 sqM) Glucose 122 H (74-99) mg/dL Plasma Lactic Acid Renato 1.2 (0.7-2.0) mmol/L Calcium 8.4 (8.4-10.2) mg/dL Total Bilirubin 0.9 (0.2-1.3) mg/dL AST 40 H (14-36) U/L ALT 38 H (4-34) U/L Alkaline Phosphatase 136 H (38-126) U/L Total Protein 6.3 (6.3-8.2) g/dL Albumin 3.6 (3.5-5.0) g/dL Amylase 73 (30-110) U/L Lipase 147 (23-300) U/L Disposition Clinical Impression: Gastroenteritis, Abdominal pain Disposition: HOME SELF-CARE Instructions (If sedation given, give patient instructions): Abdominal Pain (ED), Gastroenteritis (ED) Is patient prescribed a controlled substance at d/c from ED?: No Referrals: Deyanira Riggins MD [Primary Care Provider] - 1-2 days Time of Disposition: 14:38
[2023-02-20 13:00] LABS: Basophils % (A) 0 %; Eosinophils % (A) 0 %; HCT 43.7 % (34.0-46.0); HGB 14.1 gm/dL (11.4-16.0); Lymphocytes # (A) 0.5 k/uL (1.0-4.8); Lymphocytes % (A) 5 %; MCH 29.9 pg (25.0-35.0); MCHC 32.2 g/dL (31.0-37.0); MCV 92.8 fL (80.0-100.0); Mean Platelet Volume 8.7; Monocytes # (A) 0.5 k/uL (0-1.0); Monocytes % (A) 6 %; Neutrophils # (A) 8.2 k/uL (1.3-7.7); Neutrophils % (A) 87 %; Platelet Count 203 k/uL (150-450); RBC 4.71 m/uL (3.80-5.40); RDW 13.3 % (11.5-15.5); WBC 9.4 k/uL (3.8-10.6)
[2023-02-20 13:16] LABS: ALT 38 U/L (4-34); African American GFR (CKD) >90 (>60 ml/min/1.73 sqM); Albumin 3.6 g/dL (3.5-5.0); Amylase 73 U/L (30-110); Anion Gap 8 mmol/L; Blood Urea Nitrogen 16 mg/dL (7-17); Calcium 8.4 mg/dL (8.4-10.2); Carbon Dioxide 25 mmol/L (22-30); Chloride 107 mmol/L (98-107); Glucose 122 mg/dL (74-99); Lipase 147 U/L (23-300); Non-African American GFR(CKD) >90 (>60 ml/min/1.73 sqM); Sodium 140 mmol/L (137-145); Total Bilirubin 0.9 mg/dL (0.2-1.3); Total Protein 6.3 g/dL (6.3-8.2)
[2023-02-20 13:45] LABS: AST 40 U/L (14-36); Alkaline Phosphatase 136 U/L (38-126); Potassium 4.2 mmol/L (3.5-5.1)
[2023-02-20] MEDS ORDERED: SODIUM CHLORIDE 0.9% 500 ML 500 ML IV ONE (14:26)
[2023-02-20] MEDS ORDERED: DIPHENOX-ATROP STARTER PACK 8 TAB BTL PO STA (14:38)
[2023-02-20] MEDS ORDERED: ONDANSETRON 4 MG ODT STARTER PACK 2 TAB BTL PO STA (14:38)
[2023-02-20 15:43] LABS: Appearance,Urine Cloudy (Clear); Bilirubin,Urine Negative (Negative); Blood,Urine Negative (Negative); Color,Urine Yellow; Glucose,Urine (UA) Negative (Negative); Hyaline Casts,Urine 1 /lpf (0-2); Ketones,Urine 2+ (Negative); Leukocyte Esterase,Urine Moderate (Negative); Mucus,Urine Few /hpf; Nitrite,Urine Negative (Negative); PH, Urine 5.5 (5.0-8.0); Protein,Urine 1+ (Negative); RBC,Urine 1 /hpf (0-5); Specific Gravity,Urine 1.023 (1.001-1.035); Squamous Epithelial Cell,Urine 2 /hpf (0-4); Urobilinogen,Urine <2.0 mg/dL (<2.0); WBC,Urine 4 /hpf (0-5)
[2023-02-20 16:52] VITALS: BP 158/87; PULSE 87
== END 2023-02-20 16:52 | disposition home or self-care (01) ==
LOC: EC 11:38
DX: K52.9 Noninfective gastroenteritis and colitis, unspecified (principal); J44.9 Chronic obstructive pulmonary disease, unspecified; I10 Essential (primary) hypertension; E07.9 Disorder of thyroid, unspecified; M19.90 Unspecified osteoarthritis, unspecified site; F32.A Depression, unspecified; F41.9 Anxiety disorder, unspecified; Z87.891 Personal history of nicotine dependence; F12.90 Cannabis use, unspecified, uncomplicated; Z88.2 Allergy status to sulfonamides; Z88.1 Allergy status to other antibiotic agents; Z88.5 Allergy status to narcotic agent; Z88.8 Allergy status to other drugs, medicaments and biological substances; Z79.890 Hormone replacement therapy; Z79.82 Long term (current) use of aspirin; Z79.899 Other long term (current) drug therapy
CPT/HCPCS: 51798; 36415; 80053; 82150; 83605; 83690; 85025; 81001; 99285; S0119

== ENCOUNTER → 2023-03-11 | Outpatient (CLI) | payer MEDICARE ==
[2023-03-11 15:30] VITALS: PULSE 109; RESP 16; TEMP 98.6
--- NOTE | 2023-03-11 16:55 | P.HPOB ---
History of Present Illness H&P Date: 03/11/23 Chief Complaint: The patient is here for her routine gynecologic exam and ma mmogram. This is a 77-year-old 013 with an LMP of 1997. The patient has been experiencing occasional vaginal pressure and was found to have a rectocele by her PCP. She states she has an appointment to see Dr. Brown for evaluation of the rectocele. She denies any prolapse outside of the vaginal opening. She occasionally has noticed a slow urinary stream or difficulty completely emptying the bladder. She is otherwise without gynecologic complaints. She denies any postmenopausal bleeding. Review of Systems She has lost about 17 pounds over the past year. She denies respiratory or cardiac problems. GI: Occasional diarrhea since her gallbladder surgery that has improved with cholestyramine. Past Medical History Past Medical History: Asthma, Cancer, COPD, Fibromyalgia, Hypertension, Osteoarthritis (OA), Thyroid Disorder Additional Past Medical History / Comment(s): Lung cancer 2018 s/p chemo and radiation, recurrence of lung cancer (stage 4) in 2019. Arthritis,depression, osteopenia and seasonal allergies. 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 History of Any Multi-Drug Resistant Organisms: None Reported Past Surgical History: Back Surgery, Breast Surgery, Cholecystectomy, Orthopedic Surgery Additional Past Surgical History / Comment(s): D&C 1972. Colonoscopy with upper endoscopy 2018(next after 5yrs)., MULTIPLE LT HAND SX R/T INJURY. Lumbar laminectomy, hand surgery and breast biopsy. Transesophageal lung biopsy. Cholecystectomy 2022. Past Anesthesia/Blood Transfusion Reactions: Postoperative Nausea & Vomiting (PONV) Additional Past Anesthesia/Blood Transfusion Reaction / Comment(s): no previous blood transfusion Past Psychological History: Anxiety, Depression Smoking Status: Former smoker Past Alcohol Use History: Rare (1 year.) Additional Past Alcohol Use History / Comment(s): QUIT SMOKING 2015 Past Drug Use History: Marijuana Additional Drug Use History / Comment(s): edibles--none since October 2019 - Past Family History Brother(s) Family Medical History: Cancer, Myocardial Infarction ([place]), Renal Disease Additional Family Medical History / Comment(s): Esophageal cancer, melanoma of the sinuses which led to brain metastases. Renal failure. Another brother had an NM. Sister(s) Family Medical History: Cancer Additional Family Medical History / Comment(s): Cervical cancer. Another sister had endometrial cancer and another sister had breast cancer. Mother Family Medical History: Cancer Additional Family Medical History / Comment(s): Hodgkin's lymphoma with widespread cancer. Son(s) Family Medical History: Cancer Additional Family Medical History / Comment(s): Cholangiocarcinoma. . Niece Family Medical History: Cancer Additional Family Medical History / Comment(s): Breast cancer, positive for BRCA gene. This is her son's daughter. Medications and Allergies Home Medications Medication Instructions Recorded Confirmed Type Ibandronate Sodium [Boniva] 150 mg PO Q30D 06/09/18 02/20/23 History Montelukast [Singulair] 10 mg PO HS 06/09/18 02/20/23 History Baclofen [Lioresal] 20 mg PO BID 03/25/19 02/20/23 History Levothyroxine Sodium [Synthroid] 50 mcg PO DAILY 03/25/19 02/20/23 History Albuterol Inhaler [Ventolin Hfa 2 puff INHALATION RT-Q4H PRN 01/30/21 02/20/23 History Inhaler] ALPRAZolam [Xanax] 0.25 mg PO DAILY PRN 01/31/21 02/20/23 History Multivitamins, Thera [Multivitamin 1 tab PO DAILY 01/31/21 02/20/23 History (formulary)] Fexofenadine HCl 180 mg PO DAILY 12/08/21 02/20/23 History Fluticasone/Umeclidin/Vilanter 1 puff INHALATION RT-DAILY 12/08/21 02/20/23 History [Trelegy Ellipta 200-62.5-25] HYDROcodone/APAP 10-325MG [[place] 1 tab PO BID 12/08/21 02/20/23 History 10-325] Losartan Potassium 100 mg PO HS 12/08/21 02/20/23 History Venlafaxine HCl [Effexor XR] 300 mg PO DAILY 12/08/21 02/20/23 History Aspirin EC [Ecotrin Low Dose] 81 mg PO HS 01/22/23 02/20/23 History Fluticasone Nasal [place] [Flonase 1 spr EA NOSTRIL DAILY 01/22/23 02/20/23 History Nasal [place]] Folic Acid 1 mg PO DAILY 01/22/23 02/20/23 History Nitroglycerin Sl Tabs [Nitrostat] 0.4 mg SL Q5M PRN 01/22/23 02/20/23 History Acetaminophen Tab [Tylenol Tab] 650 mg PO Q4H PRN #30 tablet 01/23/23 02/20/23 Rx Ibuprofen [Motrin] 600 mg PO Q8HR PRN #30 tab 01/23/23 02/20/23 Rx Cholestyramine (with Sugar) 4 gm PO BID 02/20/23 02/20/23 History [Questran] Allergies Allergy/AdvReac Type Severity Reaction Status Date / Time meperidine HCl [From Demerol] Allergy Severe Anaphylaxis Verified 03/11/23 15:30 ciprofloxacin [From Cipro] AdvReac Severe Nausea & Verified 03/11/23 15:30 Vomiting morphine AdvReac Severe Vomiting Verified 03/11/23 15:30 Sulfa (Sulfonamide AdvReac Severe Nausea & Verified 03/11/23 15:30 Antibiotics) Vomiting sulfamethoxazole AdvReac Severe Nausea & Verified 03/11/23 15:30 [From Bactrim] Vomiting trimethoprim [From Bactrim] AdvReac Severe Nausea & Verified 03/11/23 15:30 Vomiting Exam Vital Signs Temp Pulse Resp 03/11/23 15:25 98.6 F 109 H 16 Intake and Output 03/11/23 03/11/23 03/11/23 06:59 14:59 22:59 Other: Weight 61.689 kg Height 5 feet 0 inches, weight 136 pounds, BMI 26.6. This is a well-developed well-nourished white female who is alert and oriented times 3 in no acute distress. HEENT: Within normal limits. NECK: Supple without mass or thyromegaly. CHEST AND LUNGS: Clear to auscultation. HEART: Regular rate and rhythm. BREASTS: Are without mass or discharge. AXILLARY EXAM: Negative for adenopathy. BACK: Negative for CVA tenderness. ABDOMEN: Soft, nontender, without palpable masses. PELVIC EXAM: Normal external genitalia reveals mild to moderate atrophy. Cervix and vagina appear normal with mild to moderate atrophy. There is no unusual discharge. With Valsalva there is a grade 2 cystocele, grade 2 uterine prolapse, and grade 2 rectocele. There is no evidence of mucosal erosion or ulceration. No urinary leakage is demonstrated with cough or Valsalva. The uterus is midposition, nongravid size and nontender. There are no palpable adnexal masses or tenderness. RECTAL EXAM: Rectovaginal exam is negative for mass or tenderness and is negative for occult blood. It does confirm a small rectocele. EXTREMITIES: Nontender. IMPRESSION: 1. 77-year-old menopausal female with mildly symptomatic grade 2 cystocele, gra de 2 uterine prolapse, and grade 2 rectocele. 2. History of osteopenia being treated with Boniva through her PCP. 3. History of stage IV recurrent lung cancer. 4. Strong family history of various cancers including sisters with endometrial and another with cervical cancer, mother with widespread Hodgkin's lymphoma, sister with breast cancer, niece with breast cancer and was positive for a BRCA gene mutation, Brother with esophageal cancer, and son with cholangiocarcinoma. PLAN: 1. Pap smears have been discontinued. 2. Self breast awareness was discussed with the patient. We have also di scussed symptoms associated with inflammatory breast cancer. 3. Screening mammogram was done today. 4. Osteoporosis prevention was discussed. I have stressed the importance of adequate calcium, vitamin D and regular exercise. Recommended amounts of calcium and vitamin D were also discussed. Treatment with Boniva as well as bone density testing will be done through her PCP, as she has done in the past. 5. We have had a long discussion regarding her strong family history of various cancers. We have discussed cancer genetic counseling and testing. She would like to speak with her family about this type of testing and she will let me know if she would like to proceed with counseling and testing. A pamphlet for the, most genetic cancer program was given to the patient. 6. We have had a long discussion regarding the mild pelvic prolapse. At this time I do not feel surgical intervention is necessary. She is to avoid holding urine or stool longer than necessary. We have also discussed negative Valsalva exercises. She may keep the appointment with Dr. Brown to further discuss her options for the pelvic prolapse. 7. She was advised to return in one year for her annual well woman exam and as needed.
--- NOTE | 2023-03-12 19:07 | MM ---
Reason for Exam: Screening (asymptomatic). Last screening mammogram was performed 12 month(s) ago. Patient History: Menarche at age 10. First Full-Term at age 15. Postmenopausal. Other cancer, age 73. Patient used Estrogen for 5 years. 2003, Benign Core Biopsy on the right side. 2003, Benign Excisional Biopsy on the right side. Sister had breast cancer, age 70. Risk Values: Madie 5 year model risk: 4.7%. NCI Lifetime model risk: 7.7%. Prior Study Comparison: 09/21/2019 Bilateral Screening Mammogram, [facility]. 11/21/2020 Bilateral Screening Mammogram, [facility]. 02/12/2022 Bilateral Screening Mammogram, [facility]. Tissue Density: There are scattered fibroglandular densities. Findings: Analyzed By CAD. Microclip medial right breast from prior biopsy. There is no suspicious group of microcalcifications or new suspicious mass in either breast. Overall Assessment: Negative, BI-RAD 1 Management: Screening Mammogram of both breasts in 1 year. See note below in regards to patient's increased 5 year Madie score. Patient should continue monthly self-breast exams. A clinical breast exam by your physician is recommended on an annual basis. This exam should not preclude additional follow-up of suspicious palpable abnormalities. Note on Madie scores and lifetime risk: 1. A Madie score greater than 3% is considered moderate risk. If this is the case, consider specialist referral to assess eligibility for a risk reducing agent. 2. If overall lifetime risk for the development of breast cancer is 20% or higher, the patient may qualify for future screening with alternating mammogram and breast MRI. Electronically signed and approved by: Rosie Valentine M.D. Radiologist
== END ==
LOC: WWCWWP 15:08
PROVIDERS: ATTEND Obstetrics & Gynecology
DX: Z12.31 Encounter for screening mammogram for malignant neoplasm of breast (principal); Z01.419 Encounter for gynecological examination (general) (routine) without abnormal findings; F32.A Depression, unspecified; F41.9 Anxiety disorder, unspecified; I10 Essential (primary) hypertension; J44.9 Chronic obstructive pulmonary disease, unspecified; M19.90 Unspecified osteoarthritis, unspecified site; M79.7 Fibromyalgia; M85.80 Other specified disorders of bone density and structure, unspecified site; N81.4 Uterovaginal prolapse, unspecified; N81.6 Rectocele; Z79.82 Long term (current) use of aspirin; Z80.3 Family history of malignant neoplasm of breast; Z85.118 Personal history of other malignant neoplasm of bronchus and lung; Z87.891 Personal history of nicotine dependence; Z88.1 Allergy status to other antibiotic agents; Z88.2 Allergy status to sulfonamides; Z88.5 Allergy status to narcotic agent; Z90.49 Acquired absence of other specified parts of digestive tract
CPT/HCPCS: 77063; 77067

== ENCOUNTER → 2023-06-18 | Outpatient (CLI) | payer MEDICARE ==
--- NOTE | 2023-06-18 11:48 | MR ---
EXAMINATION TYPE: MR shoulder RT wo/w con DATE OF EXAM: 06/18/2023 COMPARISON: None HISTORY: Right shoulder pain, hx lung cancer. TECHNIQUE: Multiplanar, multisequence images of the right shoulder is performed without and with 6 mL intravenous Gadavist gadolinium contrast. FINDINGS: Exam severely limited due to extreme patient motion Rotator Cuff: There is diffuse thickening of the distal margin of the supraspinatus and anterior fibe rs of the infraspinatus tendon compatible with tendinopathy. There appears to be of a partial near-co mplete through thickness tear involving the anterior fibers of the insertion supraspinatus tendon antoinette suring approximately 5 to 6 mm. At the insertion of the infraspinatus tendon there is diffuse tendinopathy of the anterior fibers antoinette suring approximately 8 mm. Suspect the subscapularis particularly limited. It does appear to be increased signal at the insertio n. Cannot exclude partial tear or tendinosis due to extreme motion artifact. Acromioclavicular Joint: Hypertrophic AC joint arthropathy. There does appear to be mild mass effect upon the supraspinatus tendon and muscle. Compatible with mild impingement. Glenohumeral Joint: A small amount of fluid within the joint space. Motion artifact limits assessment grossly inferior glenohumeral ligament is intact. There is spurring along the inferior margin of the humeral head. Narrowing of the glenohumeral joint compatible with advanced arthropathy. Labrum: Markedly limited in assessment. Grossly intact by nonarthrogram technique. Biceps Tendon: Increased fluid surrounding the biceps tendon which is within the bicipital groove. As sessment of the intracapsular portion of the tendon is nearly nondiagnostic secondary to motion artif act. Bone marrow signal: No focal abnormal marrow signal is appreciated. Other: There is a large area of intermediate signal anterior to the body of the glenoid measuring 2.1 cm which appears to correspond to soft tissue ossification seen by CT scan 12/08/2021. IMPRESSION: 1. Severely limited exam due to extreme motion artifact. Findings are suggestive of severe tendinosis of the supraspinatus tendon with a partial near-complete through thickness tear of the insertion ant erior fibers measuring approximately 5 mm. 2. Severe tendinopathy insertion anterior fibers infraspinatus tendon. 3. Severe motion artifact limits assessment the subscapularis insertion but there is increased signal suspicious of either tendinosis or partial tear. 4. Bicipital tendinosis. 5. Severe glenohumeral joint arthropathy with small joint effusion.
== END | disposition home or self-care (01) ==
LOC: RADMRIMAIN 07:57
PROVIDERS: ATTEND Orthopaedic Surgery Orthopaedic Surgery of the Spine
DX: S22.050D Wedge compression fracture of T5-T6 vertebra, subsequent encounter for fracture with routine healing (principal); M43.12 Spondylolisthesis, cervical region; E66.3 Overweight; M19.011 Primary osteoarthritis, right shoulder; M25.78 Osteophyte, vertebrae; M48.02 Spinal stenosis, cervical region; M50.323 Other cervical disc degeneration at C6-C7 level; M75.41 Impingement syndrome of right shoulder; M67.813 Other specified disorders of tendon, right shoulder
CPT/HCPCS: 73223; A9585

== ENCOUNTER → 2023-06-24 | Outpatient (CLI) | payer MEDICARE ==
--- NOTE | 2023-06-26 12:25 | MR ---
EXAMINATION TYPE: MR cervical spine wo/w con DATE OF EXAM: 06/24/2023 3:23 PM CLINICAL INDICATION:Female, 77 years old with history of M54.2; PHH, Neck pain into hand COMPARISON: None. TECHNIQUE: Multi planar, multi sequence imaging was performed utilizing: T1-weighted, T2-weighted, an d turbo inversion recovery imaging of the cervical spine. IV Contrast: 6 cc Gadavist FINDINGS: Alignment: The cervical vertebral bodies have preserved heights. Alignment is within normal limits gi maykel patient positioning. Bones: Scattered Modic endplate changes with osteophytes and disc space narrowing. Multilevel degener ative disc disease is noted and most pronounced at the C5-C7 vertebral levels. No abnormal postcontra st enhancement. Cord: The spinal cord is unremarkable with regards to their signal intensity and morphology. No abnormal postcontrast enhancement. Discs: Multilevel disc desiccation is present. Motion limits evaluation. C2-C3: No significant disc pathology. The spinal canal is patent. Bilateral facet and uncovertebral joint arthropathy are present with mild bilateral neural foraminal stenosis. C3-C4: A disc osteophyte complex is present with mild spinal canal stenosis. Bilateral facet and unc overtebral joint arthropathy are present with moderate bilateral neural foraminal stenosis. C4-C5: No significant disc pathology. The spinal canal is patent. Bilateral facet and uncovertebral joint arthropathy are present with mild bilateral neural foraminal stenosis. C5-C6: A disc osteophyte complex is present with mild to moderate spinal canal stenosis. Bilateral f acet and uncovertebral joint arthropathy are present with moderate bilateral neural foraminal stenosi s. C6-C7: A disc osteophyte complex is present with mild to moderate spinal canal stenosis. Bilateral f acet and uncovertebral joint arthropathy are present with moderate bilateral neural foraminal stenosi s. Evaluation slightly limited due to motion. C7-T1: No significant disc pathology. The spinal canal is patent. No neural foraminal stenosis. Other: None. IMPRESSION: Motion limited exam. 1. No evidence for disc herniation or significant spinal canal stenosis. Multiple levels of moderate spinal canal stenosis at C5-C6 and C6-C7. 2. Multilevel disc degeneration with associated osteoarthritic changes varying degrees of neural fora rodrigue stenosis as described above.
== END | disposition home or self-care (01) ==
LOC: RADMRIMAIN 14:30
PROVIDERS: ATTEND Orthopaedic Surgery Orthopaedic Surgery of the Spine
DX: M48.02 Spinal stenosis, cervical region (principal); M50.31 Other cervical disc degeneration, high cervical region; M99.71 Connective tissue and disc stenosis of intervertebral foramina of cervical region; E66.3 Overweight; M25.78 Osteophyte, vertebrae; S22.050D Wedge compression fracture of T5-T6 vertebra, subsequent encounter for fracture with routine healing; M79.18 Myalgia, other site; M19.011 Primary osteoarthritis, right shoulder
CPT/HCPCS: 72156; A9585

== ENCOUNTER 2023-08-25 09:12 | Emergency (ER) | payer MEDICARE ==
--- NOTE | 2023-08-25 10:04 | XR ---
EXAMINATION TYPE: XR knee complete RT DATE OF EXAM: 08/25/2023 COMPARISON: NONE HISTORY: Diffuse osteopenia TECHNIQUE: Three views are submitted. FINDINGS: Mild narrowing of the medial compartment and patellofemoral compartment joint. A moderate-sized supra patellar bursal fluid collection. Vascular calcifications noted.. Osseous structures are intact. No acute fracture seen. IMPRESSION: 1. No acute fracture or dislocation. There is a moderate to large size or bursal fluid collection wh ich can be associated with internal derangement recommend follow-up MRI.
--- NOTE | 2023-08-25 10:07 | XR ---
EXAMINATION TYPE: XR wrist complete LT DATE OF EXAM: 08/25/2023 COMPARISON: NONE HISTORY: Pain TECHNIQUE: Four views submitted. FINDINGS: The osseous structures are intact. The joint spaces are preserved and there is no acute fracture or dislocation. Diffuse osteopenia with severe scaphotrapezial and first carpometacarpal joint arthropa thy. Mild radial carpal joint arthropathy. Remote ulnar styloid fracture. IMPRESSION: 1. No definite acute fracture or dislocation if symptoms persist, follow-up study in 7 to 10 days wo uld be suggested 2. Diffuse osteopenia and findings in the pattern most typical of osteoarthritis.
[2023-08-25 10:15] VITALS: RESP 16
--- NOTE | 2023-08-25 10:31 | ED ---
Fall HPI - General Chief Complaint: Fall Stated Complaint: Fall Time Seen by Provider: 08/25/23 09:19 Source: patient, RN notes reviewed Mode of arrival: wheelchair Limitations: no limitations - History of Present Illness Initial Comments: 77-year-old female presents emergency Department chief complaint of a fall. Patient states [place] curb[place] Patient states she felt that his upper left wrist with left wrist pain, right knee pain she has noted abrasion her tetanus up-to-date she had no head injury no other c omplaints. - Related Data Home Medications Medication Instructions Recorded Confirmed Ibandronate Sodium [Boniva] 150 mg PO Q30D 06/09/18 03/11/23 Montelukast [Singulair] 10 mg PO HS 06/09/18 03/11/23 Baclofen [Lioresal] 20 mg PO BID 03/25/19 03/11/23 Levothyroxine Sodium [Synthroid] 50 mcg PO DAILY 03/25/19 03/11/23 Albuterol Inhaler [Ventolin Hfa 2 puff INHALATION RT-Q4H PRN 01/30/21 03/11/23 Inhaler] ALPRAZolam [Xanax] 0.25 mg PO DAILY PRN 01/31/21 03/11/23 Multivitamins, Thera [Multivitamin 1 tab PO DAILY 01/31/21 03/11/23 (formulary)] Fexofenadine HCl 180 mg PO DAILY 12/08/21 03/11/23 Fluticasone/Umeclidin/Vilanter 1 puff INHALATION RT-DAILY 12/08/21 03/11/23 [Trelegy Ellipta 200-62.5-25] HYDROcodone/APAP 10-325MG [[place] 1 tab PO BID 12/08/21 03/11/23 10-325] Losartan Potassium 100 mg PO HS 12/08/21 03/11/23 Venlafaxine HCl [Effexor XR] 300 mg PO DAILY 12/08/21 03/11/23 Aspirin EC [Ecotrin Low Dose] 81 mg PO HS 01/22/23 03/11/23 Fluticasone Nasal [place] [Flonase 1 spr EA NOSTRIL DAILY 01/22/23 03/11/23 Nasal [place]] Folic Acid 1 mg PO DAILY 01/22/23 03/11/23 Nitroglycerin Sl Tabs [Nitrostat] 0.4 mg SL Q5M PRN 01/22/23 03/11/23 Cholestyramine (with Sugar) 4 gm PO BID 02/20/23 03/11/23 [Questran] Previous Rx's Medication Instructions Recorded Acetaminophen Tab [Tylenol Tab] 650 mg PO Q4H PRN #30 tablet 01/23/23 Ibuprofen [Motrin] 600 mg PO Q8HR PRN #30 tab 01/23/23 Allergies Allergy/AdvReac Type Severity Reaction Status Date / Time meperidine HCl [From Demerol] Allergy Severe Anaphylaxis Verified 08/25/23 09:18 ciprofloxacin [From Cipro] AdvReac Severe Nausea & Verified 08/25/23 09:18 Vomiting morphine AdvReac Severe Vomiting Verified 08/25/23 09:18 Sulfa (Sulfonamide AdvReac Severe Nausea & Verified 08/25/23 09:18 Antibiotics) Vomiting sulfamethoxazole AdvReac Severe Nausea & Verified 08/25/23 09:18 [From Bactrim] Vomiting trimethoprim [From Bactrim] AdvReac Severe Nausea & Verified 08/25/23 09:18 Vomiting Review of Systems ROS Statement: Those systems with pertinent positive or pertinent negative responses have been documented in the HPI. ROS Other: All systems not noted in ROS Statement are negative. Past Medical History Past Medical History: Asthma, Cancer, COPD, Fibromyalgia, Hypertension, Osteoarthritis (OA), Thyroid Disorder Additional Past Medical History / Comment(s): Lung cancer 2019 s/p chemo and radiation, recurrence of lung cancer (stage 4) in 2020. Arthritis,depression, osteopenia and seasonal allergies. 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 History of Any Multi-Drug Resistant Organisms: None Reported Past Surgical History: Back Surgery, Breast Surgery, Cholecystectomy, Orthopedic Surgery Additional Past Surgical History / Comment(s): D&C 1972. Colonoscopy with upper endoscopy 2019(next after 5yrs)., MULTIPLE LT HAND SX R/T INJURY. Lumbar laminectomy, hand surgery and breast biopsy. Transesophageal lung biopsy. Cholecystectomy 2022. Past Anesthesia/Blood Transfusion Reactions: Postoperative Nausea & Vomiting (PONV) Additional Past Anesthesia/Blood Transfusion Reaction / Comment(s): no previous blood transfusion Past Psychological History: Anxiety, Depression Smoking Status: Former smoker Past Alcohol Use History: Rare Past Drug Use History: Marijuana - Past Family History Brother(s) Family Medical History: Cancer, Myocardial Infarction (DC), Renal Disease Additional Family Medical History / Comment(s): Esophageal cancer, melanoma of the sinuses which led to brain metastases. Renal failure. Another brother had an DC. Sister(s) Family Medical History: Cancer Additional Family Medical History / Comment(s): Cervical cancer. Another sister had endometrial cancer and another sister had breast cancer. Mother Family Medical History: Cancer Additional Family Medical History / Comment(s): Hodgkin's lymphoma with widespread cancer. Son(s) Family Medical History: Cancer Additional Family Medical History / Comment(s): Cholangiocarcinoma. . Niece Family Medical History: Cancer Additional Family Medical History / Comment(s): Breast cancer, positive for BRCA gene. This is her son's daughter. General Exam Limitations: no limitations General appearance: alert, in no apparent distress Head exam: Present: atraumatic, normocephalic, normal inspection Neck exam: Present: normal inspection, full ROM. Absent: tenderness, meningismus, lymphadenopathy Respiratory exam: Present: normal lung sounds bilaterally. Absent: respiratory distress, wheezes, rales, rhonchi, stridor Cardiovascular Exam: Present: regular rate, normal rhythm, normal heart sounds. Absent: systolic murmur, diastolic murmur, rubs, gallop, clicks Extremities exam: Present: other (Left wrist there is moderate swelling mild tenderness neurovascular intact no snuffbox tenderness, right knee to abrasions are noted no active bleeding mild swelling full range of motion) Course Vital Signs 08/25/23 08/25/23 08/25/23 09:16 10:03 10:48 Temperature 98.2 F 98.1 F Pulse Rate 96 85 81 Respiratory 20 16 16 Rate Blood Pressure 165/91 134/78 126/82 O2 Sat by Pulse 99 91 L 93 L Oximetry Medical Decision Making - Medical Decision Making Was pt. sent in by a medical professional or institution (, PA, FEED INSPECTION SUPERVISOR, urgent care, hospital, or [facility]...) When possible be specific @ -No Did you speak to anyone other than the patient for history (EMS, parent, family, police, friend...)? What history was obtained from this source @ -No Did you review nursing and triage notes (agree or disagree)? Why? @ -I reviewed and agree with nursing and triage notes Were old charts reviewed (outside hosp., previous admission, EMS record, old EKG, old radiological studies, urgent care reports/EKG's, [facility] records)? Report findings @ -No old charts were reviewed Differential Diagnosis (chest pain, altered mental status, abdominal pain women, abdominal pain men, vaginal bleeding, weakness, fever, dyspnea, syncope, headache, dizziness, GI bleed, back pain, seizure, CVA, palpatations, mental health, musculoskeletal)? @ -Fall, wrist fracture, knee contusion, wrist sprain EKG interpreted by me (3pts min.). @ -[None X-rays interpreted by me (1pt min.). @ -[X-ray left wrist shows no acute fracture or dislocation osteoarthritis noted, x-ray of right knee no acute fracture joint effusion noted CT interpreted by me (1pt min.). @ -None done U/S interpreted by me (1pt. min.). @ -None done What testing was considered but not performed or refused? (CT, X-rays, U/S, labs)? Why? @ -None What meds were considered but not given or refused? Why? @ -None Did you discuss the management of the patient with other professionals (professionals i.e. , PA, FEED INSPECTION SUPERVISOR, lab, RT, psych nurse, social worker delinquency prevention, supervisor prepress, teacher, foreign service officer, medical case worker)? Give summary @ -No Was smoking cessation discussed for >3mins.? @ -No Was critical care preformed (if so, how long)? @ -No Were there social determinants of health that impacted care today? How? (Homelessness, low income, unemployed, alcoholism, drug addiction, transportation, low edu. Level, literacy, decrease access to med. care, skilled nursing, rehab)? @ -No Was there de-escalation of care discussed even if they declined (Discuss DNR or withdrawal of care, Hospice)? DNR status @ -No What co-morbidities impacted this encounter? (DM, HTN, Smoking, COPD, CAD, Cancer, CVA, ARF, Chemo, Hep., AIDS, mental health diagnosis, sleep apnea, morbid obesity)? @ -None Was patient admitted / discharged? Hospital course, mention meds given and route, prescriptions, significant lab abnormalities, going to OR and other pertinent info. @ -Discharge patient x-rays were negative patient has a left wrist sprain, right knee contusion, knee effusion patient discharged in stable condition return parameters were discussed Undiagnosed new problem with uncertain prognosis? @ -No Drug Therapy requiring intensive monitoring for toxicity (Heparin, Nitro, Insulin, Cardizem)? @ -No Were any procedures done? @ -No Diagnosis/symptom? @ -Fall, left wrist sprain, right knee contusion Acute, or Chronic, or Acute on Chronic? @ -Acute Uncomplicated (without systemic symptoms) or Complicated (systemic symptoms)? @ -Uncomplicated Side effects of treatment? @ -No Exacerbation, Progression, or Severe Exacerbation? @ -No Poses a threat to life or bodily function? How? (Chest pain, USA, DC, pneumonia, PE, COPD, DKA, ARF, appy, cholecystitis, CVA, Diverticulitis, Homicidal, Suicidal, threat to staff... and all critical care pts) @ -No Disposition Clinical Impression: Fall, Contusion of right knee, Knee effusion, right, Left wrist sprain Disposition: HOME SELF-CARE Condition: Stable Instructions (If sedation given, give patient instructions): Wrist Sprain (ED) Additional Instructions: Please return to the Emergency Department if symptoms worsen or any other concerns. Is patient prescribed a controlled substance at d/c from ED?: No Referrals: Deyanira Riggins MD [Primary Care Provider] - 1-2 days Vicente Box MD [STAFF PHYSICIAN] - 1-2 days Time of Disposition: 10:31
[2023-08-25 11:03] VITALS: BP 126/82; PULSE 81; TEMP 98.1
== END 2023-08-25 11:14 | disposition home or self-care (01) ==
LOC: EC 09:12
DX: S63.501A Unspecified sprain of right wrist, initial encounter (principal); S80.01XA Contusion of right knee, initial encounter; I10 Essential (primary) hypertension; J44.89 Other specified chronic obstructive pulmonary disease; F41.9 Anxiety disorder, unspecified; F32.A Depression, unspecified; F12.90 Cannabis use, unspecified, uncomplicated; M19.90 Unspecified osteoarthritis, unspecified site; Z87.891 Personal history of nicotine dependence; Z79.899 Other long term (current) drug therapy; Z79.82 Long term (current) use of aspirin; Z88.2 Allergy status to sulfonamides; Z88.1 Allergy status to other antibiotic agents; Z88.5 Allergy status to narcotic agent; Z88.8 Allergy status to other drugs, medicaments and biological substances; W10.1XXA Fall (on)(from) sidewalk curb, initial encounter
CPT/HCPCS: 99284

== ENCOUNTER → 2023-09-08 | Outpatient (CLI) | payer MEDICARE ==
--- NOTE | 2023-09-09 19:48 | BD ---
EXAMINATION TYPE: Axial Bone Density DATE OF EXAM: 09/08/2023 CLINICAL HISTORY: 77 years old Female. ICD-10 CODE: M81.0 AGE-RELATED OSTEOPOROSIS Height: 58 Weight: 129 FRAX RISK QUESTIONS: Alcohol (3 or more units per day): no Family History (Parent hip fracture): no Glucocorticoids (More than 3mos): no History of Fracture in Adulthood: yes Secondary Osteoporosis: 1. Type 1 Diabetes: no 2. Hyperthyroidism: no 3. Menopause before 45: no 4. Malnutrition: no 5. Chronic liver disease: no Rheumatoid Arthritis: no Current Tobacco Use: no RISK FACTORS HISTORY OF: Hip Fracture (Right/Left): no Spine Fracture: yes History of Wrist Fracture: Rt wrist When: Age 74 Surgery to Spine/Hip(right/left)/Wrist (right/left): yes When: 1982 Family History of Osteoporosis: no Active: no Diet low in dairy products/other sources of calcium: yes Postmenopausal woman: yes Take estrogen and/or progesterone medications: no Lost more than 2 inches in height since high school: yes Frequent falls: yes Poor Health: no Hyperparathyroidism: no Adrenal Insufficiency: no MEDICATIONS: Prednisone or other steroids: no Thyroid Medications: Levothyroxin How Long: past 5 years Osteoporosis Medications: Boniva How Long: past 4 years Additional Medications: BP Meds, Reflux Meds, Anxiety Meds, Multi Vit, Vit D, [place] 3 Additional History: Lung Ca with radiation and chemo EXAM MEASUREMENTS: Bone mineral densitometry was performed using the Revinate System. Bone mineral density about the R hip (g/cm2): 0.884 Bone mineral density about the L hip (g/cm2): 0.806 T Score values are as follows: -----R Neck: -0.9 -----L Neck: -1.2 -----R Total: -1.0 -----L Total: -1.6 Z Score values are as follows: -----R Neck: 1.4 -----L Neck: 1.1 -----R Total: 1.2 -----L Total: 0.5 Bone mineral density has: decreased -1.1 % since study of: 04/13/2021 Bone mineral density about the L Wrist (g/cm2): 0.409 T Score values are as follows: -----Dist. R+U: -4.3 -----Prox. R+U: -3.6 -----Radius total: -4.4 Z Score values are as follows: -----Dist. R+U: -1.6 -----Prox. R+U: -0.9 -----Radius total: -1.7 Bone mineral density has: decreased-7.1 % since study of: 04/13/2021 FRAX%s: The graph provided illustrates a 18.0% chance for a major osteoporotic fx and a 3.4% chance f or the hips probability for fx in 10 years time. IMPRESSION: Osteoporosis (T Score less than -2.5). There is increased fracture risk and therapy is usually indicated based on age. Re-Screen 1-2 years. NOTE: T-SCORE=SD OF THE YOUNG ADULT MEAN.
== END | disposition home or self-care (01) ==
LOC: RADBDWWP 12:34
PROVIDERS: ATTEND Family Medicine
DX: M81.0 Age-related osteoporosis without current pathological fracture (principal); M85.88 Other specified disorders of bone density and structure, other site; Z78.0 Asymptomatic menopausal state
CPT/HCPCS: 77080

== ENCOUNTER 2024-03-02 15:17 | Inpatient (IN) | payer MEDICARE ==
--- NOTE | 2024-03-02 15:41 | ED ---
SOB HPI - General Stated Complaint: SOB Time Seen by Provider: 03/02/24 15:23 Source: RN notes reviewed, old records reviewed Mode of arrival: ambulatory Limitations: no limitations - History of Present Illness Initial Comments: This is a 78-year-old female with history of lung cancer. Patient is on chemotherapy who is presenting for evaluation of severe shortness of breath in creasing oxygen demand on supplemental O2. Patient has severely exertional dyspnea with no travel history or sick contacts or other complaints. No chest pain currently patient has generalized body aches pains and severe pain cancer related pain as well as pathologic fractures MD Complaint: shortness of breath, cough, "asthma attack", anxiety -: days(s) Severity: severe Severity scale (1-10): 10 Quality: aching, sharp, stabbing Consistency: intermittent Improves With: nothing Worsens With: exertion, movement Known History Of: COPD Context: anxiety Associated Symptoms: chest pain, cough Treatments Prior to Arrival: none - Related Data Home Medications Medication Instructions Recorded Confirmed Montelukast [Singulair] 10 mg PO HS 06/09/18 03/02/24 Baclofen [Lioresal] 20 mg PO BID-W/MEALS 03/25/19 03/02/24 Levothyroxine Sodium [Synthroid] 50 mcg PO DAILY 03/25/19 03/02/24 Albuterol Inhaler [Ventolin Hfa 2 puff INHALATION RT-Q4H PRN 01/30/21 03/02/24 Inhaler] Multivitamins, Thera [Multivitamin 1 tab PO DAILY 01/31/21 03/02/24 (formulary)] Fluticasone/Umeclidin/Vilanter 1 puff INHALATION RT-DAILY 12/08/21 03/02/24 [Trelegy Ellipta 200-62.5-25] Losartan Potassium 100 mg PO DAILY 12/08/21 03/02/24 Venlafaxine HCl [Effexor XR] 150 mg PO DAILY 12/08/21 03/02/24 Famotidine [Pepcid] 20 mg PO BID 03/02/24 03/02/24 Ibuprofen [Motrin] 800 mg PO TID PRN 03/02/24 03/02/24 Ipratropium-Albuterol Nebulize 3 ml INHALATION RT-QID PRN 03/02/24 03/02/24 [Duoneb 0.5 mg-3 mg/3 ml Soln] Lidocaine 5% Patch [Lidoderm] 1 patch TOPICAL DAILY 03/02/24 03/02/24 Lidocaine-Prilocaine Cream [Emla 1 applic TOPICAL DAILY PRN 03/02/24 03/02/24 Cream 2.5%/2.5%] Magnesium Oxide [Mag-Ox] 400 mg PO DAILY 03/02/24 03/02/24 Naloxone HCl [Narcan] 4 mg NASAL DIRECTED PRN 03/02/24 03/02/24 Sennosides/Docusate Sodium 1 tab PO BID PRN 03/02/24 03/02/24 [Senna-S 8.6-50 mg Tablet] fentaNYL 12MCG/HR PATCH [Duragesic 1 patch TRANSDERM Q72H 03/02/24 03/02/24 12MCG/HR] oxyCODONE HCL [OxyIR] 5 mg PO Q8H 03/02/24 03/02/24 Allergies Allergy/AdvReac Type Severity Reaction Status Date / Time meperidine HCl [From Demerol] Allergy Severe Anaphylaxis Verified 03/02/24 18:09 ciprofloxacin [From Cipro] AdvReac Severe Nausea & Verified 03/02/24 18:09 Vomiting morphine AdvReac Severe Vomiting Verified 03/02/24 18:09 Sulfa (Sulfonamide AdvReac Severe Nausea & Verified 03/02/24 18:09 Antibiotics) Vomiting sulfamethoxazole AdvReac Severe Nausea & Verified 03/02/24 18:09 [From Bactrim] Vomiting trimethoprim [From Bactrim] AdvReac Severe Nausea & Verified 03/02/24 18:09 Vomiting Review of Systems ROS Statement: Those systems with pertinent positive or pertinent negative responses have been documented in the HPI. ROS Other: All systems not noted in ROS Statement are negative. Past Medical History Past Medical History: Asthma, Cancer, COPD, Fibromyalgia, Hypertension, Osteoarthritis (OA), Thyroid Disorder Additional Past Medical History / Comment(s): Lung cancer 2019 s/p chemo and radiation, recurrence of lung cancer (stage 4) in 2020. Arthritis,depression, osteopenia and seasonal allergies. 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 History of Any Multi-Drug Resistant Organisms: None Reported Past Surgical History: Back Surgery, Breast Surgery, Cholecystectomy, Orthopedic Surgery Additional Past Surgical History / Comment(s): D&C 1972. Colonoscopy with upper endoscopy 2019(next after 5yrs)., MULTIPLE LT HAND SX R/T INJURY. Lumbar laminectomy, hand surgery and breast biopsy. Transesophageal lung biopsy. Cholecystectomy 2022. Past Anesthesia/Blood Transfusion Reactions: Postoperative Nausea & Vomiting (PONV) Additional Past Anesthesia/Blood Transfusion Reaction / Comment(s): no previous blood transfusion Past Psychological History: Anxiety, Depression Smoking Status: Former smoker Past Alcohol Use History: Rare Past Drug Use History: Marijuana - Past Family History Brother(s) Family Medical History: Cancer, Myocardial Infarction (CA), Renal Disease Additional Family Medical History / Comment(s): Esophageal cancer, melanoma of the sinuses which led to brain metastases. Renal failure. Another brother had an CA. Sister(s) Family Medical History: Cancer Additional Family Medical History / Comment(s): Cervical cancer. Another sister had endometrial cancer and another sister had breast cancer. Mother Family Medical History: Cancer Additional Family Medical History / Comment(s): Hodgkin's lymphoma with widespread cancer. Son(s) Family Medical History: Cancer Additional Family Medical History / Comment(s): Cholangiocarcinoma. . Niece Family Medical History: Cancer Additional Family Medical History / Comment(s): Breast cancer, positive for BRCA gene. This is her son's daughter. General Exam General appearance: alert, in no apparent distress Head exam: Present: atraumatic, normocephalic, normal inspection Eye exam: Present: normal appearance, PERRL, EOMI. Absent: scleral icterus, conjunctival injection, periorbital swelling ENT exam: Present: normal exam, mucous membranes moist Neck exam: Present: normal inspection. Absent: tenderness, meningismus, lymphadenopathy Respiratory exam: Present: normal lung sounds bilaterally. Absent: respiratory distress, wheezes, rales, rhonchi, stridor Cardiovascular Exam: Present: regular rate, normal rhythm, normal heart sounds. Absent: systolic murmur, diastolic murmur, rubs, gallop, clicks GI/Abdominal exam: Present: soft, normal bowel sounds. Absent: distended, tenderness, guarding, rebound, rigid Extremities exam: Present: normal inspection, full ROM, normal capillary refill. Absent: tenderness, pedal edema, joint swelling, calf tenderness Back exam: Present: normal inspection Neurological exam: Present: alert, oriented X3, CN II-XII intact Psychiatric exam: Present: normal affect, normal mood Skin exam: Present: warm, dry, intact, normal color. Absent: rash Course Vital Signs 03/02/24 03/02/24 03/02/24 15:55 16:13 16:28 Temperature 98.4 F Pulse Rate 122 H 120 H 113 H Respiratory 20 Rate Blood Pressure 142/61 O2 Sat by Pulse 96 Oximetry 03/02/24 03/02/24 03/02/24 19:06 20:29 20:32 Temperature 99.6 F Pulse Rate 112 H 115 H 114 H Respiratory 18 19 Rate Blood Pressure 151/76 151/76 O2 Sat by Pulse 96 96 Oximetry 03/02/24 03/02/24 03/02/24 20:42 22:08 23:00 Temperature Pulse Rate 121 H 115 H 114 H Respiratory 18 18 Rate Blood Pressure 146/70 146/70 O2 Sat by Pulse 96 98 Oximetry 03/03/24 03/03/24 03/03/24 02:00 08:28 08:30 Temperature Pulse Rate 112 H 112 H Respiratory 18 Rate Blood Pressure 146/70 O2 Sat by Pulse 97 96 Oximetry 03/03/24 03/03/24 03/03/24 08:37 11:41 11:49 Temperature Pulse Rate 110 H 112 H 114 H Respiratory Rate Blood Pressure O2 Sat by Pulse Oximetry 03/03/24 03/03/24 03/03/24 11:58 13:53 16:45 Temperature Pulse Rate 118 H 115 H 114 H Respiratory 18 18 Rate Blood Pressure 146/70 146/70 O2 Sat by Pulse 97 90 L Oximetry 03/03/24 03/03/24 03/03/24 16:55 19:25 19:48 Temperature Pulse Rate 117 H 112 H 108 H Respiratory 18 18 Rate Blood Pressure 146/70 O2 Sat by Pulse 98 Oximetry 03/03/24 03/03/24 03/03/24 19:59 20:39 22:40 Temperature Pulse Rate 110 H 120 H Respiratory 18 18 20 Rate Blood Pressure 146/70 O2 Sat by Pulse 98 Oximetry 03/04/24 03/04/24 03/04/24 01:04 02:00 03:37 Temperature Pulse Rate 75 108 H 114 H Respiratory 18 20 18 Rate Blood Pressure 146/70 139/103 O2 Sat by Pulse 95 96 98 Oximetry 03/04/24 03/04/24 03/04/24 06:22 08:46 09:00 Temperature Pulse Rate 112 H 114 H 64 Respiratory 18 18 Rate Blood Pressure 166/82 135/64 O2 Sat by Pulse 100 99 99 Oximetry 03/04/24 03/04/24 03/04/24 09:05 12:46 12:55 Temperature Pulse Rate 122 H 123 H 122 H Respiratory Rate Blood Pressure O2 Sat by Pulse Oximetry 03/04/24 03/04/24 03/04/24 15:31 15:51 16:00 Temperature Pulse Rate 123 H 124 H 126 H Respiratory 22 Rate Blood Pressure 150/73 O2 Sat by Pulse 98 Oximetry 03/04/24 03/04/24 03/04/24 19:44 20:53 20:59 Temperature Pulse Rate 121 H 121 H 121 H Respiratory 18 20 20 Rate Blood Pressure 172/81 O2 Sat by Pulse 99 Oximetry - Reevaluation(s) Reevaluation #1: 03/02/24 19:27 Medical records reviewed Reevaluation #2: 03/02/24 19:27 Symptoms unchanged Reevaluation #3: 03/02/24 19:27 Informed of results questions answered Reevaluation #4: Was pt. sent in by a medical professional or institution (, PA, IN TUBE CONVERSION TECHNICIAN, urgent care, hospital, or [facility]...) When possible be specific @ -no Did you speak to anyone other than the patient for history (EMS, parent, family, police, friend...)? What history was obtained from this source @ -no Did you review nursing and triage notes (agree or disagree)? Why? @ -agree Are old charts reviewed (outside hosp., previous admission, EMS record, old EKG, old radiological studies, urgent care reports/EKG's, [facility] records)? R eport findings @ -yes Differential Diagnosis (chest pain, altered mental status, abdominal pain women, abdominal pain men, vaginal bleeding, weakness, fever, dyspnea, syncope, headache, dizziness, GI bleed, back pain, seizure, CVA, palpatations, mental health, musculoskeletal)? @ -prior EKG interpreted by me (3pts min.). @ -yes X-rays interpreted by me (1pt min.). @ -yes positive for pneumonia CT interpreted by me (1pt min.). @ -no U/S interpreted by me (1pt. min.). @ -no What testing was considered but not performed or refused? (CT, X-rays, U/S, labs)? Why? @ -none What meds were considered but not given or refused? Why? @ -none Did you discuss the management of the patient with other professionals (professionals i.e. Dr., PA, IN TUBE CONVERSION TECHNICIAN, lab, RT, psych nurse, social media content manager, political aide, teacher, enforcement safety officer, leather case finisher)? Give summary @ -no Was smoking cessation discussed for >3mins.? @ -no Was critical care preformed (if so, how long)? @ -yes31 Were there social determinants of health that impacted care today? How? (Homelessness, low income, unemployed, alcoholism, drug addiction, transportation, low edu. Level, literacy, decrease access to med. care, care home, rehab)? @ -none Was there de-escalation of care discussed even if they declined (Discuss DNR or withdrawal of care, Hospice)? DNR status @ -no What co-morbidities impacted this encounter? (DM, HTN, Smoking, COPD, CAD, Cancer, CVA, ARF, Chemo, Hep., AIDS, mental health diagnosis, sleep apnea, morbid obesity)? @ -none Was patient admitted / discharged? Hospital course, mention meds given and route, prescriptions, significant lab abnormalities, going to OR and other pertinent info. @ - 78 female to ER for evaluation of hypoxic respiratory failure this respiratory failure is related to recent COPD and CHF complicated by pneumonia. Patient will be admitted for IV antibiotics breathing treatments as needed and respiratory support Admitted Undiagnosed new problem with uncertain prognosis? @ -no Drug Therapy requiring intensive monitoring for toxicity (Heparin, Nitro, Insulin, Cardizem)? @ -no Were any procedures done? @ -no Diagnosis/symptom? @ -COPD CHF pneumonia Acute, or Chronic, or Acute on Chronic? @ -Acute Uncomplicated (without systemic symptoms) or Complicated (systemic symptoms)? @ -Complicated Side effects of treatment? @ -no Exacerbation, Progression, or Severe Exacerbation? @ -exacerbation Poses a threat to life or bodily function? How? (Chest pain, USA, CA, pneumonia, PE, COPD, DKA, ARF, appy, cholecystitis, CVA, Diverticulitis, Homicidal, Suicidal, threat to staff... and all critical care pts) @ -yes extremes of age Reevaluation #5: Differential Dyspnea: Coronary syndrome, arrhythmia, tamponade, asthma, COPD, pulmonary embolism, pneumonia, pneumothorax, pulmonary effusion, anaphylaxis, diabetic ketoacidosis, flailed chest, pulmonary contusion, diaphragmatic rupture, anemia, neuromuscular, this is not meant to be an all-inclusive list. - Consultations Consultation #1: Spoke with [facility] who agrees to admit this patient Medical Decision Making - Medical Decision Making 78 female to ER for evaluation of hypoxic respiratory failure this respiratory failure is related to recent COPD and CHF complicated by pneumonia. Patient will be admitted for IV antibiotics breathing treatments as needed and respiratory support - Lab Data Result diagrams: 03/06/24 12:59 03/06/24 12:59 Lab Results 03/02/24 03/02/24 03/02/24 Range/Units 15:29 15:29 15:29 WBC 19.6 H (3.8-10.6) k/uL RBC 3.50 L (3.80-5.40) m/uL Hgb 9.7 L (11.4-16.0) gm/dL Hct 31.9 L (34.0-46.0) % MCV 91.3 (80.0-100.0) fL MCH 27.8 (25.0-35.0) pg MCHC 30.5 L (31.0-37.0) g/dL RDW 14.2 (11.5-15.5) % Plt Count 497 H (150-450) k/uL MPV 8.0 Neutrophils % 89 % Lymphocytes % 2 % Monocytes % 7 % Eosinophils % 0 % Basophils % 0 % Neutrophils # 17.5 H (1.3-7.7) k/uL Lymphocytes # 0.4 L (1.0-4.8) k/uL Monocytes # 1.4 H (0-1.0) k/uL Eosinophils # 0.1 (0-0.7) k/uL Basophils # 0.0 (0-0.2) k/uL Hypochromasia Moderate PT 10.4 (10.0-12.5) sec INR 0.9 (<1.2) APTT 22.6 (22.0-30.0) sec Sodium 134 L (137-145) mmol/L Potassium 4.7 (3.5-5.1) mmol/L Chloride 96 L (98-107) mmol/L Carbon Dioxide 34 H (22-30) mmol/L Anion Gap 4 mmol/L BUN 19 H (7-17) mg/dL Creatinine 0.30 L (0.52-1.04) mg/dL Est GFR (CKD-EPI)AfAm >90 (>60 ml/min/1.73 sqM) Est GFR (CKD-EPI)NonAf >90 (>60 ml/min/1.73 sqM) Glucose 107 H (74-99) mg/dL Calcium 8.3 L (8.4-10.2) mg/dL Magnesium 1.7 (1.6-2.3) mg/dL Total Bilirubin 0.6 (0.2-1.3) mg/dL AST 54 H (14-36) U/L ALT 24 (4-34) U/L Alkaline Phosphatase 235 H (38-126) U/L Troponin I (0.000-0.034) ng/mL NT-Pro-B Natriuret Pep 822 pg/mL Total Protein 5.7 L (6.3-8.2) g/dL Albumin 2.8 L (3.5-5.0) g/dL 03/02/24 Range/Units 15:29 WBC (3.8-10.6) k/uL RBC (3.80-5.40) m/uL Hgb (11.4-16.0) gm/dL Hct (34.0-46.0) % MCV (80.0-100.0) fL MCH (25.0-35.0) pg MCHC (31.0-37.0) g/dL RDW (11.5-15.5) % Plt Count (150-450) k/uL MPV Neutrophils % % Lymphocytes % % Monocytes % % Eosinophils % % Basophils % % Neutrophils # (1.3-7.7) k/uL Lymphocytes # (1.0-4.8) k/uL Monocytes # (0-1.0) k/uL Eosinophils # (0-0.7) k/uL Basophils # (0-0.2) k/uL Hypochromasia PT (10.0-12.5) sec INR (<1.2) APTT (22.0-30.0) sec Sodium (137-145) mmol/L Potassium (3.5-5.1) mmol/L Chloride (98-107) mmol/L Carbon Dioxide (22-30) mmol/L Anion Gap mmol/L BUN (7-17) mg/dL Creatinine (0.52-1.04) mg/dL Est GFR (CKD-EPI)AfAm (>60 ml/min/1.73 sqM) Est GFR (CKD-EPI)NonAf (>60 ml/min/1.73 sqM) Glucose (74-99) mg/dL Calcium (8.4-10.2) mg/dL Magnesium (1.6-2.3) mg/dL Total Bilirubin (0.2-1.3) mg/dL AST (14-36) U/L ALT (4-34) U/L Alkaline Phosphatase (38-126) U/L Troponin I <0.012 (0.000-0.034) ng/mL NT-Pro-B Natriuret Pep pg/mL Total Protein (6.3-8.2) g/dL Albumin (3.5-5.0) g/dL - EKG Data -: EKG Interpreted by Me (EKG is sinus tachycardia 118 CO 169 QRS 65 QTc 364) - Radiology Data Radiology results: report reviewed (X-ray for CHF pulmonary vascular congestion atypical pneumonia), image reviewed Critical Care Time Critical Care Time: Yes Total Critical Care Time: 31 Disposition Clinical Impression: Acute exacerbation of chronic obstructive pulmonary disease, Community acquired pneumonia, Acute pulmonary edema, Congestive heart failure, Hypoxia Disposition: ADMITTED IP TO THIS HOSP Condition: Fair Is patient prescribed a controlled substance at d/c from ED?: No
[2024-03-02] MEDS: SODIUM CHLORIDE 0.9% 1,000 ML IV STA (15:59)
[2024-03-02] MEDS: methylPREDNISolone SOD SUCCI 125 MG/2 ML VIAL IV STA (16:01)
[2024-03-02] MEDS: ALBUTEROL NEBULIZED 2.5 MG/3 ML INHALATION STA (16:10)
[2024-03-02] MEDS: IPRATROPIUM 0.5 MG/2.5 ML NEBU INHALATION STA (16:10)
[2024-03-02 16:13] LABS: Basophils % (A) 0 %; Eosinophils # (A) 0.1 k/uL (0-0.7); Eosinophils % (A) 0 %; HCT 31.9 % (34.0-46.0); HGB 9.7 gm/dL (11.4-16.0); Hypochromasia Moderate; Lymphocytes # (A) 0.4 k/uL (1.0-4.8); Lymphocytes % (A) 2 %; MCH 27.8 pg (25.0-35.0); MCHC 30.5 g/dL (31.0-37.0); MCV 91.3 fL (80.0-100.0); Monocytes # (A) 1.4 k/uL (0-1.0); Monocytes % (A) 7 %; Neutrophils # (A) 17.5 k/uL (1.3-7.7); Neutrophils % (A) 89 %; Platelet Count 497 k/uL (150-450); RDW 14.2 % (11.5-15.5); WBC 19.6 k/uL (3.8-10.6)
[2024-03-02 16:15] LABS: INR 0.9 (<1.2); Prothrombin Time 10.4 sec (10.0-12.5)
[2024-03-02 16:16] LABS: Partial Thromboplastin Time 22.6 sec (22.0-30.0)
[2024-03-02 16:36] LABS: ALT 24 U/L (4-34); African American GFR (CKD) >90 (>60 ml/min/1.73 sqM); Albumin 2.8 g/dL (3.5-5.0); Anion Gap 4 mmol/L; Blood Urea Nitrogen 19 mg/dL (7-17); Calcium 8.3 mg/dL (8.4-10.2); Carbon Dioxide 34 mmol/L (22-30); Chloride 96 mmol/L (98-107); Glucose 107 mg/dL (74-99); Non-African American GFR(CKD) >90 (>60 ml/min/1.73 sqM); Sodium 134 mmol/L (137-145); Total Bilirubin 0.6 mg/dL (0.2-1.3); Total Protein 5.7 g/dL (6.3-8.2)
[2024-03-02 16:43] LABS: NT-Pro-B-Type Natriuretic Pept 822 pg/mL
[2024-03-02 16:50] LABS: AST 54 U/L (14-36); Alkaline Phosphatase 235 U/L (38-126); Magnesium 1.7 mg/dL (1.6-2.3); Potassium 4.7 mmol/L (3.5-5.1)
--- NOTE | 2024-03-02 17:59 | XR ---
EXAMINATION TYPE: XR chest 1V portable DATE OF EXAM: 03/02/2024 5:25 PM CLINICAL INDICATION:Female, 78 years old with history of sob; COMPARISON: Chest radiographs from 12/15/2023 TECHNIQUE: XR chest 1V portable Frontal view of the chest. FINDINGS: Lungs/Pleura: blunting of the right costophrenic angle There is no evidence of left pleural effusion, focal consolidation, or pneumothorax. Pulmonary vascularity: Unremarkable. Heart/mediastinum: Cardiomediastinal silhouette is unremarkable. Musculoskeletal: Degenerative changes of the shoulder joints. IMPRESSION: Cardiomegaly and mild pulmonary vascular congestion. Correlate with BNP for congestive heart failure.
[2024-03-02] MEDS: HYDROmorphone 1 MG/ML 1 ML SYRINGE IVP STA (18:14)
[2024-03-02] MEDS ORDERED: NALOXONE 0.4 MG/ML 1 ML VIAL IV PRN (19:17)
[2024-03-02] MEDS: ALBUTEROL NEBULIZED 2.5 MG/3 ML INHALATION SCH (20:29)
[2024-03-02] MEDS: HYDROmorphone 1 MG/ML 1 ML SYRINGE IVP PRN (21:07)
[2024-03-02] MEDS: FUROSEMIDE 10 MG/ML 4 ML VIAL IV SCH (21:12)
[2024-03-02] MEDS: SODIUM CHLORIDE 0.9% 1,000 ML IV SCH (21:15)
[2024-03-02] MEDS: PIPERACILLIN-TAZOBACTAM 3.375 GM in SODIUM CHLORIDE 0.9% 100 ML IVPB STA (21:15)
[2024-03-02] MEDS ORDERED: Magnesium Replacement Protocol 1 EACH MISC MISCELLANE PRN (21:46)
[2024-03-02] MEDS ORDERED: ALBUTEROL NEBULIZED 2.5 MG/3 ML INHALATION PRN (21:47)
[2024-03-02] MEDS: LEVOFLOXACIN 750MG-D5W PMX 750 MG in DEXTROSE/WATER 1 150ML.BAG IVPB STA (22:15)
[2024-03-02] MEDS: MAGNESIUM SULFATE-D5W PMX 1 GM in DEXTROSE/WATER 1 100ML.BAG IVPB ONE (23:19)
[2024-03-02] MEDS: BACLOFEN 10 MG TAB PO PRN (23:30)
[2024-03-02] MEDS: PIPERACILLIN-TAZOBACTAM 3.375 GM in SODIUM CHLORIDE 0.9% 100 ML IVPB SCH (23:47)
[2024-03-03 04:14] LABS: Basophils % (A) 0 %; Eosinophils % (A) 0 %; HCT 31.3 % (34.0-46.0); HGB 9.4 gm/dL (11.4-16.0); Hypochromasia Moderate; Lymphocytes # (A) 0.2 k/uL (1.0-4.8); Lymphocytes % (A) 1 %; MCH 27.6 pg (25.0-35.0); MCHC 30.2 g/dL (31.0-37.0); MCV 91.3 fL (80.0-100.0); Mean Platelet Volume 8.2; Monocytes # (A) 0.5 k/uL (0-1.0); Monocytes % (A) 3 %; Neutrophils # (A) 15.4 k/uL (1.3-7.7); Neutrophils % (A) 95 %; Platelet Count 480 k/uL (150-450); RBC 3.43 m/uL (3.80-5.40); RDW 14.2 % (11.5-15.5); WBC 16.2 k/uL (3.8-10.6)
[2024-03-03 05:21] LABS: ALT 31 U/L (4-34); AST 67 U/L (14-36); African American GFR (CKD) >90 (>60 ml/min/1.73 sqM); Albumin 3.3 g/dL (3.5-5.0); Alkaline Phosphatase 249 U/L (38-126); Anion Gap 9 mmol/L; Blood Urea Nitrogen 16 mg/dL (7-17); Calcium 8.7 mg/dL (8.4-10.2); Carbon Dioxide 32 mmol/L (22-30); Chloride 95 mmol/L (98-107); Glucose 228 mg/dL (74-99); Magnesium 1.9 mg/dL (1.6-2.3); Non-African American GFR(CKD) >90 (>60 ml/min/1.73 sqM); Phosphorus 4.1 mg/dL (2.5-4.5); Potassium 4.1 mmol/L (3.5-5.1); Sodium 136 mmol/L (137-145); Total Bilirubin 0.5 mg/dL (0.2-1.3); Total Protein 6.5 g/dL (6.3-8.2)
--- NOTE | 2024-03-03 05:22 | CT ---
EXAMINATION TYPE: CT chest angio for PE DATE OF EXAM: 03/03/2024 COMPARISON: Prior CTA chest December 08, 2021 HISTORY: Pt comes in with c/o increase SOB Pt does have a hx of COPD and Lung CA elevated d-dimer 2.[address] DLP: 213.6 mGycm. Automated Exposure Control for Dose Reduction was Utilized. CONTRAST: CTA scan of the thorax is performed with IV Contrast, patient injected with 80 mL of Isovue 370, pulm onary embolism protocol. MIP Images are created on CT scanner and reviewed. FINDINGS: LUNGS: Mild underlying emphysematous change redemonstrated. Posttreatment changes right lung with rig ht-sided volume loss is redemonstrated. There is more prominent right suprahilar consolidation extend ing inferiorly and posteriorly on current study with air bronchograms. Left lung is grossly clear. No pleural effusion or pneumothorax seen bilaterally. MEDIASTINUM: There is satisfactory enhancement of the pulmonary artery and its branches, there is no CT evidence for pulmonary embolism. Some enhancement of the aorta without aneurysm or dissection. Th ere are no definitive new greater than 1 cm hilar or mediastinal lymph nodes. No cardiomegaly or pe ricardial effusion is seen. Coronary artery calcification is redemonstrated. OTHER: Cholecystectomy clips are seen. Exaggerated thoracic kyphosis with mild height loss at roughly T7 vertebra is redemonstrated. IMPRESSION: 1. No CT evidence for acute pulmonary embolism. 2. Mild underlying emphysematous change redemonstrated. Posttreatment changes right lung with right-s ided volume loss redemonstrated. Medial right lung consolidation extending posteriorly is noted. Find ing favors post treatment change or scarring. Underlying recurrent neoplasm cannot be entirely exclud ed without clinical correlation and/or PET/CT correlation.
--- NOTE | 2024-03-03 07:45 | P.CNPUL ---
History of Present Illness Consult date: 03/03/24 Requesting physician: Arben Dutton Reason for consult: COPD Chief complaint: Acute on chronic shortness of breath History of present illness: Patient is an 78-year-old white female with past medical history significant for non-small cell lung cancer status post chemoradiation with disease recurrence, COPD, chronic hypoxemic respiratory failure on 3 L/min nasal cannula, hypertension, hypothyroidism, among other things. Her primary care provider is Dr. Deyanira Riggins. Her oncologist is, Dr. Ovidio Murphy, out of the [facility] system. She states that she was originally diagnosed with lung cancer back in 2019, she was originally treated with chemo/radiation and immunotherapy and developed the disease recurrence. She states that she has metastasis to the bones. She was restarted on Keytruda November,. She states that she was doing well until this point. Since then she has been progressively more weak. She has had limited appetite. She becomes short of breath with limited activity. She chronically wears 3 L/min nasal cannula. Over the last week or so she has been even more short of breath. She has a pulse oximeter at home, and noted her oxygen to drop as low as 81%. She finally decided to go to the emergency room yesterday afternoon. She is currently lying in bed, on 4 L/min nasal cannula, in no acute distress. Denies any significant change in her chronic cough. No sputum production or hemoptysis. Denies fevers at home. Denies sick contacts. She states that she has rib fractures bilaterally and this produces some pain with movement and coughing. Chest x-ray done on arrival showed some mild cardiomegaly and possible pulmonary vascular congestion. No obvious focal infiltrates. NT proBNP only mildly elevated 822. Troponins less than 0.012 x 3. She is tachycardic. I did send for a D-dimer which was elevated at 2.68. Chest CT angio protocol is pending. No history of pulmonary embolism. CBC on arrival: WBC count 19.6, hemoglobin 9.7, hematocrit 31.9, platelets 497. BMP on arrival: Sodium 134, potassium 4.7, chloride 96, serum bicarb 34, BUN 19, creatinine 0.3, glucose 107. Patient was empirically started on Zosyn in the emergency room, also received a dose of Levaquin. Temperature 99.6 F. Vital signs stable. Review of Systems REVIEW OF SYSTEMS: CONSTITUTIONAL: Reports a 40 pound weight loss over the last 6 months. Also endorses generalized weakness and reduced appetite. Occasionally lightheaded when attempting to ambulate. EYES: Denies change in vision. EARS, NOSE, MOUTH, THROAT: Denies headaches, denies sore throat. CARDIOVASCULAR: Denies radiating chest pain, palpitations or syncopal episodes. RESPIRATORY: See HPI. GASTROINTESTINAL: Denies abdominal pain, nausea and vomiting, or diarrhea GENITOURINARY: Denies hematuria, denies infections. MUSKULOSKELETAL: Denies pain, denies swelling. INTEGUMENTARY: Denies rash, denies eczema. NEUROLOGICAL: Denies recent memory loss, no recent seizure activity. PSYCHIATRIC: Denies anxiety, denies depression. HEMATOLOGIC/LYMPHATIC: Denies anemia, denies enlarged lymph node Past Medical History Past Medical History: Asthma, Cancer, COPD, Fibromyalgia, Hypertension, Osteoarthritis (OA), Thyroid Disorder Additional Past Medical History / Comment(s): Lung cancer 2019 s/p chemo and radiation, recurrence of lung cancer (stage 4) in 2020. Arthritis,depression, osteopenia and seasonal allergies. 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 History of Any Multi-Drug Resistant Organisms: None Reported Past Surgical History: Back Surgery, Breast Surgery, Cholecystectomy, Orthopedic Surgery Additional Past Surgical History / Comment(s): D&C 1972. Colonoscopy with upper endoscopy 2018(next after 5yrs)., MULTIPLE LT HAND SX R/T INJURY. Lumbar laminectomy, hand surgery and breast biopsy. Transesophageal lung biopsy. Cholecystectomy 2022. Past Anesthesia/Blood Transfusion Reactions: Postoperative Nausea & Vomiting (PONV) Additional Past Anesthesia/Blood Transfusion Reaction / Comment(s): no previous blood transfusion Past Psychological History: Anxiety, Depression Smoking Status: Former smoker Past Alcohol Use History: Rare Past Drug Use History: Marijuana - Past Family History Brother(s) Family Medical History: Cancer, Myocardial Infarction ([place]), Renal Disease Additional Family Medical History / Comment(s): Esophageal cancer, melanoma of the sinuses which led to brain metastases. Renal failure. Another brother had an [place]. Sister(s) Family Medical History: Cancer Additional Family Medical History / Comment(s): Cervical cancer. Another sister had endometrial cancer and another sister had breast cancer. Mother Family Medical History: Cancer Additional Family Medical History / Comment(s): Hodgkin's lymphoma with widespread cancer. Son(s) Family Medical History: Cancer Additional Family Medical History / Comment(s): Cholangiocarcinoma. . Niece Family Medical History: Cancer Additional Family Medical History / Comment(s): Breast cancer, positive for BRCA gene. This is her son's daughter. Medications and Allergies Home Medications Medication Instructions Recorded Confirmed Type Montelukast [Singulair] 10 mg PO HS 06/09/18 03/02/24 History Baclofen [Lioresal] 20 mg PO BID-W/MEALS 03/25/19 03/02/24 History Levothyroxine Sodium [Synthroid] 50 mcg PO DAILY 03/25/19 03/02/24 History Albuterol Inhaler [Ventolin Hfa 2 puff INHALATION RT-Q4H PRN 01/30/21 03/02/24 History Inhaler] Multivitamins, Thera [Multivitamin 1 tab PO DAILY 01/31/21 03/02/24 History (formulary)] Fluticasone/Umeclidin/Vilanter 1 puff INHALATION RT-DAILY 12/08/21 03/02/24 History [Trelegy Ellipta 200-62.5-25] Losartan Potassium 100 mg PO DAILY 12/08/21 03/02/24 History Venlafaxine HCl [Effexor XR] 150 mg PO DAILY 12/08/21 03/02/24 History Famotidine [Pepcid] 20 mg PO BID 03/02/24 03/02/24 History Ibuprofen [Motrin] 800 mg PO TID PRN 03/02/24 03/02/24 History Ipratropium-Albuterol Nebulize 3 ml INHALATION RT-QID PRN 03/02/24 03/02/24 Hi story [Duoneb 0.5 mg-3 mg/3 ml Soln] Lidocaine 5% Patch [Lidoderm] 1 patch TOPICAL DAILY 03/02/24 03/02/24 History Lidocaine-Prilocaine Cream [Emla 1 applic TOPICAL DAILY PRN 03/02/24 03/02/24 History Cream 2.5%/2.5%] Magnesium Oxide [Mag-Ox] 400 mg PO DAILY 03/02/24 03/02/24 History Naloxone HCl [Narcan] 4 mg NASAL DIRECTED PRN 03/02/24 03/02/24 History Sennosides/Docusate Sodium 1 tab PO BID PRN 03/02/24 03/02/24 History [Senna-S 8.6-50 mg Tablet] fentaNYL 12MCG/HR PATCH [Duragesic 1 patch TRANSDERM Q72H 03/02/24 03/02/24 History 12MCG/HR] oxyCODONE HCL [OxyIR] 5 mg PO Q8H 03/02/24 03/02/24 History Allergies Allergy/AdvReac Type Severity Reaction Status Date / Time meperidine HCl [From Demerol] Allergy Severe Anaphylaxis Verified 03/02/24 18:09 ciprofloxacin [From Cipro] AdvReac Severe Nausea & Verified 03/02/24 18:09 Vomiting morphine AdvReac Severe Vomiting Verified 03/02/24 18:09 Sulfa (Sulfonamide AdvReac Severe Nausea & Verified 03/02/24 18:09 Antibiotics) Vomiting sulfamethoxazole AdvReac Severe Nausea & Verified 03/02/24 18:09 [From Bactrim] Vomiting trimethoprim [From Bactrim] AdvReac Severe Nausea & Verified 03/02/24 18:09 Vomiting Physical Exam Vitals: Vital Signs Temp Pulse Resp BP Pulse Ox 03/03/24 02:00 112 H 18 146/70 97 03/02/24 23:00 114 H 18 146/70 98 03/02/24 22:08 115 H 18 146/70 96 03/02/24 20:42 121 H 03/02/24 20:32 114 H 03/02/24 20:29 115 H 19 151/76 96 03/02/24 19:06 99.6 F 112 H 18 151/76 96 03/02/24 16:28 113 H 03/02/24 16:13 120 H 03/02/24 15:55 98.4 F 122 H 20 142/61 96 Intake and Output 03/02/24 03/02/24 03/03/24 14:59 22:59 06:59 Other: Weight 52.617 kg GENERAL EXAM: Alert, 78-year-old white female, comfortable in no apparent distress. HEAD: Normocephalic and atraumatic EYES: Normal reaction of pupils, equal size. NOSE: Clear with pink turbinates. THROAT: No erythema or exudates. NECK: No masses, no JVD. CHEST: No chest wall deformity. LUNGS: Equal air entry with no crackles, wheeze, rhonchi or dullness. On 4 L/min nasal cannula. No conversational dyspnea or accessory muscle use while at rest CVS: S1 and S2 normal with no audible murmur, regular rhythm. No extra heart sounds ABDOMEN: No hepatosplenomegaly, active bowel sounds, no guarding or rigidity. SPINE: No scoliosis or deformity SKIN: No rashes CENTRAL NERVOUS SYSTEM: No focal deficits, tone is normal in all 4 extremities. EXTREMITIES: There is no peripheral edema, clubbing, or cyanosis. Peripheral pulses are intact. Results - Laboratory Findings CBC and BMP: 03/03/24 02:00 03/03/24 02:00 PT/INR, D-dimer PT 10.4 sec (10.0-12.5) 03/02/24 15:29 INR 0.9 (<1.2) 03/02/24 15:29 D-Dimer 2.68 mg/L FEU (<0.60) H 03/03/24 01:59 Abnormal lab findings: Abnormal Labs 03/02/24 03/02/24 03/03/24 15:29 15:29 01:59 WBC 19.6 H RBC 3.50 L Hgb 9.7 L Hct 31.9 L MCHC 30.5 L Plt Count 497 H Neutrophils # 17.5 H Lymphocytes # 0.4 L Monocytes # 1.4 H D-Dimer 2.68 H Sodium 134 L Chloride 96 L Carbon Dioxide 34 H BUN 19 H Creatinine 0.30 L Glucose 107 H Calcium 8.3 L AST 54 H Alkaline Phosphatase 235 H Total Protein 5.7 L Albumin 2.8 L - Diagnostic Findings Chest x-ray: image reviewed Assessment and Plan Assessment: Acute on chronic hypoxemic respiratory failure, possibly secondary to acute COPD exacerbation, chest x-ray done on admission does not show any focal infiltrates or evidence of pneumonia, there is a persistent right medial lung density. Radiologist suggested cardiomegaly with mild pulmonary vascular congestion and possible congestive heart failure exacerbation. NT proBNP only mildly elevated 800. History of non-small cell lung cancer with metastasis within the chest and bone. Reportedly originally diagnosed back in 2019, and was status post chemo/radiation and immunotherapy. Had disease recurrence and restarted on Keyt ruda November,. Reportedly scheduled for a treatment tomorrow, which will now be postponed. Follows with her oncologist out of the [facility] system. Follow up chest CT showed posttreatment changes of the right lung with right-sided volume loss. There is a persistent, more prominent right suprahilar consolidation extending posteriorly with air bronchograms, consistent with above. Acute leukocytosis Sinus tachycardia Elevated D-dimer, Chest CT angio does not demonstrate any filling defects consistent with pulmonary embolism. Chronic obstructive pulmonary disease, maintained on Trelegy inhaler, as well as as needed DuoNebs and albuterol inhaler on an outpatient basis Former tobacco dependence History of hypothyroidism History of hypertension Plan: Patient's medications, labs, chest x-ray reviewed Start patient on a combination of DuoNebs [id number], Symbicort inhaler, and IV Solu-Medrol Started on empiric antibiotics in the emergency room. Check procalcitonin level. Elevated D-dimer was noted, CT angio protocol did not demonstrate any evidence of pulmonary embolism. Echocardiogram pending We will continue to follow I have personally seen and examined the patient, performed the documentation and the assessment and plan as written. Number of minutes spent on the visit:20 On 03/03/2024, the patient is being seen in the joint evaluation along with the nurse practitioner. The patient presented to us with worsening shortness of breath and her presentation is typical for an acute COPD exacerbation. She also has history of non-small cell lung cancer which is currently stage IV with skeletal metastases. She has been essentially treated through [facility] and the patient is currently on immunotherapy and her last immunotherapy dose was given to her approximately 2 to 3 weeks ago. She has received a total of 3 doses of immunotherapy and was restarted based on the recent findings of metastatic disease. A CT of the chest was done and the patient has no evidence of any pulmonary embolism. The patient has mild emphysematous changes bilaterally and there is some volume loss and interstitial scarring in the right lung from related to previous radiation therapy. No significant sputum production. No hemoptysis or pleurisy. The patient is on DuoNeb nebulized treatments [id number]. She is on Symbicort. She is on IV Solu-Medrol 60 mg every 6 hours. She was also covered empirically with Levaquin. WBC count was at 19.6 at time of admission blood count of 16.2. D- dimer was at 2.68 without evidence of any pulmonary embolism. BUN is at 16 with a creatinine of 0.3. Procalcitonin level is at 0.15. LFTs are normal. No altered mentation. Slightly tachycardic. Currently on 3 L of oxygen by nasal cannula. Communicating and verbal. Echocardiogram is also in progress. Time with Patient: Greater than 30
[2024-03-03] MEDS ORDERED: IPRATROPIUM 0.5 MG/2.5 ML NEBU INHALATION SCH (08:00)
[2024-03-03] MEDS ORDERED: SYMBICORT 80-4.5 MCG INHALER INHALATION SCH (08:00)
--- NOTE | 2024-03-03 08:19 | XR ---
EXAMINATION TYPE: XR chest 1V portable DATE OF EXAM: 03/03/2024 4:58 AM CLINICAL INDICATION:Female, 78 years old with history of pneumonia; COMPARISON: Chest radiographs from 03/02/2024 TECHNIQUE: XR chest 1V portable Frontal view of the chest. FINDINGS: Lungs/Pleura: There is no evidence of pleural effusion, focal consolidation, or pneumothorax. Pulmonary vascularity: Unremarkable. Heart/mediastinum: Cardiomediastinal silhouette is unremarkable. Musculoskeletal: Degenerative changes of the shoulder joints. Other findings: None IMPRESSION: Stable exam with chronic changes in the right lung with increased soft tissue in the right medial and
[2024-03-03] MEDS: IPRATROPIUM-ALBUTEROL 3 ML NEB INHALATION SCH (08:28)
[2024-03-03] MEDS: SYMBICORT 160-4.5 MCG INHALER INHALATION SCH (08:28)
[2024-03-03] MEDS: LEVOTHYROXINE 50 MCG TAB PO SCH (09:17)
[2024-03-03] MEDS: VENLAFAXINE HCL ER 150 MG CAP PO SCH (09:17)
[2024-03-03] MEDS: LOSARTAN 50 MG TAB PO SCH (09:17)
[2024-03-03] MEDS: MAGNESIUM OXIDE 400 MG TAB PO SCH (09:17)
[2024-03-03] MEDS: methylPREDNISolone SOD SUCCI 40 MG/ML 1 ML VIAL IV SCH (09:17)
[2024-03-03] MEDS: FAMOTIDINE 20 MG TAB PO SCH (09:17)
[2024-03-03] MEDS: LIDOCAINE 4% PATCH TOPICAL SCH (09:18)
--- NOTE | 2024-03-03 12:03 | P.HPIM ---
History of Present Illness Patient is a 78-year-old female with a history of non-small cell lung cancer was on Keytruda was diagnosed in 2019 patient relapsed again presently receiving Keytruda with a palliative intent came in with complaints of shortness of breath possibly COPD exacerbation CT of the chest was done which did not show any pulm embolism but did show infiltrate with air bronchograms patient is on levofloxacin patient was requiring oxygen her shortness of breath improved patient uses 3 L of oxygen presently on 3 L was requiring higher dose of oxygen patient there is no evidence of CHF although patient is receiving Lasix which will be discontinued. Patient in fact is on the volume depleted side will be started on IV fluids patient has increased heart rate which is sinus tachycardia, will obtain a TSH. Patient denies any fever chills patient does have leukocytosis of 19,000 which improved to 16,200 patient is also on Zosyn which will be discontinued but will continue levofloxacin. REVIEW OF SYSTEMS: CONSTITUTIONAL: No fever, no malaise, no fatigue. HEENT: No recent visual problems or hearing problems. Denied any sore throat. CARDIOVASCULAR: No chest pain, orthopnea, PND, no palpitations, no syncope. PULMONARY: Mildly diminished air entry no hemoptysis. GASTROINTESTINAL: No diarrhea, no nausea, no vomiting, no abdominal pain. NEUROLOGICAL: No headaches, no weakness, no numbness. HEMATOLOGICAL: Denies any bleeding or petechiae. GENITOURINARY: Denies any burning micturition, frequency, or urgency. MUSCULOSKELETAL/RHEUMATOLOGICAL: Denies any joint pain, swelling, or any muscle pain. ENDOCRINE: Denies any polyuria or polydipsia. The rest of the 14-point review of systems is negative. PHYSICAL EXAMINATION: GENERAL: The patient is alert and oriented x3, not in any acute distress. Well developed, well nourished. HEENT: Pupils are round and equally reacting to light. EOMI. No scleral icterus. No conjunctival pallor. Normocephalic, atraumatic. No pharyngeal erythema. No thyromegaly. CARDIOVASCULAR: S1 and S2 present. No murmurs, rubs, or gallops. PULMONARY: Chest is clear to auscultation, no wheezing or crackles.-Acute on chronic hypercapnic and hypoxic respiratory failure secondary to COPD exacerb ation continue systemic steroids continue with levofloxacin there is a possibility of pneumonia - ABDOMEN: Soft, nontender, nondistended, normoactive bowel sounds. No palpable organomegaly. MUSCULOSKELETAL: No joint swelling or deformity. EXTREMITIES: No cyanosis, clubbing, or pedal edema. NEUROLOGICAL: Gross neurological examination did not reveal any focal deficits. SKIN: No rashes. Assessment and plan Acute on chronic hypoxic and hypercapnic respiratory failure secondary to COPD exacerbation continue systemic steroids continue with antibiotics as mentioned above Possible right middle lobe pneumonia: Continue with levofloxacin -Lung cancer, non-small cell on palliative radiation and Keytruda. -Recent pathological fractures pain management supportive care and radiation therapy -Sinus tachycardia may be due to intravascular volume depletion, IV fluids and will obtain TSH -Hypothyroidism -Depression DVT prophylaxis: Lovenox GI prophylaxis Pepcid Past Medical History Past Medical History: Asthma, Cancer, COPD, Fibromyalgia, Hypertension, Osteoarthritis (OA), Thyroid Disorder Additional Past Medical History / Comment(s): Lung cancer 2019 s/p chemo and radiation, recurrence of lung cancer (stage 4) in 2020. Arthritis,depression, osteopenia and seasonal allergies. 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 History of Any Multi-Drug Resistant Organisms: None Reported Past Surgical History: Back Surgery, Breast Surgery, Cholecystectomy, Orthopedic Surgery Additional Past Surgical History / Comment(s): D&C 1972. Colonoscopy with upper endoscopy 2018(next after 5yrs)., MULTIPLE LT HAND SX R/T INJURY. Lumbar laminectomy, hand surgery and breast biopsy. Transesophageal lung biopsy. Cholecystectomy 2022. Past Anesthesia/Blood Transfusion Reactions: Postoperative Nausea & Vomiting (PONV) Additional Past Anesthesia/Blood Transfusion Reaction / Comment(s): no previous blood transfusion Past Psychological History: Anxiety, Depression Smoking Status: Former smoker Past Alcohol Use History: Rare Past Drug Use History: Marijuana - Past Family History Brother(s) Family Medical History: Cancer, Myocardial Infarction ([place]), Renal Disease Additional Family Medical History / Comment(s): Esophageal cancer, melanoma of the sinuses which led to brain metastases. Renal failure. Another brother had an [place]. Sister(s) Family Medical History: Cancer Additional Family Medical History / Comment(s): Cervical cancer. Another sister had endometrial cancer and another sister had breast cancer. Mother Family Medical History: Cancer Additional Family Medical History / Comment(s): Hodgkin's lymphoma with widespread cancer. Son(s) Family Medical History: Cancer Additional Family Medical History / Comment(s): Cholangiocarcinoma. . Niece Family Medical History: Cancer Additional Family Medical History / Comment(s): Breast cancer, positive for BRCA gene. This is her son's daughter. Medications and Allergies Home Medications Medication Instructions Recorded Confirmed Type Montelukast [Singulair] 10 mg PO HS 06/09/18 03/02/24 History Baclofen [Lioresal] 20 mg PO BID-W/MEALS 03/25/19 03/02/24 History Levothyroxine Sodium [Synthroid] 50 mcg PO DAILY 03/25/19 03/02/24 History Albuterol Inhaler [Ventolin Hfa 2 puff INHALATION RT-Q4H PRN 01/30/21 03/02/24 History Inhaler] Multivitamins, Thera [Multivitamin 1 tab PO DAILY 01/31/21 03/02/24 History (formulary)] Fluticasone/Umeclidin/Vilanter 1 puff INHALATION RT-DAILY 12/08/21 03/02/24 History [Trelegy Ellipta 200-62.5-25] Losartan Potassium 100 mg PO DAILY 12/08/21 03/02/24 History Venlafaxine HCl [Effexor XR] 150 mg PO DAILY 12/08/21 03/02/24 History Famotidine [Pepcid] 20 mg PO BID 03/02/24 03/02/24 History Ibuprofen [Motrin] 800 mg PO TID PRN 03/02/24 03/02/24 History Ipratropium-Albuterol Nebulize 3 ml INHALATION RT-QID PRN 03/02/24 03/02/24 History [Duoneb 0.5 mg-3 mg/3 ml Soln] Lidocaine 5% Patch [Lidoderm] 1 patch TOPICAL DAILY 03/02/24 03/02/24 History Lidocaine-Prilocaine Cream [Emla 1 applic TOPICAL DAILY PRN 03/02/24 03/02/24 History Cream 2.5%/2.5%] Magnesium Oxide [Mag-Ox] 400 mg PO DAILY 03/02/24 03/02/24 History Naloxone HCl [Narcan] 4 mg NASAL DIRECTED PRN 03/02/24 03/02/24 History Sennosides/Docusate Sodium 1 tab PO BID PRN 03/02/24 03/02/24 History [Senna-S 8.6-50 mg Tablet] fentaNYL 12MCG/HR PATCH [Duragesic 1 patch TRANSDERM Q72H 03/02/24 03/02/24 Hist ory 12MCG/HR] oxyCODONE HCL [OxyIR] 5 mg PO Q8H 03/02/24 03/02/24 History Allergies Allergy/AdvReac Type Severity Reaction Status Date / Time meperidine HCl [From Demerol] Allergy Severe Anaphylaxis Verified 03/02/24 18:09 ciprofloxacin [From Cipro] AdvReac Severe Nausea & Verified 03/02/24 18:09 Vomiting morphine AdvReac Severe Vomiting Verified 03/02/24 18:09 Sulfa (Sulfonamide AdvReac Severe Nausea & Verified 03/02/24 18:09 Antibiotics) Vomiting sulfamethoxazole AdvReac Severe Nausea & Verified 03/02/24 18:09 [From Bactrim] Vomiting trimethoprim [From Bactrim] AdvReac Severe Nausea & Verified 03/02/24 18:09 Vomiting Physical Exam Vitals: Vital Signs Temp Pulse Resp BP Pulse Ox 03/03/24 11:58 118 H 18 146/70 97 03/03/24 11:49 114 H 03/03/24 11:41 112 H 03/03/24 08:37 110 H 03/03/24 08:30 96 03/03/24 08:28 112 H 03/03/24 02:00 112 H 18 146/70 97 03/02/24 23:00 114 H 18 146/70 98 03/02/24 22:08 115 H 18 146/70 96 03/02/24 20:42 121 H 03/02/24 20:32 114 H 03/02/24 20:29 115 H 19 151/76 96 03/02/24 19:06 99.6 F 112 H 18 151/76 96 03/02/24 16:28 113 H 03/02/24 16:13 120 H 03/02/24 15:55 98.4 F 122 H 20 142/61 96 Intake and Output 03/02/24 03/03/24 03/03/24 22:59 06:59 14:59 Other: Weight 52.617 kg Results CBC & Chem 7: 03/03/24 02:00 03/03/24 02:00 Labs: Abnormal Lab Results - Last 24 Hours (Table) 03/02/24 03/02/24 03/03/24 Range/Units 15:29 15:29 01:59 WBC 19.6 H (3.8-10.6) k/uL RBC 3.50 L (3.80-5.40) m/uL Hgb 9.7 L (11.4-16.0) gm/dL Hct 31.9 L (34.0-46.0) % MCHC 30.5 L (31.0-37.0) g/dL Plt Count 497 H (150-450) k/uL Neutrophils # 17.5 H (1.3-7.7) k/uL Lymphocytes # 0.4 L (1.0-4.8) k/uL Monocytes # 1.4 H (0-1.0) k/uL D-Dimer 2.68 H (<0.60) mg/L FEU Sodium 134 L (137-145) mmol/L Chloride 96 L (98-107) mmol/L Carbon Dioxide 34 H (22-30) mmol/L BUN 19 H (7-17) mg/dL Creatinine 0.30 L (0.52-1.04) mg/dL Glucose 107 H (74-99) mg/dL Calcium 8.3 L (8.4-10.2) mg/dL AST 54 H (14-36) U/L Alkaline Phosphatase 235 H (38-126) U/L Total Protein 5.7 L (6.3-8.2) g/dL Albumin 2.8 L (3.5-5.0) g/dL Procalcitonin (0.02-0.09) ng/mL 03/03/24 03/03/24 03/03/24 Range/Units 01:59 02:00 02:00 WBC 16.2 H (3.8-10.6) k/uL RBC 3.43 L (3.80-5.40) m/uL Hgb 9.4 L (11.4-16.0) gm/dL Hct 31.3 L (34.0-46.0) % MCHC 30.2 L (31.0-37.0) g/dL Plt Count 480 H (150-450) k/uL Neutrophils # 15.4 H (1.3-7.7) k/uL Lymphocytes # 0.2 L (1.0-4.8) k/uL Monocytes # (0-1.0) k/uL D-Dimer (<0.60) mg/L FEU Sodium 136 L (137-145) mmol/L Chloride 95 L (98-107) mmol/L Carbon Dioxide 32 H (22-30) mmol/L BUN (7-17) mg/dL Creatinine 0.36 L (0.52-1.04) mg/dL Glucose 228 H (74-99) mg/dL Calcium (8.4-10.2) mg/dL AST 67 H (14-36) U/L Alkaline Phosphatase 249 H (38-126) U/L Total Protein (6.3-8.2) g/dL Albumin 3.3 L (3.5-5.0) g/dL Procalcitonin 0.15 H (0.02-0.09) ng/mL
--- NOTE | 2024-03-03 13:06 | P.CRDCN ---
History of Present Illness Consult date: 03/03/24 Consult reason: congestive heart failure History of present illness: History of present illness: This is an 86-year-old female with no previous cardiac history never been told she had heart failure. She has a past medical history of gastroesophageal reflux disease, hypertension, COPD, hypothyroidism, chronic pain, history of lung cancer diagnosed in 2019, chronic hypoxic respiratory failure. We have been asked to evaluate the patient for CHF. Patient states that she is feeling better today. She states at home her pulse ox had dropped down to 81 to 86% on oxygen. Patient was brought into the emergency center and started on antibiotic s, nebulizers and IV Solu-Medrol. She states her breathing is much better from yesterday. Patient is seen today in the emergency center waiting for bed on the cardiac stepdown unit. EKG sinus rhythm at 118 bpm Chest x-ray: #1 cardiomegaly and mild pulmonary vascular congestion. #2 stable chronic changes in the right lung with increased soft tissue in the right medial. CTA of the chest revealed no evidence of acute pulmonary embolism. Mild underlying emphysematous changes redemonstrated. Recurrent neoplasm cannot be an ex occluded. Laboratory studies: WBC 16.2, hemoglobin 9.4, platelet count 480. D-dimer 2.68. Sodium 136, potassium 4.1, chloride 95, CO2 32, BUN 16 creatinine 0.36. Gl ucose 228. Troponin negative x 3. proBNP 822. Procalcitonin 0.15. AST 67, alkaline phosphatase 249. Home cardiac medications: Losartan 100 mg daily, magnesium oxide 400 mg daily, also on levothyroxine 50 mcg daily. Review Of Systems: At the time of my exam: CONSTITUTIONAL: Denies fever or chills. HEENT: Denies blurred vision, vision changes, or eye pain. Denies hemoptysis CARDIOVASCULAR: Denies chest pain. Denies orthopnea. Denies PND. Denies palpitations RESPIRATORY: Denies shortness of breath. GASTROINTESTINAL: Denies abdominal pain. Denies nausea or vomiting. HEMATOLOGIC: Denies bleeding disorders. GENITOURINARY: Denies any blood in urine. SKIN: Denies pruitis. Denies rash. Physical examination: Gen: This is an 78-year-old female in no acute distress VS: reviewed, blood pressure 146/70, heart rate 112, pulse ox 97% on room air. HEENT: Head is atraumatic, normocephalic. Pupils equal, round. Sclerae is anicteric. NECK: Supple. No JVD. LUNGS: Clear to auscultation. No wheezes or rhonchi. No intercostal retractions. HEART: Regular rate and rhythm. No murmur. ABDOMEN: Soft No tenderness. EXTREMITIES: No pedal edema. No calf tenderness. NEUROLOGICAL: Patient is awake, alert and oriented x3. Assessment: Shortness of breath most likely due to COPD exacerbation. No clear evidence of heart failure on clinical exam with normal BNP. Acute on chronic hypoxic respiratory failure COPD History of lung cancer Hypertension Hypothyroidism Gastroesophageal reflux disease Plan: Resume patient's home cardiac medications Obtain 2-D echocardiogram and Doppler study to assess cardiac structure and function Further recommendations to follow based upon clinical course Thank you kindly for this consultation. Nurse practitioner note has been reviewed, I agree with documented findings and plan of care. Patient was seen and examined. Past Medical History Past Medical History: Asthma, Cancer, COPD, Fibromyalgia, Hypertension, Osteoar thritis (OA), Thyroid Disorder Additional Past Medical History / Comment(s): Lung cancer 2019 s/p chemo and radiation, recurrence of lung cancer (stage 4) in 2020. Arthritis,depression, osteopenia and seasonal allergies. PAST [employer] HISTORY: She has no history of STDs. History of Any Multi-Drug Resistant Organisms: None Reported Past Surgical History: Back Surgery, Breast Surgery, Cholecystectomy, Orthopedic Surgery Additional Past Surgical History / Comment(s): D&C 1972. Colonoscopy with upper endoscopy 2019(next after 5yrs)., MULTIPLE LT HAND SX R/T INJURY. Lumbar laminectomy, hand surgery and breast biopsy. Transesophageal lung biopsy. Cholecystectomy 2022. Past Anesthesia/Blood Transfusion Reactions: Postoperative Nausea & Vomiting (PONV) Additional Past Anesthesia/Blood Transfusion Reaction / Comment(s): no previous blood transfusion Past Psychological History: Anxiety, Depression Smoking Status: Former smoker Past Alcohol Use History: Rare Past Drug Use History: Marijuana - Past Family History Brother(s) Family Medical History: Cancer, Myocardial Infarction ([place]), Renal Disease Additional Family Medical History / Comment(s): Esophageal cancer, melanoma of the sinuses which led to brain metastases. Renal failure. Another brother had an [place]. Sister(s) Family Medical History: Cancer Additional Family Medical History / Comment(s): Cervical cancer. Another sister had endometrial cancer and another sister had breast cancer. Mother Family Medical History: Cancer Additional Family Medical History / Comment(s): Hodgkin's lymphoma with widespread cancer. Son(s) Family Medical History: Cancer Additional Family Medical History / Comment(s): Cholangiocarcinoma. . Niece Family Medical History: Cancer Additional Family Medical History / Comment(s): Breast cancer, positive for BRCA gene. This is her son's daughter. Medications and Allergies Home Medications Medication Instructions Recorded Confirmed Type Montelukast [Singulair] 10 mg PO HS 06/09/18 03/02/24 History Baclofen [Lioresal] 20 mg PO BID-W/MEALS 03/25/19 03/02/24 History Levothyroxine Sodium [Synthroid] 50 mcg PO DAILY 03/25/19 03/02/24 History Albuterol Inhaler [Ventolin Hfa 2 puff INHALATION RT-Q4H PRN 01/30/21 03/02/24 History Inhaler] Multivitamins, Thera [Multivitamin 1 tab PO DAILY 01/31/21 03/02/24 History (formulary)] Fluticasone/Umeclidin/Vilanter 1 puff INHALATION RT-DAILY 12/08/21 03/02/24 History [Trelegy Ellipta 200-62.5-25] Losartan Potassium 100 mg PO DAILY 12/08/21 03/02/24 History Venlafaxine HCl [Effexor XR] 150 mg PO DAILY 12/08/21 03/02/24 History Famotidine [Pepcid] 20 mg PO BID 03/02/24 03/02/24 History Ibuprofen [Motrin] 800 mg PO TID PRN 03/02/24 03/02/24 History Ipratropium-Albuterol Nebulize 3 ml INHALATION RT-QID PRN 03/02/24 03/02/24 History [Duoneb 0.5 mg-3 mg/3 ml Soln] Lidocaine 5% Patch [Lidoderm] 1 patch TOPICAL DAILY 03/02/24 03/02/24 History Lidocaine-Prilocaine Cream [Emla 1 applic TOPICAL DAILY PRN 03/02/24 03/02/24 History Cream 2.5%/2.5%] Magnesium Oxide [Mag-Ox] 400 mg PO DAILY 03/02/24 03/02/24 History Naloxone HCl [Narcan] 4 mg NASAL DIRECTED PRN 03/02/24 03/02/24 History Sennosides/Docusate Sodium 1 tab PO BID PRN 03/02/24 03/02/24 History [Senna-S 8.6-50 mg Tablet] fentaNYL 12MCG/HR PATCH [Duragesic 1 patch TRANSDERM Q72H 03/02/24 03/02/24 History 12MCG/HR] oxyCODONE HCL [OxyIR] 5 mg PO Q8H 03/02/24 03/02/24 History Allergies Allergy/AdvReac Type Severity Reaction Status Date / Time meperidine HCl [From Demerol] Allergy Severe Anaphylaxis Verified 03/02/24 18:09 ciprofloxacin [From Cipro] AdvReac Severe Nausea & Verified 03/02/24 18:09 Vomiting morphine AdvReac Severe Vomiting Verified 03/02/24 18:09 Sulfa (Sulfonamide AdvReac Severe Nausea & Verified 03/02/24 18:09 Antibiotics) Vomiting sulfamethoxazole AdvReac Severe Nausea & Verified 03/02/24 18:09 [From Bactrim] Vomiting trimethoprim [From Bactrim] AdvReac Severe Nausea & Verified 03/02/24 18:09 Vomiting Physical Exam Vitals: Vital Signs Temp Pulse Resp BP Pulse Ox 03/03/24 02:00 112 H 18 146/70 97 03/02/24 23:00 114 H 18 146/70 98 03/02/24 22:08 115 H 18 146/70 96 03/02/24 20:42 121 H 03/02/24 20:32 114 H 03/02/24 20:29 115 H 19 151/76 96 03/02/24 19:06 99.6 F 112 H 18 151/76 96 03/02/24 16:28 113 H 03/02/24 16:13 120 H 03/02/24 15:55 98.4 F 122 H 20 142/61 96 Intake and Output 03/02/24 03/03/24 03/03/24 22:59 06:59 14:59 Other: Weight 52.617 kg Results 03/03/24 02:00 03/03/24 02:00 Cardiac Enzymes 03/02/24 03/02/24 03/02/24 Range/Units 15:29 15:29 21:03 AST 54 H (14-36) U/L Troponin I <0.012 <0.012 (0.000-0.034) ng/mL 03/02/24 03/03/24 Range/Units 23:34 02:00 AST 67 H (14-36) U/L Troponin I <0.012 (0.000-0.034) ng/mL Coagulation 03/02/24 Range/Units 15:29 PT 10.4 (10.0-12.5) sec APTT 22.6 (22.0-30.0) sec CBC 03/02/24 03/03/24 Range/Units 15: 02:00 WBC 19.6 H 16.2 H (3.8-10.6) k/uL RBC 3.50 L 3.43 L (3.80-5.40) m/uL Hgb 9.7 L 9.4 L (11.4-16.0) gm/dL Hct 31.9 L 31.3 L (34.0-46.0) % Plt Count 497 H 480 H (150-450) k/uL Comprehensive Metabolic Panel 03/02/24 03/03/24 Range/Units 15:29 02:00 Sodium 134 L 136 L (137-145) mmol/L Potassium 4.7 4.1 (3.5-5.1) mmol/L Chloride 96 L 95 L (98-107) mmol/L Carbon Dioxide 34 H 32 H (22-30) mmol/L BUN 19 H 16 (7-17) mg/dL Creatinine 0.30 L 0.36 L (0.52-1.04) mg/dL Glucose 107 H 228 H (74-99) mg/dL Calcium 8.3 L 8.7 (8.4-10.2) mg/dL AST 54 H 67 H (14-36) U/L ALT 24 31 (4-34) U/L Alkaline Phosphatase 235 H 249 H (38-126) U/L Total Protein 5.7 L 6.5 (6.3-8.2) g/dL Albumin 2.8 L 3.3 L (3.5-5.0) g/dL Current Medications Generic Name Dose Route Start Last Admin Trade Name Freq PRN Reason Stop Dose Admin Albuterol Sulfate 2.5 mg 03/02/24 20:00 03/02/24 20:29 Albuterol Nebulized 2.5 Mg/3 Ml INHALATION 2.5 mg RT-QID SURI Administration Albuterol Sulfate 2.5 mg 03/02/24 21:47 Albuterol Nebulized 2.5 Mg/3 Ml INHALATION RT-Q4H PRN Shortness Of Breath Baclofen 20 mg 03/02/24 21:47 03/02/24 23:30 Baclofen 10 Mg Tab PO 20 mg BID-W/MEALS PRN Administration muscle spasm Budesonide/Formoterol Fumarate 2 puff 03/03/24 08:00 Symbicort 160-4.5 Mcg Inhaler INHALATION RT-BID SURI Famotidine 20 mg 03/03/24 09:00 Famotidine 20 Mg Tab PO BID [facility] Furosemide 40 mg 03/02/24 20:00 03/02/24 21:12 Furosemide 10 Mg/Ml 4 Ml Vial IV 40 mg Q12HR SURI Administration Hydromorphone HCl 1 mg 03/02/24 19:17 03/02/24 21:07 Hydromorphone 1 Mg/Ml 1 Ml Syringe IVP 1 mg Q3HR PRN Administration Severe Pain (Scale 7 to 10) Sodium Chloride 1,000 mls @ 20 mls/hr 03/02/24 19:30 03/02/24 21:15 Saline 0.9% IV 20 mls/hr .Q24H SURI Administration Piperacillin Sod/Tazobactam 100 mls @ 25 mls/hr 03/03/24 00:00 03/02/24 23:47 Sod 3.375 gm/ Sodium Chloride IVPB 03/08/24 00:01 25 mls/hr Q8HR SURI Administration Protocol Ipratropium [place] 0.5 mg 03/03/24 08:00 Ipratropium 0.5 Mg/2.5 Ml Nebu INHALATION RT-QID [facility] Levofloxacin 750 mg 03/03/24 18:00 Levofloxacin 750 Mg Tab PO 03/06/24 18:01 DAILY@1800 [facility] Protocol Levothyroxine Sodium 50 mcg 03/03/24 06:30 Levothyroxine 50 Mcg Tab PO DAILY@0630 [facility] Lidocaine 1 patch 03/03/24 09:00 Lidocaine 4% Patch TOPICAL DAILY [facility] Losartan Potassium 100 mg 03/03/24 09:00 Losartan 50 Mg Tab PO DAILY [facility] Magnesium Oxide 400 mg 03/03/24 09:00 Magnesium Oxide 400 Mg Tab PO DAILY [facility] Methylprednisolone Sodium Succinate 40 mg 03/03/24 09:00 Methylprednisolone Sod Succi 40 Mg/Ml 1 Ml Vial IV Q12HR [facility] Miscellaneous Information 1 each 03/02/24 21:46 Magnesium Replacement Protocol 1 Each Misc MISCELLANE DAILY PRN Per Protocol Protocol Montelukast Sodium 10 mg 03/03/24 21:00 Montelukast 10 Mg Tab PO HS [facility] Naloxone HCl 0.2 mg 03/02/24 19:17 Naloxone 0.4 Mg/Ml 1 Ml Vial IV Q2M PRN Opioid Reversal Ondansetron HCl 4 mg 03/02/24 19:17 Ondansetron 4 Mg/2 Ml Vial IVP Q8HR PRN Nausea And Vomiting Oxycodone HCl 5 mg 03/02/24 22:00 03/03/24 07:04 Oxycodone Hcl 5 Mg Tab PO Not Given Q8H [facility] Senna/Docusate Sodium 1 each 03/02/24 21:47 Sennosides-Docusate Sodium 1 Each Tab PO BID PRN Constipation Venlafaxine HCl 150 mg 03/03/24 09:00 Venlafaxine Hcl Er 150 Mg Cap PO DAILY [facility] Intake and Output 03/02/24 03/03/24 03/03/24 22:59 06:59 14:59 Other: Weight 52.617 kg 03/03/24 02:00 03/03/24 02:00
[2024-03-03] MEDS ORDERED: AMPICILLIN-SULBACTAM 3 GM in SODIUM CHLORIDE 0.9% 100 ML IVPB SCH (16:00)
[2024-03-03] MEDS: methylPREDNISolone SOD SUCCI 125 MG/2 ML VIAL IV SCH (19:15)
[2024-03-03] MEDS: SODIUM CHLORIDE 0.9% 1,000 ML IV SCH (19:18)
[2024-03-03] MEDS: LEVOFLOXACIN 750 MG TAB PO SCH (19:24)
[2024-03-03] MEDS: SENNOSIDES-DOCUSATE SODIUM 1 EACH TAB PO PRN (20:44)
[2024-03-03] MEDS: MONTELUKAST 10 MG TAB PO SCH (21:56)
[2024-03-04] MEDS ORDERED: DEXTROSE 50% SYRINGE 50 ML IVP PRN ×2 (09:37)
[2024-03-04] MEDS: ENOXAPARIN 40 MG/0.4 ML SYRINGE SQ SCH (10:50)
[2024-03-04] MEDS: DILTIAZEM ORAL 30 MG TAB PO SCH ×2 (11:07→20:02)
--- NOTE | 2024-03-04 11:26 | P.PN ---
Subjective Progress Note Date: 03/04/24 Consult reason: congestive heart failure History of present illness: This is an 86-year-old female with no previous cardiac history and has never been told she had heart failure. She has a past medical history of gastroesophageal reflux disease, hypertension, COPD, hypothyroidism, chronic pain, history of lung cancer diagnosed in 2019, chronic hypoxic respiratory failure. We have been asked to evaluate the patient for CHF. Patient states that she is feeling better today. She states at home her pulse ox had dropped down to 81 to 86% on oxygen. Patient was brought into the emergency center and started on antibiotics, nebulizers and IV Solu-Medrol. She states her breathing is much better from yesterday. Patient is seen today in the emergency center waiting for bed on the cardiac stepdown unit. EKG sinus rhythm at 118 bpm Chest x-ray: #1 cardiomegaly and mild pulmonary vascular congestion. #2 stable chronic changes in the right lung with increased soft tissue in the right medial. CTA of the chest revealed no evidence of acute pulmonary embolism. Mild underlying emphysematous changes redemonstrated. Recurrent neoplasm cannot be an ex occluded. Laboratory studies: WBC 16.2, hemoglobin 9.4, platelet count 480. D-dimer 2.68. Sodium 136, potassium 4.1, chloride 95, CO2 32, BUN 16 creatinine 0.36. Glucose 228. Troponin negative x 3. proBNP 822. Procalcitonin 0.15. AST 67, alkaline phosphatase 249. Home cardiac medications: Losartan 100 mg daily, magnesium oxide 400 mg daily, also on levothyroxine 50 mcg daily. Patient states her shortness of breath is improving. No chest pain. Blood pressure 135/64, heart rate running between 64 and 114. Telemetry is sinus tachycardia. Echocardiogram has been obtained and report is pending. Physical examination: Gen: This is an 78-year-old female in no acute distress VS: reviewed HEENT: Head is atraumatic, normocephalic. Pupils equal, round. Sclerae is anicteric. NECK: Supple. No JVD. LUNGS: Clear to auscultation. No wheezes or rhonchi. No intercostal retractions. HEART: Regular rate and rhythm. No murmur. ABDOMEN: Soft No tenderness. EXTREMITIES: No pedal edema. No calf tenderness. NEUROLOGICAL: Patient is awake, alert and oriented x3. Assessment: Shortness of breath most likely due to COPD exacerbation. No clear evidence of heart failure on clinical exam with normal BNP. Acute on chronic hypoxic respiratory failure Sinus tachycardia COPD History of lung cancer Hypertension Hypothyroidism Gastroesophageal reflux disease Plan: Continue patient's home cardiac medications Continue treatment for COPD exacerbation Obtain 2-D echocardiogram and Doppler study report Start patient on Cardizem 30 mg 3 times daily Further recommendations to follow based upon clinical course Nurse practitioner note has been reviewed, I agree with documented findings and plan of care. Patient was seen and examined. Objective - Vital Signs Vital signs: Vital Signs Temp 99.6 F 03/02/24 19:06 Pulse 112 H 03/04/24 06:22 Resp 18 03/04/24 06:22 BP 166/82 03/04/24 06:22 Pulse Ox 100 03/04/24 06:22 FiO2 Intake & Output 03/03/24 03/04/24 03/04/24 18:59 06:59 18:59 Output Total 900 350 Balance -900 -350 Output: Urine 900 350 - Labs CBC & Chem 7: 03/03/24 02:00 03/03/24 02:00 Labs: Abnormal Lab Results - Last 24 Hours (Table) 03/03/24 Range/Units 01:59 Procalcitonin 0.15 H (0.02-0.09) ng/mL
[2024-03-04 12:04] LABS: Glucose,Whole Blood 141 mg/dL (70-110)
[2024-03-04] MEDS: INSULIN ASPART (NovoLOG) 100 UNIT/ML VIAL SQ SCH (12:15)
--- NOTE | 2024-03-04 12:47 | CA ---
Transthoracic Echo Report Name: Nery Hancock Age: 78 Gender: F : 1945 Exam Date: 03/03/2024 14:39 Exam Location: [facility] Ht (in): 58 Wt (lb): 116 Ordering Physician: Arben Dutton DO Attending/Referring Phys: [id number], Marija [place] Captain Davida Russ RDCS Procedure CPT: Indications: Heart failure Cardiac Hx: Technical Quality: Fair Contrast 1: Total Dose (mL): Contrast 2: Total Dose (mL): MEASUREMENTS (Male / Female) Normal Values 2D ECHO LV Diastolic Diameter PLAX 3.0 cm 4.2 - 5.9 / 3.9 - 5.3 cm LV Systolic Diameter PLAX 2.2 cm IVS Diastolic Thickness 0.9 cm 0.6 - 1.0 / 0.6 - 0.9 cm LVPW Diastolic Thickness 0.9 cm 0.6 - 1.0 / 0.6 - 0.9 cm LV Relative Wall Thickness 0.6 RV Internal Dim ED PLAX 1.8 cm LVOT Diameter 1.8 cm LA Systolic Diameter LX 2.1 cm 3.0 - 4.0 / 2.7 - 3.8 cm LV Diastolic Volume MOD BP 29.8 cm??? 67 - 155 / 56 - 104 cm??? LV Systolic Volume MOD BP 14.5 cm??? 22 - 58 / 19 - 49 cm??? LV Ejection Fraction MOD BP 51.4 % >= 55 % LV Cardiac Index MOD BP 1190.3 cm???/min???m??? LV Diastolic Volume MOD 4C 34.4 cm??? LV Systolic Volume MOD 4C 15.3 cm??? LV Ejection Fraction MOD 4C 55.4 % LV Cardiac Index MOD 4C 1478.0 cm???/min???m??? LV Diastolic Length 4C 7.4 cm LV Systolic Length 4C 6.2 cm LV Diastolic Volume MOD 2C 25.2 cm??? LV Systolic Volume MOD 2C 13.3 cm??? LV Ejection Fraction MOD 2C 47.3 % LV Cardiac Index MOD 2C 928.1 cm???/min???m??? LV Diastolic Length 2C 6.8 cm LV Systolic Length 2C 5.9 cm M-MODE Aortic Root Diameter MM 3.2 cm LA Systolic Diameter MM 1.7 cm LA Ao Ratio MM 0.6 AV Cusp Separation MM 1.4 cm DOPPLER AV Peak Velocity 202.9 cm/s AV Peak Gradient 16.5 mmHg AV Mean Velocity 155.3 cm/s AV Mean Gradient 11.1 mmHg AV Velocity Time Integral 35.5 cm LVOT Peak Velocity 107.2 cm/s LVOT Peak Gradient 4.6 mmHg LVOT Velocity Time Integral 22.6 cm LVOT Stroke Volume 58.1 cm??? LVOT Stroke Volume Index 40.2 ml/m??? LVOT Cardiac Index 4518.4 cm???/min???m??? AV Area Cont Eq vti 1.6 cm??? AV Area Cont Eq pk 1.4 cm??? Mitral E Point Velocity 63.2 cm/s Mitral A Point Velocity 109.4 cm/s Mitral E to A Ratio 0.6 MV Deceleration Time 259.3 ms MV E' Velocity 7.0 cm/s Mitral E to MV E' Ratio 9.0 FINDINGS Left Ventricle Left ventricular ejection fraction is estimated at 60-65%. Normal left ventricular ejection fraction. No obvious regional wall motion abnormalities. Left ventricular cavity size normal. Right Ventricle Normal right ventricular size and function. Right ventricular systolic pressure within normal limits. Right Atrium Normal right atrial size. Left Atrium Normal left atrial size. Mitral Valve Structurally normal mitral valve. Mild mitral regurgitation. Aortic Valve Trileaflet aortic valve. Mild aortic stenosis with a peak gradient of 16 mmHg and a mean gradient of 11mmHg. Mild aortic regurgitation. Tricuspid Valve Structurally normal tricuspid valve. Mild tricuspid regurgitation. Pulmonic Valve Structurally normal pulmonic valve. Trace pulmonic regurgitation. Pericardium No pericardial or pleural effusion. Aorta Normal size aortic root and proximal ascending aorta. CONCLUSIONS Left ventricular ejection fraction 60-65% RVSP normal Mild mitral regurgitation Mild aortic stenosis Mild tricuspid regurgitation No pericardial effusion Previewed by: Dr. Darinel Baldwin DO (Electronically Signed) Final Date: 04 Mar 2024 12:46
[2024-03-04 15:22] LABS: HCT 33.9 % (34.0-46.0); HGB 9.8 gm/dL (11.4-16.0); Hypochromasia Marked; MCH 26.9 pg (25.0-35.0); MCV 92.7 fL (80.0-100.0); Mean Platelet Volume 7.7; Platelet Count 494 k/uL (150-450); RBC 3.65 m/uL (3.80-5.40); RDW 14.1 % (11.5-15.5); WBC 21.4 k/uL (3.8-10.6)
[2024-03-04 15:29] LABS: African American GFR (CKD) >90 (>60 ml/min/1.73 sqM); Anion Gap 9 mmol/L; Blood Urea Nitrogen 20 mg/dL (7-17); Calcium 8.9 mg/dL (8.4-10.2); Carbon Dioxide 26 mmol/L (22-30); Chloride 101 mmol/L (98-107); Glucose 135 mg/dL (74-99); Non-African American GFR(CKD) >90 (>60 ml/min/1.73 sqM); Sodium 136 mmol/L (137-145)
--- NOTE | 2024-03-04 16:24 | P.PN ---
Subjective Progress Note Date: 03/04/24 Patient is an 78-year-old white female with past medical history significant for non-small cell lung cancer status post chemoradiation with disease recurrence, COPD, chronic hypoxemic respiratory failure on 3 L/min nasal cannula, hypertension, hypothyroidism, among other things. Her primary care provider is Dr. Deyanira Riggins. Her oncologist is, Dr. Ovidio Murphy, out of the [facility]. She states that she was originally diagnosed with lung cancer back in 2019, she was originally treated with chemo/radiation and immunotherapy and developed the disease recurrence. She states that she has metastasis to the bones. She was restarted on Keytruda November,. She states that she was doing well until this point. Since then she has been progressively more weak. She has had limited appetite. She becomes short of breath with limited activity. She chronically wears 3 L/min nasal cannula. Over the last week or so she has been even more short of breath. She has a pulse oximeter at home, and noted her oxygen to drop as low as 81%. She finally decided to go to the emergency room yesterday afternoon. She is currently lying in bed, on 4 L/min nasal cannula, in no acute distress. Denies any significant change in her chronic cough. No sputum production or hemoptysis. Denies fevers at home. Denies sick contacts. She states that she has rib fractures bilaterally and t his produces some pain with movement and coughing. Chest x-ray done on arrival showed some mild cardiomegaly and possible pulmonary vascular congestion. No obvious focal infiltrates. NT proBNP only mildly elevated 822. Troponins less than 0.012 x 3. She is tachycardic. I did send for a D-dimer which was elevated at 2.68. Chest CT angio protocol is pending. No history of pulmonary embolism. CBC on arrival: WBC count 19.6, hemoglobin 9.7, hematocrit 31.9, platelets 497. BMP on arrival: Sodium 134, potassium 4.7, chloride 96, serum bicarb 34, BUN 19, creatinine 0.3, glucose 107. Patient was empirically started on Zosyn in the emergency room, also received a dose of Levaquin. Temperature 99.6 F. Vital signs stable. On today's evaluation of 03/04/2024, the patient is being seen for a follow-up. Slightly improved compared to yesterday. She feels less short of breath. She is still on a combination of bronchodilators with DuoNeb updrafts, she is on Symbicort and she is also on IV Solu-Medrol 60 mg every 6 hours. She is on Levaquin as an empiric antibiotic coverage. She is on Levemir insulin 10 units along with a sliding scale coverage. She remains on oxygen at 2 L/min nasal cannula. She does have some underlying sinus tachycardia. Echo was completed today and it showed a preserved LV function, mild aortic stenosis. White cell count is 21.4, hemoglobin 9.8, and sodium is at 136 with a BUN of 20 and a creatinine of 0.35. Procalcitonin level was 0.15. TSH is 1.1. Objective - Vital Signs Vital signs: Vital Signs Temp 99.6 F 03/02/24 19:06 Pulse 124 H 03/04/24 15:51 Resp 18 03/04/24 09:00 BP 135/64 03/04/24 09:00 Pulse Ox 99 03/04/24 09:00 FiO2 Intake & Output 03/03/24 03/04/24 03/04/24 18:59 06:59 18:59 Output Total 900 350 Balance -900 -350 Output: Urine 900 350 - Exam GENERAL EXAM: Alert, 78-year-old white female, comfortable in no apparent distress. HEAD: Normocephalic and atraumatic EYES: Normal reaction of pupils, equal size. NOSE: Clear with pink turbinates. THROAT: No erythema or exudates. NECK: No masses, no JVD. CHEST: No chest wall deformity. LUNGS: Equal air entry with no crackles, wheeze, rhonchi or dullness. On 2 L/min nasal cannula. No conversational dyspnea or accessory muscle use while at rest CVS: S1 and S2 normal with no audible murmur, regular rhythm. No extra heart s ounds ABDOMEN: No hepatosplenomegaly, active bowel sounds, no guarding or rigidity. SPINE: No scoliosis or deformity SKIN: No rashes CENTRAL NERVOUS SYSTEM: No focal deficits, tone is normal in all 4 extremities. EXTREMITIES: There is no peripheral edema, clubbing, or cyanosis. Peripheral pulses are intact - Labs CBC & Chem 7: 03/04/24 14:50 03/04/24 14:50 Labs: Abnormal Lab Results - Last 24 Hours (Table) 03/04/24 03/04/24 03/04/24 Range/Units 12:02 14:50 14:50 WBC 21.4 H (3.8-10.6) k/uL RBC 3.65 L (3.80-5.40) m/uL Hgb 9.8 L (11.4-16.0) gm/dL Hct 33.9 L (34.0-46.0) % MCHC 29.0 L (31.0-37.0) g/dL Plt Count 494 H (150-450) k/uL Sodium 136 L (137-145) mmol/L BUN 20 H (7-17) mg/dL Creatinine 0.35 L (0.52-1.04) mg/dL Glucose 135 H (74-99) mg/dL POC Glucose (mg/dL) 141 H (70-110) mg/dL Microbiology - Last 24 Hours (Table) 03/02/24 20:47 Blood Culture - Preliminary Blood 03/02/24 20:32 Blood Culture - Preliminary Blood Assessment and Plan Assessment: Acute on chronic hypoxemic respiratory failure, possibly secondary to acute COPD exacerbation, chest x-ray done on admission does not show any focal infiltrates or evidence of pneumonia, there is a persistent right medial lung density. Radiologist suggested cardiomegaly with mild pulmonary vascular congestion and possible congestive heart failure exacerbation. NT proBNP only mildly elevated 800. History of non-small cell lung cancer with metastasis within the chest and bone. Reportedly originally diagnosed back in 2019, and was status post chemo/radiation and immunotherapy. Had disease recurrence and restarted on Keytruda November,. Reportedly scheduled for a treatment tomorrow, which will now be postponed. Follows with her oncologist out of the [facility] system. Follow up chest CT showed posttreatment changes of the right lung with right-sided volume loss. There is a persistent, more prominent right suprahilar consolidation extending posteriorly with air bronchograms, consistent with above. Acute leukocytosis Sinus tachycardia Elevated D-dimer, Chest CT angio does not demonstrate any filling defects consistent with pulmonary embolism. Chronic obstructive pulmonary disease, maintained on Trelegy inhaler, as well as as needed DuoNebs and albuterol inhaler on an outpatient basis Former tobacco dependence History of hypothyroidism History of hypertension Plan: Patient is currently on 2 L of oxygen by nasal cannula continue combination of DuoNebs [id number], Symbicort inhaler, and IV Solu-Medrol Started on empiric antibiotics the patient is currently on Levaquin Check procalcitonin level mildly elevated at 0.15 Elevated D-dimer was noted, CT angio protocol did not demonstrate any evidence of pulmonary embolism. Echocardiogram shows a preserved LV function with mild aortic stenosis We will continue to follow.
[2024-03-04 17:23] LABS: Glucose,Whole Blood 179 mg/dL (70-110)
[2024-03-04 20:53] LABS: Glucose,Whole Blood 226 mg/dL (70-110)
[2024-03-04] MEDS: INSULIN DETEMIR (LEVEMIR) 100 UNIT/ML SYR SQ SCH (23:50)
[2024-03-05 06:00] LABS: Glucose,Whole Blood 114 mg/dL (70-110)
[2024-03-05 11:39] LABS: Glucose,Whole Blood 126 mg/dL (70-110)
[2024-03-05] MEDS: DILTIAZEM CD 180 MG CAP.ER.24H PO SCH (12:03)
--- NOTE | 2024-03-05 12:18 | P.PN ---
Subjective HISTORY OF PRESENT ILLNESS: This is an 86-year-old female with no previous cardiac history and has never been told she had heart failure. She has a past medical history of gastroesophageal reflux disease, hypertension, COPD, hypothyroidism, chronic pain, history of lung cancer diagnosed in 2019, chronic hypoxic respiratory failure. We have been asked to evaluate the patient for CHF. Patient states that she is feeling better today. She states at home her pulse ox had dropped down to 81 to 86% on oxygen. Patient was brought into the emergency center and started on antibiotics, nebulizers and IV Solu-Medrol. She states her breathing is much better from yesterday. Patient is seen today in the emergency center waiting for bed on the cardiac stepdown unit. EKG sinus rhythm at 118 bpm Chest x-ray: #1 cardiomegaly and mild pulmonary vascular congestion. #2 stable chronic changes in the right lung with increased soft tissue in the right medial. CTA of the chest revealed no evidence of acute pulmonary embolism. Mild underlying emphysematous changes redemonstrated. Recurrent neoplasm cannot be an ex occluded. Laboratory studies: WBC 16.2, hemoglobin 9.4, platelet count 480. D-dimer 2.68. Sodium 136, potassium 4.1, chloride 95, CO2 32, BUN 16 creatinine 0.36. Glucose 228. Troponin negative x 3. proBNP 822. Procalcitonin 0.15. AST 67, alkaline phosphatase 249. Home cardiac medications: Losartan 100 mg daily, magnesium oxide 400 mg daily, also on levothyroxine 50 mcg daily. R5/23 Patient states her shortness of breath is improving. No chest pain. Blood pressure 135/64, heart rate running between 64 and 114. Telemetry is sinus tachycardia. Echocardiogram has been obtained and report is pending. 03/05/2024 Patient examined this morning at the bedside. Patient states she is feeling much better today. She denies chest pain or pressure. She reports improvement in her SOB. Echocardiogram completed revealing ejection fraction 60 to 65%, mild MR, mild aortic stenosis, mild TR. She remains tachycardic with heart rate around 115. Patient's blood pressure also elevated this morning. PHYSICAL EXAM: VITAL SIGNS: Reviewed. GENERAL: Well-developed in no acute distress. NECK: Supple. No JVD or thyromegaly LUNGS: Respirations even and unlabored. Lungs essentially clear to auscultation bilaterally. HEART: Regular rate and rhythm. S1 and S2 heard. EXTREMITIES: Normal range of motion. No clubbing or cyanosis. Peripheral pulses intact. No lower extremity edema ASSESSMENT: Shortness of breath most likely due to COPD exacerbation. No clear evidence of heart failure on clinical exam with normal BNP. Acute on chronic hypoxic respiratory failure Sinus tachycardia, likely physiological COPD History of lung cancer Hypertension Hypothyroidism Gastroesophageal reflux disease PLAN: Discontinue short acting Cardizem. Begin Cardizem CD 180 mg daily which will hopefully help with patient's heart rate and also her blood pressure. Continue additional cardiac medications Possible discharge home tomorrow patient remained stable Further recommendations pending patient course Nurse practitioner note has been reviewed by physician. Signing provider agrees with the documented findings, assessment, and plan of care documented by [facility] [employer] as a scribe. Objective - Vital Signs Vital signs: Vital Signs Temp 97.8 F 03/05/24 06:59 Pulse 118 H 03/05/24 06:59 Resp 18 03/05/24 06:59 BP 185/95 03/05/24 06:59 Pulse Ox 93 L 03/05/24 06:59 FiO2 Intake & Output 03/04/24 03/05/24 03/05/24 18:59 06:59 18:59 Output Total 900 300 Balance -900 -300 Weight 63.5 kg Output: Urine 900 300 - Labs CBC & Chem 7: 03/04/24 14:50 03/04/24 14:50 Labs: Abnormal Lab Results - Last 24 Hours (Table) 03/04/24 03/04/24 03/04/24 Range/Units 12:02 14:50 14:50 WBC 21.4 H (3.8-10.6) k/uL RBC 3.65 L (3.80-5.40) m/uL Hgb 9.8 L (11.4-16.0) gm/dL Hct 33.9 L (34.0-46.0) % MCHC 29.0 L (31.0-37.0) g/dL Plt Count 494 H (150-450) k/uL Sodium 136 L (137-145) mmol/L BUN 20 H (7-17) mg/dL Creatinine 0.35 L (0.52-1.04) mg/dL Glucose 135 H (74-99) mg/dL POC Glucose (mg/dL) 141 H (70-110) mg/dL 03/04/24 03/04/24 03/05/24 Range/Units 17:22 20:50 05:58 WBC (3.8-10.6) k/uL RBC (3.80-5.40) m/uL Hgb (11.4-16.0) gm/dL Hct (34.0-46.0) % MCHC (31.0-37.0) g/dL Plt Count (150-450) k/uL Sodium (137-145) mmol/L BUN (7-17) mg/dL Creatinine (0.52-1.04) mg/dL Glucose (74-99) mg/dL POC Glucose (mg/dL) 179 H 226 H 114 H (70-110) mg/dL Microbiology - Last 24 Hours (Table) 03/02/24 20:47 Blood Culture - Preliminary Blood 03/02/24 20:32 Blood Culture - Preliminary Blood
[2024-03-05 13:02] VITALS: BMI 29.2
--- NOTE | 2024-03-05 14:21 | P.PN ---
Subjective Progress Note Date: 03/05/24 Patient is an 78-year-old white female with past medical history significant for non-small cell lung cancer status post chemoradiation with disease recurrence, COPD, chronic hypoxemic respiratory failure on 3 L/min nasal cannula, hypertension, hypothyroidism, among other things. Her primary care provider is Dr. Deyanira Riggins. Her oncologist is, Dr. Ovidio Murphy, out of the [facility] system. She states that she was originally diagnosed with lung cancer back in 2019, she was originally treated with chemo/radiation and immunotherapy and developed the disease recurrence. She states that she has metastasis to the bones. She was restarted on Keytruda November,. She states that she was doing well until this point. Since then she has been progressively more weak. She has had limited appetite. She becomes short of breath with limited activity. She chronically wears 3 L/min nasal cannula. Over the last week or so she has been even more short of breath. She has a pulse oximeter at home, and noted her oxygen to drop as low as 81%. She finally decided to go to the emergency room yesterday afternoon. She is currently lying in bed, on 4 L/min nasal cannula, in no acute distress. Denies any significant change in her chronic cough. No sputum production or hemoptysis. Denies fevers at home. Denies sick contacts. She states that she has rib fractures bilaterally and t his produces some pain with movement and coughing. Chest x-ray done on arrival showed some mild cardiomegaly and possible pulmonary vascular congestion. No obvious focal infiltrates. NT proBNP only mildly elevated 822. Troponins less than 0.012 x 3. She is tachycardic. I did send for a D-dimer which was elevated at 2.68. Chest CT angio protocol is pending. No history of pulmonary embolism. CBC on arrival: WBC count 19.6, hemoglobin 9.7, hematocrit 31.9, platelets 497. BMP on arrival: Sodium 134, potassium 4.7, chloride 96, serum bicarb 34, BUN 19, creatinine 0.3, glucose 107. Patient was empirically started on Zosyn in the emergency room, also received a dose of Levaquin. Temperature 99.6 F. Vital signs stable. On today's evaluation of 03/04/2024, the patient is being seen for a follow-up. Slightly improved compared to yesterday. She feels less short of breath. She is still on a combination of bronchodilators with DuoNeb updrafts, she is on Symbicort and she is also on IV Solu-Medrol 60 mg every 6 hours. She is on Levaquin as an empiric antibiotic coverage. She is on Levemir insulin 10 units along with a sliding scale coverage. She remains on oxygen at 2 L/min nasal cannula. She does have some underlying sinus tachycardia. Echo was completed today and it showed a preserved LV function, mild aortic stenosis. White cell count is 21.4, hemoglobin 9.8, and sodium is at 136 with a BUN of 20 and a creatinine of 0.35. Procalcitonin level was 0.15. TSH is 1.1. 03/05/2024, I am seeing the patient for a follow-up. The patient is feeling less short of breath compared to yesterday. She is responding to the combination of bronchodilators and steroids. She is also on Symbicort. No new complaints otherwise for now. She is on 3 L of oxygen by nasal cannula. She continues to have some sinus tachycardia. Otherwise, no other complaints. She remains on L evemir insulin 10 units daily along with a sign scale coverage and the rest of the medication remains unchanged. The patient is on Cardizem 180 mg p.o. daily for rate control. Objective - Vital Signs Vital signs: Vital Signs Temp 97.8 F 03/05/24 06:59 Pulse 116 H 03/05/24 08:47 Resp 22 03/05/24 08:23 BP 185/95 03/05/24 06:59 Pulse Ox 93 L 03/05/24 06:59 FiO2 Intake & Output 03/04/24 03/05/24 03/05/24 18:59 06:59 18:59 Output Total 900 300 Balance -900 -300 Weight 63.5 kg 63.5 kg Output: Urine 900 300 Other: Voiding Method External Catheter - Exam GENERAL EXAM: Alert, 78-year-old white female, comfortable in no apparent distress. HEAD: Normocephalic and atraumatic EYES: Normal reaction of pupils, equal size. NOSE: Clear with pink turbinates. THROAT: No erythema or exudates. NECK: No masses, no JVD. CHEST: No chest wall deformity. LUNGS: Equal air entry with no crackles, wheeze, rhonchi or dullness. On 2 L/min nasal cannula. No conversational dyspnea or accessory muscle use while at rest CVS: S1 and S2 normal with no audible murmur, regular rhythm. No extra heart sounds ABDOMEN: No hepatosplenomegaly, active bowel sounds, no guarding or rigidity. SPINE: No scoliosis or deformity SKIN: No rashes CENTRAL NERVOUS SYSTEM: No focal deficits, tone is normal in all 4 extremities. EXTREMITIES: There is no peripheral edema, clubbing, or cyanosis. Peripheral pulses are intact - Labs CBC & Chem 7: 03/04/24 14:50 03/04/24 14:50 Labs: Abnormal Lab Results - Last 24 Hours (Table) 03/04/24 03/04/24 03/04/24 Range/Units 12:02 14:50 14:50 WBC 21.4 H (3.8-10.6) k/uL RBC 3.65 L (3.80-5.40) m/uL Hgb 9.8 L (11.4-16.0) gm/dL Hct 33.9 L (34.0-46.0) % MCHC 29.0 L (31.0-37.0) g/dL Plt Count 494 H (150-450) k/uL Sodium 136 L (137-145) mmol/L BUN 20 H (7-17) mg/dL Creatinine 0.35 L (0.52-1.04) mg/dL Glucose 135 H (74-99) mg/dL POC Glucose (mg/dL) 141 H (70-110) mg/dL 03/04/24 03/04/24 03/05/24 Range/Units 17:22 20:50 05:58 WBC (3.8-10.6) k/uL RBC (3.80-5.40) m/uL Hgb (11.4-16.0) gm/dL Hct (34.0-46.0) % MCHC (31.0-37.0) g/dL Plt Count (150-450) k/uL Sodium (137-145) mmol/L BUN (7-17) mg/dL Creatinine (0.52-1.04) mg/dL Glucose (74-99) mg/dL POC Glucose (mg/dL) 179 H 226 H 114 H (70-110) mg/dL Microbiology - Last 24 Hours (Table) 03/02/24 20:47 Blood Culture - Preliminary Blood 03/02/24 20:32 Blood Culture - Preliminary Blood Assessment and Plan Assessment: Acute on chronic hypoxemic respiratory failure, possibly secondary to acute COPD exacerbation, chest x-ray done on admission does not show any focal infiltrates or evidence of pneumonia, there is a persistent right medial lung density. Radiologist suggested cardiomegaly with mild pulmonary vascular congestion and possible congestive heart failure exacerbation. NT proBNP only mildly elevated 800. Overall presentation more consistent with COPD exacerbation the patient responded to the bronchodilators and steroid regimen. History of non-small cell lung cancer with metastasis within the chest and bone. Reportedly originally diagnosed back in 2019, and was status post chemo/radiation and immunotherapy. Had disease recurrence and restarted on November,. Reportedly scheduled for a treatment tomorrow, which will now be postponed. Follows with her oncologist out of the [facility] system. Follow up chest CT showed posttreatment changes of the right lung with right-sided volume loss. There is a persistent, more prominent right suprahilar consolidation extending posteriorly with air bronchograms, consistent with above. Acute leukocytosis Sinus tachycardia Elevated D-dimer, Chest CT angio does not demonstrate any filling defects consistent with pulmonary embolism. Chronic obstructive pulmonary disease, maintained on Trelegy inhaler, as well as as needed DuoNebs and albuterol inhaler on an outpatient basis Former tobacco dependence History of hypothyroidism History of hypertension Plan: Clinically improving Patient is currently on 2 L of oxygen by nasal cannula continue combination of DuoNebs [id number], Symbicort inhaler, and IV Solu-Medrol Started on empiric antibiotics the patient is currently on Levaquin Check procalcitonin level mildly elevated at 0.15 Elevated D-dimer was noted, CT angio protocol did not demonstrate any evidence of pulmonary embolism. Echocardiogram shows a preserved LV function with mild aortic stenosis Continue oral Cardizem Monitor tachycardia We will continue to follow.
[2024-03-05 16:36] LABS: Glucose,Whole Blood 121 mg/dL (70-110)
--- NOTE | 2024-03-05 18:31 | P.PN ---
Subjective Progress Note Date: 03/05/24 78-year-old female with a history of non-small cell lung cancer was on Keytruda was diagnosed in 2019 patient relapsed again presently receiving Keytruda with a palliative intent came in with complaints of shortness of breath possibly COPD exacerbation CT of the chest was done which did not show any pulm embolism but did show infiltrate with air bronchograms patient is on levofloxacin patient was requiring oxygen her shortness of breath improved patient uses 3 L of oxygen presently on 3 L was requiring higher dose of oxygen patient there is no evidence of CHF although patient is receiving Lasix which will be discontinued. Patient in fact is on the volume depleted side will be started on IV fluids patient has increased heart rate which is sinus tachycardia, will obtain a TSH. Patient denies any fever chills patient does have leukocytosis of 19,000 which improved to 16,200 patient is also on Zosyn which will be discontinued but will continue levofloxacin. Objective - Vital Signs Vital signs: Vital Signs Temp 97.8 F 03/05/24 06:59 Pulse 116 H 03/05/24 08:47 Resp 22 03/05/24 08:23 BP 185/95 03/05/24 06:59 Pulse Ox 93 L 03/05/24 06:59 FiO2 Intake & Output 03/04/24 03/05/24 03/05/24 18:59 06:59 18:59 Output Total 900 300 Balance -900 -300 Weight 63.5 kg 63.5 kg Output: Urine 900 300 Other: Voiding Method External Catheter - Exam GENERAL: The patient is alert and oriented x3, not in any acute distress. Well developed, well nourished. HEENT: Pupils are round and equally reacting to light. EOMI. No scleral icterus. No conjunctival pallor. Normocephalic, atraumatic. No pharyngeal erythema. No thyromegaly. CARDIOVASCULAR: S1 and S2 present. No murmurs, rubs, or gallops. PULMONARY: Chest is clear to auscultation, no wheezing or crackles.-Acute on chronic hypercapnic and hypoxic respiratory failure secondary to COPD exacerbation continue systemic steroids continue with levofloxacin there is a possibility of pneumonia ABDOMEN: Soft, nontender, nondistended, normoactive bowel sounds. No palpable organomegaly. MUSCULOSKELETAL: No joint swelling or deformity. EXTREMITIES: No cyanosis, clubbing, or pedal edema. NEUROLOGICAL: Gross neurological examination did not reveal any focal deficits. SKIN: No rashes. - Labs CBC & Chem 7: 03/04/24 14:50 03/04/24 14:50 Labs: Abnormal Lab Results - Last 24 Hours (Table) 03/04/24 03/04/24 03/04/24 Range/Units 14:50 14:50 17:22 WBC 21.4 H (3.8-10.6) k/uL RBC 3.65 L (3.80-5.40) m/uL Hgb 9.8 L (11.4-16.0) gm/dL Hct 33.9 L (34.0-46.0) % MCHC 29.0 L (31.0-37.0) g/dL Plt Count 494 H (150-450) k/uL Sodium 136 L (137-145) mmol/L BUN 20 H (7-17) mg/dL Creatinine 0.35 L (0.52-1.04) mg/dL Glucose 135 H (74-99) mg/dL POC Glucose (mg/dL) 179 H (70-110) mg/dL 03/04/24 03/05/24 03/05/24 Range/Units 20:50 05:58 11:37 WBC (3.8-10.6) k/uL RBC (3.80-5.40) m/uL Hgb (11.4-16.0) gm/dL Hct (34.0-46.0) % MCHC (31.0-37.0) g/dL Plt Count (150-450) k/uL Sodium (137-145) mmol/L BUN (7-17) mg/dL Creatinine (0.52-1.04) mg/dL Glucose (74-99) mg/dL POC Glucose (mg/dL) 226 H 114 H 126 H (70-110) mg/dL Microbiology - Last 24 Hours (Table) 03/02/24 20:47 Blood Culture - Preliminary Blood 03/02/24 20:32 Blood Culture - Preliminary Blood Assessment and Plan Assessment: Acute on chronic hypoxic and hypercapnic respiratory failure secondary to COPD exacerbation continue systemic steroids continue with antibiotics as mentioned above Possible right middle lobe pneumonia: Continue with levofloxacin -Lung cancer, non-small cell on palliative radiation and Keytruda. -Recent pathological fractures pain management supportive care and radiation therapy -Sinus tachycardia may be due to intravascular volume depletion, IV fluids and will obtain TSH -Hypothyroidism -Depression DVT prophylaxis: Lovenox GI prophylaxis Pepcid
[2024-03-05 21:01] LABS: Glucose,Whole Blood 124 mg/dL (70-110)
[2024-03-06 05:44] LABS: Glucose,Whole Blood 106 mg/dL (70-110)
[2024-03-06 11:26] LABS: Glucose,Whole Blood 132 mg/dL (70-110)
[2024-03-06 13:12] LABS: Basophils % (A) 0 %; Eosinophils % (A) 0 %; HCT 34.2 % (34.0-46.0); HGB 9.9 gm/dL (11.4-16.0); Hypochromasia Marked; Lymphocytes # (A) 0.1 k/uL (1.0-4.8); Lymphocytes % (A) 1 %; MCH 26.8 pg (25.0-35.0); MCV 92.6 fL (80.0-100.0); Mean Platelet Volume 8.2; Monocytes # (A) 0.5 k/uL (0-1.0); Monocytes % (A) 3 %; Neutrophils # (A) 17.7 k/uL (1.3-7.7); Neutrophils % (A) 96 %; Platelet Count 524 k/uL (150-450); RBC 3.69 m/uL (3.80-5.40); RDW 14.1 % (11.5-15.5); WBC 18.4 k/uL (3.8-10.6)
[2024-03-06 13:25] LABS: African American GFR (CKD) >90 (>60 ml/min/1.73 sqM); Anion Gap 4 mmol/L; Blood Urea Nitrogen 33 mg/dL (7-17); Calcium 9.5 mg/dL (8.4-10.2); Carbon Dioxide 32 mmol/L (22-30); Chloride 100 mmol/L (98-107); Glucose 140 mg/dL (74-99); Non-African American GFR(CKD) >90 (>60 ml/min/1.73 sqM); Potassium 4.2 mmol/L (3.5-5.1); Sodium 136 mmol/L (137-145)
--- NOTE | 2024-03-06 13:50 | P.PN ---
Subjective Progress Note Date: 03/06/24 HISTORY OF PRESENT ILLNESS: This is an 86-year-old female with no previous cardiac history and has never been told she had heart failure. She has a past medical history of gastroesophageal reflux disease, hypertension, COPD, hypothyroidism, chronic pain, history of lung cancer diagnosed in 2019, chronic hypoxic respiratory failure. We have been asked to evaluate the patient for CHF. Patient states that she is feeling better today. She states at home her pulse ox had dropped down to 81 to 86% on oxygen. Patient was brought into the emergency center and started on antibiotics, nebulizers and IV Solu-Medrol. She states her breathing is much better from yesterday. Patient is seen today in the emergency center waiting for bed on the cardiac stepdown unit. EKG sinus rhythm at 118 bpm Chest x-ray: #1 cardiomegaly and mild pulmonary vascular congestion. #2 stable chronic changes in the right lung with increased soft tissue in the right medial. CTA of the chest revealed no evidence of acute pulmonary embolism. Mild underlying emphysematous changes redemonstrated. Recurrent neoplasm cannot be an ex occluded. Laboratory studies: WBC 16.2, hemoglobin 9.4, platelet count 480. D-dimer 2.68. Sodium 136, potassium 4.1, chloride 95, CO2 32, BUN 16 creatinine 0.36. Glucose 228. Troponin negative x 3. proBNP 822. Procalcitonin 0.15. AST 67, alkaline phosphatase 249. Home cardiac medications: Losartan 100 mg daily, magnesium oxide 400 mg daily, also on levothyroxine 50 mcg daily. 03/04/2024 Patient states her shortness of breath is improving. No chest pain. Blood pressure 135/64, heart rate running between 64 and 114. Telemetry is sinus tachycardia. Echocardiogram has been obtained and report is pending. 03/05/2024 Patient examined this morning at the bedside. Patient states she is feeling much better today. She denies chest pain or pressure. She reports improvement in her SOB. Echocardiogram completed revealing ejection fraction 60 to 65%, mild MR, mild aortic stenosis, mild TR. She remains tachycardic with heart rate around 115. Patient's blood pressure also elevated this morning. 03/06/2024 Patient reports that her breathing continues to improve. She states that pulmonary is going to decrease her steroids and monitor her another day. Heart rates are still in the low 100s. Denies any chest pain or pressure. PHYSICAL EXAM: VITAL SIGNS: Reviewed. GENERAL: Well-developed in no acute distress. NECK: Supple. No JVD LUNGS: Respirations even and unlabored. Lungs with rhonchi and wheezing throughout. HEART: Regular rate and rhythm. S1 and S2 heard. EXTREMITIES: Normal range of motion. No clubbing or cyanosis. Peripheral pulses intact. No lower extremity edema ASSESSMENT: Shortness of breath most likely due to COPD exacerbation. No clear evidence of heart failure on clinical exam with normal BNP. Acute on chronic hypoxic respiratory failure Sinus tachycardia, likely physiological COPD History of lung cancer Hypertension Hypothyroidism Gastroesophageal reflux disease PLAN: Heart rates are better controlled. Continue with Cardizem CD 180 mg daily which will hopefully help with patient's heart rate and also her blood pressure. Continue additional cardiac medications. Cardiology to sign off. Please call with any questions. Follow up in office in 1-2 weeks. Nurse practitioner note has been reviewed by physician. Signing provider agrees with the documented findings, assessment, and plan of care documented by ENGRAVER COPPERPLATE as a scribe. Objective - Vital Signs Vital signs: Vital Signs Temp 98 F 03/06/24 02:21 Pulse 100 03/06/24 09:11 Resp 16 03/06/24 02:21 BP 172/76 03/06/24 07:47 Pulse Ox 96 03/06/24 08:59 FiO2 Intake & Output 03/05/24 03/06/24 03/06/24 18:59 06:59 18:59 Output Total 300 Balance -300 Weight 63.5 kg Output: Urine 300 Other: Voiding Method External Catheter Toilet External Catheter # Voids 3 - Labs CBC & Chem 7: 03/06/24 12:59 03/06/24 12:59 Labs: Abnormal Lab Results - Last 24 Hours (Table) 03/05/24 03/05/24 03/05/24 Range/Units 11:37 16:35 20:59 POC Glucose (mg/dL) 126 H 121 H 124 H (70-110) mg/dL Microbiology - Last 24 Hours (Table) 03/02/24 20:47 Blood Culture - Preliminary Blood 03/02/24 20:32 Blood Culture - Preliminary Blood
--- NOTE | 2024-03-06 14:11 | P.PN ---
Subjective Progress Note Date: 03/06/24 Patient is an 78-year-old white female with past medical history significant for non-small cell lung cancer status post chemoradiation with disease recurrence, COPD, chronic hypoxemic respiratory failure on 3 L/min nasal cannula, hypertension, hypothyroidism, among other things. Her primary care provider is Dr. Deyanira Riggins. Her oncologist is, Dr. Ovidio Murphy, out of the [facility] system. She states that she was originally diagnosed with lung cancer back in 2019, she was originally treated with chemo/radiation and immunotherapy and developed the disease recurrence. She states that she has metastasis to the bones. She was restarted on Keytruda November,. She states that she was doing well until this point. Since then she has been progressively more weak. She has had limited appetite. She becomes short of breath with limited activity. She chronically wears 3 L/min nasal cannula. Over the last week or so she has been even more short of breath. She has a pulse oximeter at home, and noted her oxygen to drop as low as 81%. She finally decided to go to the emergency room yesterday afternoon. She is currently lying in bed, on 4 L/min nasal cannula, in no acute distress. Denies any significant change in her chronic cough. No sputum production or hemoptysis. Denies fevers at home. Denies sick contacts. She states that she has rib fractures bilaterally and t his produces some pain with movement and coughing. Chest x-ray done on arrival showed some mild cardiomegaly and possible pulmonary vascular congestion. No obvious focal infiltrates. NT proBNP only mildly elevated 822. Troponins less than 0.012 x 3. She is tachycardic. I did send for a D-dimer which was elevated at 2.68. Chest CT angio protocol is pending. No history of pulmonary embolism. CBC on arrival: WBC count 19.6, hemoglobin 9.7, hematocrit 31.9, platelets 497. BMP on arrival: Sodium 134, potassium 4.7, chloride 96, serum bicarb 34, BUN 19, creatinine 0.3, glucose 107. Patient was empirically started on Zosyn in the emergency room, also received a dose of Levaquin. Temperature 99.6 F. Vital signs stable. On today's evaluation of 03/04/2024, the patient is being seen for a follow-up. Slightly improved compared to yesterday. She feels less short of breath. She is still on a combination of bronchodilators with DuoNeb updrafts, she is on Symbicort and she is also on IV Solu-Medrol 60 mg every 6 hours. She is on Levaquin as an empiric antibiotic coverage. She is on Levemir insulin 10 units along with a sliding scale coverage. She remains on oxygen at 2 L/min nasal cannula. She does have some underlying sinus tachycardia. Echo was completed today and it showed a preserved LV function, mild aortic stenosis. White cell count is 21.4, hemoglobin 9.8, and sodium is at 136 with a BUN of 20 and a creatinine of 0.35. Procalcitonin level was 0.15. TSH is 1.1. 03/05/2024, I am seeing the patient for a follow-up. The patient is feeling less short of breath compared to yesterday. She is responding to the combination of bronchodilators and steroids. She is also on Symbicort. No new complaints otherwise for now. She is on 3 L of oxygen by nasal cannula. She continues to have some sinus tachycardia. Otherwise, no other complaints. She remains on L evemir insulin 10 units daily along with a sign scale coverage and the rest of the medication remains unchanged. The patient is on Cardizem 180 mg p.o. daily for rate control. On 03/06/2024, the patient is being seen for a follow-up. The patient is doing better. Less short of breath. Less bronchospastic and wheezy. She encountered some insomnia which prior related to systemic steroid that she is receiving. Feeling better. Trying to ambulate. Overall, feeling weak yet less short of breath. WBC count is at 18 with a hemoglobin 9.9 with a platelet count of 524. BUN 33 with creatinine 0.4 and sodium levels at 136 and a potassium level is at 4.2. Remains on bronchodilators. Remains on IV Solu-Medrol and the dose will be tapered down today. IV fluids are 20 cc an hour. She is on empiric antibiotic coverage with Levaquin. Objective - Vital Signs Vital signs: Vital Signs Temp 98 F 03/06/24 02:21 Pulse 100 03/06/24 09:11 Resp 16 03/06/24 02:21 BP 172/76 03/06/24 07:47 Pulse Ox 96 03/06/24 08:59 FiO2 Intake & Output 03/05/24 03/06/24 03/06/24 18:59 06:59 18:59 Output Total 300 Balance -300 Weight 63.5 kg Output: Urine 300 Other: Voiding Method External Catheter Toilet External Catheter # Voids 3 - Exam GENERAL EXAM: Alert, 78-year-old white female, comfortable in no apparent distress. The patient is currently on 3 days of oxygen by nasal cannula. HEAD: Normocephalic and atraumatic EYES: Normal reaction of pupils, equal size. NOSE: Clear with pink turbinates. THROAT: No erythema or exudates. NECK: No masses, no JVD. CHEST: No chest wall deformity. LUNGS: Equal air entry with no crackles, wheeze, rhonchi or dullness. On 2 L/min nasal cannula. No conversational dyspnea or accessory muscle use while at rest CVS: S1 and S2 normal with no audible murmur, regular rhythm. No extra heart sounds ABDOMEN: No hepatosplenomegaly, active bowel sounds, no guarding or rigidity. SPINE: No scoliosis or deformity SKIN: No rashes CENTRAL NERVOUS SYSTEM: No focal deficits, tone is normal in all 4 extremities. EXTREMITIES: There is no peripheral edema, clubbing, or cyanosis. Peripheral pulses are intact - Labs CBC & Chem 7: 03/06/24 12:59 03/06/24 12:59 Labs: Abnormal Lab Results - Last 24 Hours (Table) 03/05/24 03/05/24 03/05/24 Range/Units 11:37 16:35 20:59 POC Glucose (mg/dL) 126 H 121 H 124 H (70-110) mg/dL Microbiology - Last 24 Hours (Table) 03/02/24 20:47 Blood Culture - Preliminary Blood 03/02/24 20:32 Blood Culture - Preliminary Blood Assessment and Plan Assessment: Acute on chronic hypoxemic respiratory failure, possibly secondary to acute COPD exacerbation, chest x-ray done on admission does not show any focal infiltrates or evidence of pneumonia, there is a persistent right medial lung density. Radiologist suggested cardiomegaly with mild pulmonary vascular congestion and possible congestive heart failure exacerbation. NT proBNP only mildly elevated 800. Overall presentation more consistent with COPD exacerbation the patient responded to the bronchodilators and steroid regimen. History of non-small cell lung cancer with metastasis within the chest and bone. Reportedly originally diagnosed back in 2019, and was status post chemo/radiation and immunotherapy. Had disease recurrence and restarted on Keytruda November,. Reportedly scheduled for a treatment tomorrow, which will now be postponed. Follows with her oncologist out of the [facility] system. Follow up chest CT showed posttreatment changes of the right lung with right-sided volume loss. There is a persistent, more prominent right suprahilar consolidation extending posteriorly with air bronchograms, consistent with above. Acute leukocytosis Sinus tachycardia Elevated D-dimer, Chest CT angio does not demonstrate any filling defects consistent with pulmonary embolism. Chronic obstructive pulmonary disease, maintained on Trelegy inhaler, as well as as needed DuoNebs and albuterol inhaler on an outpatient basis Former tobacco dependence History of hypothyroidism History of hypertension Plan: Clinically improving and the patient seems to be less short of breath compared to yesterday. Patient is currently on 2 L of oxygen by nasal cannula continue combination of DuoNebs [id number], Symbicort inhaler Tapered IV Solu-Medrol to 40 mg every 8 hours. Ambien 5 mg as needed overnight for insomnia. Continue antibiotics the patient is currently on Levaquin Check procalcitonin level mildly elevated at 0.15 Elevated D-dimer was noted, CT angio protocol did not demonstrate any evidence of pulmonary embolism. Echocardiogram shows a preserved LV function with mild aortic stenosis Continue oral Cardizem Monitor tachycardia, improvement is noted We will continue to follow.
[2024-03-06 16:36] LABS: Glucose,Whole Blood 138 mg/dL (70-110)
[2024-03-06] MEDS: methylPREDNISolone SOD SUCCI 40 MG/ML 1 ML VIAL IV SCH (17:37)
[2024-03-06] MEDS: ONDANSETRON 4 MG/2 ML VIAL IVP PRN (17:40)
--- NOTE | 2024-03-06 17:53 | P.PN ---
Subjective 78-year-old female with a history of non-small cell lung cancer was on Keytruda was diagnosed in 2019 patient relapsed again presently receiving Keytruda with a palliative intent came in with complaints of shortness of breath possibly COPD exacerbation CT of the chest was done which did not show any pulm embolism but did show infiltrate with air bronchograms patient is on levofloxacin patient was requiring oxygen her shortness of breath improved patient uses 3 L of oxygen presently on 3 L was requiring higher dose of oxygen patient there is no evidence of CHF although patient is receiving Lasix which will be discontinued. Patient in fact is on the volume depleted side will be started on IV fluids patient has increased heart rate which is sinus tachycardia, will obtain a TSH. Patient denies any fever chills patient does have leukocytosis of 19,000 which improved to 16,200 patient is also on Zosyn which will be discontinued but will continue levofloxacin. 03/06/2024 the patient is being seen for a follow-up. The patient is doing better. Less short of breath. Less bronchospastic and wheezy. She encountered some insomnia which prior related to systemic steroid that she is receiving. Feeling better. Trying to ambulate. Overall, feeling weak yet less short of breath. WBC count is at 18 with a hemoglobin 9.9 with a platelet count of 524. BUN 33 with creatinine 0.4 and sodium levels at 136 and a potassium level is at 4.2. Remains on bronchodilators. Remains on IV Solu-Medrol and the dose will be tapered down today. IV fluids are 20 cc an hour. She is on empiric antibiotic coverage with Levaquin. Patient remains on O2 at 2 L per nasal cannula; continue with DuoNeb nebulizer treatments along with Symbicort inhaler; IV Solu-Medrol is stable to 40 mg every 8 hours Elevated D-dimer was noted, CT angio protocol did not demonstrate any evidence of pulmonary embolism. Echocardiogram shows a preserved LV function with mild aortic stenosis Continue oral Cardizem Objective - Vital Signs Vital signs: Vital Signs Temp 98 F 03/06/24 02:21 Pulse 96 03/06/24 11:27 Resp 16 03/06/24 02:21 BP 172/76 03/06/24 07:47 Pulse Ox 96 03/06/24 08:59 FiO2 Intake & Output 03/05/24 03/06/24 03/06/24 18:59 06:59 18:59 Output Total 300 Balance -300 Weight 63.5 kg Output: Urine 300 Other: Voiding Method External Catheter Toilet External Catheter # Voids 3 - Exam GENERAL: The patient is alert and oriented x3, not in any acute distress. Well developed, well nourished. HEENT: Pupils are round and equally reacting to light. EOMI. No scleral icterus. No conjunctival pallor. Normocephalic, atraumatic. No pharyngeal erythema. No thyromegaly. CARDIOVASCULAR: S1 and S2 present. No murmurs, rubs, or gallops. PULMONARY: Chest is clear to auscultation, no wheezing or crackles.-Acute on chronic hypercapnic and hypoxic respiratory failure secondary to COPD exacerbation continue systemic steroids continue with levofloxacin there is a possibility of pneumonia ABDOMEN: Soft, nontender, nondistended, normoactive bowel sounds. No palpable organomegaly. MUSCULOSKELETAL: No joint swelling or deformity. EXTREMITIES: No cyanosis, clubbing, or pedal edema. NEUROLOGICAL: Gross neurological examination did not reveal any focal deficits. SKIN: No rashes. - Labs CBC & Chem 7: 03/06/24 12:59 03/06/24 12:59 Labs: Abnormal Lab Results - Last 24 Hours (Table) 03/05/24 03/05/24 03/06/24 Range/Units 16:35 20:59 11:24 POC Glucose (mg/dL) 121 H 124 H 132 H (70-110) mg/dL Microbiology - Last 24 Hours (Table) 03/02/24 20:47 Blood Culture - Preliminary Blood 03/02/24 20:32 Blood Culture - Preliminary Blood Assessment and Plan Assessment: Acute on chronic hypoxic and hypercapnic respiratory failure secondary to COPD exacerbation continue systemic steroids continue with antibiotics as mentioned above Possible right middle lobe pneumonia: Continue with levofloxacin -Lung cancer, non-small cell on palliative radiation and Keytruda. -Recent pathological fractures pain management supportive care and radiation therapy -Sinus tachycardia may be due to intravascular volume depletion, IV fluids and will obtain TSH -Hypothyroidism -Depression DVT prophylaxis: Lovenox GI prophylaxis Pepcid
[2024-03-06 20:31] LABS: Glucose,Whole Blood 136 mg/dL (70-110)
[2024-03-06] MEDS: ZOLPIDEM 5 MG TAB PO PRN (23:43)
[2024-03-07 06:02] LABS: Glucose,Whole Blood 104 mg/dL (70-110)
[2024-03-07 07:45] LABS: African American GFR (CKD) >90 (>60 ml/min/1.73 sqM); Anion Gap 2 mmol/L; Blood Urea Nitrogen 32 mg/dL (7-17); Calcium 8.8 mg/dL (8.4-10.2); Carbon Dioxide 38 mmol/L (22-30); Chloride 97 mmol/L (98-107); Glucose 85 mg/dL (74-99); Non-African American GFR(CKD) >90 (>60 ml/min/1.73 sqM); Potassium 4.6 mmol/L (3.5-5.1); Sodium 137 mmol/L (137-145)
[2024-03-07 09:27] LABS: Basophils # (A) 0.05 X 10*3/uL (0.00-0.10); Basophils % (A) 0.2 %; Eosinophils # (A) 0 X 10*3/uL (0.04-0.35); Eosinophils % (A) 0 %; HCT 33.1 % (37.2-46.3); HGB 9.5 g/dL (12.0-15.0); Lymphocytes # (A) 0.12 X 10*3/uL (0.90-5.00); Lymphocytes % (A) 0.6 %; MCH 27.3 pg (27.0-32.0); MCHC 28.7 g/dL (32.0-37.0); MCV 95.1 FL (80.0-97.0); Mean Platelet Volume 10.4 FL (9.5-12.2); Monocytes # (A) 0.91 X 10*3/uL (0.20-1.00); Monocytes % (A) 4.5 %; NRBC Per 100 WBC 0.02 X 10*3/uL (0.00-0.01); Neutrophils # (A) 18.74 X 10*3/uL (1.80-7.70); Neutrophils % (A) 92.5 %; Platelet Count 488 X 10*3/uL (140-440); RBC 3.48 X 10*6/uL (4.10-5.20); RDW 14.9 % (11.5-14.5); WBC 20.27 X 10*3/uL (4.50-10.00)
[2024-03-07 11:36] LABS: Glucose,Whole Blood 120 mg/dL (70-110)
[2024-03-07] MEDS: predniSONE 20 MG TAB PO SCH (12:40)
--- NOTE | 2024-03-07 14:50 | P.PN ---
Subjective Progress Note Date: 03/07/24 Patient is an 78-year-old white female with past medical history significant for non-small cell lung cancer status post chemoradiation with disease recurrence, COPD, chronic hypoxemic respiratory failure on 3 L/min nasal cannula, hypertension, hypothyroidism, among other things. Her primary care provider is Dr. Deyanira Riggins. Her oncologist is, Dr. Ovidio Murphy, out of the [facility] system. She states that she was originally diagnosed with lung cancer back in 2019, she was originally treated with chemo/radiation and immunotherapy and developed the disease recurrence. She states that she has metastasis to the bones. She was restarted on Keytruda November,. She states that she was doing well until this point. Since then she has been progressively more weak. She has had limited appetite. She becomes short of breath with limited activity. She chronically wears 3 L/min nasal cannula. Over the last week or so she has been even more short of breath. She has a pulse oximeter at home, and noted her oxygen to drop as low as 81%. She finally decided to go to the emergency room yesterday afternoon. She is currently lying in bed, on 4 L/min nasal cannula, in no acute distress. Denies any significant change in her chronic cough. No sputum production or hemoptysis. Denies fevers at home. Denies sick contacts. She states that she has rib fractures bilaterally and t his produces some pain with movement and coughing. Chest x-ray done on arrival showed some mild cardiomegaly and possible pulmonary vascular congestion. No obvious focal infiltrates. NT proBNP only mildly elevated 822. Troponins less than 0.012 x 3. She is tachycardic. I did send for a D-dimer which was elevated at 2.68. Chest CT angio protocol is pending. No history of pulmonary embolism. CBC on arrival: WBC count 19.6, hemoglobin 9.7, hematocrit 31.9, platelets 497. BMP on arrival: Sodium 134, potassium 4.7, chloride 96, serum bicarb 34, BUN 19, creatinine 0.3, glucose 107. Patient was empirically started on Zosyn in the emergency room, also received a dose of Levaquin. Temperature 99.6 F. Vital signs stable. On today's evaluation of 03/04/2024, the patient is being seen for a follow-up. Slightly improved compared to yesterday. She feels less short of breath. She is still on a combination of bronchodilators with DuoNeb updrafts, she is on Symbicort and she is also on IV Solu-Medrol 60 mg every 6 hours. She is on Levaquin as an empiric antibiotic coverage. She is on Levemir insulin 10 units along with a sliding scale coverage. She remains on oxygen at 2 L/min nasal cannula. She does have some underlying sinus tachycardia. Echo was completed today and it showed a preserved LV function, mild aortic stenosis. White cell count is 21.4, hemoglobin 9.8, and sodium is at 136 with a BUN of 20 and a creatinine of 0.35. Procalcitonin level was 0.15. TSH is 1.1. 03/05/2024, I am seeing the patient for a follow-up. The patient is feeling less short of breath compared to yesterday. She is responding to the combination of bronchodilators and steroids. She is also on Symbicort. No new complaints otherwise for now. She is on 3 L of oxygen by nasal cannula. She continues to have some sinus tachycardia. Otherwise, no other complaints. She remains on L evemir insulin 10 units daily along with a sign scale coverage and the rest of the medication remains unchanged. The patient is on Cardizem 180 mg p.o. daily for rate control. On 03/06/2024, the patient is being seen for a follow-up. The patient is doing better. Less short of breath. Less bronchospastic and wheezy. She encountered some insomnia which prior related to systemic steroid that she is receiving. Feeling better. Trying to ambulate. Overall, feeling weak yet less short of breath. WBC count is at 18 with a hemoglobin 9.9 with a platelet count of 524. BUN 33 with creatinine 0.4 and sodium levels at 136 and a potassium level is at 4.2. Remains on bronchodilators. Remains on IV Solu-Medrol and the dose will be tapered down today. IV fluids are 20 cc an hour. She is on empiric antibiotic coverage with Levaquin. 03/07/2024, patient is being seen for a follow-up. Less short of breath and less bronchospastic and wheezy. No new complaints otherwise for now. On 3 L a pulse ox above 90%. She is also being gradually weaned off the FiO2. Remains on IV Solu-Medrol patient was having some issues with insomnia which was treated with Gabrielien overnight that she was able to sleep adequately. She is on Levemir insulin 10 units and a sliding scale coverage. She has Symbicort and DuoNeb updrafts. Objective - Vital Signs Vital signs: Vital Signs Temp 98.4 F 03/07/24 07:42 Pulse 90 03/07/24 11:34 Resp 17 03/07/24 07:42 BP 154/85 03/07/24 07:42 Pulse Ox 90 L 03/07/24 07:42 FiO2 Intake & Output 03/06/24 03/07/24 03/07/24 18:59 06:59 18:59 Other: Voiding Method Toilet External Catheter # Voids 2 2 - Exam GENERAL EXAM: Alert, 78-year-old white female, comfortable in no apparent distress. The patient is currently on 3 days of oxygen by nasal cannula. HEAD: Normocephalic and atraumatic EYES: Normal reaction of pupils, equal size. NOSE: Clear with pink turbinates. THROAT: No erythema or exudates. NECK: No masses, no JVD. CHEST: No chest wall deformity. LUNGS: Equal air entry with no crackles, wheeze, rhonchi or dullness. On 2 L/min nasal cannula. No conversational dyspnea or accessory muscle use while at rest CVS: S1 and S2 normal with no audible murmur, regular rhythm. No extra heart sounds ABDOMEN: No hepatosplenomegaly, active bowel sounds, no guarding or rigidity. SPINE: No scoliosis or deformity SKIN: No rashes CENTRAL NERVOUS SYSTEM: No focal deficits, tone is normal in all 4 extremities. EXTREMITIES: There is no peripheral edema, clubbing, or cyanosis. Peripheral pulses are intact - Labs CBC & Chem 7: 03/07/24 06:04 03/07/24 06:04 Labs: Abnormal Lab Results - Last 24 Hours (Table) 03/06/24 03/06/24 03/06/24 Range/Units 12:59 12:59 16:35 WBC 18.4 H (3.8-10.6) k/uL RBC 3.69 L (3.80-5.40) m/uL Hgb 9.9 L (11.4-16.0) gm/dL Hct (37.2-46.3) % MCHC 29.0 L (31.0-37.0) g/dL RDW (11.5-14.5) % Plt Count 524 H (150-450) k/uL Immature Gran # (0.00-0.04) X 10*3/uL Neutrophils # 17.7 H (1.3-7.7) k/uL Lymphocytes # 0.1 L (1.0-4.8) k/uL Eosinophils # (0.04-0.35) X 10*3/uL NRBC/100 WBC Diff (0.00-0.01) X 10*3/uL Sodium 136 L (137-145) mmol/L Chloride (98-107) mmol/L Carbon Dioxide 32 H (22-30) mmol/L BUN 33 H (7-17) mg/dL Creatinine 0.43 L (0.52-1.04) mg/dL Glucose 140 H (74-99) mg/dL POC Glucose (mg/dL) 138 H (70-110) mg/dL 03/06/24 03/07/24 03/07/24 Range/Units 20:22 06:04 06:04 WBC 20.27 H (3.8-10.6) k/uL RBC 3.48 L (3.80-5.40) m/uL Hgb 9.5 L (11.4-16.0) gm/dL Hct 33.1 L (37.2-46.3) % MCHC 28.7 L (31.0-37.0) g/dL RDW 14.9 H (11.5-14.5) % Plt Count 488 H (150-450) k/uL Immature Gran # 0.45 H (0.00-0.04) X 10*3/uL Neutrophils # 18.74 H (1.3-7.7) k/uL Lymphocytes # 0.12 L (1.0-4.8) k/uL Eosinophils # 0 L (0.04-0.35) X 10*3/uL NRBC/100 WBC Diff 0.02 H (0.00-0.01) X 10*3/uL Sodium (137-145) mmol/L Chloride 97 L (98-107) mmol/L Carbon Dioxide 38 H (22-30) mmol/L BUN 32 H (7-17) mg/dL Creatinine 0.48 L (0.52-1.04) mg/dL Glucose (74-99) mg/dL POC Glucose (mg/dL) 136 H (70-110) mg/dL 03/07/24 Range/Units 11:32 WBC (3.8-10.6) k/uL RBC (3.80-5.40) m/uL Hgb (11.4-16.0) gm/dL Hct (37.2-46.3) % MCHC (31.0-37.0) g/dL RDW (11.5-14.5) % Plt Count (150-450) k/uL Immature Gran # (0.00-0.04) X 10*3/uL Neutrophils # (1.3-7.7) k/uL Lymphocytes # (1.0-4.8) k/uL Eosinophils # (0.04-0.35) X 10*3/uL NRBC/100 WBC Diff (0.00-0.01) X 10*3/uL Sodium (137-145) mmol/L Chloride (98-107) mmol/L Carbon Dioxide (22-30) mmol/L BUN (7-17) mg/dL Creatinine (0.52-1.04) mg/dL Glucose (74-99) mg/dL POC Glucose (mg/dL) 120 H (70-110) mg/dL Microbiology - Last 24 Hours (Table) 03/02/24 20:47 Blood Culture - Preliminary Blood 03/02/24 20:32 Blood Culture - Preliminary Blood Assessment and Plan Assessment: Acute on chronic hypoxemic respiratory failure, possibly secondary to acute COPD exacerbation, chest x-ray done on admission does not show any focal infiltrates or evidence of pneumonia, there is a persistent right medial lung density. Radiologist suggested cardiomegaly with mild pulmonary vascular congestion and possible congestive heart failure exacerbation. NT proBNP only mildly elevated 800. Overall presentation more consistent with COPD exacerbation the patient responded to the bronchodilators and steroid regimen. History of non-small cell lung cancer with metastasis within the chest and bone. Reportedly originally diagnosed back in 2019, and was status post chemo/radiation and immunotherapy. Had disease recurrence and restarted on Keytruda November,. Reportedly scheduled for a treatment tomorrow, which will now be postponed. Follows with her oncologist out of the [facility] system. Follow up chest CT showed posttreatment changes of the right lung with right-sided volume loss. There is a persistent, more prominent right suprahilar consolidation extending posteriorly with air bronchograms, consistent with abov e. Acute leukocytosis, white cell count remained stable Sinus tachycardia, improved Elevated D-dimer, Chest CT angio does not demonstrate any filling defects consistent with pulmonary embolism. Chronic obstructive pulmonary disease, maintained on Trelegy inhaler, as well as as needed DuoNebs and albuterol inhaler on an outpatient basis Former tobacco dependence History of hypothyroidism History of hypertension Plan: Wean down the FiO2 as tolerated to maintain saturation above 90% Clinically improving and the patient seems to be less short of breath compared to yesterday. combination of DuoNebs [id number], Symbicort inhaler Start IV Solu-Medrol start the patient on prednisone 40 mg p.o. daily Ambien 5 mg as needed overnight for insomnia. Continue antibiotics the patient is currently on Levaquin Check procalcitonin level mildly elevated at 0.15 Elevated D-dimer was noted, CT angio protocol did not demonstrate any evidence of pulmonary embolism. Echocardiogram shows a preserved LV function with mild aortic stenosis Continue oral Cardizem Monitor tachycardia, improvement is noted We will continue to follow.
[2024-03-07 16:23] LABS: Glucose,Whole Blood 122 mg/dL (70-110)
--- NOTE | 2024-03-07 16:41 | P.PN ---
Subjective 78-year-old female with a history of non-small cell lung cancer was on Keytruda was diagnosed in 2019 patient relapsed again presently receiving Keytruda with a palliative intent came in with complaints of shortness of breath possibly COPD exacerbation CT of the chest was done which did not show any pulm embolism but did show infiltrate with air bronchograms patient is on levofloxacin patient was requiring oxygen her shortness of breath improved patient uses 3 L of oxygen presently on 3 L was requiring higher dose of oxygen patient there is no evidence of CHF although patient is receiving Lasix which will be discontinued. Patient in fact is on the volume depleted side will be started on IV fluids patient has increased heart rate which is sinus tachycardia, will obtain a TSH. Patient denies any fever chills patient does have leukocytosis of 19,000 which improved to 16,200 patient is also on Zosyn which will be discontinued but will continue levofloxacin. 03/06/2024 the patient is being seen for a follow-up. The patient is doing better. Less short of breath. Less bronchospastic and wheezy. She encountered some insomnia which prior related to systemic steroid that she is receiving. Feeling better. Trying to ambulate. Overall, feeling weak yet less short of breath. WBC count is at 18 with a hemoglobin 9.9 with a platelet count of 524. BUN 33 with creatinine 0.4 and sodium levels at 136 and a potassium level is at 4.2. Remains on bronchodilators. Remains on IV Solu-Medrol and the dose will be tapered down today. IV fluids are 20 cc an hour. She is on empiric antibiotic coverage with Levaquin. Patient remains on O2 at 2 L per nasal cannula; continue with DuoNeb nebulizer treatments along with Symbicort inhaler; IV Solu-Medrol is stable to 40 mg every 8 hours Elevated D-dimer was noted, CT angio protocol did not demonstrate any evidence of pulmonary embolism. Echocardiogram shows a preserved LV function with mild aortic stenosis Continue oral Cardizem 03/07/2024 --patient is being seen for a follow-up. Less short of breath and less bronchospastic and wheezy. No new complaints otherwise for now. On 3 L a pulse ox above 90%. She is also being gradually weaned off the FiO2. Remains on IV Solu-Medrol patient was having some issues with insomnia which was treated with Ambien overnight that she was able to sleep adequately. She is on Levemir insul in 10 units and a sliding scale coverage. She has Symbicort and DuoNeb updrafts. Plan is to continue with current treatment and titrate or wean FiO2 keeping O2 saturation greater than 90%; patient has been transitioned to oral prednisone 40 mg daily and recommended to continue with DuoNeb nebulizer treatments and Symbicort inhaler --Remains on antibiotic therapy in form of Levaquin; plan to monitor CBC, CRP and procalcitonin Plan is to continue with current management with possible discharge when cleared by pulmonary service Objective - Vital Signs Vital signs: Vital Signs Temp 98.4 F 03/07/24 07:42 Pulse 116 H 03/07/24 07:42 Resp 17 03/07/24 07:42 BP 154/85 03/07/24 07:42 Pulse Ox 90 L 03/07/24 07:42 FiO2 Intake & Output 03/06/24 03/07/24 03/07/24 18:59 06:59 18:59 Other: Voiding Method Toilet External Catheter # Voids 2 2 - Exam GENERAL: The patient is alert and oriented x3, not in any acute distress. Well developed, well nourished. HEENT: Pupils are round and equally reacting to light. EOMI. No scleral icterus. No conjunctival pallor. Normocephalic, atraumatic. No pharyngeal erythema. No thyromegaly. CARDIOVASCULAR: S1 and S2 present. No murmurs, rubs, or gallops. PULMONARY: Chest is clear to auscultation, no wheezing or crackles.-Acute on chronic hypercapnic and hypoxic respiratory failure secondary to COPD exa cerbation continue systemic steroids continue with levofloxacin there is a possibility of pneumonia ABDOMEN: Soft, nontender, nondistended, normoactive bowel sounds. No palpable organomegaly. MUSCULOSKELETAL: No joint swelling or deformity. EXTREMITIES: No cyanosis, clubbing, or pedal edema. NEUROLOGICAL: Gross neurological examination did not reveal any focal deficits. SKIN: No rashes. - Labs CBC & Chem 7: 03/07/24 06:04 03/07/24 06:04 Labs: Abnormal Lab Results - Last 24 Hours (Table) 03/06/24 03/06/24 03/06/24 Range/Units 11:24 12:59 12:59 WBC 18.4 H (3.8-10.6) k/uL RBC 3.69 L (3.80-5.40) m/uL Hgb 9.9 L (11.4-16.0) gm/dL Hct (37.2-46.3) % MCHC 29.0 L (31.0-37.0) g/dL RDW (11.5-14.5) % Plt Count 524 H (150-450) k/uL Immature Gran # (0.00-0.04) X 10*3/uL Neutrophils # 17.7 H (1.3-7.7) k/uL Lymphocytes # 0.1 L (1.0-4.8) k/uL Eosinophils # (0.04-0.35) X 10*3/uL NRBC/100 WBC Diff (0.00-0.01) X 10*3/uL Sodium 136 L (137-145) mmol/L Chloride (98-107) mmol/L Carbon Dioxide 32 H (22-30) mmol/L BUN 33 H (7-17) mg/dL Creatinine 0.43 L (0.52-1.04) mg/dL Glucose 140 H (74-99) mg/dL POC Glucose (mg/dL) 132 H (70-110) mg/dL 03/06/24 03/06/24 03/07/24 Range/Units 16:35 20:22 06:04 WBC 20.27 H (3.8-10.6) k/uL RBC 3.48 L (3.80-5.40) m/uL Hgb 9.5 L (11.4-16.0) gm/dL Hct 33.1 L (37.2-46.3) % MCHC 28.7 L (31.0-37.0) g/dL RDW 14.9 H (11.5-14.5) % Plt Count 488 H (150-450) k/uL Immature Gran # 0.45 H (0.00-0.04) X 10*3/uL Neutrophils # 18.74 H (1.3-7.7) k/uL Lymphocytes # 0.12 L (1.0-4.8) k/uL Eosinophils # 0 L (0.04-0.35) X 10*3/uL NRBC/100 WBC Diff 0.02 H (0.00-0.01) X 10*3/uL Sodium (137-145) mmol/L Chloride (98-107) mmol/L Carbon Dioxide (22-30) mmol/L BUN (7-17) mg/dL Creatinine (0.52-1.04) mg/dL Glucose (74-99) mg/dL POC Glucose (mg/dL) 138 H 136 H (70-110) mg/dL 03/07/24 Range/Units 06:04 WBC (3.8-10.6) k/uL RBC (3.80-5.40) m/uL Hgb (11.4-16.0) gm/dL Hct (37.2-46.3) % MCHC (31.0-37.0) g/dL RDW (11.5-14.5) % Plt Count (150-450) k/uL Immature Gran # (0.00-0.04) X 10*3/uL Neutrophils # (1.3-7.7) k/uL Lymphocytes # (1.0-4.8) k/uL Eosinophils # (0.04-0.35) X 10*3/uL NRBC/100 WBC Diff (0.00-0.01) X 10*3/uL Sodium (137-145) mmol/L Chloride 97 L (98-107) mmol/L Carbon Dioxide 38 H (22-30) mmol/L BUN 32 H (7-17) mg/dL Creatinine 0.48 L (0.52-1.04) mg/dL Glucose (74-99) mg/dL POC Glucose (mg/dL) (70-110) mg/dL Microbiology - Last 24 Hours (Table) 03/02/24 20:47 Blood Culture - Preliminary Blood 03/02/24 20:32 Blood Culture - Preliminary Blood Assessment and Plan Assessment: Acute on chronic hypoxic and hypercapnic respiratory failure secondary to COPD exacerbation continue systemic steroids continue with antibiotics as mentioned above Possible right middle lobe pneumonia: Continue with levofloxacin -Lung cancer, non-small cell on palliative radiation and Keytruda. -Recent pathological fractures pain management supportive care and radiation therapy -Sinus tachycardia may be due to intravascular volume depletion, IV fluids and will obtain TSH -Hypothyroidism -Depression DVT prophylaxis: Lovenox GI prophylaxis Pepcid
[2024-03-07] MEDS: polyethylene glycoL 3350 17 GM POWD.PACK PO SCH (20:16)
[2024-03-07 20:39] LABS: Glucose,Whole Blood 95 mg/dL (70-110)
[2024-03-08 05:42] LABS: Glucose,Whole Blood 76 mg/dL (70-110)
[2024-03-08 06:07] LABS: African American GFR (CKD) >90 (>60 ml/min/1.73 sqM); Anion Gap 5 mmol/L; Blood Urea Nitrogen 28 mg/dL (7-17); Calcium 8.9 mg/dL (8.4-10.2); Carbon Dioxide 32 mmol/L (22-30); Chloride 98 mmol/L (98-107); Glucose 66 mg/dL (74-99); Non-African American GFR(CKD) >90 (>60 ml/min/1.73 sqM); Potassium 4.6 mmol/L (3.5-5.1); Sodium 135 mmol/L (137-145)
[2024-03-08 08:43] VITALS: RESP 18
[2024-03-08 11:49] LABS: Glucose,Whole Blood 82 mg/dL (70-110)
[2024-03-08] MEDS: NYSTATIN 100,000 UNIT/ML SUSP 500,000 UNIT/5 ML CUP PO SCH (13:46)
[2024-03-08 15:16] VITALS: BP 147/72; PULSE 113; TEMP 98.1
--- NOTE | 2024-03-08 15:46 | P.PN ---
Subjective Progress Note Date: 03/08/24 Patient is an 78-year-old white female with past medical history significant for non-small cell lung cancer status post chemoradiation with disease recurrence, COPD, chronic hypoxemic respiratory failure on 3 L/min nasal cannula, hypertension, hypothyroidism, among other things. Her primary care provider is Dr. Deyanira Riggins. Her oncologist is, Dr. Ovidio Murphy, out of the [facility] system. She states that she was originally diagnosed with lung cancer back in 2019, she was originally treated with chemo/radiation and immunotherapy and developed the disease recurrence. She states that she has metastasis to the bones. She was restarted on Keytruda November,. She states that she was doing well until this point. Since then she has been progressively more weak. She has had limited appetite. She becomes short of breath with limited activity. She chronically wears 3 L/min nasal cannula. Over the last week or so she has been even more short of breath. She has a pulse oximeter at home, and noted her oxygen to drop as low as 81%. She finally decided to go to the emergency room yesterday afternoon. She is currently lying in bed, on 4 L/min nasal cannula, in no acute distress. Denies any significant change in her chronic cough. No sputum production or hemoptysis. Denies fevers at home. Denies sick contacts. She states that she has rib fractures bilaterally and t his produces some pain with movement and coughing. Chest x-ray done on arrival showed some mild cardiomegaly and possible pulmonary vascular congestion. No obvious focal infiltrates. NT proBNP only mildly elevated 822. Troponins less than 0.012 x 3. She is tachycardic. I did send for a D-dimer which was elevated at 2.68. Chest CT angio protocol is pending. No history of pulmonary embolism. CBC on arrival: WBC count 19.6, hemoglobin 9.7, hematocrit 31.9, platelets 497. BMP on arrival: Sodium 134, potassium 4.7, chloride 96, serum bicarb 34, BUN 19, creatinine 0.3, glucose 107. Patient was empirically started on Zosyn in the emergency room, also received a dose of Levaquin. Temperature 99.6 F. Vital signs stable. On today's evaluation of 03/04/2024, the patient is being seen for a follow-up. Slightly improved compared to yesterday. She feels less short of breath. She is still on a combination of bronchodilators with DuoNeb updrafts, she is on Symbicort and she is also on IV Solu-Medrol 60 mg every 6 hours. She is on Levaquin as an empiric antibiotic coverage. She is on Levemir insulin 10 units along with a sliding scale coverage. She remains on oxygen at 2 L/min nasal cannula. She does have some underlying sinus tachycardia. Echo was completed today and it showed a preserved LV function, mild aortic stenosis. White cell count is 21.4, hemoglobin 9.8, and sodium is at 136 with a BUN of 20 and a creatinine of 0.35. Procalcitonin level was 0.15. TSH is 1.1. 03/05/2024, I am seeing the patient for a follow-up. The patient is feeling less short of breath compared to yesterday. She is responding to the combination of bronchodilators and steroids. She is also on Symbicort. No new complaints otherwise for now. She is on 3 L of oxygen by nasal cannula. She continues to have some sinus tachycardia. Otherwise, no other complaints. She remains on L evemir insulin 10 units daily along with a sign scale coverage and the rest of the medication remains unchanged. The patient is on Cardizem 180 mg p.o. daily for rate control. On 03/06/2024, the patient is being seen for a follow-up. The patient is doing better. Less short of breath. Less bronchospastic and wheezy. She encountered some insomnia which prior related to systemic steroid that she is receiving. Feeling better. Trying to ambulate. Overall, feeling weak yet less short of breath. WBC count is at 18 with a hemoglobin 9.9 with a platelet count of 524. BUN 33 with creatinine 0.4 and sodium levels at 136 and a potassium level is at 4.2. Remains on bronchodilators. Remains on IV Solu-Medrol and the dose will be tapered down today. IV fluids are 20 cc an hour. She is on empiric antibiotic coverage with Levaquin. 03/07/2024, patient is being seen for a follow-up. Less short of breath and less bronchospastic and wheezy. No new complaints otherwise for now. On 3 L a pulse ox above 90%. She is also being gradually weaned off the FiO2. Remains on IV Solu-Medrol patient was having some issues with insomnia which was treated with Gabrielien overnight that she was able to sleep adequately. She is on Levemir insulin 10 units and a sliding scale coverage. She has Symbicort and DuoNeb updrafts. 03/08/2024, the patient is feeling well and she feels that her breathing is back to his baseline. No significant shortness of breath. Ambulating. She is currently on 3 L of oxygen nasal cannula with a pulse ox of 93 to 94%. Sodium levels at 135, BUN 28 with a creatinine of 0.4 and the serum bicarb is at 32. She remains on DuoNeb updrafts. She was on IV Solu-Medrol and the patient will be started on prednisone burst taper patient is on Levemir insulin 10 units hermann ng with a sliding scale insulin coverage. No altered mentation. No chest pain. Maintained on Trelegy Ellipta on outpatient basis. Objective - Vital Signs Vital signs: Vital Signs Temp 98.9 F 03/08/24 10:50 Pulse 104 H 03/08/24 11:46 Resp 18 03/08/24 10:50 BP 178/74 03/08/24 10:50 Pulse Ox 93 L 03/08/24 10:50 FiO2 Intake & Output 03/07/24 03/08/24 03/08/24 18:59 06:59 18:59 Output Total 400 Balance -400 Output: Urine 400 Other: Voiding Method Toilet Toilet External Catheter External Catheter # Voids 1 - Exam GENERAL EXAM: Alert, 78-year-old white female, comfortable in no apparent distress. The patient is currently on 3 days of oxygen by nasal cannula. HEAD: Normocephalic and atraumatic EYES: Normal reaction of pupils, equal size. NOSE: Clear with pink turbinates. THROAT: No erythema or exudates. NECK: No masses, no JVD. CHEST: No chest wall deformity. LUNGS: Equal air entry with no crackles, wheeze, rhonchi or dullness. On 2 L/min nasal cannula. No conversational dyspnea or accessory muscle use while at rest CVS: S1 and S2 normal with no audible murmur, regular rhythm. No extra heart sounds ABDOMEN: No hepatosplenomegaly, active bowel sounds, no guarding or rigidity. SPINE: No scoliosis or deformity SKIN: No rashes CENTRAL NERVOUS SYSTEM: No focal deficits, tone is normal in all 4 extremities. EXTREMITIES: There is no peripheral edema, clubbing, or cyanosis. Peripheral pulses are intact - Labs CBC & Chem 7: 03/07/24 06:04 03/08/24 05:35 Labs: Abnormal Lab Results - Last 24 Hours (Table) 03/07/24 03/08/24 Range/Units 16:20 05:35 Sodium 135 L (137-145) mmol/L Carbon Dioxide 32 H (22-30) mmol/L BUN 28 H (7-17) mg/dL Creatinine 0.43 L (0.52-1.04) mg/dL Glucose 66 L (74-99) mg/dL POC Glucose (mg/dL) 122 H (70-110) mg/dL Assessment and Plan Assessment: Acute on chronic hypoxemic respiratory failure, possibly secondary to acute COPD exacerbation, chest x-ray done on admission does not show any focal infiltrates or evidence of pneumonia, there is a persistent right medial lung density. Radiologist suggested cardiomegaly with mild pulmonary vascular congestion and possible congestive heart failure exacerbation. NT proBNP only mildly elevated 800. Overall presentation more consistent with COPD exacerbation the patient responded to the bronchodilators and steroid regimen. History of non-small cell lung cancer with metastasis within the chest and bone. Reportedly originally diagnosed back in 2019, and was status post c hemo/radiation and immunotherapy. Had disease recurrence and restarted on Keytruda November,. Reportedly scheduled for a treatment tomorrow, which will now be postponed. Follows with her oncologist out of the [facility] system. Follow up chest CT showed posttreatment changes of the right lung with right-sided volume loss. There is a persistent, more prominent right suprahilar consolidation extending posteriorly with air bronchograms, consistent with above. Acute leukocytosis, white cell count remained stable Sinus tachycardia, improved Elevated D-dimer, Chest CT angio does not demonstrate any filling defects consistent with pulmonary embolism. Chronic obstructive pulmonary disease, maintained on Trelegy inhaler, as well as as needed DuoNebs and albuterol inhaler on an outpatient basis Former tobacco dependence History of hypothyroidism History of hypertension Plan: Overall respiratory status is stable and the patient is feeling that she is back to her baseline or close to her baseline respiratory status Continue DuoNeb updrafts The patient should be able to go home on Trelegy Ellipta 1 puff a day, albuterol nebulized treatments [id number] and prednisone burst taper Ambien 5 mg as needed overnight for insomnia. Continue antibiotics the patient is currently on Levaquin Check procalcitonin level mildly elevated at 0.15 Elevated D-dimer was noted, CT angio protocol did not demonstrate any evidence of pulmonary embolism. Echocardiogram shows a preserved LV function with mild aortic stenosis Continue oral Cardizem Possible discharge home today to be followed up on outpatient basis.
--- NOTE | 2024-03-08 21:01 | DS ---
DISCHARGE SUMMARY FINAL DIAGNOSES: 1. Chronic obstructive pulmonary disease acute exacerbation, acute on chronic hypoxic respiratory failure. 2. Lung cancer. 3. Recent pathological fracture. 4. Sinus tachycardia. 5. Multiple medical issues. DISCHARGE DISPOSITION: The patient will be discharged in stable condition with guarded prognosis. HISTORY OF PRESENT ILLNESS: This is an 78-year-old woman with a past medical history of multiple medical problems, admitted with COPD acute exacerbation, and multiple complex medical issues, treated with intravenous steroids, bronchodilators. The patient will be closely monitored. Dr. Aragon saw the patient and the patient will be discharged. Cardiology also saw the patient. A 2D echo with Doppler was done, which showed normal ejection fraction. The patient will be discharged in stable condition and guarded prognosis. PHYSICAL EXAMINATION: VITAL SIGNS: Stable. CARDIOVASCULAR: S1, S2 normal. RESPIRATIONS: A few scattered rhonchi. The patient will be discharged on tapering steroids and Cardizem CD 180 mg p.o. daily, DuoNeb q.i.d. and p.r.n. and continue the rest of medications. Please refer to the discharge reconciliation medication list for list of medications. Follow up with Dr. Deyanira Riggins in 1 to 2 days. Follow up with Dr. Aragon in 1 week. MMODL / IJN: [id number] /
== END 2024-03-08 15:52 | disposition home health service (06) | DRG 190 ==
LOC: EC 15:17 → 3SCARD 19:23 → 4SSUR 03-04 11:56
PROVIDERS: ADMIT Hospitalist; ATTEND Hospitalist
DX: J44.1 Chronic obstructive pulmonary disease with (acute) exacerbation (principal); J18.9 Pneumonia, unspecified organism; J96.21 Acute and chronic respiratory failure with hypoxia; J96.22 Acute and chronic respiratory failure with hypercapnia; S22.43XA Multiple fractures of ribs, bilateral, initial encounter for closed fracture; C34.90 Malignant neoplasm of unspecified part of unspecified bronchus or lung; J44.0 Chronic obstructive pulmonary disease with (acute) lower respiratory infection; E03.9 Hypothyroidism, unspecified; E86.9 Volume depletion, unspecified; Z79.890 Hormone replacement therapy; K21.9 Gastro-esophageal reflux disease without esophagitis; F32.A Depression, unspecified; M79.7 Fibromyalgia; M85.88 Other specified disorders of bone density and structure, other site; J30.2 Other seasonal allergic rhinitis; Z79.899 Other long term (current) drug therapy; G47.00 Insomnia, unspecified; F41.9 Anxiety disorder, unspecified; T38.0X5A Adverse effect of glucocorticoids and synthetic analogues, initial encounter; R00.0 Tachycardia, unspecified; I08.3 Combined rheumatic disorders of mitral, aortic and tricuspid valves; X58.XXXA Exposure to other specified factors, initial encounter; Z85.118 Personal history of other malignant neoplasm of bronchus and lung; Z82.49 Family history of ischemic heart disease and other diseases of the circulatory system; Z87.891 Personal history of nicotine dependence; Z90.49 Acquired absence of other specified parts of digestive tract; Z92.21 Personal history of antineoplastic chemotherapy; Z92.3 Personal history of irradiation; Z87.19 Personal history of other diseases of the digestive system
CPT/HCPCS: 36415; 71045; 71275; 80048; 80053; 83036; 83735; 83880; 84100; 84145; 84443; 84484; 85025; 85027; 85379; 85610; 85730; 87040; 87449; 93005; 93306; 94640; 94760; 96365; 96366; 96368; 96375; 96376; 99291

== ENCOUNTER 2024-03-10 00:52 | Observation (INO) | payer MEDICARE ==
[2024-03-10] MEDS: HYDROmorphone 0.5 MG/0.5 ML SYRINGE IVP STA (02:12)
[2024-03-10] MEDS: SODIUM CHLORIDE 0.9% 500 ML 500 ML IV STA (02:17)
[2024-03-10 02:46] LABS: Basophils # (A) 0.1 k/uL (0-0.2); Basophils % (A) 0 %; Eosinophils # (A) 0.1 k/uL (0-0.7); Eosinophils % (A) 0 %; HCT 36.3 % (34.0-46.0); Hypochromasia Moderate; Lymphocytes # (A) 0.2 k/uL (1.0-4.8); Lymphocytes % (A) 1 %; MCH 27.5 pg (25.0-35.0); MCHC 30.4 g/dL (31.0-37.0); MCV 90.6 fL (80.0-100.0); Mean Platelet Volume 7.8; Monocytes % (A) 4 %; Neutrophils # (A) 24.1 k/uL (1.3-7.7); Neutrophils % (A) 94 %; Platelet Count 355 k/uL (150-450); RDW 14.6 % (11.5-15.5); WBC 25.7 k/uL (3.8-10.6)
[2024-03-10 02:54] LABS: ALT 39 U/L (4-34); AST 45 U/L (14-36); African American GFR (CKD) >90 (>60 ml/min/1.73 sqM); Albumin 2.7 g/dL (3.5-5.0); Alkaline Phosphatase 235 U/L (38-126); Anion Gap 5 mmol/L; Blood Urea Nitrogen 25 mg/dL (7-17); Calcium 8.1 mg/dL (8.4-10.2); Carbon Dioxide 29 mmol/L (22-30); Chloride 101 mmol/L (98-107); Glucose 55 mg/dL (74-99); Non-African American GFR(CKD) >90 (>60 ml/min/1.73 sqM); Potassium 3.9 mmol/L (3.5-5.1); Sodium 135 mmol/L (137-145); Total Bilirubin 0.9 mg/dL (0.2-1.3); Total Protein 4.9 g/dL (6.3-8.2)
[2024-03-10] MEDS: MORPHINE SULFATE 4 MG/ML SYRINGE IV STA (02:54)
--- NOTE | 2024-03-10 03:54 | ED ---
Altered Mental Status HPI - General Chief Complaint: Altered Mental Status Stated Complaint: Difficulty Breathing Time Seen by Provider: 03/10/24 01:00 Source: EMS Mode of arrival: EMS Limitations: altered mental status - History of Present Illness Initial Comments: Patient is an 78-year-old woman with history of lung cancer and COPD. Patient reportedly was diagnosed with pneumonia and discharged back to home but patient with now poorly responsive and remain short of breath. Patient not able to give history due to altered mental status MD Complaint: altered mental status -: days(s) Severity: severe Consistency of Symptoms: getting worse Context: cancer, COPD - Related Data Home Medications Medication Instructions Recorded Confirmed Montelukast [Singulair] 10 mg PO HS 06/09/18 03/10/24 Baclofen [Lioresal] 20 mg PO BID-W/MEALS 03/25/19 03/10/24 Levothyroxine Sodium [Synthroid] 50 mcg PO DAILY 03/25/19 03/10/24 Albuterol Inhaler [Ventolin Hfa 2 puff INHALATION RT-Q4H PRN 01/30/21 03/10/24 Inhaler] Multivitamins, Thera [Multivitamin 1 tab PO DAILY 01/31/21 03/10/24 (formulary)] Losartan Potassium 100 mg PO DAILY 12/08/21 03/10/24 Venlafaxine HCl [Effexor XR] 150 mg PO DAILY 12/08/21 03/10/24 Famotidine [Pepcid] 20 mg PO BID 03/02/24 03/10/24 Ibuprofen [Motrin] 800 mg PO TID PRN 03/02/24 03/10/24 Ipratropium-Albuterol Nebulize 3 ml INHALATION RT-QID PRN 03/02/24 03/10/24 [Duoneb 0.5 mg-3 mg/3 ml Soln] Lidocaine 5% Patch [Lidoderm 5% 1 patch TOPICAL DAILY 03/02/24 03/10/24 Patch] Lidocaine-Prilocaine Cream [Emla 1 applic TOPICAL DAILY PRN 03/02/24 03/10/24 Cream 2.5%/2.5%] Magnesium Oxide [Mag-Ox] 400 mg PO DAILY 03/02/24 03/10/24 Naloxone HCl [Narcan] 4 mg NASAL DIRECTED PRN 03/02/24 03/10/24 Sennosides/Docusate Sodium 1 tab PO BID PRN 03/02/24 03/10/24 [Senna-S 8.6-50 mg Tablet] fentaNYL 12MCG/HR PATCH [Duragesic 1 patch TRANSDERM Q72H 03/02/24 03/10/24 12MCG/HR] oxyCODONE HCL [OxyIR] 5 mg PO Q8H 03/02/24 03/10/24 predniSONE See Taper PO DIRECTED 03/10/24 03/10/24 Previous Rx's Medication Instructions Recorded Diltiazem Cd [Cardizem CD] 180 mg PO DAILY #30 cap 03/08/24 Fluticasone/Umeclidin/Vilanter 1 puff INHALATION RT-DAILY 30 Days 03/08/24 [Trelegy Ellipta 200-62.5-25] #1 each Ipratropium-Albuterol Nebulize 3 ml INHALATION RT-QID each 03/08/24 [Duoneb 0.5 mg-3 mg/3 ml Soln] Nystatin 100,000 Unit/ml Susp 500,000 unit PO QID #120 ml 03/08/24 [Mycostatin Oral Susp] Allergies Allergy/AdvReac Type Severity Reaction Status Date / Time meperidine HCl [From Demerol] Allergy Severe Anaphylaxis Verified 03/10/24 10:45 ciprofloxacin [From Cipro] AdvReac Severe Nausea & Verified 03/10/24 10:45 Vomiting morphine AdvReac Severe Vomiting Verified 03/10/24 10:45 Sulfa (Sulfonamide AdvReac Severe Nausea & Verified 03/10/24 10:45 Antibiotics) Vomiting sulfamethoxazole AdvReac Severe Nausea & Verified 03/10/24 10:45 [From Bactrim] Vomiting trimethoprim [From Bactrim] AdvReac Severe Nausea & Verified 03/10/24 10:45 Vomiting Review of Systems ROS Statement: Those systems with pertinent positive or pertinent negative responses have been documented in the HPI. ROS Other: All systems not noted in ROS Statement are negative. Limitations: ROS unobtainable due to patients medical condition Past Medical History Past Medical History: Asthma, Cancer, COPD, Fibromyalgia, Hypertension, Osteoarthritis (OA), Thyroid Disorder Additional Past Medical History / Comment(s): Lung cancer 2019 s/p chemo and radiation, recurrence of lung cancer (stage 4) in 2020. Arthritis,depression, osteopenia and seasonal allergies. 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 History of Any Multi-Drug Resistant Organisms: None Reported Past Surgical History: Back Surgery, Breast Surgery, Cholecystectomy, Orthopedic Surgery Additional Past Surgical History / Comment(s): D&C 1972. Colonoscopy with upper endoscopy 2018(next after 5yrs)., MULTIPLE LT HAND SX R/T INJURY. Lumbar laminectomy, hand surgery and breast biopsy. Transesophageal lung biopsy. Ch olecystectomy 2022. Past Anesthesia/Blood Transfusion Reactions: Postoperative Nausea & Vomiting (PONV) Additional Past Anesthesia/Blood Transfusion Reaction / Comment(s): no previous blood transfusion Past Psychological History: Anxiety, Depression Smoking Status: Former smoker Past Alcohol Use History: Rare Past Drug Use History: Marijuana - Past Family History Brother(s) Family Medical History: Cancer, Myocardial Infarction ([place]), Renal Disease Additional Family Medical History / Comment(s): Esophageal cancer, melanoma of the sinuses which led to brain metastases. Renal failure. Another brother had an VA. Sister(s) Family Medical History: Cancer Additional Family Medical History / Comment(s): Cervical cancer. Another sister had endometrial cancer and another sister had breast cancer. Mother Family Medical History: Cancer Additional Family Medical History / Comment(s): Hodgkin's lymphoma with widespread cancer. Son(s) Family Medical History: Cancer Additional Family Medical History / Comment(s): Cholangiocarcinoma. . Niece Family Medical History: Cancer Additional Family Medical History / Comment(s): Breast cancer, positive for BRCA gene. This is her son's daughter. General Exam Limitations: altered mental status General appearance: obtunded Head exam: Present: atraumatic, normocephalic Eye exam: Present: normal appearance ENT exam: Present: mucous membranes dry Neck exam: Present: normal inspection Respiratory exam: Present: respiratory distress (Mild tachypnea), wheezes, rhonchi. Absent: rales, stridor Cardiovascular Exam: Present: tachycardia. Absent: diastolic murmur, rubs, gallop GI/Abdominal exam: Present: soft. Absent: distended, tenderness, guarding, r ebound Extremities exam: Present: normal inspection, normal capillary refill. Absent: calf tenderness Neurological exam: Present: altered Skin exam: Present: warm, dry, intact, mottled. Absent: normal color, rash Course Vital Signs 03/10/24 03/10/24 03/10/24 01:03 04:43 06:10 Temperature 97.8 F Pulse Rate 117 H 118 H 112 H Respiratory 22 20 19 Rate Blood Pressure 130/83 135/73 135/73 O2 Sat by Pulse 99 95 96 Oximetry Medical Decision Making - Medical Decision Making This note this is a repeat dictation the original appears to have been lost from the system Patient is 78-year-old woman with history of cancer and COPD here with altered mental status and mild respiratory distress. The discussion with family reveals that they would prefer hospice consult and focusing on comfort care at this point. Case discussed with the admitting physician and patient will have hospice consult. Additional analgesia provided Was pt. sent in by a medical professional or institution (, GABI, BUSINESS TRAVEL CONSULTANT, urgent care, hospital, or retirement...) When possible be specific @ -[No] Did you speak to anyone other than the patient for history (EMS, parent, family, police, friend...)? What history was obtained from this source @ -[Family gives majority of history Did you review nursing and triage notes (agree or disagree)? Why? @ -[I reviewed and agree with nursing and triage notes] Were old charts reviewed (outside hosp., previous admission, EMS record, old EKG, old radiological studies, urgent care reports/EKG's, retirement records)? Report findings @ -[No old charts were reviewed] Differential Diagnosis (chest pain, altered mental status, abdominal pain women, abdominal pain men, vaginal bleeding, weakness, fever, dyspnea, syncope, headache, dizziness, GI bleed, back pain, seizure, CVA, palpatations, mental health, musculoskeletal)? @ -[Differential Dyspnea: Coronary syndrome, arrhythmia, tamponade, asthma, COPD, pulmonary embolism, pneumonia, pneumothorax, pulmonary effusion, anaphylaxis, diabetic ketoacidosis, flailed chest, pulmonary contusion, diaphragmatic rupture, anemia, neuromuscular, this is not meant to be an all-inclusive list. EKG interpreted by me (3pts min.). @ -[As above] X-rays interpreted by me (1pt min.). @ -[None done] CT interpreted by me (1pt min.). @ -[None done] U/S interpreted by me (1pt. min.). @ -[None done] What testing was considered but not performed or refused? (CT, X-rays, U/S, labs)? Why? @ -[None] What meds were considered but not given or refused? Why? @ -[None] Did you discuss the management of the patient with other professionals (professionals i.e. , PA, BUSINESS TRAVEL CONSULTANT, lab, RT, psych nurse, social director, stone crusher operator, teacher, licensed loan officer assistant, case folder)? Give summary @ -[No] Was smoking cessation discussed for >3mins.? @ -[No] Was critical care preformed (if so, how long)? @ -[No] Were there social determinants of health that impacted care today? How? (Homelessness, low income, unemployed, alcoholism, drug addiction, trans portation, low edu. Level, literacy, decrease access to med. care, long term, rehab)? @ -[No] Was there de-escalation of care discussed even if they declined (Discuss DNR or withdrawal of care, Hospice)? DNR status @ -[Yes, patient will have admission and hospice consultation. What co-morbidities impacted this encounter? (DM, HTN, Smoking, COPD, CAD, Cancer, CVA, ARF, Chemo, Hep., AIDS, mental health diagnosis, sleep apnea, morbid obesity)? @ -[History of cancer and COPD Was patient admitted / discharged? Hospital course, mention meds given and route, prescriptions, significant lab abnormalities, going to OR and other pertinent info. @ -[Patient is admitted with comfort care pending hospice consultation Undiagnosed new problem with uncertain prognosis? @ -[No] Drug Therapy requiring intensive monitoring for toxicity (Heparin, Nitro, Insulin, Cardizem)? @ -[No] Were any procedures done? @ -[No] Diagnosis/symptom? @ -[Pneumonia COPD Lung cancer Acute, or Chronic, or Acute on Chronic? @ -[Chronic Uncomplicated (without systemic symptoms) or Complicated (systemic symptoms)? @ -[Complicated by mental status change Side effects of treatment? @ -[No] Exacerbation, Progression, or Severe Exacerbation? @ -[No] Poses a threat to life or bodily function? How? (Chest pain, [place], [place], pneumonia, PE, COPD, DKA, ARF, appy, cholecystitis, CVA, Diverticulitis, Homicidal, Suicidal, threat to staff... and all critical care pts) @ -[Yes, they have elected hospice care - Lab Data Result diagrams: 03/10/24 02:34 03/10/24 02:34 Lab Results 03/10/24 03/10/24 03/10/24 Range/Units 02:34 02:34 02:34 WBC 25.7 H (3.8-10.6) k/uL RBC 4.00 (3.80-5.40) m/uL Hgb 11.0 L (11.4-16.0) gm/dL Hct 36.3 (34.0-46.0) % MCV 90.6 (80.0-100.0) fL MCH 27.5 (25.0-35.0) pg MCHC 30.4 L (31.0-37.0) g/dL RDW 14.6 (11.5-15.5) % Plt Count 355 (150-450) k/uL MPV 7.8 Neutrophils % 94 % Lymphocytes % 1 % Monocytes % 4 % Eosinophils % 0 % Basophils % 0 % Neutrophils # 24.1 H (1.3-7.7) k/uL Lymphocytes # 0.2 L (1.0-4.8) k/uL Monocytes # 1.0 (0-1.0) k/uL Eosinophils # 0.1 (0-0.7) k/uL Basophils # 0.1 (0-0.2) k/uL Hypochromasia Moderate Sodium 135 L (137-145) mmol/L Potassium 3.9 (3.5-5.1) mmol/L Chloride 101 (98-107) mmol/L Carbon Dioxide 29 (22-30) mmol/L Anion Gap 5 mmol/L BUN 25 H (7-17) mg/dL Creatinine 0.41 L (0.52-1.04) mg/dL Est GFR (CKD-EPI)AfAm >90 (>60 ml/min/1.73 sqM) Est GFR (CKD-EPI)NonAf >90 (>60 ml/min/1.73 sqM) Glucose 55 L (74-99) mg/dL Plasma Lactic Acid Renato 1.1 (0.7-2.0) mmol/L Calcium 8.1 L (8.4-10.2) mg/dL Total Bilirubin 0.9 (0.2-1.3) mg/dL AST 45 H (14-36) U/L ALT 39 H (4-34) U/L Alkaline Phosphatase 235 H (38-126) U/L Total Protein 4.9 L (6.3-8.2) g/dL Albumin 2.7 L (3.5-5.0) g/dL Disposition Clinical Impression: Dehydration Disposition: ADMITTED IP TO THIS HOSP
[2024-03-10] MEDS ORDERED: NALOXONE 0.4 MG/ML 1 ML VIAL IV PRN (03:55)
[2024-03-10] MEDS ORDERED: HYDROmorphone 0.5 MG/0.5 ML SYRINGE IVP PRN (03:55)
[2024-03-10] MEDS ORDERED: ACETAMINOPHEN TAB 325 MG TAB PO PRN (03:55)
[2024-03-10] MEDS: SODIUM CHLORIDE 0.9% 1,000 ML IV SCH (04:36)
[2024-03-10 08:56] VITALS: BP 147/78; PULSE 117; RESP 16; TEMP 98.1
--- NOTE | 2024-03-10 12:30 | HP ---
HISTORY AND PHYSICAL CHIEF COMPLAINT: Dehydration and shortness of breath. HISTORY OF PRESENT ILLNESS: This is an 78-year-old woman with a past medical history of multiple medical problems including COPD and lung cancer, was recently admitted with shortness of breath. The patient improved significantly and the patient was sent home, but currently the patient had dehydration and shortness of breath. The patient was taken back to the hospital. The patient is followed by Dr. Deyanira Riggins in the outpatient. Family has already talked to hospice and they would like to transfer the patient to hospice at this time. Currently, the patient is stuporous, most history was taken by discussion with staff, review of the chart, and discussion with family. PAST MEDICAL HISTORY: Reviewed include COPD, lung cancer, status post chemo radiation. Rest of the history and rest of the chart is also reviewed. HOME MEDICATIONS: Reviewed include prednisone. Doses and rest of medications reviewed. ALLERGIES: Reviewed include Demerol. Rest of the allergies noted. FAMILY HISTORY: Could not be taken. SOCIAL HISTORY: Could not be taken. REVIEW OF SYSTEMS: Could not be taken. PHYSICAL EXAMINATION: VITAL SIGNS: Pulse is 117, blood pressure 147/70, respirations 16. HEENT: Oral mucosa dry. CHEST: A few scattered rhonchi and crackles. ABDOMEN: Soft. NERVOUS SYSTEM: The patient is sedated. LABORATORY DATA: Reviewed. ASSESSMENT: 1. Chronic obstructive pulmonary disease acute exacerbation. 2. Lung cancer. 3. Dehydration. 4. Change in mental status, metabolic encephalopathy. 5. Elevated WBC. 6. History of asthma, chronic obstructive pulmonary disease. 7. Hypertension. 8. History of degenerative joint disease. 9. Multiple complex medical issues. 10.No code. No CPR. No vent. 11.Comfort measures and hospice. RECOMMENDATIONS AND DISCUSSION: I recommend to continue current management. Continue symptomatic treatment. Hospice was consulted and recommended GIP. Otherwise, closely follow with hospice and prognosis is extremely guarded. Further recommendations to follow. The patient had stage IV lung cancer, prognosis is extremely guarded. See orders for further details. Discussed with family at length. MMODL / IJN: [id number] /
== END 2024-03-10 11:55 | disposition hospice, inpatient (51) ==
LOC: EC 00:52 → 5NMEDONC 03:57
PROVIDERS: ADMIT Internal Medicine; ATTEND Internal Medicine
DX: R06.02 Shortness of breath (principal); R41.82 Altered mental status, unspecified; E86.0 Dehydration; J44.1 Chronic obstructive pulmonary disease with (acute) exacerbation; M79.7 Fibromyalgia; M85.80 Other specified disorders of bone density and structure, unspecified site; Z80.49 Family history of malignant neoplasm of other genital organs; Z80.7 Family history of other malignant neoplasms of lymphoid, hematopoietic and related tissues; Z80.8 Family history of malignant neoplasm of other organs or systems; Z82.49 Family history of ischemic heart disease and other diseases of the circulatory system; Z85.118 Personal history of other malignant neoplasm of bronchus and lung; Z87.891 Personal history of nicotine dependence; Z80.3 Family history of malignant neoplasm of breast; Z80.0 Family history of malignant neoplasm of digestive organs; Z92.3 Personal history of irradiation; Z92.21 Personal history of antineoplastic chemotherapy; Z90.49 Acquired absence of other specified parts of digestive tract; C34.90 Malignant neoplasm of unspecified part of unspecified bronchus or lung
CPT/HCPCS: 96361; 96365; 99284; 36415; 94760; 80053; 83605; 85025; 87636; G0378; J1170

== ENCOUNTER 2024-03-10 10:55 | Inpatient (IN) | payer MEDICAID ==
[2024-03-10] MEDS ORDERED: LORazepam 2 MG/ML INJ IV PRN (12:12)
[2024-03-10] MEDS ORDERED: HYDROmorphone 0.5 MG/0.5 ML SYRINGE IVP PRN (12:12)
[2024-03-10] MEDS ORDERED: ONDANSETRON 4 MG/2 ML VIAL IVP PRN (12:12)
[2024-03-10] MEDS: SCOPOLAMINE 1 MG/72 HR PATCH TRANSDERM SCH (12:59)
[2024-03-10] MEDS: HYDROmorphone 1 MG/ML 1 ML SYRINGE IVP PRN (12:59)
[2024-03-10] MEDS: bisacodyL 10 MG SUPP RECTAL PRN (16:01)
[2024-03-10] MEDS: GLYCOPYRROLATE 0.2 MG/ML 2 ML VIAL IVP PRN (21:13)
[2024-03-11] MEDS: ATROPINE OPHTH SOLN 1% 5ML BTL SUBLINGUAL PRN (00:03)
[2024-03-11] MEDS ORDERED: LORazepam 1 MG/0.5 ML VIAL IV PRN (00:36)
== END 2024-03-11 08:45 | disposition expired | DRG 951 ==
LOC: 5NMEDONC 11:55
PROVIDERS: ADMIT Internal Medicine; ATTEND Internal Medicine
DX: Z51.5 Encounter for palliative care (principal); G93.41 Metabolic encephalopathy; C34.90 Malignant neoplasm of unspecified part of unspecified bronchus or lung; J44.1 Chronic obstructive pulmonary disease with (acute) exacerbation; Z66 Do not resuscitate; E86.0 Dehydration; D72.829 Elevated white blood cell count, unspecified; I10 Essential (primary) hypertension; M19.90 Unspecified osteoarthritis, unspecified site; Z79.899 Other long term (current) drug therapy; Z92.21 Personal history of antineoplastic chemotherapy; Z92.3 Personal history of irradiation; Z88.5 Allergy status to narcotic agent